=== PATIENT | male | born 1940 | race Caucasian/White ===

== ENCOUNTER 2017-10-03 11:42 | Inpatient (IN) | payer OTHER ==
[~2017-10-03] VITALS: Ht 182.9 cm; Wt 84.5 kg
[~2017-10-03 11:42] MED LIST: ASPITAB PO; FINA5TAB PO; LAMO100T16 PO; LEVO75TA5 PO; MULT-506 PO; ROSU5TAB PO; TAMS0.4C38 PO
[2017-10-03] MEDS ORDERED: ASPI81TA28 PO (12:13)
[2017-10-03] MEDS ORDERED: LEVO75TA5 PO (12:13)
[2017-10-03] MEDS ORDERED: LEVO50TA6 PO (12:20)
--- NOTE | 2017-10-03 12:20 | EMERGENCY ROOM VISIT NOTE ---
History Report prepared by Jd: Renetta Medina Under the Supervision of: Dr. Edwin Blackwell M.D. First contact with patient: 11:58 Chief Complaint: ABNORMAL LABS Stated Complaint: WBC/RBC OFF, INFECTION, YELLOW JAUNDICE History of Present Illness The patient is a 77 year old male who presents to the Emergency Room with complaints of a persistent illness that began several days ago. He currently rates his discomfort as a 7/10 in severity. Per the patient's , the patient recently started feeling ill. She states that the patient developed a rash over his entire body and was found to be allergic to the soap he used. The patient's states that the patient was started on oral steroids and an anti-itch cream. She states that the rash resolved for the most part and states that the patient finished the steroids. The patient's states that the patient has had blood work done that revealed a high white blood cell count and a low red blood cell count. She additionally notes that the patient has appeared jaundiced. The patient's states that the patient has been short of breath for several days. She states that the patient had a headache a few days ago. The patient's states that the patient has had chills, but denies any recorded temperatures. She denies the patient getting a flu shot. The patient reports a cough. The patient's states that she was sick with a cough two weeks ago. She states that the patient has a history of a cholecystectomy and was found to have a stone in his liver in the past. The patient reports a history of congestive heart failure. He denies any abdominal pain, urinary symptoms, melena, hematochezia, or pain or swelling in his lower extremities. The patient denies any recent fall or trauma. Source of History: patient, spouse/significant other Onset: several days ago Position: other (global) Symptom Intensity: 7/10 Quality: other (illness) Timing: other (persistent) Associated Symptoms: + chills, + headache, + SOB, + rash, No fevers, No abdominal pain, No melena, No hematochezia, No urinary symptoms Review of Systems See HPI for pertinent positives & negatives. A total of 10 systems reviewed and were otherwise negative. Past Medical & Surgical Medical Problems: (1) Congestive heart failure Surgical Problems: (1) Hx of cholecystectomy Old medical records were reviewed. Nurse's notes were reviewed and I agree with. Family History No pertinent family history stated. Social History Smoking Status: Never Smoker Marital Status: Housing Status: lives with family Occupation Status: retired Current/Historical Medications Scheduled Aspirin (Aspirin Ec), 81 MG PO DAILY Finasteride (Proscar), 5 MG PO DAILY Levothyroxine Sodium (Levothyroxine Sodium), 1 TAB PO Q2D Levothyroxine Sodium (Levothyroxine Sodium), 1 TAB PO Q2D Multivitamin (Multivitamin), 1 TAB PO DAILY Rosuvastatin Calcium (Crestor), 5 MG PO HS Tamsulosin Hcl (Flomax), 0.4 MG PO BID Allergies Coded Allergies: No Known Allergies (Unverified , 10/03/17) Physical Exam Vital Signs Date Time Temp Pulse Resp B/P (MAP) Pulse Ox O2 Delivery O2 Flow Rate FiO2 10/03/17 13:44 98 108/84 95 Room Air 10/03/17 11:48 36.5 105 20 115/63 96 Room Air Physical Exam General: Non-ill appearing older male in no acute distress. HEENT: Normal cephalic atraumatic. Pupils are equal round and reactive to light. Extraocular movements are intact. No icterus. Oropharynx is pink with moist mucous membranes. No swelling of the mouth lips or tongue. Neck: Supple with a midline trachea. No meningeal signs or stiffness, no JVD or bruits. No Stridor. Chest: Clear to auscultation bilaterally. No wheezes or rhonchi. No increased work of breathing. Occasional cough. Heart: regular rate and rhythm. Abdomen: Soft nontender, nondistended without rebound guarding or rigidity. Extremities: Chronic vascular changes in the legs, mores o on the right, swelling in the right leg that the patient notes is unchanged. No cyanosis clubbing. No calf tenderness or assymetry Spine/Back. Non tender to palpation. No CVA tenderness Skin: Good turgor without rashes. Neurologic exam: Cranial nerves two through 12 are intact. Motor and sensation are intact and symmetrical throughout. Medical Decision & Procedures ER Provider Diagnostic Interpretation: Radiology results as stated below per my review and radiologist interpretation: CHEST ONE VIEW PORTABLE CLINICAL HISTORY: CHEST PAIN dyspnea COMPARISON STUDY: 10/03/2017 FINDINGS: Moderate stable cardiomegaly. Tortuosity and ectasia thoracic aorta unchanged. Minimal parenchymal infiltrate left base. Chronic prominence pulmonary vasculature. IMPRESSION: Small parenchymal infiltrate left base. Moderate cardiomegaly. Pulmonary vascular congestion The above report was generated using voice recognition software. It may contain grammatical, syntax or spelling errors. Electronically signed by: Satnam De La Rosa M.D. 10/03/2017 12:59 PM Dictated Date/Time: 10/03/2017 12:58 PM ABD/PELVIS NO IV OR ORAL CONT CLINICAL HISTORY: 77 years-old Male presenting with eval for pancreatitis, jaundice, contrast allergy. TECHNIQUE: Multidetector CT of the abdomen and pelvis was performed without the use of intravenous contrast. IV contrast: None. A dose lowering technique was used consistent with the principles of ALARA (as low as reasonably achievable). COMPARISON: None. CT DOSE (mGy.cm): The estimated cumulative dose is 447.44 mGy.cm. FINDINGS: Wet Chemistry Analyst topogram: Cholecystectomy clips and additional scattered surgical clips noted in the right abdomen. Lung bases: Dependent changes, possibly atelectasis or scarring. Multichamber enlargement of the heart. No pericardial or pleural effusion. Liver: Normal morphology. Borderline hepatic steatosis by density. Biliary: No gross biliary ductal dilatation allowing for noncontrast technique. Gallbladder surgically absent. Pancreas: Minimal peripancreatic fascial thickening along the ventral aspect of the pancreatic tail. Trace peripancreatic fat stranding may be present along the dorsum of the tail (series 3 image 107). No acute peripancreatic fluid collection. Evaluation for necrosis is not possible due to the absence of intravenous contrast. Spleen: Normal noncontrast appearance. Adrenal glands: Normal noncontrast appearance. Kidneys and ureters: Nonobstructing 6 mm calculus at the upper pole the right kidney. 9 cm multilobular cyst at the lower pole of the left kidney with a thin mural calcification, incompletely evaluated but likely a minimally complex cyst. Adjacent cysts also noted more superiorly in the left kidney. No hydronephrosis. Ureters normal. Bladder: Distended bladder with a slightly irregular configuration, which could suggest a neurogenic bladder. Pelvic organs: Prostate enlargement likely secondary to benign prostatic hyperplasia. Bowel: Normal. No bowel obstruction. Peritoneal cavity: No free fluid or intraperitoneal gas. Lymph nodes: No gross lymphadenopathy allowing for noncontrast technique. Vasculature: Atherosclerosis of the normal caliber abdominal aorta. Abdominal wall: Normal. Musculoskeletal: Degenerative changes of the spine. Osteopenia. IMPRESSION: 1. Minimal findings of peripancreatic inflammatory change which could suggest interstitial edematous pancreatitis. No acute peripancreatic fluid collection. Evaluation for necrosis limited without intravenous contrast. 2. Nonobstructing right renal calculus. 3. Incompletely evaluated large left renal cystic lesion, likely a minimally complex cyst. 4. Bibasilar dependent atelectasis or scarring. 5. Osteopenia. Electronically signed by: Moshe Garcia M.D. 10/03/2017 2:29 PM Dictated Date/Time: 10/03/2017 2:21 PM Laboratory Results 10/03/17 12:45 Red Blood Count 4.31, Mean Corpuscular Volume 94.0, Mean Corpuscular Hemoglobin 32.0, Mean Corpuscular Hemoglobin Concent 34.1, Mean Platelet Volume 11.2, Neutrophils (%) (Auto) 65.0, Lymphocytes (%) (Auto) 25.5, Monocytes (%) (Auto) 5.8, Eosinophils (%) (Auto) 3.1, Basophils (%) (Auto) 0.2, Neutrophils # (Auto) 10.48, Lymphocytes # (Auto) 4.12, Monocytes # (Auto) 0.94, Eosinophils # (Auto) 0.50, Basophils # (Auto) 0.04 10/03/17 12:45 Test 10/03/17 12:45 10/03/17 12:47 10/03/17 12:51 10/03/17 13:05 White Blood Count 16.15 K/uL (4.8-10.8) Red Blood Count 4.31 M/uL (4.7-6.1) Hemoglobin 13.8 g/dL (14.0-18.0) Hematocrit 40.5 % (42-52) Mean Corpuscular Volume 94.0 fL (80-100) Mean Corpuscular Hemoglobin 32.0 pg (25-34) Mean Corpuscular Hemoglobin Concent 34.1 g/dl (32-36) Platelet Count 255 K/uL (130-400) Mean Platelet Volume 11.2 fL (7.4-10.4) Neutrophils (%) (Auto) 65.0 % Lymphocytes (%) (Auto) 25.5 % Monocytes (%) (Auto) 5.8 % Eosinophils (%) (Auto) 3.1 % Basophils (%) (Auto) 0.2 % Neutrophils # (Auto) 10.48 K/uL (1.4-6.5) Lymphocytes # (Auto) 4.12 K/uL (1.2-3.4) Monocytes # (Auto) 0.94 K/uL (0.11-0.59) Eosinophils # (Auto) 0.50 K/uL (0-0.5) Basophils # (Auto) 0.04 K/uL (0-0.2) RDW Standard Deviation 47.2 fL (36.4-46.3) RDW Coefficient of Variation 13.7 % (11.5-14.5) Immature Granulocyte % (Auto) 0.4 % Immature Granulocyte # (Auto) 0.07 K/uL (0.00-0.02) Anion Gap 8.0 mmol/L (3-11) Est Creatinine Clear Calc Drug Dose 50.8 ml/min Estimated GFR () 57.6 Estimated GFR (Non- 49.7 BUN/Creatinine Ratio 14.9 (10-20) Calcium Level 8.8 mg/dl (8.5-10.1) Total Bilirubin 1.6 mg/dl (0.2-1) Direct Bilirubin 0.8 mg/dl (0-0.2) Aspartate Amino Transf (AST/SGOT) 47 U/L (15-37) Alanine Aminotransferase (ALT/SGPT) 91 U/L (12-78) Alkaline Phosphatase 308 U/L (45-117) Pro-B-Type Natriuretic Peptide 81235 pg/ml (0-900) Total Protein 7.3 gm/dl (6.4-8.2) Albumin 3.0 gm/dl (3.4-5.0) Lipase 4059 U/L (73-393) Thyroid Stimulating Hormone (TSH) 3.340 uIu/ml (0.300-4.500) Bedside Lactic Acid Venous 1.39 mmol/L (0.90-1.70) Bedside Troponin I 0.030 ng/ml (0-0.045) Urine Color DK YELLOW Urine Appearance CLEAR (CLEAR) Urine pH 5.0 (4.5-7.5) Urine Specific [place] 1.018 (1.000-1.030) Urine Protein TRACE (NEG) Urine Glucose (UA) NEG (NEG) Urine Ketones NEG (NEG) Urine Occult Blood NEG (NEG) Urine Nitrite NEG (NEG) Urine Bilirubin NEG (NEG) Urine Urobilinogen NEG (NEG) Urine Leukocyte Esterase SMALL (NEG) Urine WBC (Auto) 1-5 /hpf (0-5) Urine RBC (Auto) 0-4 /hpf (0-4) Urine Hyaline Casts (Auto) 1-5 /lpf (0-5) Urine Epithelial Cells (Auto) 0-5 /lpf (0-5) Urine Bacteria (Auto) NEG (NEG) Test 10/03/17 13:20 Influenza Type A Antigen Neg for Influ A (NEG) Influenza Type B Antigen Neg for Influ B (NEG) Laboratory studies as stated above per my review. Medications Administered Medications (Trade) Dose Ordered Sig/Marley Route Start Time Stop Time Status Last Admin Dose Admin Piperacillin Sod/ Tazobactam Sod (Zosyn Iv) 4.5 gm NOW STAT IV 10/03/17 14:10 10/03/17 14:11 DC 10/03/17 14:10 4.5 GM ECG Indication: SOB/dyspnea Rate (beats per minute): 96 Rhythm: atrial fibrillation Findings: left axis deviation, other (poor baseline, no acute ST segment elevation) Comparison ECG Date: no prior available ED Course 1202: Past medical records reviewed. The patient was evaluated in room C9, and a complete history and physical examination were performed. 1405: I reevaluated the patient and he is resting. I discussed the exam findings with him and I discussed the treatment plan. He verbalized complete understanding and agreement. He will be evaluated for further treatment. 1410: Ordered Zosyn IV 4.5 gm IV. 1428: I discussed the patient's case with Shante Winter. He is going to evaluate the patient for further treatment. Medical Decision Differentials include, but are not limited to; Infection, anemia, sepsis, liver disease, electrolyte or metabolic abnormality, CHF, influenza This patient comes in as described above. He was placed in room C9. He was sent in by his doctor. He has had some cough as well as other complaints. He has no abdominal pain. His primary doctor sent him here for treatment and evaluation. He does have elevated white count although apparently just finished prednisone for rash which has improved. Chest x-ray shows infiltrate in left base. His hemoglobin normal. He has no significant electrolyte or metabolic abnormalities. His bilirubin is mildly elevated here his gallbladder from previously removed. She apparently has had residual gallstones which have been removed from the duct in the past. His lipase is elevated and I'm concerned he could've pancreatitis also has atrial fibrillation on unsure the chronicity. He has had no chest pain. I do think the patient needs to be admitted for further treatment and evaluation he appears of pneumonia and pancreatitis and rate controlled A. fib. He was given Zosyn 4.5 g IV and also did a CAT scan of his abdomen. The Shante Red has been out consulted. Medication Reconcilliation Current Medication List: was personally reviewed by me Blood Pressure Screening Patient's blood pressure: Normal blood pressure Blood pressure disposition: Did not require urgent referral Consults Time Called: 1410 Consulting Physician: Shante Winter Returned Call: [phone] I discussed the patient's case with Shante Winter. He is going to evaluate the patient for further treatment. Impression Primary Impression: Pancreatitis Additional Impressions: Pneumonia CHF (congestive heart failure) Scribe Attestation The scribe's documentation has been prepared under my direction and personally reviewed by me in its entirety. I confirm that the note above accurately reflects all work, treatment, procedures, and medical decision making performed by me. Departure Information Dispostion Being Evaluated By Hospitalist Referrals Yamil Ng D.O. (PCP) Problem Qualifiers
--- NOTE | 2017-10-03 13:00 | DIAGNOSTIC IMAGING REPORT ---
CHEST ONE VIEW PORTABLE CLINICAL HISTORY: CHEST PAIN dyspnea COMPARISON STUDY: 10/03/2017 FINDINGS: Moderate stable cardiomegaly. Tortuosity and ectasia thoracic aorta unchanged. Minimal parenchymal infiltrate left base. Chronic prominence pulmonary vasculature. IMPRESSION: Small parenchymal infiltrate left base. Moderate cardiomegaly. Pulmonary vascular congestion The above report was generated using voice recognition software. It may contain grammatical, syntax or spelling errors. Electronically signed by: Satnam De La Rosa M.D. 10/03/2017 12:59 PM Dictated Date/Time: 10/03/2017 12:58 PM
[2017-10-03 13:07] LABS: BASO % 0.2 %; BASO ABS # 0.04 K/uL (0-0.2); COMPLETE YES; EOS % 3.1 %; HEMATOCRIT 40.5 % (42-52); IG% 0.4 %; LYMPH % 25.5 %; LYMPH ABS # 4.12 K/uL (1.2-3.4); MEAN CORPUSCULAR HGB CONC 34.1 g/dl (32-36); MEAN PLATELET VOLUME 11.2 fL (7.4-10.4); MONO % 5.8 %; PLATELET COUNT 255 K/uL (130-400); RED BLOOD COUNT 4.31 M/uL (4.7-6.1); WHITE BLOOD COUNT 16.15 K/uL (4.8-10.8)
[2017-10-03 13:34] LABS: URINE APPEARANCE CLEAR (CLEAR); URINE COLOR DK YELLOW; URINE EPITHELIAL CELL AUTO 0-5 /lpf (0-5); URINE NITRITE NEG (NEG); URINE SPECIFIC GRAVITY 1.018 (1.000-1.030); UROBILINOGEN NEG (NEG)
[2017-10-03 13:35] LABS: BUN/CREATININE RATIO 14.9 (10-20); CALCIUM 8.8 mg/dl (8.5-10.1); CREATININE 1.38 mg/dl (0.60-1.40); POTASSIUM 3.7 mmol/L (3.5-5.1)
[2017-10-03 13:46] LABS: MANUAL MICROSCOPIC REQUIRED? NO; REVIEW REQ? NO; URINE BILIRUBIN NEG (NEG)
[2017-10-03] MEDS ORDERED: PIPERACILLIN/TAZOBACTAM 4.5 GM/100ML D5W IV STA (14:10)
[2017-10-03] MEDS ORDERED: OPTIRAY 320 IV PRN (14:15)
--- NOTE | 2017-10-03 14:30 | DIAGNOSTIC IMAGING REPORT ---
ABD/PELVIS NO IV OR ORAL CONT CLINICAL HISTORY: 77 years-old Male presenting with eval for pancreatitis, jaundice, contrast allergy. TECHNIQUE: Multidetector CT of the abdomen and pelvis was performed without the use of intravenous contrast. IV contrast: None. A dose lowering technique was used consistent with the principles of ALARA (as low as reasonably achievable). COMPARISON: None. CT DOSE (mGy.cm): The estimated cumulative dose is 447.44 mGy.cm. FINDINGS: Administrative Assistant Office Manager topogram: Cholecystectomy clips and additional scattered surgical clips noted in the right abdomen. Lung bases: Dependent changes, possibly atelectasis or scarring. Multichamber enlargement of the heart. No pericardial or pleural effusion. Liver: Normal morphology. Borderline hepatic steatosis by density. Biliary: No gross biliary ductal dilatation allowing for noncontrast technique. Gallbladder surgically absent. Pancreas: Minimal peripancreatic fascial thickening along the ventral aspect of the pancreatic tail. Trace peripancreatic fat stranding may be present along the dorsum of the tail (series 3 image 107). No acute peripancreatic fluid collection. Evaluation for necrosis is not possible due to the absence of intravenous contrast. Spleen: Normal noncontrast appearance. Adrenal glands: Normal noncontrast appearance. Kidneys and ureters: Nonobstructing 6 mm calculus at the upper pole the right kidney. 9 cm multilobular cyst at the lower pole of the left kidney with a thin mural calcification, incompletely evaluated but likely a minimally complex cyst. Adjacent cysts also noted more superiorly in the left kidney. No hydronephrosis. Ureters normal. Bladder: Distended bladder with a slightly irregular configuration, which could suggest a neurogenic bladder. Pelvic organs: Prostate enlargement likely secondary to benign prostatic hyperplasia. Bowel: Normal. No bowel obstruction. Peritoneal cavity: No free fluid or intraperitoneal gas. Lymph nodes: No gross lymphadenopathy allowing for noncontrast technique. Vasculature: Atherosclerosis of the normal caliber abdominal aorta. Abdominal wall: Normal. Musculoskeletal: Degenerative changes of the spine. Osteopenia. IMPRESSION: 1. Minimal findings of peripancreatic inflammatory change which could suggest interstitial edematous pancreatitis. No acute peripancreatic fluid collection. Evaluation for necrosis limited without intravenous contrast. 2. Nonobstructing right renal calculus. 3. Incompletely evaluated large left renal cystic lesion, likely a minimally complex cyst. 4. Bibasilar dependent atelectasis or scarring. 5. Osteopenia. Electronically signed by: Moshe Garcia M.D. 10/03/2017 2:29 PM Dictated Date/Time: 10/03/2017 2:21 PM
[2017-10-03] MEDS ORDERED: SODIUM CHLORIDE 0.9% 1000ML 1,000 ML IV SCH (15:16)
[2017-10-03] MEDS ORDERED: ACETAMINOPHEN 325 MG TAB PO PRN (15:30)
[2017-10-03] MEDS ORDERED: ONDANSETRON INJ 2 MG/ML 2 ML VIAL IV PRN (15:30)
[2017-10-03] MEDS ORDERED: MAGNESIUM HYDROXIDE SUSP 30 ML UDC PO PRN (15:30)
[2017-10-03] MEDS ORDERED: ALUMINUM/MAGNESIUM/SIMETH (MAALOX MAX) 30 ML UDC PO PRN (15:30)
[2017-10-03 15:42] LABS: INR 1.1 (0.9-1.1); PARTIAL THROMBOPLASTIN RATIO 1.1; PROTHROMBIN TIME (PATIENT) 11.5 SECONDS (9.0-12.0)
[2017-10-03 17:13] VITALS: BP 154/76; PULSE 97; TEMP 36.8; O2SAT 96
[2017-10-03] MEDS ORDERED: SODIUM CHLORIDE 0.9% 1000ML 1,000 ML IV ONE (17:15)
--- NOTE | 2017-10-03 17:21 | Gastrointestinal Consultation ---
Gastrointestinal Consultation Date of Consultation: Oct 03, 2017 Attending Physician: Stephani Nicole Consulting Physician: Timothy Valdez Reason for Consultation: Acute pancreatitis History of Present Illness Patient is a 77 year old male who presented to ED w c/o 2 days worth of generalized malaise, chills, cough, n/v, mid abd pain. He reports having hard stools, last BM this AM. had similar symptoms for 2 weeks now. He had an allergic reaction to a laundry detergent and had rashes all over body a week ago , had been placed on steroids. noticed he's appeared to be a somewhat jaundiced. Today took him to [facility] [place] [facility] urgent care and had bloodwork done which showed elevated WBC, and low RBC, then referred to [facility] ED for further workup. Upon eval, VS stable, labs showed WBC 16, H/H 13/40, no coagulopathy, CMP showed unremarkable kidney function, electrolytes. LFTs mildly elevated: Tbili 1.6, AST 47, ALT 91, AP 308. Pro BNP 11K. Lipase 4000s. CXR showed small L base infiltrate, pulmonary vascular congestion, moderate cardiomegaly. Flu negative. CT abd/pelvis w/o contrast: 1. Minimal findings of peripancreatic inflammatory change which could suggest interstitial edematous pancreatitis. No acute peripancreatic fluid collection. Evaluation for necrosis limited without intravenous contrast. 2. Nonobstructing right renal calculus. 3. Incompletely evaluated large left renal cystic lesion, likely a minimally complex cyst. 4. Bibasilar dependent atelectasis or scarring. 5. Osteopenia. Past Medical/Surgical History Medical Problems: (1) CHF (congestive heart failure) Status: Acute (2) Pancreatitis Status: Acute (3) Pneumonia Status: Acute Past Medical History: CHF, hx of post traumatic seizure, hypothyroidism, Past Surgical History: Lap cholecystectomy Social History Smoking Status: Never Smoker Alcohol Use: none Drug Use: none Marital Status: Housing Status: lives with family Occupation Status: retired Allergies Coded Allergies: No Known Allergies (Unverified , 10/03/17) Current Medications Home Meds and Scripts Medications Dose Route/Sig Max Daily Dose Days Date Category Proscar (Finasteride) 5 Mg Tab 5 Mg PO DAILY 10/03/17 Reported Flomax (Tamsulosin Hcl) 0.4 Mg Cap 0.4 Mg PO BID 10/03/17 Reported Levothyroxine Sodium 50 Mcg Tab 1 Tab PO Q2D 10/03/17 Reported Levothyroxine Sodium 75 Mcg Tab 1 Tab PO Q2D 10/03/17 Reported Aspirin Ec (Aspirin) 81 Mg Tab 81 Mg PO DAILY 10/03/17 Reported Multivitamin (Multivitamins) Tab 1 Tab PO DAILY 04/09/14 Reported Crestor (Rosuvastatin Calcium) 5 Mg Tab 5 Mg PO HS 04/09/14 Reported Review of Systems Constitutional: + chills, + fatigue, No fever Respiratory: + cough, No shortness of breath Cardiac: No chest pain Abdomen: + pain, + nausea, + vomiting, + constipation Skin: + see HPI, + rash Physical Exam Date Time Temp Pulse Resp B/P (MAP) Pulse Ox O2 Delivery O2 Flow Rate FiO2 10/03/17 15:52 95 121/81 97 10/03/17 15:42 95 121/81 97 Room Air 10/03/17 13:44 98 108/84 95 Room Air 10/03/17 11:48 36.5 105 20 115/63 96 Room Air General Appearance: WD/WN, no apparent distress Eyes: normal inspection, PERRL, EOMI Neck: supple, no JVD, trachea midline Respiratory/Chest: normal breath sounds, no respiratory distress, no accessory muscle use Cardiovascular: regular rate, rhythm, no gallop, no murmur Abdomen: normal bowel sounds, non tender, soft Extremities: normal inspection, no pedal edema, no calf tenderness Neurologic/Psych: alert, normal mood/affect, oriented x 3 Skin: normal color, no jaundice, no rash Laboratory Results Last 24 Hours Test 10/03/17 12:45 10/03/17 12:47 10/03/17 12:51 10/03/17 13:05 White Blood Count 16.15 K/uL Red Blood Count 4.31 M/uL Hemoglobin 13.8 g/dL Hematocrit 40.5 % Mean Corpuscular Volume 94.0 fL Mean Corpuscular Hemoglobin 32.0 pg Mean Corpuscular Hemoglobin Concent 34.1 g/dl Platelet Count 255 K/uL Mean Platelet Volume 11.2 fL Neutrophils (%) (Auto) 65.0 % Lymphocytes (%) (Auto) 25.5 % Monocytes (%) (Auto) 5.8 % Eosinophils (%) (Auto) 3.1 % Basophils (%) (Auto) 0.2 % Neutrophils # (Auto) 10.48 K/uL Lymphocytes # (Auto) 4.12 K/uL Monocytes # (Auto) 0.94 K/uL Eosinophils # (Auto) 0.50 K/uL Basophils # (Auto) 0.04 K/uL RDW Standard Deviation 47.2 fL RDW Coefficient of Variation 13.7 % Immature Granulocyte % (Auto) 0.4 % Immature Granulocyte # (Auto) 0.07 K/uL Prothrombin Time 11.5 SECONDS Prothromb Time International Ratio 1.1 Activated Partial Thromboplast Time 28.9 SECONDS Partial Thromboplastin Ratio 1.1 Sodium Level 142 mmol/L Potassium Level 3.7 mmol/L Chloride Level 111 mmol/L Carbon Dioxide Level 23 mmol/L Anion Gap 8.0 mmol/L Blood Urea Nitrogen 21 mg/dl Creatinine 1.38 mg/dl Est Creatinine Clear Calc Drug Dose 50.8 ml/min Estimated GFR () 57.6 Estimated GFR (Non- 49.7 BUN/Creatinine Ratio 14.9 Random Glucose 140 mg/dl Calcium Level 8.8 mg/dl Total Bilirubin 1.6 mg/dl Direct Bilirubin 0.8 mg/dl Aspartate Amino Transf (AST/SGOT) 47 U/L Alanine Aminotransferase (ALT/SGPT) 91 U/L Alkaline Phosphatase 308 U/L Pro-B-Type Natriuretic Peptide 93050 pg/ml Total Protein 7.3 gm/dl Albumin 3.0 gm/dl Lipase 4059 U/L Thyroid Stimulating Hormone (TSH) 3.340 uIu/ml Bedside Lactic Acid Venous 1.39 mmol/L Bedside Troponin I 0.030 ng/ml Urine Color DK YELLOW Urine Appearance CLEAR Urine pH 5.0 Urine Specific [place] 1.018 Urine Protein TRACE Urine Glucose (UA) NEG Urine Ketones NEG Urine Occult Blood NEG Urine Nitrite NEG Urine Bilirubin NEG Urine Urobilinogen NEG Urine Leukocyte Esterase SMALL Urine WBC (Auto) 1-5 /hpf Urine RBC (Auto) 0-4 /hpf Urine Hyaline Casts (Auto) 1-5 /lpf Urine Epithelial Cells (Auto) 0-5 /lpf Urine Bacteria (Auto) NEG Test 10/03/17 13:20 Influenza Type A Antigen Neg for Influ A Influenza Type B Antigen Neg for Influ B Impression Patient is a 77 year old male w s/s of chills, malaise, cough, n/v, abd pain - workup showed possible pneumonia, CHF, elevated LFTs, Lipase w CT consistent for pancreatitis. Though his abd exam revealed soft abd, and non tender, BS present. He is s/p cholecystectomy. Denies risk factors of tobacco/ETOH/illicit drugs, recent new meds. Plan - Bolus 1L NS over 2hrs ; then maintain LR at 150ml/hr (slower rate given CHF). - CT was non contrasted, and unable to obtain MRCP to r/o choledocholithiasis given metal plate on skull. Will obtain RUQ u/s. - Sip of CL and ice chips ok - Symptomatic management otherwise. - Will continue to follow. I have seen, examined and agree with the plan as outlined by ELOISA Shah as above. -exam reveals soft abd -Continue conservative care -MRCP could likely be done givent his metal -Otherwise, would obtain contrasted CT Timothy Valdez M.D.
[2017-10-03] MEDS: ENOXAPARIN 40 MG/0.4 ML SYR SC SCH (18:47)
[2017-10-03] MEDS: LACTATED RINGER'S 1000ML 1,000 ML IV SCH (19:16)
[2017-10-03 19:48] VITALS: BP 154/76; PULSE 97; TEMP 36.8; O2SAT 96; Ht 182.9 cm; Wt 84.5 kg
[2017-10-03] MEDS: TAMSULOSIN HCL 0.4 MG CAP PO SCH (20:22)
--- NOTE | 2017-10-03 20:22 | History and Physical ---
History & Physical Date & Time of Service: Oct 03, 2017 at 17:42 Chief Complaint: Pancreatitis, Pneumonia Primary Care Physician: Yamil Ng D.O. History of Present Illness Source: patient, family, clinic records This is a 77 year old male with a PMH of hypothyroidism, depression, CHF, hx. of A. Fib, hx. of RLE DVT, hx. of post-traumatic seizure disorder - presents with a week history of cough, productive at times, shortness of breath, feeling nauseous, vomiting with muscle aches. As per family, he has been having "flu like symptoms" for the past few days and so they brought him in for evaluation. Upon presentation an X-ray was done showing L basilar infiltrate. Also noted to have lipase elevation and BNP elevation as well as LFT elevation. Abdominal CT was performed showing a pancreatitis, which seems acute. As per family, patient has had a cholecystectomy as well as gall stone pancreatitis in the past. Currently, productive cough is his main concern. Denies fevers/chills +weakness present and has been having ambulatory issues since being ill. Past Medical/Surgical History Medical Problems: (1) Congestive heart failure Status: Chronic Surgical Problems: (1) Hx of cholecystectomy Status: Resolved Social History Smoking Status: Never Smoker Drug Use: none Marital Status: Occupational Status: retired Allergies Coded Allergies: No Known Allergies (Unverified , 10/03/17) Home Medications Scheduled Aspirin (Aspirin Ec), 81 MG PO DAILY Finasteride (Proscar), 5 MG PO DAILY Levothyroxine Sodium (Levothyroxine Sodium), 1 TAB PO Q2D Levothyroxine Sodium (Levothyroxine Sodium), 1 TAB PO Q2D Multivitamin (Multivitamin), 1 TAB PO DAILY Rosuvastatin Calcium (Crestor), 5 MG PO HS Tamsulosin Hcl (Flomax), 0.4 MG PO BID Review of Systems Constitutional: + fever, + chills, + weakness, No sweats, No weight loss, No fatigue Eyes: No worsening of vision ENT: No hearing loss, No unusual epistaxis Respiratory: + cough, + sputum, + shortness of breath, No dyspnea on exertion, No dyspnea at rest, No hemoptysis Cardiovascular: No chest pain, No edema, No palpitations Abdomen: + nausea, + vomiting, No pain, No diarrhea, No constipation, No GI bleeding Musculoskeletal: + muscle pain Genitourinary - Male: No hematuria, No dysuria, No urinary frequency, No urinary urgency Neurologic: + weakness, No memory loss, No paralysis, No numbness/tingling, No vertigo Hematologic / Lymphatic: No abnormal bleeding/bruising Integumentary: No rash Allergic / Immunologic: No environmental allergies, No seasonal allergies Physical Exam Vital Signs Date Time Temp Pulse Resp B/P (MAP) Pulse Ox O2 Delivery O2 Flow Rate FiO2 10/03/17 17:13 36.8 97 17 154/76 (102) 96 10/03/17 15:52 95 121/81 97 10/03/17 15:42 95 121/81 97 Room Air 10/03/17 13:44 98 108/84 95 Room Air 10/03/17 11:48 36.5 105 20 115/63 96 Room Air General Appearance: + pertinent finding (ill-appearing) Head: normocephalic, atraumatic Eyes: normal inspection ENT: hearing grossly normal Respiratory/Chest: no respiratory distress, no accessory muscle use, + pertinent finding (sonorous rhonchi, diffusely) Cardiovascular: no edema, no gallop, no JVD, no murmur, + irregularly irregular Abdomen/GI: normal bowel sounds, non tender, soft Back: no muscle spasm Extremities/Musculoskelatal: no calf tenderness, normal capillary refill, no pedal edema Neurologic/Psych: provider service representative II-XII nml as tested, no motor/sensory deficits, alert, normal mood/affect, oriented x 3 Skin: normal color Lymphatic: no adenopathy Diagnostics Laboratory Results Results Past 24 Hours Test 10/03/17 12:45 10/03/17 12:47 10/03/17 12:51 10/03/17 13:05 Range/Units White Blood Count 16.15 4.8-10.8 K/uL Red Blood Count 4.31 4.7-6.1 M/uL Hemoglobin 13.8 14.0-18.0 g/dL Hematocrit 40.5 42-52 % Mean Corpuscular Volume 94.0 80-100 fL Mean Corpuscular Hemoglobin 32.0 25-34 pg Mean Corpuscular Hemoglobin Concent 34.1 32-36 g/dl Platelet Count 255 130-400 K/uL Mean Platelet Volume 11.2 7.4-10.4 fL Neutrophils (%) (Auto) 65.0 % Lymphocytes (%) (Auto) 25.5 % Monocytes (%) (Auto) 5.8 % Eosinophils (%) (Auto) 3.1 % Basophils (%) (Auto) 0.2 % Neutrophils # (Auto) 10.48 1.4-6.5 K/uL Lymphocytes # (Auto) 4.12 1.2-3.4 K/uL Monocytes # (Auto) 0.94 0.11-0.59 K/uL Eosinophils # (Auto) 0.50 0-0.5 K/uL Basophils # (Auto) 0.04 0-0.2 K/uL RDW Standard Deviation 47.2 36.4-46.3 fL RDW Coefficient of Variation 13.7 11.5-14.5 % Immature Granulocyte % (Auto) 0.4 % Immature Granulocyte # (Auto) 0.07 0.00-0.02 K/uL Prothrombin Time 11.5 9.0-12.0 SECONDS Prothromb Time International Ratio 1.1 0.9-1.1 Activated Partial Thromboplast Time 28.9 21.0-31.0 SECONDS Partial Thromboplastin Ratio 1.1 Sodium Level 142 136-145 mmol/L Potassium Level 3.7 3.5-5.1 mmol/L Chloride Level 111 98-107 mmol/L Carbon Dioxide Level 23 21-32 mmol/L Anion Gap 8.0 3-11 mmol/L Blood Urea Nitrogen 21 7-18 mg/dl Creatinine 1.38 0.60-1.40 mg/dl Est Creatinine Clear Calc Drug Dose 50.8 ml/min Estimated GFR () 57.6 Estimated GFR (Non- 49.7 BUN/Creatinine Ratio 14.9 10-20 Random Glucose 140 70-99 mg/dl Calcium Level 8.8 8.5-10.1 mg/dl Total Bilirubin 1.6 0.2-1 mg/dl Direct Bilirubin 0.8 0-0.2 mg/dl Aspartate Amino Transf (AST/SGOT) 47 15-37 U/L Alanine Aminotransferase (ALT/SGPT) 91 12-78 U/L Alkaline Phosphatase 308 45-117 U/L Pro-B-Type Natriuretic Peptide 37067 0-900 pg/ml Total Protein 7.3 6.4-8.2 gm/dl Albumin 3.0 3.4-5.0 gm/dl Lipase 4059 73-393 U/L Thyroid Stimulating Hormone (TSH) 3.340 0.300-4.500 uIu/ml Bedside Lactic Acid Venous 1.39 0.90-1.70 mmol/L Bedside Troponin I 0.030 0-0.045 ng/ml Urine Color DK YELLOW Urine Appearance CLEAR CLEAR Urine pH 5.0 4.5-7.5 Urine Specific [place] 1.018 1.000-1.030 Urine Protein TRACE NEG Urine Glucose (UA) NEG NEG Urine Ketones NEG NEG Urine Occult Blood NEG NEG Urine Nitrite NEG NEG Urine Bilirubin NEG NEG Urine Urobilinogen NEG NEG Urine Leukocyte Esterase SMALL NEG Urine WBC (Auto) 1-5 0-5 /hpf Urine RBC (Auto) 0-4 0-4 /hpf Urine Hyaline Casts (Auto) 1-5 0-5 /lpf Urine Epithelial Cells (Auto) 0-5 0-5 /lpf Urine Bacteria (Auto) NEG NEG Test 10/03/17 13:20 Range/Units Influenza Type A Antigen Neg for Influ A NEG Influenza Type B Antigen Neg for Influ B NEG Microbiology Results 10/03/17 Blood Culture, Received Pending 10/03/17 Blood Culture, Received Pending 10/03/17 Urine Culture, Received Pending Diagnostic Radiology ABD/PELVIS NO IV OR ORAL CONT CLINICAL HISTORY: 77 years-old Male presenting with eval for pancreatitis, jaundice, contrast allergy. TECHNIQUE: Multidetector CT of the abdomen and pelvis was performed without the use of intravenous contrast. IV contrast: None. A dose lowering technique was used consistent with the principles of ALARA (as low as reasonably achievable). COMPARISON: None. CT DOSE (mGy.cm): The estimated cumulative dose is 447.44 mGy.cm. FINDINGS: Major Gifts Manager topogram: Cholecystectomy clips and additional scattered surgical clips noted in the right abdomen. Lung bases: Dependent changes, possibly atelectasis or scarring. Multichamber enlargement of the heart. No pericardial or pleural effusion. Liver: Normal morphology. Borderline hepatic steatosis by density. Biliary: No gross biliary ductal dilatation allowing for noncontrast technique. Gallbladder surgically absent. Pancreas: Minimal peripancreatic fascial thickening along the ventral aspect of the pancreatic tail. Trace peripancreatic fat stranding may be present along the dorsum of the tail (series 3 image 107). No acute peripancreatic fluid collection. Evaluation for necrosis is not possible due to the absence of intravenous contrast. Spleen: Normal noncontrast appearance. Adrenal glands: Normal noncontrast appearance. Kidneys and ureters: Nonobstructing 6 mm calculus at the upper pole the right kidney. 9 cm multilobular cyst at the lower pole of the left kidney with a thin mural calcification, incompletely evaluated but likely a minimally complex cyst. Adjacent cysts also noted more superiorly in the left kidney. No hydronephrosis. Ureters normal. Bladder: Distended bladder with a slightly irregular configuration, which could suggest a neurogenic bladder. Pelvic organs: Prostate enlargement likely secondary to benign prostatic hyperplasia. Bowel: Normal. No bowel obstruction. Peritoneal cavity: No free fluid or intraperitoneal gas. Lymph nodes: No gross lymphadenopathy allowing for noncontrast technique. Vasculature: Atherosclerosis of the normal caliber abdominal aorta. Abdominal wall: Normal. Musculoskeletal: Degenerative changes of the spine. Osteopenia. IMPRESSION: 1. Minimal findings of peripancreatic inflammatory change which could suggest interstitial edematous pancreatitis. No acute peripancreatic fluid collection. Evaluation for necrosis limited without intravenous contrast. 2. Nonobstructing right renal calculus. 3. Incompletely evaluated large left renal cystic lesion, likely a minimally complex cyst. 4. Bibasilar dependent atelectasis or scarring. 5. Osteopenia. CHEST ONE VIEW PORTABLE CLINICAL HISTORY: CHEST PAIN dyspnea COMPARISON STUDY: 10/03/2017 FINDINGS: Moderate stable cardiomegaly. Tortuosity and ectasia thoracic aorta unchanged. Minimal parenchymal infiltrate left base. Chronic prominence pulmonary vasculature. IMPRESSION: Small parenchymal infiltrate left base. Moderate cardiomegaly. Pulmonary vascular congestion EKG Atrial fibrillation Left axis deviation Possible Inferior infarct , age undetermined Impression Assessment and Plan This is a 77 year old male with a PMH of hypothyroidism, depression, CHF, hx. of A. Fib, hx. of RLE DVT, hx. of post-traumatic seizure disorder presents with pneumonia and acute pancreatitis Community Acquired Pneumonia CXR suggests L basilar infiltrate WBC elevated on admission mildly hypoxic on admission, improved with oxygen via nasal cannula started on Cefepime can likely transition to orals in 1-2 days Acute Pancreatitis elevation in LFTs and lipase level Abdominal CT suggests pancreatitis will start clears for now IVFs - appreciate GI input, started on LR @ 150mL/hr monitor for overload CHF unknown if systolic or diastolic, though patient states he's had overload issues in the past monitor for overload, check an echo Paroxysmal A. Fib currently in A. Fib - rate controlled no longer on anticoagulation - stopped by PCP because he was not taking Coumadin correctly Hx. of DVT was once on Lovenox, this was stopped after 3 months as per patient] Hx. of Post-traumatic Seizure stopped all seizure medications per neurology according to patient's DVT ppx Lovenox FULL CODE VTE Prophylaxis VTE Risk Assessment Done? Y/N: Yes Risk Level: High
--- NOTE | 2017-10-03 20:55 | DIAGNOSTIC IMAGING REPORT ---
ULTRASOUND RIGHT UPPER QUADRANT ABDOMEN CLINICAL HISTORY: Pancreatitis. COMPARISON STUDY: Abdominal CT dated 10/03/2017. TECHNIQUE: Real-time, grayscale, and color flow sonography of the right upper quadrant of the abdomen was performed. Images are reviewed in the transverse and longitudinal planes. FINDINGS: Liver: The liver is normal in size and echotexture. There is no intrahepatic biliary ductal dilatation. The main portal vein is patent. Gallbladder: The gallbladder is surgically absent. The common bile duct measures up to 0.5 cm in diameter. Pancreas: Visualized portions of the pancreatic head and body are normal in appearance. The splenic vein is patent. Right kidney: Survey images of the right kidney demonstrate normal size and echotexture. There is no hydronephrosis. Ascites: None. IMPRESSION: 1. No acute sonographic abnormality is identified in the right upper quadrant noting status post cholecystectomy. 2. There is no intra or extrahepatic biliary ductal dilatation. Electronically signed by: Sean Roy M.D. 10/03/2017 8:53 PM Dictated Date/Time: 10/03/2017 8:52 PM
[2017-10-03] MEDS ORDERED: INFLUENZA VACCINE HIGH DOSE 65+ 0.5 ML SYR IM. ONE (21:00)
[2017-10-03] MEDS ORDERED: INFLUENZA ADMINISTRATION CHARGE ONE (21:00)
[2017-10-03 21:16] VITALS: BP 137/73; PULSE 89; TEMP 36.8; O2SAT 97
[2017-10-03] MEDS: CEFEPIME IV 2,000 MG in SYRINGE 7.5 ML IV SCH (21:32)
[2017-10-03] MEDS ORDERED: CEFEPIME IV 2,000 MG in DEXTROSE 5% 100ML 100 ML IV SCH (22:00)
[2017-10-03 23:50] VITALS: BP 130/76; PULSE 88; TEMP 37.5; O2SAT 93
[2017-10-04] VITALS (11 sets, daily range): BP systolic 124–160; BP diastolic 67–83; PULSE 79–103; TEMP 36.7–37.5; O2SAT 92–96
[2017-10-04] MEDS: LACTATED RINGER'S 1000ML 1,000 ML IV SCH ×4 (02:41→16:50)
[2017-10-04] MEDS ORDERED: NURSING DECISION MEDICATION ORDER SCH (02:45)
[2017-10-04] MEDS ORDERED: COUGH DROP (SUGAR FREE) LOZ 24 LOZ/1 BOX PO PRN (03:00)
[2017-10-04] MEDS: CEFEPIME IV 2,000 MG in SYRINGE 7.5 ML IV SCH ×3 (05:54→22:40)
[2017-10-04] MEDS: LEVOTHYROXINE 75 MCG TAB PO SCH (05:54)
[2017-10-04 07:28] LABS: HEMATOCRIT 34.9 % (42-52); MEAN CELL VOLUME 94.3 fL (80-100); MEAN CORPUSCULAR HEMOGLOBIN 31.6 pg (25-34); MEAN CORPUSCULAR HGB CONC 33.5 g/dl (32-36); MEAN PLATELET VOLUME 10.9 fL (7.4-10.4); PLATELET COUNT 248 K/uL (130-400); WHITE BLOOD COUNT 12.63 K/uL (4.8-10.8)
[2017-10-04 08:07] LABS: BUN/CREATININE RATIO 16.9 (10-20); CALCIUM 8.5 mg/dl (8.5-10.1); CREATININE 1.05 mg/dl (0.60-1.40); MAGNESIUM 2.2 mg/dl (1.8-2.4); POTASSIUM 3.6 mmol/L (3.5-5.1)
[2017-10-04] MEDS: PANTOprazole SOD 40 MG TAB PO SCH (08:17)
[2017-10-04] MEDS: TAMSULOSIN HCL 0.4 MG CAP PO SCH ×2 (08:17→22:41)
[2017-10-04] MEDS: MULTIVITAMIN TAB PO SCH (08:17)
[2017-10-04] MEDS: ASPIRIN 81 MG ECTAB PO SCH (08:17)
[2017-10-04] MEDS: FINASTERIDE 5 MG TAB PO SCH (08:17)
--- NOTE | 2017-10-04 10:15 | ECHOCARDIOGRAM REPORT ---
*NOTICE TO RECEIVING LIBERTARIAN AGENCY This information is strictly Confidential and protected under [place] law. [place] law prohibits you from making any further disclosure of this information unless further disclosure is expressly permitted by the written consent of the person to whom it pertains or is authorized by law. A general authorization for the release of medical or other information is not sufficient for this purpose. Hospital accepts no responsibility if the information is made available to any other person, INCLUDING THE PATIENT. Interpretation Summary * Name: DONYA AWAD Study Date: 10/04/2017 08:12 AM BP: 135/79 mmHg * Patient Location: [facility]\S\N282\S\2 HR: 103 * : 1940 (M/d/yyyy) Gender: Male Height: 72 in * Age: 77 yrs Ethnicity: CA Weight: 183 lb * Ordering Physician: Stephani Nicole * Referring Physician: Self, Referred * Performed By: Renetta Luis RDCS * * Reason For Study: CHF * BSA: 2.1 m2 * -- Conclusions -- * Normal LV chamber size with mild concentric LVH, sigmoid appearing septum. * Normal LV systolic function, EF 55-60%. * No segmental left ventricular wall motion abnormalities are noted. * Presence of left atrial enlargement suggests diastolic dysfunction. * The aortic valve is not well visualized. * Mild to moderate aortic regurgitation. * There is an eccentric jet of aortic insufficiency directed against the anterior mitral leaflet. * No hemodynamically significant valvular aortic stenosis. * Moderate left atrial enlargement. Procedure Details * A contrast injection of Definity was performed to improve assessment of LV function. * Contrast was injected into an intravenous site in the left arm. * One vial of Definity ultrasound contrast was diluted in normal saline to a total volume of 10 ml. A total of '2' ml of solution was administered during imaging. * Lot # [id number] of Definity utilized for procedure. * Expiration date NOV 12. * The attending nurse who injected the contrast agent was MADELINE SAN. Left Ventricle * The left ventricle is normal in size. * There is mild concentric left ventricular hypertrophy. * The basal septum is thickened and angulated consistent with sigmoid septum. * Ejection Fraction = 55-60%. * Left ventricular systolic function is normal. * No segmental left ventricular wall motion abnormalities are noted. * The left ventricular wall motion is normal. Right Ventricle * The right ventricular cavity size is normal (basal dimension <4.2 cm in right ventricular apical 4-chamber view). * The right ventricular systolic function is normal as assessed by tricuspid annular plane systolic excursion (TAPSE) (normal >1.5 cm). Atria * The left atrium is moderately dilated. * Right atrial size is normal. * No ASD detected; PFO is not assessed. Mitral Valve * The mitral valve is normal in structure and function. Tricuspid Valve * The tricuspid valve is normal in structure and function. Aortic Valve * The aortic valve is not well visualized. * No hemodynamically significant valvular aortic stenosis. * Mild to moderate aortic regurgitation. * There is an eccentric jet of aortic insufficiency directed against the anterior mitral leaflet. Pulmonic Valve * The pulmonary valve is not well seen, but the Doppler examination is normal without significant regurgitation or stenosis. Great Vessels * The aortic root is normal size. Pericardium/Pleural * There is no pericardial effusion. Left Ventricular Diastolic Function * Presence of left atrial enlargement suggests diastolic dysfunction. MMode 2D Measurements and Calculations IVSd 1.4 cm IVSs 2.1 cm LVIDd 4.9 cm LVIDs 3.3 cm LVPWd 1.3 cm LVPWs 1.9 cm IVS/LVPW 1.1 FS 31.4 % EDV(Teich) 110.5 ml ESV(Teich) 45.1 ml EF(Teich) 59.2 % EDV(cubed) 114.5 ml ESV(cubed) 36.9 ml EF(cubed) 67.7 % % IVS thick 51.4 % % LVPW thick 46.0 % LV mass(C)d 268.2 grams LV mass(C)dI 130.7 grams/m\S\2 LV mass(C)s 305.5 grams LV mass(C)sI 148.9 grams/m\S\2 SV(Teich) 65.4 ml SI(Teich) 31.9 ml/m\S\2 SV(cubed) 77.6 ml SI(cubed) 37.8 ml/m\S\2 LVAd ap4 41.1 cm\S\2 LVLd ap4 9.5 cm EDV(MOD-sp4) 142.1 ml EDV(sp4-el) 151.8 ml LVAs ap4 27.0 cm\S\2 LVLs ap4 9.4 cm ESV(MOD-sp4) 68.5 ml ESV(sp4-el) 65.8 ml EF(MOD-sp4) 51.8 % EF(sp4-el) 56.6 % LVAd ap2 38.5 cm\S\2 LVLd ap2 9.8 cm EDV(MOD-sp2) 125.2 ml EDV(sp2-el) 128.8 ml LVAs ap2 22.6 cm\S\2 LVLs ap2 8.4 cm ESV(MOD-sp2) 54.0 ml ESV(sp2-el) 51.5 ml EF(MOD-sp2) 56.9 % EF(sp2-el) 60.0 % LVLd %diff 3.4 % EDV(MOD-bp) 133.8 ml LVLs %diff -11.71 % ESV(MOD-bp) 64.5 ml EF(MOD-bp) 51.8 % SV(MOD-sp4) 73.6 ml SI(MOD-sp4) 35.9 ml/m\S\2 SV(MOD-sp2) 71.2 ml SI(MOD-sp2) 34.7 ml/m\S\2 SV(MOD-bp) 69.3 ml SI(MOD-bp) 33.8 ml/m\S\2 SV(sp4-el) 86.0 ml SI(sp4-el) 41.9 ml/m\S\2 SV(sp2-el) 77.3 ml SI(sp2-el) 37.7 ml/m\S\2 Doppler Measurements and Calculations Ao V2 max 125.1 cm/sec Ao max PG 6.3 mmHg Ao max PG (full) 1.4 mmHg AI max freddie 366.9 cm/sec AI max PG 53.8 mmHg AI dec slope 148.8 cm/sec\S\2 AI P1/2t 722.2 msec LV V1 max PG 4.8 mmHg LV V1 max 110.1 cm/sec TR max freddie 265.7 cm/sec
--- NOTE | 2017-10-04 10:29 | Gastroenterology Progress Note ---
Progress Note Date of Service: Oct 04, 2017 Subjective Pt evaluation today including: conversation w/ patient, physical exam, chart review, lab review, review of inpatient medication list Pt tolerating CL diet, denies any N/V, abd pain. Moved bowels this AM, denies any diarrhea. Breathing a bit better. Review of Systems Constitutional: No fever, No chills Respiratory: + shortness of breath (improved), No cough Cardiac: No chest pain Abdomen: No pain, No nausea, No vomiting, No diarrhea Medications Current Inpatient Medications Medications (Trade) Dose Ordered Sig/Marley Route Start Time Stop Time Status Last Admin Dose Admin Enoxaparin Sodium (Lovenox Inj) 40 mg Q24H SC 10/03/17 18:00 11/02/17 17:59 10/03/17 18:47 40 MG Acetaminophen (Tylenol Tab) 650 mg Q4H PRN PO 10/03/17 15:30 11/02/17 15:29 Al Hydrox/Mg Hydrox/Simethicone (Maalox Max Susp) 15 ml Q4H PRN PO 10/03/17 15:30 11/02/17 15:29 Magnesium Hydroxide (Milk Of Magnesia Susp) 30 ml Q12H PRN PO 10/03/17 15:30 11/02/17 15:29 Ondansetron HCl (Zofran Inj) 4 mg Q6H PRN IV 10/03/17 15:30 11/02/17 15:29 Aspirin (Ecotrin Tab) 81 mg DAILY PO 10/04/17 09:00 11/03/17 08:59 10/04/17 08:17 81 MG Finasteride (Proscar Tab) 5 mg DAILY PO 10/04/17 09:00 11/03/17 08:59 10/04/17 08:17 5 MG Levothyroxine Sodium (Synthroid Tab) 50 mcg Q48H PO 10/05/17 06:30 11/04/17 06:29 Levothyroxine Sodium (Synthroid Tab) 75 mcg Q48H PO 10/04/17 06:30 11/03/17 06:29 10/04/17 05:54 75 MCG Multivitamins (Multivitamin Tab) 1 tab DAILY PO 10/04/17 09:00 11/03/17 08:59 10/04/17 08:17 1 TAB Tamsulosin HCl (Flomax Cap) 0.4 mg BID PO 10/03/17 21:00 11/02/17 20:59 10/04/17 08:17 0.4 MG Pantoprazole Sodium (Protonix Tab) 40 mg QAM PO 10/04/17 09:00 11/03/17 08:59 10/04/17 08:17 40 MG Lactated Ringer's 1,000 ml @ 150 mls/hr Q6H40M IV 10/03/17 16:45 11/02/17 16:44 Future hold 10/04/17 10:16 150 MLS/HR Cefepime HCl 2000 mg/Syringe 20 ml @ 5 mls/min Q8H IV 10/03/17 22:00 10/10/17 21:59 10/04/17 05:54 5 MLS/MIN Menthol (Nice Kristian) 1 kristian PRN PRN PO 10/04/17 03:00 11/03/17 02:59 Objective Vital Signs Date Time Temp Pulse Resp B/P (MAP) Pulse Ox O2 Delivery O2 Flow Rate FiO2 10/04/17 08:00 92 Room Air 10/04/17 07:51 36.8 103 18 135/79 (97) 95 Room Air 10/04/17 04:30 37.5 89 16 133/81 (98) 92 Room Air 10/04/17 04:00 Room Air 10/04/17 00:00 Room Air 10/03/17 23:50 37.5 88 16 130/76 (94) 93 Room Air 10/03/17 21:16 36.8 89 18 137/73 (94) 97 Room Air 10/03/17 19:48 36.8 97 16 154/76 96 Room Air 10/03/17 17:13 36.8 97 17 154/76 (102) 96 10/03/17 15:52 95 121/81 97 10/03/17 15:42 95 121/81 97 Room Air 10/03/17 13:44 98 108/84 95 Room Air 10/03/17 11:48 36.5 105 20 115/63 96 Room Air Physical Exam General Appearance: WD/WN, no apparent distress Eyes: normal inspection, PERRL, EOMI Neck: supple, no JVD, trachea midline Respiratory/Chest: no respiratory distress, no accessory muscle use, + crackles (on bases R > L ) Cardiovascular: regular rate, rhythm, no gallop, no murmur Abdomen: non tender, soft, + abnormal bowel sounds (hypoactive) Extremities: normal inspection, no pedal edema, no calf tenderness Neurologic/Psych: alert, normal mood/affect, oriented x 3 Skin: normal color, no jaundice, no rash Laboratory Results Last 24 Hours Test 10/03/17 12:45 10/03/17 12:47 10/03/17 12:51 10/03/17 13:05 White Blood Count 16.15 K/uL Red Blood Count 4.31 M/uL Hemoglobin 13.8 g/dL Hematocrit 40.5 % Mean Corpuscular Volume 94.0 fL Mean Corpuscular Hemoglobin 32.0 pg Mean Corpuscular Hemoglobin Concent 34.1 g/dl Platelet Count 255 K/uL Mean Platelet Volume 11.2 fL Neutrophils (%) (Auto) 65.0 % Lymphocytes (%) (Auto) 25.5 % Monocytes (%) (Auto) 5.8 % Eosinophils (%) (Auto) 3.1 % Basophils (%) (Auto) 0.2 % Neutrophils # (Auto) 10.48 K/uL Lymphocytes # (Auto) 4.12 K/uL Monocytes # (Auto) 0.94 K/uL Eosinophils # (Auto) 0.50 K/uL Basophils # (Auto) 0.04 K/uL RDW Standard Deviation 47.2 fL RDW Coefficient of Variation 13.7 % Immature Granulocyte % (Auto) 0.4 % Immature Granulocyte # (Auto) 0.07 K/uL Prothrombin Time 11.5 SECONDS Prothromb Time International Ratio 1.1 Activated Partial Thromboplast Time 28.9 SECONDS Partial Thromboplastin Ratio 1.1 Sodium Level 142 mmol/L Potassium Level 3.7 mmol/L Chloride Level 111 mmol/L Carbon Dioxide Level 23 mmol/L Anion Gap 8.0 mmol/L Blood Urea Nitrogen 21 mg/dl Creatinine 1.38 mg/dl Est Creatinine Clear Calc Drug Dose 50.8 ml/min Estimated GFR () 57.6 Estimated GFR (Non- 49.7 BUN/Creatinine Ratio 14.9 Random Glucose 140 mg/dl Calcium Level 8.8 mg/dl Total Bilirubin 1.6 mg/dl Direct Bilirubin 0.8 mg/dl Aspartate Amino Transf (AST/SGOT) 47 U/L Alanine Aminotransferase (ALT/SGPT) 91 U/L Alkaline Phosphatase 308 U/L Pro-B-Type Natriuretic Peptide 04410 pg/ml Total Protein 7.3 gm/dl Albumin 3.0 gm/dl Lipase 4059 U/L Thyroid Stimulating Hormone (TSH) 3.340 uIu/ml Bedside Lactic Acid Venous 1.39 mmol/L Bedside Troponin I 0.030 ng/ml Urine Color DK YELLOW Urine Appearance CLEAR Urine pH 5.0 Urine Specific [place] 1.018 Urine Protein TRACE Urine Glucose (UA) NEG Urine Ketones NEG Urine Occult Blood NEG Urine Nitrite NEG Urine Bilirubin NEG Urine Urobilinogen NEG Urine Leukocyte Esterase SMALL Urine WBC (Auto) 1-5 /hpf Urine RBC (Auto) 0-4 /hpf Urine Hyaline Casts (Auto) 1-5 /lpf Urine Epithelial Cells (Auto) 0-5 /lpf Urine Bacteria (Auto) NEG Test 10/03/17 13:20 10/04/17 07:02 10/04/17 08:51 Influenza Type A Antigen Neg for Influ A Influenza Type B Antigen Neg for Influ B White Blood Count 12.63 K/uL Red Blood Count 3.70 M/uL Hemoglobin 11.7 g/dL Hematocrit 34.9 % Mean Corpuscular Volume 94.3 fL Mean Corpuscular Hemoglobin 31.6 pg Mean Corpuscular Hemoglobin Concent 33.5 g/dl RDW Standard Deviation 47.6 fL RDW Coefficient of Variation 13.7 % Platelet Count 248 K/uL Mean Platelet Volume 10.9 fL Sodium Level 145 mmol/L Potassium Level 3.6 mmol/L Chloride Level 114 mmol/L Carbon Dioxide Level 23 mmol/L Anion Gap 8.0 mmol/L Blood Urea Nitrogen 18 mg/dl Creatinine 1.05 mg/dl Est Creatinine Clear Calc Drug Dose 66.7 ml/min Estimated GFR () 80.1 Estimated GFR (Non- 69.1 BUN/Creatinine Ratio 16.9 Random Glucose 104 mg/dl Calcium Level 8.5 mg/dl Magnesium Level 2.2 mg/dl Lipase 2508 U/L Total Bilirubin 1.1 mg/dl Direct Bilirubin 0.6 mg/dl Aspartate Amino Transf (AST/SGOT) 35 U/L Alanine Aminotransferase (ALT/SGPT) 65 U/L Alkaline Phosphatase 250 U/L Total Protein 5.9 gm/dl Albumin 2.4 gm/dl Assessment and Plan Patient is a 77 year old male w s/s of chills, malaise, cough, n/v, abd pain - workup showed possible pneumonia, CHF, elevated LFTs, Lipase w CT consistent for pancreatitis. Though his abd exam revealed soft abd, and non tender, BS present. He is s/p cholecystectomy. Denies risk factors of tobacco/ETOH/illicit drugs, recent new meds. LFTs and Lipase are improving. RUQ u/s yesterday showed no signs of biliary ductal dilation. He is s/p cholecystectomy. He is not having any issues w abd pain, n/v. Plan - LR at 150ml/hr (slower rate given CHF). - CT was non contrasted, and unable to obtain MRCP to r/o choledocholithiasis given metal plate on skull. Will obtain RUQ u/s. -> no biliary ductal dilation. - CL diet; advance slowly as tolerated. - Symptomatic management otherwise. I have seen, examined and agree with the plan as outlined by ELOISA Shah as above. -exam reveals soft abd
--- NOTE | 2017-10-04 16:22 | Progress Note ---
Medicine Progress Note Date & Time of Visit: Oct 04, 2017 at 16:22 . Subjective No fever. Occasional nonproductive cough. No SOB. No chest pain. Less abdominal pain. No nausea or vomiting. No diarrhea. No urinary symptoms. . Objective Last 8 Hrs Date Time Temp Pulse Resp B/P (MAP) Pulse Ox O2 Delivery O2 Flow Rate FiO2 10/04/17 15:11 36.8 88 18 133/83 (100) 96 10/04/17 13:49 79 95 10/04/17 12:00 92 Room Air 10/04/17 11:23 36.7 92 18 124/76 (92) 95 Room Air Physical Exam: General- lying in bed, no distress Eyes- anicteric Neck- no JVD Lungs- few basilar rales Heart- RRR Abdomen- quiet bowel sounds, slightly distended, mild epigastric tenderness without rebound or guarding Extremities- trace edema; venous stasis dermatitis lower legs / ankles; shallow ulcer right medial ankle without erythema or drainage Neuro- alert . Laboratory Results: Last 24 Hours Test 10/04/17 07:02 10/04/17 08:51 White Blood Count 12.63 K/uL Red Blood Count 3.70 M/uL Hemoglobin 11.7 g/dL Hematocrit 34.9 % Mean Corpuscular Volume 94.3 fL Mean Corpuscular Hemoglobin 31.6 pg Mean Corpuscular Hemoglobin Concent 33.5 g/dl RDW Standard Deviation 47.6 fL RDW Coefficient of Variation 13.7 % Platelet Count 248 K/uL Mean Platelet Volume 10.9 fL Sodium Level 145 mmol/L Potassium Level 3.6 mmol/L Chloride Level 114 mmol/L Carbon Dioxide Level 23 mmol/L Anion Gap 8.0 mmol/L Blood Urea Nitrogen 18 mg/dl Creatinine 1.05 mg/dl Est Creatinine Clear Calc Drug Dose 66.7 ml/min Estimated GFR () 80.1 Estimated GFR (Non- 69.1 BUN/Creatinine Ratio 16.9 Random Glucose 104 mg/dl Calcium Level 8.5 mg/dl Magnesium Level 2.2 mg/dl Lipase 2508 U/L Total Bilirubin 1.1 mg/dl Direct Bilirubin 0.6 mg/dl Aspartate Amino Transf (AST/SGOT) 35 U/L Alanine Aminotransferase (ALT/SGPT) 65 U/L Alkaline Phosphatase 250 U/L Total Protein 5.9 gm/dl Albumin 2.4 gm/dl Assessment & Plan PNEUMONIA / POSSIBLE SEPSIS Presented with cough, dyspnea, malaise. Afebrile, tachycardic. Blood pressures stable. WBC 16,000. Met criteria for sepsis per 2001 definition and current CMS criteria ( leukocytosis, tachycardia). Lactate 1.39. Chest x-ray showed LLL infiltrate. Influenza A/B Ag negative. Blood cultures obtained. Received broad spectrum antibiotic coverage with piperacillin / tazobactam. Blood cultures negative so far. No sputum obtained for gram statin / C&S. Currently receiving cefepime. PANCREATITIS LFT's slightly elevated in ED. Serum lipase was 4059. S/P cholecystectomy. CT abdomen demonstrated pancreatitis. US demonstrated absence of gallbladder, no dilation of CBD, no apparent choledocholithiasis. Initially managed with bowel rest, IV fluids. GI consulted. Repeat lipase today = 2508. HISTORY OF CHF Details of history not available. Echo shows mild LVH, normal LVEF. Apparently history of CHF due to diastolic dysfunction. Tolerating IV fluids. Follow. CHRONIC ATRIAL FIBRILLATION Rate controlled. Continue Need to clarify why not anticoagulated. HYPOTHYROIDISM Continue levothyroxine. BPH Continue finasteride and tamsulosin. HISTORY POST-TRAUMATIC SEIZURES No recent seizures. VTE PROPHYLAXIS SQ enoxaparin. Ambulate. DISPOSITION Expected discharge to home. Medical follow-up with Dr. Ng. . Current Inpatient Medications: Current Inpatient Medications Medications (Trade) Dose Ordered Sig/[facility] Route Start Time Stop Time Status Last Admin Dose Admin Enoxaparin Sodium (Lovenox Inj) 40 mg Q24H SC 10/03/17 18:00 11/02/17 17:59 10/03/17 18:47 40 MG Acetaminophen (Tylenol Tab) 650 mg Q4H PRN PO 10/03/17 15:30 11/02/17 15:29 Al Hydrox/Mg Hydrox/Simethicone (Maalox Max Susp) 15 ml Q4H PRN PO 10/03/17 15:30 11/02/17 15:29 Magnesium Hydroxide (Milk Of Magnesia Susp) 30 ml Q12H PRN PO 10/03/17 15:30 11/02/17 15:29 Ondansetron HCl (Zofran Inj) 4 mg Q6H PRN IV 10/03/17 15:30 11/02/17 15:29 Aspirin (Ecotrin Tab) 81 mg DAILY PO 10/04/17 09:00 11/03/17 08:59 10/04/17 08:17 81 MG Finasteride (Proscar Tab) 5 mg DAILY PO 10/04/17 09:00 11/03/17 08:59 10/04/17 08:17 5 MG Levothyroxine Sodium (Synthroid Tab) 50 mcg Q48H PO 10/05/17 06:30 11/04/17 06:29 Levothyroxine Sodium (Synthroid Tab) 75 mcg Q48H PO 10/04/17 06:30 11/03/17 06:29 10/04/17 05:54 75 MCG Multivitamins (Multivitamin Tab) 1 tab DAILY PO 10/04/17 09:00 11/03/17 08:59 10/04/17 08:17 1 TAB Tamsulosin HCl (Flomax Cap) 0.4 mg BID PO 10/03/17 21:00 11/02/17 20:59 10/04/17 08:17 0.4 MG Pantoprazole Sodium (Protonix Tab) 40 mg QAM PO 10/04/17 09:00 11/03/17 08:59 10/04/17 08:17 40 MG Lactated Ringer's 1,000 ml @ 150 mls/hr Q6H40M IV 10/03/17 16:45 11/02/17 16:44 Future hold 10/04/17 10:16 150 MLS/HR Cefepime HCl 2000 mg/Syringe 20 ml @ 5 mls/min Q8H IV 10/03/17 22:00 10/10/17 21:59 10/04/17 14:03 5 MLS/MIN Menthol (Nice Kristian) 1 kristian PRN PRN PO 10/04/17 03:00 11/03/17 02:59 Bacitracin/ Polymyxin B Sulfate (Polysporin Oint) 1 appln BID EXT 10/04/17 21:00 11/03/17 20:59 UNV
[2017-10-04] MEDS: ENOXAPARIN 40 MG/0.4 ML SYR SC SCH (18:21)
[2017-10-04] MEDS: BACITRACIN/POLYMYXIN B OINT 15 GM TUBE EXT SCH (22:40)
--- NOTE | 2017-10-04 22:45 | DIAGNOSTIC IMAGING REPORT ---
ABDOMEN COMBO CLINICAL HISTORY: 77 years-old Male presenting with abdominal pain, nausea and vomiting, history of cholecystectomy, pancreatitis, pneumonia. TECHNIQUE: Multisequence, multiplanar MR imaging of the abdomen was performed before and after the administration of intravenous contrast. IV contrast: 8 mL of Gadavist. COMPARISON: CT performed the previous day. FINDINGS: Image quality is markedly degraded by motion artifact. Localizer images: Unremarkable. Lung bases: Lung bases clear. Normal heart size. Trace bilateral pleural effusions. Liver: Normal morphology. Hepatic fat fraction measures 5.8% indicative of mild steatosis. No liver lesion. Patent hepatic vasculature. Replaced right hepatic artery arising from the superior mesenteric artery. Biliary: No intrahepatic or extrahepatic biliary ductal dilatation. Normal gallbladder. Pancreas: Trace fluid noted along the ventral aspect of the pancreatic tail as seen on CT. No other significant evidence of peripancreatic inflammatory change. No peripancreatic fluid collection. The pancreas maintains normal parenchymal T1 hyperintensity. Normal enhancement of the pancreatic parenchyma. Spleen: Normal. Adrenal glands: Normal. Kidneys: Prominent bilobed cystic lesion at the lower pole left kidney. This may represent 2 adjacent simple cysts. The larger measures 9.3 cm and the more superior and smaller measures 4.6 cm. No soft tissue nodularity or additional complexity to suggest a suspicious lesion. The presence of thin mural calcification better appreciated on prior CT (Bosniak 2). No hydronephrosis. Bladder: Partially visualized bladder demonstrates irregularity of the wall as seen on CT and possibly presence of diverticula. Bowel: Normal. No bowel obstruction. Peritoneal cavity: No free fluid or intraperitoneal gas. Lymph nodes: No enlarged lymph nodes in the abdomen. Vasculature: Aorta and IVC patent and normal in caliber. Abdominal wall: Normal. Musculoskeletal: Normal. IMPRESSION: 1. Only minimal peripancreatic fat infiltration is suggested on the current exam allowing for highly degraded image quality secondary to motion artifact. Correlate with lipase as the current findings could represent mild interstitial edematous pancreatitis. If pancreatitis is present, no pancreatic necrosis or acute. Pancreatic fluid collection is evident. 2. Mild hepatic steatosis. 3. Minimally complex left renal cyst, which does not require follow-up. Electronically signed by: Moshe aGrcia M.D. 10/04/2017 10:44 PM Dictated Date/Time: 10/04/2017 10:31 PM
[2017-10-05] MEDS: LACTATED RINGER'S 1000ML 1,000 ML IV SCH ×3 (01:21→20:10)
[2017-10-05 04:05] VITALS: BP 148/76; PULSE 88; TEMP 36.9; O2SAT 96
[2017-10-05] MEDS: CEFEPIME IV 2,000 MG in SYRINGE 7.5 ML IV SCH ×3 (05:47→21:47)
[2017-10-05] MEDS: LEVOTHYROXINE 50 MCG TAB PO SCH (05:48)
[2017-10-05 06:10] LABS: HEMATOCRIT 32.4 % (42-52); MEAN CELL VOLUME 94.2 fL (80-100); MEAN PLATELET VOLUME 10.4 fL (7.4-10.4); PLATELET COUNT 222 K/uL (130-400); RED BLOOD COUNT 3.44 M/uL (4.7-6.1); WHITE BLOOD COUNT 10.77 K/uL (4.8-10.8)
[2017-10-05 06:48] LABS: CALCIUM 8.4 mg/dl (8.5-10.1); CREATININE 0.91 mg/dl (0.60-1.40); POTASSIUM 3.4 mmol/L (3.5-5.1)
[2017-10-05 06:51] LABS: ALB/GLOB RATIO 0.7 (0.9-2)
[2017-10-05 07:53] VITALS: BP 154/77; PULSE 70; TEMP 37; O2SAT 94
[2017-10-05] MEDS: PANTOprazole SOD 40 MG TAB PO SCH (08:37)
[2017-10-05] MEDS: TAMSULOSIN HCL 0.4 MG CAP PO SCH ×2 (08:37→20:10)
[2017-10-05] MEDS: FINASTERIDE 5 MG TAB PO SCH (08:37)
[2017-10-05] MEDS: MULTIVITAMIN TAB PO SCH (08:37)
[2017-10-05] MEDS: ASPIRIN 81 MG ECTAB PO SCH (08:37)
[2017-10-05] MEDS: BACITRACIN/POLYMYXIN B OINT 15 GM TUBE EXT SCH ×2 (08:38→20:10)
--- NOTE | 2017-10-05 11:53 | Gastroenterology Progress Note ---
Progress Note Date of Service: Oct 05, 2017 Subjective Pt evaluation today including: conversation w/ patient, physical exam, chart review, lab review, review of inpatient medication list Pt is still having trouble w coughing, but better. Denies any issues w abd pain , n/v. Tolerating liquid diet. Review of Systems Constitutional: No fever, No chills Respiratory: + cough, No shortness of breath Cardiac: No chest pain Abdomen: No pain, No nausea, No vomiting Medications Current Inpatient Medications Medications (Trade) Dose Ordered Sig/Marley Route Start Time Stop Time Status Last Admin Dose Admin Enoxaparin Sodium (Lovenox Inj) 40 mg Q24H SC 10/03/17 18:00 11/02/17 17:59 10/04/17 18:21 40 MG Acetaminophen (Tylenol Tab) 650 mg Q4H PRN PO 10/03/17 15:30 11/02/17 15:29 Al Hydrox/Mg Hydrox/Simethicone (Maalox Max Susp) 15 ml Q4H PRN PO 10/03/17 15:30 11/02/17 15:29 Magnesium Hydroxide (Milk Of Magnesia Susp) 30 ml Q12H PRN PO 10/03/17 15:30 11/02/17 15:29 Ondansetron HCl (Zofran Inj) 4 mg Q6H PRN IV 10/03/17 15:30 11/02/17 15:29 Aspirin (Ecotrin Tab) 81 mg DAILY PO 10/04/17 09:00 11/03/17 08:59 10/05/17 08:37 81 MG Finasteride (Proscar Tab) 5 mg DAILY PO 10/04/17 09:00 11/03/17 08:59 10/05/17 08:37 5 MG Levothyroxine Sodium (Synthroid Tab) 50 mcg Q48H PO 10/05/17 06:30 11/04/17 06:29 10/05/17 05:48 50 MCG Levothyroxine Sodium (Synthroid Tab) 75 mcg Q48H PO 10/04/17 06:30 11/03/17 06:29 10/04/17 05:54 75 MCG Multivitamins (Multivitamin Tab) 1 tab DAILY PO 10/04/17 09:00 11/03/17 08:59 10/05/17 08:37 1 TAB Tamsulosin HCl (Flomax Cap) 0.4 mg BID PO 10/03/17 21:00 11/02/17 20:59 10/05/17 08:37 0.4 MG Pantoprazole Sodium (Protonix Tab) 40 mg QAM PO 10/04/17 09:00 11/03/17 08:59 10/05/17 08:37 40 MG Lactated Ringer's 1,000 ml @ 75 mls/hr [id number] IV 10/03/17 16:45 11/02/17 16:44 Future hold 10/05/17 08:37 150 MLS/HR Cefepime HCl 2000 mg/Syringe 20 ml @ 5 mls/min Q8H IV 10/03/17 22:00 10/10/17 21:59 10/05/17 05:47 5 MLS/MIN Menthol (Nice Kristian) 1 kristian PRN PRN PO 10/04/17 03:00 11/03/17 02:59 Bacitracin/ Polymyxin B Sulfate (Polysporin Oint) 1 appln BID EXT 10/04/17 21:00 11/03/17 20:59 10/05/17 08:38 1 APPLN Objective Vital Signs Date Time Temp Pulse Resp B/P (MAP) Pulse Ox O2 Delivery O2 Flow Rate FiO2 10/05/17 07:53 37.0 70 20 154/77 (102) 94 Room Air 10/05/17 04:05 36.9 88 18 148/76 (100) 96 Room Air 10/05/17 04:00 Room Air 10/05/17 00:00 Room Air 10/04/17 23:50 37.2 94 20 160/72 (101) 96 Room Air 10/04/17 20:00 96 Room Air 10/04/17 19:32 37.2 87 20 132/67 (88) 96 Room Air 10/04/17 16:00 96 Room Air 10/04/17 15:11 36.8 88 18 133/83 (100) 96 10/04/17 13:49 79 95 10/04/17 12:00 92 Room Air Physical Exam General Appearance: WD/WN, no apparent distress Eyes: normal inspection, PERRL, EOMI Neck: supple, no JVD, trachea midline Respiratory/Chest: no respiratory distress, no accessory muscle use, + pertinent finding (Diminished on L lungs, fine crackles on RLL, clear on RUL) Cardiovascular: regular rate, rhythm, no gallop, no murmur Abdomen: normal bowel sounds, non tender, soft Extremities: normal inspection, no pedal edema, no calf tenderness Neurologic/Psych: alert, normal mood/affect, oriented x 3 Skin: normal color, no jaundice, no rash Laboratory Results Last 24 Hours Test 10/05/17 05:46 White Blood Count 10.77 K/uL Red Blood Count 3.44 M/uL Hemoglobin 11.0 g/dL Hematocrit 32.4 % Mean Corpuscular Volume 94.2 fL Mean Corpuscular Hemoglobin 32.0 pg Mean Corpuscular Hemoglobin Concent 34.0 g/dl RDW Standard Deviation 47.5 fL RDW Coefficient of Variation 13.8 % Platelet Count 222 K/uL Mean Platelet Volume 10.4 fL Sodium Level 145 mmol/L Potassium Level 3.4 mmol/L Chloride Level 113 mmol/L Carbon Dioxide Level 26 mmol/L Anion Gap 6.0 mmol/L Blood Urea Nitrogen 13 mg/dl Creatinine 0.91 mg/dl Est Creatinine Clear Calc Drug Dose 77.0 ml/min Estimated GFR () 95.2 Estimated GFR (Non- 82.2 BUN/Creatinine Ratio 14.0 Random Glucose 98 mg/dl Calcium Level 8.4 mg/dl Total Bilirubin 0.8 mg/dl Aspartate Amino Transf (AST/SGOT) 53 U/L Alanine Aminotransferase (ALT/SGPT) 76 U/L Alkaline Phosphatase 241 U/L Total Protein 5.4 gm/dl Albumin 2.2 gm/dl Globulin 3.2 gm/dl Albumin/Globulin Ratio 0.7 Lipase 739 U/L Assessment and Plan Patient is a 77 year old male w s/s of chills, malaise, cough, n/v, abd pain - workup showed possible pneumonia, CHF, elevated LFTs, Lipase w CT consistent for pancreatitis. Though his abd exam revealed soft abd, and non tender, BS present. He is s/p cholecystectomy. Denies risk factors of tobacco/ETOH/illicit drugs, recent new meds. LFTs and Lipase are improving. RUQ u/s yesterday showed no signs of biliary ductal dilation. He is s/p cholecystectomy. He is not having any issues w abd pain, n/v. MRI abd combo showed mild pancreatitis, edema and fat infiltration. His Lipase is improved, LFTs mildly up. Plans - LR at 75ml/hr - [place] diet, advance as tolerated. - Symptomatic management otherwise. I have seen, examined and agree with the plan as outlined by ELOISA Lane as above. -Exam reveals soft abd -Improved -Advance diet -Will need non-fasting triglycerides prior to D/C -MRI without mass lesion Timothy Valdez M.D.
[2017-10-05 12:35] VITALS: BP 151/71; PULSE 71; TEMP 36.7; O2SAT 94
[2017-10-05 15:33] VITALS: BP 144/68; PULSE 71; TEMP 36.7; O2SAT 94
[2017-10-05] MEDS: ENOXAPARIN 40 MG/0.4 ML SYR SC SCH (18:38)
[2017-10-05 19:53] VITALS: BP 159/80; PULSE 80; TEMP 36.6; O2SAT 95
--- NOTE | 2017-10-05 20:33 | Progress Note ---
Medicine Progress Note Date & Time of Visit: Oct 05, 2017 at ~ 19:00 . Subjective Feeling better. Cough improved. No SOB. No chest pain. No abdominal pain, nausea, vomiting. No diarrhea. Voiding without difficulty. . Objective Last 8 Hrs Date Time Temp Pulse Resp B/P (MAP) Pulse Ox O2 Delivery O2 Flow Rate FiO2 10/05/17 19:59 Room Air 10/05/17 19:53 36.6 80 18 159/80 (106) 95 Room Air 10/05/17 16:00 Room Air 10/05/17 15:33 36.7 71 18 144/68 (93) 94 Room Air 10/05/17 12:35 36.7 71 20 151/71 (97) 94 Physical Exam: General- lying in bed, no distress Eyes- anicteric Neck- no JVD Lungs- essentially clear Heart- RRR Abdomen- + BS bowel sounds, nondistended, nontender Extremities- trace edema Neuro- alert . Laboratory Results: Last 24 Hours Test 10/05/17 05:46 White Blood Count 10.77 K/uL Red Blood Count 3.44 M/uL Hemoglobin 11.0 g/dL Hematocrit 32.4 % Mean Corpuscular Volume 94.2 fL Mean Corpuscular Hemoglobin 32.0 pg Mean Corpuscular Hemoglobin Concent 34.0 g/dl RDW Standard Deviation 47.5 fL RDW Coefficient of Variation 13.8 % Platelet Count 222 K/uL Mean Platelet Volume 10.4 fL Sodium Level 145 mmol/L Potassium Level 3.4 mmol/L Chloride Level 113 mmol/L Carbon Dioxide Level 26 mmol/L Anion Gap 6.0 mmol/L Blood Urea Nitrogen 13 mg/dl Creatinine 0.91 mg/dl Est Creatinine Clear Calc Drug Dose 77.0 ml/min Estimated GFR () 95.2 Estimated GFR (Non- 82.2 BUN/Creatinine Ratio 14.0 Random Glucose 98 mg/dl Calcium Level 8.4 mg/dl Total Bilirubin 0.8 mg/dl Aspartate Amino Transf (AST/SGOT) 53 U/L Alanine Aminotransferase (ALT/SGPT) 76 U/L Alkaline Phosphatase 241 U/L Total Protein 5.4 gm/dl Albumin 2.2 gm/dl Globulin 3.2 gm/dl Albumin/Globulin Ratio 0.7 Lipase 739 U/L Assessment & Plan PNEUMONIA / POSSIBLE SEPSIS Presented with cough, dyspnea, malaise. Afebrile, tachycardic. Blood pressures stable. WBC 16,000. Met criteria for sepsis per 2001 definition and current CMS criteria ( leukocytosis, tachycardia). Lactate 1.39. Chest x-ray showed LLL infiltrate. Influenza A/B Ag negative. Blood cultures obtained. Received broad spectrum antibiotic coverage with piperacillin / tazobactam. Blood cultures negative so far. No sputum obtained for gram statin / C&S. Currently receiving cefepime. Transition to oral therapy with levofloxacin. PANCREATITIS LFT's slightly elevated in ED. Serum lipase was 4059. S/P cholecystectomy. CT abdomen demonstrated pancreatitis. US demonstrated absence of gallbladder, no dilation of CBD, no apparent choledocholithiasis. Initially managed with bowel rest, IV fluids. GI consulted. Repeat lipase today = 739. Advance diet as tolerated. HISTORY OF CHF Details of history not available. Echo shows mild LVH, normal LVEF. Apparently history of CHF due to diastolic dysfunction. Tolerating IV fluids. Follow. CHRONIC ATRIAL FIBRILLATION Rate controlled. Continue Need to clarify why not anticoagulated. HYPOTHYROIDISM Continue levothyroxine. BPH Continue finasteride and tamsulosin. HISTORY POST-TRAUMATIC SEIZURES No recent seizures. VTE PROPHYLAXIS SQ enoxaparin. Ambulate. DISPOSITION Expected discharge to home. Medical follow-up with Dr. Ng. . Current Inpatient Medications: Current Inpatient Medications Medications (Trade) Dose Ordered Sig/Marley Route Start Time Stop Time Status Last Admin Dose Admin Enoxaparin Sodium (Lovenox Inj) 40 mg Q24H SC 10/03/17 18:00 11/02/17 17:59 10/05/17 18:38 40 MG Acetaminophen (Tylenol Tab) 650 mg Q4H PRN PO 10/03/17 15:30 11/02/17 15:29 Al Hydrox/Mg Hydrox/Simethicone (Maalox Max Susp) 15 ml Q4H PRN PO 10/03/17 15:30 11/02/17 15:29 Magnesium Hydroxide (Milk Of Magnesia Susp) 30 ml Q12H PRN PO 10/03/17 15:30 11/02/17 15:29 Ondansetron HCl (Zofran Inj) 4 mg Q6H PRN IV 10/03/17 15:30 11/02/17 15:29 Aspirin (Ecotrin Tab) 81 mg DAILY PO 10/04/17 09:00 11/03/17 08:59 10/05/17 08:37 81 MG Finasteride (Proscar Tab) 5 mg DAILY PO 10/04/17 09:00 11/03/17 08:59 10/05/17 08:37 5 MG Levothyroxine Sodium (Synthroid Tab) 50 mcg Q48H PO 10/05/17 06:30 11/04/17 06:29 10/05/17 05:48 50 MCG Levothyroxine Sodium (Synthroid Tab) 75 mcg Q48H PO 10/04/17 06:30 11/03/17 06:29 10/04/17 05:54 75 MCG Multivitamins (Multivitamin Tab) 1 tab DAILY PO 10/04/17 09:00 11/03/17 08:59 10/05/17 08:37 1 TAB Tamsulosin HCl (Flomax Cap) 0.4 mg BID PO 10/03/17 21:00 11/02/17 20:59 10/05/17 20:10 0.4 MG Pantoprazole Sodium (Protonix Tab) 40 mg QAM PO 10/04/17 09:00 11/03/17 08:59 10/05/17 08:37 40 MG Lactated Ringer's 1,000 ml @ 75 mls/hr [id number] IV 10/03/17 16:45 11/02/17 16:44 Future hold 10/05/17 20:10 75 MLS/HR Cefepime HCl 2000 mg/Syringe 20 ml @ 5 mls/min Q8H IV 10/03/17 22:00 10/10/17 21:59 10/05/17 15:12 5 MLS/MIN Menthol (Nice Kristian) 1 kristian PRN PRN PO 10/04/17 03:00 11/03/17 02:59 Bacitracin/ Polymyxin B Sulfate (Polysporin Oint) 1 appln BID EXT 10/04/17 21:00 11/03/17 20:59 10/05/17 20:10 1 APPLN
[2017-10-05 23:05] VITALS: BP 135/64; PULSE 64; TEMP 36.9; O2SAT 94
[2017-10-06 03:58] VITALS: BP 159/61; PULSE 66; TEMP 36.8; O2SAT 94
[2017-10-06] MEDS: LEVOTHYROXINE 75 MCG TAB PO SCH (05:57)
[2017-10-06 07:30] VITALS: BP 165/83; PULSE 61; TEMP 36.7; O2SAT 95
[2017-10-06 07:50] LABS: BUN/CREATININE RATIO 11.7 (10-20); CALCIUM 8.2 mg/dl (8.5-10.1); CREATININE 0.94 mg/dl (0.60-1.40); POTASSIUM 3.6 mmol/L (3.5-5.1)
[2017-10-06 07:53] LABS: ALB/GLOB RATIO 0.7 (0.9-2)
[2017-10-06] MEDS: ASPIRIN 81 MG ECTAB PO SCH (08:12)
[2017-10-06] MEDS: PANTOprazole SOD 40 MG TAB PO SCH (08:12)
[2017-10-06] MEDS: TAMSULOSIN HCL 0.4 MG CAP PO SCH ×2 (08:12→20:38)
[2017-10-06] MEDS: MULTIVITAMIN TAB PO SCH (08:12)
[2017-10-06] MEDS: BACITRACIN/POLYMYXIN B OINT 15 GM TUBE EXT SCH ×2 (08:13→20:38)
[2017-10-06] MEDS: FINASTERIDE 5 MG TAB PO SCH (08:13)
[2017-10-06 11:40] VITALS: BP 154/73; PULSE 53; TEMP 36.4; O2SAT 96
[2017-10-06] MEDS: LEVOFLOXACIN 750 MG TAB PO SCH (14:25)
[2017-10-06 15:00] VITALS: BP 150/95; PULSE 87; TEMP 36.9; O2SAT 94
[2017-10-06] MEDS: ENOXAPARIN 40 MG/0.4 ML SYR SC SCH (18:44)
--- NOTE | 2017-10-06 19:37 | Progress Note ---
Medicine Progress Note Date & Time of Visit: Oct 06, 2017 at 15:15 . Subjective No fever. Cough improved. No dyspnea. No chest pain. No nausea or vomiting. No abdominal pain. Patient reports one loose stool this morning. Ambulate with assistance. . Objective Last 8 Hrs Date Time Temp Pulse Resp B/P (MAP) Pulse Ox O2 Delivery O2 Flow Rate FiO2 10/06/17 16:00 Room Air 10/06/17 15:00 36.9 87 18 150/95 (113) 94 Room Air 10/06/17 12:00 Room Air 10/06/17 11:40 36.4 53 18 154/73 (100) 96 Room Air Physical Exam: General- sitting in chair at bedside, no distress Eyes- anicteric Neck- no JVD Lungs- few rales left base Heart- RRR Abdomen- + BS bowel sounds, nondistended, soft, nontender Extremities- trace pretibial edema Neuro- alert . Laboratory Results: Last 24 Hours Test 10/06/17 07:09 Sodium Level 145 mmol/L Potassium Level 3.6 mmol/L Chloride Level 114 mmol/L Carbon Dioxide Level 27 mmol/L Anion Gap 4.0 mmol/L Blood Urea Nitrogen 11 mg/dl Creatinine 0.94 mg/dl Est Creatinine Clear Calc Drug Dose 74.5 ml/min Estimated GFR () 91.6 Estimated GFR (Non- 79.0 BUN/Creatinine Ratio 11.7 Random Glucose 107 mg/dl Calcium Level 8.2 mg/dl Total Bilirubin 0.7 mg/dl Aspartate Amino Transf (AST/SGOT) 63 U/L Alanine Aminotransferase (ALT/SGPT) 96 U/L Alkaline Phosphatase 260 U/L Total Protein 5.9 gm/dl Albumin 2.5 gm/dl Globulin 3.4 gm/dl Albumin/Globulin Ratio 0.7 Triglycerides Level 119 mg/dl Cholesterol Level 100 mg/dl HDL Cholesterol 25 mg/dl LDL Cholesterol, Calculated 51 mg/dl VLDL Cholesterol, Calculated 24 mg/dl Cholesterol/HDL Ratio 4.0 Lipase 635 U/L Assessment & Plan PNEUMONIA / POSSIBLE SEPSIS Presented with cough, dyspnea, malaise. Afebrile, tachycardic. Blood pressures stable. WBC 16,000. Met criteria for sepsis per 2001 definition and current CMS criteria ( leukocytosis, tachycardia). Lactate 1.39. Chest x-ray showed LLL infiltrate. Influenza A/B Ag negative. Blood cultures obtained. Received broad spectrum antibiotic coverage with piperacillin / tazobactam followed by cefepime. Blood cultures negative so far. No sputum obtained for gram statin / C&S. Transitioned to oral therapy with levofloxacin. PANCREATITIS LFT's slightly elevated in ED. Serum lipase was 4059. S/P cholecystectomy. CT abdomen demonstrated pancreatitis. US demonstrated absence of gallbladder, no dilation of CBD, no apparent choledocholithiasis. Initially managed with bowel rest, IV fluids. GI consulted. MRCP did not show any significant pathology. Diet advanced. Repeat lipase today = 635. HISTORY OF CHF Details of history not available. Echo shows mild LVH, normal LVEF. Apparently history of CHF due to diastolic dysfunction. Tolerated IV fluids. Follow. CHRONIC ATRIAL FIBRILLATION Rate controlled. Need to clarify why not anticoagulated. HYPOTHYROIDISM Continue levothyroxine. BPH Continue finasteride and tamsulosin. HISTORY POST-TRAUMATIC SEIZURES No recent seizures. VTE PROPHYLAXIS SQ enoxaparin. Ambulate. DISPOSITION Expected discharge to home. Medical follow-up with Dr. Ng. . Current Inpatient Medications: Current Inpatient Medications Medications (Trade) Dose Ordered Sig/Marley Route Start Time Stop Time Status Last Admin Dose Admin Enoxaparin Sodium (Lovenox Inj) 40 mg Q24H SC 10/03/17 18:00 11/02/17 17:59 10/06/17 18:44 40 MG Acetaminophen (Tylenol Tab) 650 mg Q4H PRN PO 10/03/17 15:30 11/02/17 15:29 10/06/17 08:19 650 MG Al Hydrox/Mg Hydrox/Simethicone (Maalox Max Susp) 15 ml Q4H PRN PO 10/03/17 15:30 11/02/17 15:29 Magnesium Hydroxide (Milk Of Magnesia Susp) 30 ml Q12H PRN PO 10/03/17 15:30 11/02/17 15:29 Ondansetron HCl (Zofran Inj) 4 mg Q6H PRN IV 10/03/17 15:30 11/02/17 15:29 Aspirin (Ecotrin Tab) 81 mg DAILY PO 10/04/17 09:00 11/03/17 08:59 10/06/17 08:12 81 MG Finasteride (Proscar Tab) 5 mg DAILY PO 10/04/17 09:00 11/03/17 08:59 10/06/17 08:13 5 MG Levothyroxine Sodium (Synthroid Tab) 50 mcg Q48H PO 10/05/17 06:30 11/04/17 06:29 10/05/17 05:48 50 MCG Levothyroxine Sodium (Synthroid Tab) 75 mcg Q48H PO 10/04/17 06:30 11/03/17 06:29 10/06/17 05:57 75 MCG Multivitamins (Multivitamin Tab) 1 tab DAILY PO 10/04/17 09:00 11/03/17 08:59 10/06/17 08:12 1 TAB Tamsulosin HCl (Flomax Cap) 0.4 mg BID PO 10/03/17 21:00 11/02/17 20:59 10/06/17 08:12 0.4 MG Pantoprazole Sodium (Protonix Tab) 40 mg QAM PO 10/04/17 09:00 11/03/17 08:59 10/06/17 08:12 40 MG Menthol (Nice Kristian) 1 kristian PRN PRN PO 10/04/17 03:00 11/03/17 02:59 Bacitracin/ Polymyxin B Sulfate (Polysporin Oint) 1 appln BID EXT 10/04/17 21:00 11/03/17 20:59 10/06/17 08:13 1 APPLN Levofloxacin (Levaquin Tab) 750 mg DAILY@11 PO 10/06/17 11:00 10/13/17 10:59 10/06/17 14:25 750 MG
[2017-10-06 19:58] VITALS: BP 178/82; PULSE 63; TEMP 36.5; O2SAT 96
[2017-10-07] VITALS: BP 152/83; PULSE 51; TEMP 36.7; O2SAT 95
[2017-10-07 05:51] LABS: HEMATOCRIT 34.4 % (42-52); MEAN CELL VOLUME 94.8 fL (80-100); MEAN CORPUSCULAR HEMOGLOBIN 31.7 pg (25-34); MEAN CORPUSCULAR HGB CONC 33.4 g/dl (32-36); MEAN PLATELET VOLUME 10.3 fL (7.4-10.4); PLATELET COUNT 248 K/uL (130-400); RED BLOOD COUNT 3.63 M/uL (4.7-6.1); WHITE BLOOD COUNT 10.72 K/uL (4.8-10.8)
[2017-10-07] MEDS: LEVOTHYROXINE 50 MCG TAB PO SCH (06:07)
[2017-10-07 06:25] LABS: BUN/CREATININE RATIO 18.3 (10-20); CALCIUM 8.5 mg/dl (8.5-10.1); CREATININE 0.99 mg/dl (0.60-1.40); POTASSIUM 3.6 mmol/L (3.5-5.1)
[2017-10-07 06:29] LABS: ALB/GLOB RATIO 0.7 (0.9-2)
[2017-10-07] MEDS: MULTIVITAMIN TAB PO SCH (08:04)
[2017-10-07] MEDS: ASPIRIN 81 MG ECTAB PO SCH (08:04)
[2017-10-07] MEDS: TAMSULOSIN HCL 0.4 MG CAP PO SCH ×2 (08:04→20:51)
[2017-10-07] MEDS: PANTOprazole SOD 40 MG TAB PO SCH (08:04)
[2017-10-07] MEDS: FINASTERIDE 5 MG TAB PO SCH (08:05)
[2017-10-07 08:21] VITALS: BP 166/77; PULSE 64; TEMP 36.3; O2SAT 94
[2017-10-07] MEDS: BACITRACIN/POLYMYXIN B OINT 15 GM TUBE EXT SCH ×2 (09:50→20:51)
[2017-10-07] MEDS: LEVOFLOXACIN 750 MG TAB PO SCH (12:00)
[2017-10-07 14:39] VITALS: BP 151/77; PULSE 72; TEMP 36.6; O2SAT 94
[2017-10-07 15:08] VITALS: BP 128/59; PULSE 72; TEMP 36.5; O2SAT 96
--- NOTE | 2017-10-07 17:48 | Progress Note ---
Medicine Progress Note Date & Time of Visit: Oct 07, 2017 at 14:00 . Subjective No fever or chills. Cough is essentially resolved. No shortness of breath. No chest pain. Diet advanced. No abdominal pain, nausea, vomiting. Loose stool yesterday, none today. Voiding without difficulty. Ambulating in room. . Objective Last 8 Hrs Date Time Temp Pulse Resp B/P (MAP) Pulse Ox O2 Delivery O2 Flow Rate FiO2 10/07/17 16:00 Room Air 10/07/17 15:08 36.5 72 20 128/59 (82) 96 Room Air 10/07/17 14:39 36.6 72 22 151/77 (101) 94 Room Air Physical Exam: General- no distress Eyes- anicteric Neck- no JVD Lungs- few rales left base Heart- RRR Abdomen- + BS bowel sounds, nondistended, soft, nontender Extremities- trace pretibial edema Neuro- alert . Laboratory Results: Last 24 Hours Test 10/07/17 05:34 White Blood Count 10.72 K/uL Red Blood Count 3.63 M/uL Hemoglobin 11.5 g/dL Hematocrit 34.4 % Mean Corpuscular Volume 94.8 fL Mean Corpuscular Hemoglobin 31.7 pg Mean Corpuscular Hemoglobin Concent 33.4 g/dl RDW Standard Deviation 47.8 fL RDW Coefficient of Variation 13.8 % Platelet Count 248 K/uL Mean Platelet Volume 10.3 fL Sodium Level 145 mmol/L Potassium Level 3.6 mmol/L Chloride Level 112 mmol/L Carbon Dioxide Level 26 mmol/L Anion Gap 7.0 mmol/L Blood Urea Nitrogen 18 mg/dl Creatinine 0.99 mg/dl Est Creatinine Clear Calc Drug Dose 70.8 ml/min Estimated GFR () 86.0 Estimated GFR (Non- 74.2 BUN/Creatinine Ratio 18.3 Random Glucose 108 mg/dl Calcium Level 8.5 mg/dl Total Bilirubin 0.5 mg/dl Aspartate Amino Transf (AST/SGOT) 48 U/L Alanine Aminotransferase (ALT/SGPT) 87 U/L Alkaline Phosphatase 262 U/L Total Protein 6.0 gm/dl Albumin 2.4 gm/dl Globulin 3.6 gm/dl Albumin/Globulin Ratio 0.7 Lipase 572 U/L Assessment & Plan PNEUMONIA / POSSIBLE SEPSIS Presented with cough, dyspnea, malaise. Afebrile, tachycardic. Blood pressures stable. WBC 16,000. Met criteria for sepsis per 2001 definition and current CMS criteria ( leukocytosis, tachycardia). Lactate 1.39. Chest x-ray showed LLL infiltrate. Influenza A/B Ag negative. Blood cultures obtained. Received broad spectrum antibiotic coverage with piperacillin / tazobactam followed by cefepime. Blood cultures negative so far. No sputum obtained for gram statin / C&S. Transitioned to oral therapy with levofloxacin. PANCREATITIS LFT's slightly elevated in ED. Serum lipase was 4059. S/P cholecystectomy. CT abdomen demonstrated pancreatitis. US demonstrated absence of gallbladder, no dilation of CBD, no apparent choledocholithiasis. Initially managed with bowel rest, IV fluids. GI consulted. MRCP did not show any significant pathology. Diet advanced. Repeat lipase today = 572. HISTORY OF CHF Details of history not available. Echo shows mild LVH, normal LVEF. Apparently history of CHF due to diastolic dysfunction. Tolerated IV fluids. Follow. CHRONIC ATRIAL FIBRILLATION Rate controlled. Patient asked about anticoagulation, but was unable to provide history. His indicates that he was taking warfarin and another anticoagulant in the past, but they were discontinued because he did not take medications as instructed and there were concerns about unacceptable risk of bleeding. Continue aspirin. HYPOTHYROIDISM Continue levothyroxine. BPH Continue finasteride and tamsulosin. HISTORY POST-TRAUMATIC SEIZURES No recent seizures. VTE PROPHYLAXIS SQ enoxaparin. Ambulate. DISPOSITION Expected discharge to home. indicates that the patient plans to establish with primary care and Cardiology at the [facility] in [place]. given update today by phone. . Current Inpatient Medications: Current Inpatient Medications Medications (Trade) Dose Ordered Sig/Marley Route Start Time Stop Time Status Last Admin Dose Admin Enoxaparin Sodium (Lovenox Inj) 40 mg Q24H SC 10/03/17 18:00 11/02/17 17:59 10/06/17 18:44 40 MG Acetaminophen (Tylenol Tab) 650 mg Q4H PRN PO 10/03/17 15:30 11/02/17 15:29 10/06/17 08:19 650 MG Al Hydrox/Mg Hydrox/Simethicone (Maalox Max Susp) 15 ml Q4H PRN PO 10/03/17 15:30 11/02/17 15:29 Magnesium Hydroxide (Milk Of Magnesia Susp) 30 ml Q12H PRN PO 10/03/17 15:30 11/02/17 15:29 Ondansetron HCl (Zofran Inj) 4 mg Q6H PRN IV 10/03/17 15:30 11/02/17 15:29 Aspirin (Ecotrin Tab) 81 mg DAILY PO 10/04/17 09:00 11/03/17 08:59 10/07/17 08:04 81 MG Finasteride (Proscar Tab) 5 mg DAILY PO 10/04/17 09:00 11/03/17 08:59 10/07/17 08:05 5 MG Levothyroxine Sodium (Synthroid Tab) 50 mcg Q48H PO 10/05/17 06:30 11/04/17 06:29 10/07/17 06:07 50 MCG Levothyroxine Sodium (Synthroid Tab) 75 mcg Q48H PO 10/04/17 06:30 11/03/17 06:29 10/06/17 05:57 75 MCG Multivitamins (Multivitamin Tab) 1 tab DAILY PO 10/04/17 09:00 11/03/17 08:59 10/07/17 08:04 1 TAB Tamsulosin HCl (Flomax Cap) 0.4 mg BID PO 10/03/17 21:00 11/02/17 20:59 10/07/17 08:04 0.4 MG Pantoprazole Sodium (Protonix Tab) 40 mg QAM PO 10/04/17 09:00 11/03/17 08:59 10/07/17 08:04 40 MG Menthol (Nice Kristian) 1 kristian PRN PRN PO 10/04/17 03:00 11/03/17 02:59 Bacitracin/ Polymyxin B Sulfate (Polysporin Oint) 1 appln BID EXT 10/04/17 21:00 11/03/17 20:59 10/07/17 09:50 1 APPLN Levofloxacin (Levaquin Tab) 750 mg DAILY@11 PO 10/06/17 11:00 10/13/17 10:59 10/07/17 12:00 750 MG
[2017-10-07] MEDS: ENOXAPARIN 40 MG/0.4 ML SYR SC SCH (17:57)
[2017-10-08 00:07] VITALS: BP 177/79; PULSE 54; TEMP 36.7; O2SAT 95
[2017-10-08 02:00] VITALS: BP 153/69
[2017-10-08] MEDS: LEVOTHYROXINE 75 MCG TAB PO SCH (05:33)
[2017-10-08 07:37] VITALS: BP 160/76; PULSE 77; TEMP 36.9; O2SAT 92
[2017-10-08] MEDS: FINASTERIDE 5 MG TAB PO SCH (09:44)
[2017-10-08] MEDS: ASPIRIN 81 MG ECTAB PO SCH (09:45)
[2017-10-08] MEDS: TAMSULOSIN HCL 0.4 MG CAP PO SCH (09:45)
[2017-10-08] MEDS: MULTIVITAMIN TAB PO SCH (09:45)
[2017-10-08] MEDS: PANTOprazole SOD 40 MG TAB PO SCH (09:45)
[2017-10-08] MEDS: BACITRACIN/POLYMYXIN B OINT 15 GM TUBE EXT SCH (09:46)
[2017-10-08 11:08] VITALS: BP 160/76; PULSE 77; TEMP 36.9; O2SAT 92
--- NOTE | 2017-10-08 13:36 | Progress Note ---
Medicine Progress Note Date & Time of Visit: Oct 08, 2017 at 13:35 . Subjective Doing well. Anxious to go home. No fever. Cough much better. No SOB. No chest pain. No nausea, vomiting, diarrhea. . Objective Last 8 Hrs Date Time Temp Pulse Resp B/P (MAP) Pulse Ox O2 Delivery O2 Flow Rate FiO2 10/08/17 11:08 36.9 77 17 92 Room Air 10/08/17 10:27 Room Air 10/08/17 07:37 36.9 77 17 160/76 (104) 92 Physical Exam: General- no distress Eyes- anicteric Neck- no JVD Lungs- few rales left base Heart- RRR Abdomen- + BS bowel sounds, nondistended, soft, nontender Extremities- trace pretibial edema Neuro- alert . Assessment & Plan PNEUMONIA / POSSIBLE SEPSIS Presented with cough, dyspnea, malaise. Afebrile, tachycardic. Blood pressures stable. WBC 16,000. Met criteria for sepsis per 2001 definition and current CMS criteria ( leukocytosis, tachycardia). Lactate 1.39. Chest x-ray showed LLL infiltrate. Influenza A/B Ag negative. Blood cultures obtained. Received broad spectrum antibiotic coverage with piperacillin / tazobactam followed by cefepime. Blood cultures negative so far. No sputum obtained for gram statin / C&S. Transitioned to oral therapy with levofloxacin. Discharge on levofloxacin to complete 7 day course of therapy. Should have f/u chest x-ray in 4-6 weeks to assure resolution of infiltrates. PANCREATITIS LFT's slightly elevated in ED. Serum lipase was 4059. S/P cholecystectomy. CT abdomen demonstrated pancreatitis. US demonstrated absence of gallbladder, no dilation of CBD, no apparent choledocholithiasis. Initially managed with bowel rest, IV fluids. GI consulted. MRCP did not show any significant pathology. Diet advanced without difficulty. HISTORY OF CHF Details of history not available. Echo shows mild LVH, normal LVEF. Apparently history of CHF due to diastolic dysfunction. Tolerated IV fluids. Follow. CHRONIC ATRIAL FIBRILLATION Rate controlled. Patient asked about anticoagulation, but was unable to provide history. His indicates that he was taking warfarin and another anticoagulant in the past, but they were discontinued because he did not take medications as instructed and there were concerns about unacceptable risk of bleeding. Continue aspirin. HYPOTHYROIDISM Continue levothyroxine. LEFT RENAL CYST Noted on CT and MRI. Described as "minimally complex" - no need for further evaluation per MRI criteria. RENAL CALCULUS Nonobstructing renal calculus noted on CT. Asymptomatic. BPH Continue finasteride and tamsulosin. HISTORY POST-TRAUMATIC SEIZURES No recent seizures. VTE PROPHYLAXIS SQ enoxaparin. Ambulate. DISPOSITION Discharge to home. Primary Care follow-up with Dr. Ng. . Current Inpatient Medications: Current Inpatient Medications Medications (Trade) Dose Ordered Sig/Marley Route Start Time Stop Time Status Last Admin Dose Admin Enoxaparin Sodium (Lovenox Inj) 40 mg Q24H SC 10/03/17 18:00 11/02/17 17:59 10/07/17 17:57 40 MG Acetaminophen (Tylenol Tab) 650 mg Q4H PRN PO 10/03/17 15:30 11/02/17 15:29 10/06/17 08:19 650 MG Al Hydrox/Mg Hydrox/Simethicone (Maalox Max Susp) 15 ml Q4H PRN PO 10/03/17 15:30 11/02/17 15:29 Magnesium Hydroxide (Milk Of Magnesia Susp) 30 ml Q12H PRN PO 10/03/17 15:30 11/02/17 15:29 Ondansetron HCl (Zofran Inj) 4 mg Q6H PRN IV 10/03/17 15:30 11/02/17 15:29 Aspirin (Ecotrin Tab) 81 mg DAILY PO 10/04/17 09:00 11/03/17 08:59 10/08/17 09:45 81 MG Finasteride (Proscar Tab) 5 mg DAILY PO 10/04/17 09:00 11/03/17 08:59 10/08/17 09:44 5 MG Levothyroxine Sodium (Synthroid Tab) 50 mcg Q48H PO 10/05/17 06:30 11/04/17 06:29 10/07/17 06:07 50 MCG Levothyroxine Sodium (Synthroid Tab) 75 mcg Q48H PO 10/04/17 06:30 11/03/17 06:29 10/08/17 05:33 75 MCG Multivitamins (Multivitamin Tab) 1 tab DAILY PO 10/04/17 09:00 11/03/17 08:59 10/08/17 09:45 1 TAB Tamsulosin HCl (Flomax Cap) 0.4 mg BID PO 10/03/17 21:00 11/02/17 20:59 10/08/17 09:45 0.4 MG Pantoprazole Sodium (Protonix Tab) 40 mg QAM PO 10/04/17 09:00 11/03/17 08:59 10/08/17 09:45 40 MG Menthol (Nice Kristian) 1 kristian PRN PRN PO 10/04/17 03:00 11/03/17 02:59 Bacitracin/ Polymyxin B Sulfate (Polysporin Oint) 1 appln BID EXT 10/04/17 21:00 11/03/17 20:59 10/08/17 09:46 1 APPLN Levofloxacin (Levaquin Tab) 750 mg DAILY@11 PO 10/06/17 11:00 10/13/17 10:59 10/07/17 12:00 750 MG
[2017-10-08] MEDS ORDERED: LVQ750 PO (13:38)
--- NOTE | 2017-10-08 13:46 | Discharge Instructions ---
Discharge Instructions Date of Service Oct 08, 2017. Admission Reason for Admission: pneumonia, pancreatitis (inflammation of pancreas) . Discharge Discharge Diagnosis / Problem: pneumonia, pancreatitis (inflammation of pancreas) Discharge Goals Goal(s): Improve disease control Activity Recommendations Activity Limitations: resume your previous activity . Instructions / Follow-Up Instructions / Follow-Up APPOINTMENTS: PRIMARY CARE Dr. Ng Please call his office for appointment. OTHER INSTRUCTIONS: You had pneumonia. It is getting better on antibiotics. Take levofloxacin (Levaquin) 1 pill daily for 4 more [address] Please ask Dr. Ng to check a repeat chest x-ray in 4-6 weeks to make certain that everything clears up. Please ask Dr. Ng to make sure that you are up to date on your pneumonia and flu shots. Seek medical attention if you have: * temperature above 101 * chest pain or trouble breathing * abdominal pain, nausea, vomiting * diarrhea, dark stools or bloody stools * any unanswered questions or concerns Call 911 if symptoms are severe. Call if you have any questions or problems. My cell # is [phone]. You can also reach a [facility] hospitalist on duty at [facility] 24 hours a day by calling [phone]. Please take good care of yourself. Jerson Lima . Current Hospital Diet Patient's current hospital diet: Regular Diet Discharge Diet Recommended Diet: AHA Diet (Heart Healthy) Procedures Procedures Performed: CT scan of abdomen showed inflammation of pancreas, kidney stone in right kidney, cyst in left kidney. Ultrasound abdomen- no sign of blockage in bile system or pancreas. MRI of pancreas did not show any blockage or spots. Ultrasound of heart (echocardiogram) showed that your heart is strong. You do have a heart murmur. Pending Studies Studies pending at discharge: no Laboratory Results Lipid Panel Test 10/06/17 07:09 Range/Units Triglycerides Level 119 0-150 mg/dl Cholesterol Level 100 0-200 mg/dl HDL Cholesterol 25 mg/dl Cholesterol/HDL Ratio 4.0 LDL Cholesterol, Calculated 51 mg/dl Medical Emergencies . Who to Call and When: Medical Emergencies: If at any time you feel your situation is an emergency, please call 911 immediately. . Non-Emergent Contact Non-Emergency issues call your: Primary Care Provider, Hospital Doctor . . "Provider Documentation" section prepared by Jerson Lima. . VTE Core Measure Inpt VTE Proph given/why not?: Enoxaparin (Lovenox)SQ
[2017-10-08] MEDS: LEVOFLOXACIN 750 MG TAB PO SCH (13:48)
--- NOTE | 2017-10-08 21:22 | Discharge Summary ---
Discharge Summary Date of Service Oct 08, 2017. Discharge Summary Admission Date: Oct 03, 2017 at 15:20 Discharge Date: Oct 08, 2017 Discharge Disposition: Home Principal Diagnosis: pneumonia LLL possible sepsis acute pancreatitis . Secondary Diagnoses/Problems: Chronic and Resolved Medical Problems: (1) Aortic insufficiency Status: Chronic (2) BPH (benign prostatic hypertrophy) Status: Chronic (3) Chronic atrial fibrillation Status: Chronic (4) Congestive heart failure Permanent Comment: diastolic Status: Chronic (5) History of DVT of lower extremity Status: Chronic (6) History of seizure Permanent Comment: post-traumatic Status: Chronic (7) Hypothyroidism Status: Chronic (8) Renal calculus Status: Chronic (9) Renal cyst, acquired, left Permanent Comment: mildly complex per CT 10/03/17 and MRI 10/04/17 Status: Chronic Surgical Problems: (1) Status post cholecystectomy Status: Chronic . Procedures: IV meds CT abdomen + pelvis US abdomen MRCP echo . Consultations: GI . Pending Studies/Follow-Up: Please schedule f/u chest x-ray in 4-6 weeks re: LLL pneumonia. . Medication Reconciliation New Medications: Levofloxacin (Levofloxacin) 750 Mg Tab 750 MG PO DAILY@11, #4 TAB Continued Medications: Aspirin (Aspirin Ec) 81 Mg Tab 81 MG PO DAILY Finasteride (Proscar) 5 Mg Tab 5 MG PO DAILY, TAB Levothyroxine Sodium (Levothyroxine Sodium) 75 Mcg Tab 1 TAB PO Q2D, TAB Levothyroxine Sodium (Levothyroxine Sodium) 50 Mcg Tab 1 TAB PO Q2D, TAB Multivitamin (Multivitamin) Tab 1 TAB PO DAILY, TAB Rosuvastatin Calcium (Crestor) 5 Mg Tab 5 MG PO HS, TAB Tamsulosin Hcl (Flomax) 0.4 Mg Cap 0.4 MG PO BID, CAP Admission Information HPI (per Admitting provider): This is a 77 year old male with a PMH of hypothyroidism, depression, CHF, hx. of A. Fib, hx. of RLE DVT, hx. of post-traumatic seizure disorder - presents with a week history of cough, productive at times, shortness of breath, feeling nauseous, vomiting with muscle aches. As per family, he has been having "flu like symptoms" for the past few days and so they brought him in for evaluation. Upon presentation an X-ray was done showing L basilar infiltrate. Also noted to have lipase elevation and BNP elevation as well as LFT elevation. Abdominal CT was performed showing a pancreatitis, which seems acute. As per family, patient has had a cholecystectomy as well as gall stone pancreatitis in the past. Currently, productive cough is his main concern. Denies fevers/chills +weakness present and has been having ambulatory issues since being ill. . 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 Afebrile, tachycardic. Blood pressures stable. WBC 16,000. Met criteria for sepsis per 2001 definition and current CMS criteria ( leukocytosis, tachycardia). Lactate 1.39. Chest x-ray showed LLL infiltrate. Influenza A/B Ag negative. Blood cultures obtained. Received broad spectrum antibiotic coverage with piperacillin / tazobactam followed by cefepime. Blood cultures negative so far. No sputum obtained for gram statin / C&S. Transitioned to oral therapy with levofloxacin. Discharge on levofloxacin to complete 7 day course of therapy. Should have f/u chest x-ray in 4-6 weeks to assure resolution of infiltrates. PANCREATITIS LFT's slightly elevated in ED. Serum lipase was 4059. S/P cholecystectomy. CT abdomen demonstrated pancreatitis. US demonstrated absence of gallbladder, no dilation of CBD, no apparent choledocholithiasis. Initially managed with bowel rest, IV fluids. GI consulted. MRCP did not show any significant pathology. Diet advanced without difficulty. HISTORY OF CHF Details of history not available. Echo shows mild LVH, normal LVEF. Apparently history of CHF due to diastolic dysfunction. Tolerated IV fluids. Follow. CHRONIC ATRIAL FIBRILLATION Rate controlled. Patient asked about anticoagulation, but was unable to provide history. His indicates that he was taking warfarin and another anticoagulant in the past, but they were discontinued because he did not take medications as instructed and there were concerns about unacceptable risk of bleeding. Continue aspirin. HYPOTHYROIDISM Continue levothyroxine. LEFT RENAL CYST Noted on CT and MRI. Described as "minimally complex" - no need for further evaluation per MRI criteria. RENAL CALCULUS Nonobstructing renal calculus noted on CT. Asymptomatic. BPH Continue finasteride and tamsulosin. HISTORY POST-TRAUMATIC SEIZURES No recent seizures. VTE PROPHYLAXIS SQ enoxaparin. Ambulate. DISPOSITION Discharge to home. Primary Care follow-up with Dr. Ng. . Total time spent on discharge = 40 min. This includes examination of the patient, discharge planning, medication reconciliation, and communication with other providers. . Discharge Instructions Date of Service Oct 08, 2017. Admission Reason for Admission: pneumonia, pancreatitis (inflammation of pancreas) . Discharge Discharge Diagnosis / Problem: pneumonia, pancreatitis (inflammation of pancreas) Discharge Goals Goal(s): Improve disease control Activity Recommendations Activity Limitations: resume your previous activity . Instructions / Follow-Up Instructions / Follow-Up APPOINTMENTS: PRIMARY CARE Dr. Ng Please call his office for appointment. OTHER INSTRUCTIONS: You had pneumonia. It is getting better on antibiotics. Take levofloxacin (Levaquin) 1 pill daily for 4 more [address] Please ask Dr. Ng to check a repeat chest x-ray in 4-6 weeks to make certain that everything clears up. Please ask Dr. Ng to make sure that you are up to date on your pneumonia and flu shots. Seek medical attention if you have: * temperature above 101 * chest pain or trouble breathing * abdominal pain, nausea, vomiting * diarrhea, dark stools or bloody stools * any unanswered questions or concerns Call 911 if symptoms are severe. Call if you have any questions or problems. My cell # is [phone]. You can also reach a [facility] hospitalist on duty at [facility] 24 hours a day by calling [phone]. Please take good care of yourself. Jerson Lima . Current Hospital Diet Patient's current hospital diet: Regular Diet Discharge Diet Recommended Diet: AHA Diet (Heart Healthy) Procedures Procedures Performed: CT scan of abdomen showed inflammation of pancreas, kidney stone in right kidney, cyst in left kidney. Ultrasound abdomen- no sign of blockage in bile system or pancreas. MRI of pancreas did not show any blockage or spots. Ultrasound of heart (echocardiogram) showed that your heart is strong. You do have a heart murmur. Pending Studies Studies pending at discharge: no Laboratory Results Lipid Panel Test 10/06/17 07:09 Range/Units Triglycerides Level 119 0-150 mg/dl Cholesterol Level 100 0-200 mg/dl HDL Cholesterol 25 mg/dl Cholesterol/HDL Ratio 4.0 LDL Cholesterol, Calculated 51 mg/dl Medical Emergencies . Who to Call and When: Medical Emergencies: If at any time you feel your situation is an emergency, please call 911 immediately. . Non-Emergent Contact Non-Emergency issues call your: Primary Care Provider, Hospital Doctor . . "Provider Documentation" section prepared by Jerson Lima. . VTE Core Measure Inpt VTE Proph given/why not?: Enoxaparin (Lovenox)SQ . Additional Copies To Yamil Ng, DO
== END 2017-10-08 14:16 | disposition home or self-care (01) | DRG 871 ==
LOC: C.EDB 11:44 → C.MED 15:20 → ENRESERV 15:40
PROVIDERS: ADMIT Family Medicine; ATTEND Hospitalist
DX: A41.9 Sepsis, unspecified organism (principal); J18.9 Pneumonia, unspecified organism; K85.90 Acute pancreatitis without necrosis or infection, unspecified; I50.30 Unspecified diastolic (congestive) heart failure; E03.9 Hypothyroidism, unspecified; F32.9 Major depressive disorder, single episode, unspecified; I48.0 Paroxysmal atrial fibrillation; I87.2 Venous insufficiency (chronic) (peripheral); N40.0 Benign prostatic hyperplasia without lower urinary tract symptoms; Z79.82 Long term (current) use of aspirin; Z79.899 Other long term (current) drug therapy; Z86.718 Personal history of other venous thrombosis and embolism

== ENCOUNTER 2017-10-13 05:38 | Inpatient (IN) | payer OTHER ==
[~2017-10-13] VITALS: Ht 182.9 cm; Wt 78.7 kg
[~2017-10-13 05:38] MED LIST changes: +ASPI81TA28 PO; -ASPITAB PO; -LAMO100T16 PO; +LEVO50TA6 PO; +LVQ750 PO
--- NOTE | 2017-10-13 06:04 | EMERGENCY ROOM VISIT NOTE ---
History Report prepared by Keshaibbreanne: Suma Causey Under the Supervision of: Dr. Jaimie Ahn D.O. First contact with patient: 05:49 Chief Complaint: WEAKNESS Stated Complaint: WEAKNESS/CHEST PAIN/SHORT OF BREATH History of Present Illness The patient is a 77 year old male who presents to the Emergency Room with complaints of persistent weakness for the past few days. He was brought to the ED via EMS. His reports he has had a cold for the past few days and has been increasingly short of breath and weak. The patient also complains of left sided chest pain and pain in his bilateral knees. He states when he takes a deep breath, his chest pain worsens. He has not been keeping up on his fluids as well as he should but has been eating. He reports he did not sleep much last night. The patient was recently sent home after a hospital stay here for a left sided pneumonia and sepsis. He admits to a productive cough with cordon colored sputum but states he finished his course of antibiotics yesterday. Source of History: patient, spouse/significant other () Onset: past few days Position: other (global) Timing: other (persistent) Associated Symptoms: + cough, + chest pain, + SOB, + fatigue Review of Systems See HPI for pertinent positives & negatives. A total of 10 systems reviewed and were otherwise negative. Past Medical & Surgical Medical Problems: (1) Aortic insufficiency (2) BPH (benign prostatic hypertrophy) (3) Chronic atrial fibrillation (4) Congestive heart failure (5) History of DVT of lower extremity (6) History of seizure (7) Hypothyroidism (8) Renal calculus (9) Renal cyst, acquired, left Surgical Problems: (1) Hx of cholecystectomy (2) Status post cholecystectomy Social History Smoking Status: Never Smoker Alcohol Use: none Drug Use: none Marital Status: Housing Status: lives with family Occupation Status: retired Current/Historical Medications Scheduled Aspirin (Aspirin Ec), 81 MG PO DAILY Finasteride (Proscar), 5 MG PO DAILY Levothyroxine Sodium (Levothyroxine Sodium), 1 TAB PO Q2D Levothyroxine Sodium (Levothyroxine Sodium), 1 TAB PO Q2D Multivitamin (Multivitamin), 1 TAB PO DAILY Rosuvastatin Calcium (Crestor), 5 MG PO HS Tamsulosin Hcl (Flomax), 0.4 MG PO BID Allergies Uncoded Allergies: Contrast dye (Adverse Reaction, Intermediate, HIVES, 10/13/17) Physical Exam Vital Signs Date Time Temp Pulse Resp B/P (MAP) Pulse Ox O2 Delivery O2 Flow Rate FiO2 10/13/17 07:43 84 23 94 10/13/17 07:42 132/77 10/13/17 07:37 97 Room Air 10/13/17 07:24 37.2 10/13/17 07:00 137/70 10/13/17 06:43 81 26 95 10/13/17 06:38 83 23 94 10/13/17 06:30 141/70 10/13/17 06:08 84 24 95 10/13/17 06:01 135/81 10/13/17 06:00 84 10/13/17 05:54 86 18 129/71 96 Room Air 10/13/17 05:49 129/71 Physical Exam HEENT: Head - normocephalic and atraumatic Pupils are equal, round, and reactive to light. Extraocular eye muscles are intact, and sclera are anicteric. Nose - moist nasal mucosa without discharge. Mouth - dry buccal mucosa. Poor dentition. Oropharynx is nonerythematous and there is no tonsillar exudate or edema noted. Neck: Supple; no JVD, nuchal rigidity, cervical lymphadenopathy, or auscultated bruits. Heart: Regular rate and rhythm. There is a normal S1 and S2 with no murmurs, clicks, or gallops appreciated. Lungs: Clear to auscultation bilaterally with no wheezes, rales, or rhonchi. Abdomen: Soft, completely nontender, nondistended, with good bowel sounds. There are no palpable pulsatile masses or hepatosplenomegaly. There is no guarding, rigidity, or rebound noted. Extremities: Trace edema in bilateral legs. No evidence of cyanosis or clubbing. There are easily palpable peripheral pulses. Skin: warm and dry with good turgor and no rashes. Medical Decision & Procedures ER Provider Diagnostic Interpretation: Radiology results as stated below per my review and interpretation: CHEST X-RAY New left sided pulmonary infiltrate, consistent with pneumonia. Laboratory Results Test 10/13/17 05:20 Est Creatinine Clear Calc Drug Dose 68.7 ml/min Laboratory results per my review. Medications Administered Medications (Trade) Dose Ordered Sig/Marley Route Start Time Stop Time Status Last Admin Dose Admin Cefepime HCl 2000 mg/Dextrose 112.5 ml @ 200 mls/hr NOW STAT IV 10/13/17 07:32 10/13/17 08:05 DC 10/13/17 07:51 200 MLS/HR Procedure IV cefepime ECG Indication: weakness Rate (beats per minute): 86 Rhythm: normal sinus Findings: no acute ischemic change, no ectopy ED Course 0551: Past medical records reviewed. The patient was evaluated in room A10. A complete history and physical exam was performed. A twelve-lead EKG was obtained as described above. The patient had chest x-ray which showed a left- sided pneumonia. A septic protocol was performed. 0558: Nursing informed me the patients Son found out this morning that the patient has been taking a medication he was supposed to stop when he got out of the hospital, but he didn't. He was told if he didn't stop taking it, it could "deplete his sodium and cause swelling in the brain". I kept the patient's and son abreast of the situation. Chest x-ray was concerning for recurrent pneumonia. The patient was given IV cefepime. 0715: [facility] The patient will be further evaluated. Medical Decision The patient is a 77 year old male who presents to the ED with weakness. Differential diagnosis includes recurrent pneumonia, recurrent sepsis, hyponatremia, UTI, dehydration, renal failure and acute coronary syndrome. Lab results show WBC is 21.2. Stable H&H. Normal renal function. Glucose is 122. Normal troponin. Normal calcium. Normal magnesium. Normal LFT's. Lipase- [id number] The patient was recently discharged from the hospital after an episode of pneumonia and pancreatitis. He presents today with left-sided chest pain and weakness. X-rays concerning for a new left-sided pneumonia. The patient was started on IV antibiotics. He will be ruled out for cardiac disease because of the chest discomfort. In the patient's lipase was greater than 5000. I discussed the case with the [facility] and they will evaluate for further management. Medication Reconcilliation Current Medication List: was personally reviewed by me Blood Pressure Screening Patient's blood pressure: Elevated blood pressure Blood pressure disposition: Elevated BP felt to be situational Consults Time Called: 711 Consulting Physician: Dr. Lamoure, [facility] Hospitalist Returned Call: 0715 I discussed the patients case with Sh[facility] Hospitalist. The patient will be further evaluated. Impression Primary Impression: Left sided chest pain Additional Impressions: Pancreatitis Left lower lobe pneumonia Scribe Attestation The scribe's documentation has been prepared under my direction and personally reviewed by me in its entirety. I confirm that the note above accurately reflects all work, treatment, procedures, and medical decision making performed by me. Departure Information Dispostion Being Evaluated By Hospitalist Referrals Yamil Ng D.O. (PCP) Patient Instructions My [facility] Problem Qualifiers Additional Impressions: Pancreatitis Chronicity: acute Pancreatitis type: unspecified pancreatitis type Acute pancreatitis complication: unspecified Qualified Codes: K85.90 - Acute pancreatitis without necrosis or infection, unspecified Left lower lobe pneumonia Pneumonia type: due to unspecified organism Qualified Codes: J18.1 - Lobar pneumonia, unspecified organism
[2017-10-13 06:16] LABS: BASO % 0.2 %; BASO ABS # 0.04 K/uL (0-0.2); COMPLETE YES; EOS % 2.5 %; HEMATOCRIT 40.5 % (42-52); IG% 0.4 %; LYMPH % 22.8 %; LYMPH ABS # 4.86 K/uL (1.2-3.4); MEAN CELL VOLUME 94.4 fL (80-100); MEAN CORPUSCULAR HEMOGLOBIN 32.2 pg (25-34); MEAN CORPUSCULAR HGB CONC 34.1 g/dl (32-36); MEAN PLATELET VOLUME 11.6 fL (7.4-10.4); MONO % 6.6 %; NEUT % 67.5 %; PLATELET COUNT 310 K/uL (130-400); RED BLOOD COUNT 4.29 M/uL (4.7-6.1); WHITE BLOOD COUNT 21.27 K/uL (4.8-10.8)
[2017-10-13 06:37] LABS: ALT/SGPT 41 U/L (12-78); AST/SGOT 15 U/L (15-37); BLOOD UREA NITROGEN 18 mg/dl (7-18); BUN/CREATININE RATIO 17.2 (10-20); CALCIUM 8.6 mg/dl (8.5-10.1); CARBON DIOXIDE 22 mmol/L (21-32); CHLORIDE 111 mmol/L (98-107); CREATININE 1.02 mg/dl (0.60-1.40); GLUCOSE 122 mg/dl (70-99); MAGNESIUM 2.2 mg/dl (1.8-2.4); POTASSIUM 3.6 mmol/L (3.5-5.1); SODIUM 141 mmol/L (136-145)
[2017-10-13 06:43] LABS: ALKALINE PHOSPHATASE 232 U/L (45-117)
[2017-10-13] MEDS ORDERED: CEFEPIME IV 2,000 MG in DEXTROSE 5% 100ML 100 ML IV STA (07:32)
--- NOTE | 2017-10-13 07:33 | DIAGNOSTIC IMAGING REPORT ---
CHEST 2 VIEWS ROUTINE HISTORY: Left-sided chest pain. Cough. COMPARISON: Chest 10/03/2017. FINDINGS: Focal airspace opacity within the base of the left lower lobe. The heart is mildly enlarged. No pneumothorax. No pleural effusions. Questionable density within the periphery the right midlung zone is likely due to the overlapping ribs. IMPRESSION: Focal airspace opacity within the left lower lobe. This is consistent with a pneumonia. Recommend one to 2 month chest x-ray follow-up to ensure resolution. Electronically signed by: Micah Alejo M.D. 10/13/2017 7:31 AM Dictated Date/Time: 10/13/2017 7:29 AM
[2017-10-13] MEDS ORDERED: MoRPHine SULFATE 2 MG/ML CARP IV PRN (08:00)
[2017-10-13] MEDS ORDERED: NITROGLYCERIN 0.4 MG SL PER TAB CHARGE SL PRN (08:00)
[2017-10-13] MEDS ORDERED: ONDANSETRON INJ 2 MG/ML 2 ML VIAL IV PRN (08:00)
[2017-10-13 08:16] LABS: INR 1.1 (0.9-1.1); PROTHROMBIN TIME (PATIENT) 11.7 SECONDS (9.0-12.0)
--- NOTE | 2017-10-13 08:45 | DIAGNOSTIC IMAGING REPORT ---
ABDOMINAL ULTRASOUND, RIGHT UPPER QUADRANT HISTORY: Epigastric pain. pancreatitis . COMPARISON: Abdominal ultrasound 10/04/2017. FINDINGS: Pancreas: Slightly heterogeneous echotexture. No peripancreatic fluid collections. This remains unchanged. Liver: Unremarkable. Gallbladder: The gallbladder is surgically absent. CBD: 5 mm. Right kidney: No hydronephrosis. IMPRESSION: 1. Slightly heterogeneous pancreas which remains unchanged. No peripancreatic fluid collections. This favors mild pancreatitis as seen on the prior studies. 2. Cholecystectomy. Electronically signed by: Micah Alejo M.D. 10/13/2017 8:43 AM Dictated Date/Time: 10/13/2017 8:38 AM
[2017-10-13] MEDS ORDERED: HEPARIN SOD 5000 UNIT/0.5 ML CARP SQ SCH (09:00)
--- NOTE | 2017-10-13 09:31 | History and Physical ---
History & Physical Date & Time of Service: Oct 13, 2017 at 09:31 Chief Complaint: Weakness/Chest Pain/Short Of Breath Primary Care Physician: Yamil Ng D.O. 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 was admitted to [facility] form Oct 03 to Oct 08 2017 for left lower lobe pneumonia , acute pancreatitis pt was evaluated by GI -extensive GI imaging -pancreatic USG /CT abdomen - pelvis /MRCP did not show any pathology pt's lipase level improved with conservative management with IVF and bowel rest pt was discharged home on 10/08/17 with PO Levaquin 750 mg daily for 4 more days pt presents to ER today -with complain of weak, tired , chest pain while taking deep breath , ongoing cough and sputum production pt is a poor historian mentions he never felt better since discharge , had ongoing fatigue and tiredness completed Antibiotic for pneumonia yesterday his cough never improved yesterday it got worse and experience sharp chest pain with coughing in ER pt found to have marked Leukocytosis WBC 21 K Lipase elevated ~5000 CXray shows persisted Lt lower lobe infiltrate Past Medical/Surgical History Medical Problems: (1) Aortic insufficiency Status: Chronic (2) BPH (benign prostatic hypertrophy) Status: Chronic (3) Chronic atrial fibrillation Status: Chronic (4) Congestive heart failure Permanent Comment: diastolic Status: Chronic (5) History of DVT of lower extremity Status: Chronic (6) History of seizure Permanent Comment: post-traumatic Status: Chronic (7) Hypothyroidism Status: Chronic (8) Renal calculus Status: Chronic (9) Renal cyst, acquired, left Permanent Comment: mildly complex per CT 10/03/17 and MRI 10/04/17 Status: Chronic Surgical Problems: (1) Hx of cholecystectomy Status: Resolved (2) Status post cholecystectomy Status: Chronic Social History Smoking Status: Never Smoker Drug Use: none Marital Status: Occupational Status: retired Allergies Coded Allergies: No Known Allergies (Unverified , 10/03/17) Home Medications Scheduled Aspirin (Aspirin Ec), 81 MG PO DAILY Finasteride (Proscar), 5 MG PO DAILY Levothyroxine Sodium (Levothyroxine Sodium), 1 TAB PO Q2D Levothyroxine Sodium (Levothyroxine Sodium), 1 TAB PO Q2D Multivitamin (Multivitamin), 1 TAB PO DAILY Rosuvastatin Calcium (Crestor), 5 MG PO HS Tamsulosin Hcl (Flomax), 0.4 MG PO BID Review of Systems Constitutional: + fever, + chills, + sweats, + weight loss, + weakness, + fatigue Respiratory: + cough, + sputum, + wheezing, + shortness of breath, + dyspnea on exertion, + dyspnea at rest Cardiovascular: + chest pain (with deep breath ), + edema, + problem reported ( dizzy spell , lighthededness ) Abdomen: + pain (in mid abdomen and epigastrium ), + nausea, + diarrhea, + problem reported (poor appetite ) Neurologic: + weakness, + vertigo Psychiatric: + depression symptoms Endocrine: + fatigue Physical Exam Vital Signs Date Time Temp Pulse Resp B/P (MAP) Pulse Ox O2 Delivery O2 Flow Rate FiO2 10/13/17 09:00 116/60 10/13/17 08:43 76 21 95 10/13/17 08:30 135/70 10/13/17 08:02 88 10/13/17 08:00 123/67 10/13/17 07:43 84 23 94 10/13/17 07:42 132/77 10/13/17 07:37 97 Room Air 10/13/17 07:24 37.2 10/13/17 07:00 137/70 10/13/17 06:43 81 26 95 10/13/17 06:38 83 23 94 10/13/17 06:30 141/70 10/13/17 06:08 84 24 95 10/13/17 06:01 135/81 10/13/17 06:00 84 10/13/17 05:54 86 18 129/71 96 Room Air 10/13/17 05:49 129/71 General Appearance: + mild distress, + thin, + pertinent finding (chronically ill appearing ) Head: normocephalic, atraumatic Eyes: normal inspection, PERRL, EOMI, sclerae normal ENT: normal ENT inspection, pharynx normal, + pertinent finding (dry oral mucosa ) Neck: thyroid normal, trachea midline Respiratory/Chest: + decreased breath sounds, + crackles, + rales, + rhonchi, + wheezing, + pertinent finding (pluritic chest pain with deep breath ) Cardiovascular: regular rate, rhythm Abdomen/GI: + tenderness (in mid abdomen and epigastric region ) Extremities/Musculoskelatal: + pedal edema (trace pedal edema ) Neurologic/Psych: no motor/sensory deficits, alert, oriented x 3, + depressed affect Skin: normal color, warm/dry, no rash Diagnostics Laboratory Results Results Past 24 Hours Test 10/13/17 05:20 Range/Units White Blood Count 21.27 4.8-10.8 K/uL Red Blood Count 4.29 4.7-6.1 M/uL Hemoglobin 13.8 14.0-18.0 g/dL Hematocrit 40.5 42-52 % Mean Corpuscular Volume 94.4 80-100 fL Mean Corpuscular Hemoglobin 32.2 25-34 pg Mean Corpuscular Hemoglobin Concent 34.1 32-36 g/dl Platelet Count 310 130-400 K/uL Mean Platelet Volume 11.6 7.4-10.4 fL Neutrophils (%) (Auto) 67.5 % Lymphocytes (%) (Auto) 22.8 % Monocytes (%) (Auto) 6.6 % Eosinophils (%) (Auto) 2.5 % Basophils (%) (Auto) 0.2 % Neutrophils # (Auto) 14.36 1.4-6.5 K/uL Lymphocytes # (Auto) 4.86 1.2-3.4 K/uL Monocytes # (Auto) 1.40 0.11-0.59 K/uL Eosinophils # (Auto) 0.53 0-0.5 K/uL Basophils # (Auto) 0.04 0-0.2 K/uL RDW Standard Deviation 49.4 36.4-46.3 fL RDW Coefficient of Variation 14.6 11.5-14.5 % Immature Granulocyte % (Auto) 0.4 % Immature Granulocyte # (Auto) 0.08 0.00-0.02 K/uL Prothrombin Time 11.7 9.0-12.0 SECONDS Prothromb Time International Ratio 1.1 0.9-1.1 Activated Partial Thromboplast Time 27.0 21.0-31.0 SECONDS Partial Thromboplastin Ratio 1.0 Sodium Level 141 136-145 mmol/L Potassium Level 3.6 3.5-5.1 mmol/L Chloride Level 111 98-107 mmol/L Carbon Dioxide Level 22 21-32 mmol/L Anion Gap 8.0 3-11 mmol/L Blood Urea Nitrogen 18 7-18 mg/dl Creatinine 1.02 0.60-1.40 mg/dl Est Creatinine Clear Calc Drug Dose 68.7 ml/min Estimated GFR () 82.9 Estimated GFR (Non- 71.6 BUN/Creatinine Ratio 17.2 10-20 Random Glucose 122 70-99 mg/dl Calcium Level 8.6 8.5-10.1 mg/dl Magnesium Level 2.2 1.8-2.4 mg/dl Total Bilirubin 0.8 0.2-1 mg/dl Direct Bilirubin 0.3 0-0.2 mg/dl Aspartate Amino Transf (AST/SGOT) 15 15-37 U/L Alanine Aminotransferase (ALT/SGPT) 41 12-78 U/L Alkaline Phosphatase 232 45-117 U/L Total Creatine Kinase 37 39-308 U/L Creatine Kinase MB < 0.5 0.5-3.6 ng/ml Creatine Kinase MB Ratio 0-3.0 Troponin I < 0.015 0-0.045 ng/ml Total Protein 6.7 6.4-8.2 gm/dl Albumin 3.0 3.4-5.0 gm/dl Lipase 5618 73-393 U/L Microbiology Results 10/13/17 Blood Culture, Ordered Pending 10/13/17 Blood Culture, Ordered Pending 10/13/17 Blood Culture, Received Pending 10/13/17 Blood Culture, Received Pending Diagnostic Radiology ULTRASOUND PANCREAS : IMPRESSION: 1. Slightly heterogeneous pancreas which remains unchanged. No peripancreatic fluid collections. This favors mild pancreatitis as seen on the prior studies. 2. Cholecystectomy. PORTABLE CXRAY : IMPRESSION: Focal airspace opacity within the left lower lobe. This is consistent with a pneumonia. Recommend one to 2 month chest x-ray follow-up to ensure resolution. EKG Normal sinus rhythm Left axis deviation Possible Inferior infarct , age undetermined Abnormal ECG When compared with ECG of 05-OCT-2017 06:50, Inferior infarct is now Present Impression Assessment and Plan CHEST PAIN ; presents with pleuritic chest pain dizzy spell and lightheadedness symptom atypical for angina Cardiac markers negative concern for PE -given pt was admitted recently , has not been feeling well , activity was minimum at home ordered for D Dimer CT chest to R/O PE mentions of increased lower ext edema and pain in calf region Doppler USG ordered for lower ext PNEUMONIA recent admission with left sided pneumonia was discharged on 10/08/17 with PO Levaquin-per pt completed course yesterday 10/11/17 Cxray shows persistent left sided infiltrate blood culture sent pt has ongoing cough , rales at base ordered for Rocephin /Zithromax sputum culture repeat Xray in next 2 days to assess for resolution /improvement of infiltrate CTA of chest ordered LEUKOCYTOSIS marked WBC 21 K ( WBC was normal 10 on 10/07/17 ) recently treated with broad spectrum ABx ordered for C diff follow blood cultures PANCREATITIS ; recent admission last week with pancreatitis had CT abdomen /pelvis : showed minimal peripancreatic infiltration s/p cholecystectomy USG of abdomen shows absence of gall bladder MRCP done last week -no pathology , no evidence of choledocholithiasis TG LEVEL on was 119 appreciate input form GI cont conservative approach with NPO , IVF repeat lipase level in AM will need out pt EUS by GI BPH Cont out pt med Flomax HX OF CHRONIC AFIB rate controlled not on anticoagulation due to hx of non compliance HX OF DVT OF LOWER EXT : not on anticoagulation due to hx of non compliance ordered for USG of lower ext CTA of chest for PE HX OF CHRONIC DIASTOLIC CHF compensated no evidence of vol overload recent ECHO 10/04/17 : normal LV chamber size with mild concentric LVH , sigmoid appearing septum . Normal LV systolic function , EF 55-60% no segmental wall motion abnormality noted presence of left atrial enlargement suggests diastolic dysfunction HX OF SEIZURE POST TRAUMATIC no recent Sz not on any antiseizure meds HYPOTHYROIDISM : cont Levothyroxine FULL CODE DVT PROPHYLAXIS sub q heparin DISPOSITION ; pt mention of worsening of weakness and poor functional status PT/OT eval prior to discharged home when medically stable Medicine follow up with Dr Yamil Ng will need out pt GI follow up for EUS Level of Care Telemetry Resuscitation Status FULL RESUSCITATION VTE Prophylaxis VTE Risk Assessment Done? Y/N: Yes Risk Level: Moderate Given or contraindicated: Unfractionated heparin SQ Additional Copies To Yamil Ng D.O.
[2017-10-13 09:41] VITALS: BP 132/72; PULSE 85; TEMP 36.7; O2SAT 95
[2017-10-13] MEDS ORDERED: SODIUM CHLORIDE 0.9% 1000ML 1,000 ML IV SCH (09:45)
[2017-10-13 10:03] VITALS: BP 132/72; PULSE 85; TEMP 36.7; Ht 182.9 cm; Wt 78.7 kg
[2017-10-13] MEDS ORDERED: NURSING VERBAL MED ORDER ONE (11:00)
[2017-10-13] MEDS ORDERED: COUGH DROP (SUGAR FREE) LOZ 24 LOZ/1 BOX ONE (11:06)
--- NOTE | 2017-10-13 11:07 | Gastrointestinal Consultation ---
Gastrointestinal Consultation Date of Consultation: Oct 13, 2017 Attending Physician: Dr. Albrecht Consulting Physician: Reason for Consultation: elevated lipase History of Present Illness Patient is a 77 year old male with multiple comorbidities who was recently hospitalized with spesis, pneumonia and ?mild pancreatitis ([id number]). He presented to the ER last evening with weakness, cough, SOB and left sided chest pain. Work up on arrival showed negative cardiac enzymes but a lipase of 5600 with normal LFTs. He tells me that he ate pizza from [employer] yesterday evening without any associated nausea, vomiting or abdominal pain. He is sitting up and comfortable this AM. Denies any pain. asking me if he can eat. Work up of the pancreatitis during his admission just a week and a half ago showed changes of mild pancreatitis and a normal caliber CBD of 5mm. An MRI of the abdomen did not show any evidence of a pancreatic mass. Lipase on discharge on 10/07 was 570. His only complaint this AM is cough and hunger. Past Medical/Surgical History Medical Problems: (1) CHF (congestive heart failure) Status: Acute (2) Left sided chest pain Status: Acute (3) Pancreatitis Status: Acute (4) Pneumonia Status: Acute (5) Weakness Status: Acute Past Medical History: as noted in HPI Past Surgical History: reviewed and noted Family History non-contributory Social History Smoking Status: Never Smoker Alcohol Use: none Drug Use: none Marital Status: Housing Status: lives with family Occupation Status: retired Allergies Coded Allergies: No Known Allergies (Unverified , 10/03/17) Current Medications Home Meds and Scripts Medications Dose Route/Sig Max Daily Dose Days Date Category Proscar (Finasteride) 5 Mg Tab 5 Mg PO DAILY 10/03/17 Reported Flomax (Tamsulosin Hcl) 0.4 Mg Cap 0.4 Mg PO BID 10/03/17 Reported Levothyroxine Sodium 50 Mcg Tab 1 Tab PO Q2D 10/03/17 Reported Levothyroxine Sodium 75 Mcg Tab 1 Tab PO Q2D 10/03/17 Reported Aspirin Ec (Aspirin) 81 Mg Tab 81 Mg PO DAILY 10/03/17 Reported Multivitamin (Multivitamins) Tab 1 Tab PO DAILY 04/09/14 Reported Crestor (Rosuvastatin Calcium) 5 Mg Tab 5 Mg PO HS 04/09/14 Reported Review of Systems 12 systems reviewed and negative except as noted Physical Exam Date Time Temp Pulse Resp B/P (MAP) Pulse Ox O2 Delivery O2 Flow Rate FiO2 10/13/17 10:03 36.7 85 18 132/72 Room Air 10/13/17 09:41 36.7 85 18 132/72 (92) 95 Room Air 10/13/17 09:00 116/60 10/13/17 08:43 76 21 95 10/13/17 08:30 135/70 10/13/17 08:02 88 10/13/17 08:00 123/67 10/13/17 07:43 84 23 94 10/13/17 07:42 132/77 10/13/17 07:37 97 Room Air 10/13/17 07:24 37.2 10/13/17 07:00 137/70 10/13/17 06:43 81 26 95 10/13/17 06:38 83 23 94 10/13/17 06:30 141/70 10/13/17 06:08 84 24 95 10/13/17 06:01 135/81 10/13/17 06:00 84 10/13/17 05:54 86 18 129/71 96 Room Air 10/13/17 05:49 129/71 General Appearance: WD/WN, no apparent distress Eyes: normal inspection, PERRL ENT: normal ENT inspection, hearing grossly normal, pharynx normal Neck: supple, no adenopathy, no JVD Respiratory/Chest: chest non-tender, no respiratory distress, + decreased breath sounds, + crackles Cardiovascular: regular rate, rhythm Abdomen: normal bowel sounds, non tender, soft Extremities: normal range of motion, non-tender, no pedal edema 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/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, no motor/sensory deficits, alert, normal mood/affect, oriented x 3 Skin: normal color, no jaundice, warm/dry, no rash Laboratory Results Last 24 Hours Test 10/13/17 05:20 White Blood Count 21.27 K/uL Red Blood Count 4.29 M/uL Hemoglobin 13.8 g/dL Hematocrit 40.5 % Mean Corpuscular Volume 94.4 fL Mean Corpuscular Hemoglobin 32.2 pg Mean Corpuscular Hemoglobin Concent 34.1 g/dl Platelet Count 310 K/uL Mean Platelet Volume 11.6 fL Neutrophils (%) (Auto) 67.5 % Lymphocytes (%) (Auto) 22.8 % Monocytes (%) (Auto) 6.6 % Eosinophils (%) (Auto) 2.5 % Basophils (%) (Auto) 0.2 % Neutrophils # (Auto) 14.36 K/uL Lymphocytes # (Auto) 4.86 K/uL Monocytes # (Auto) 1.40 K/uL Eosinophils # (Auto) 0.53 K/uL Basophils # (Auto) 0.04 K/uL RDW Standard Deviation 49.4 fL RDW Coefficient of Variation 14.6 % Immature Granulocyte % (Auto) 0.4 % Immature Granulocyte # (Auto) 0.08 K/uL Prothrombin Time 11.7 SECONDS Prothromb Time International Ratio 1.1 Activated Partial Thromboplast Time 27.0 SECONDS Partial Thromboplastin Ratio 1.0 Sodium Level 141 mmol/L Potassium Level 3.6 mmol/L Chloride Level 111 mmol/L Carbon Dioxide Level 22 mmol/L Anion Gap 8.0 mmol/L Blood Urea Nitrogen 18 mg/dl Creatinine 1.02 mg/dl Est Creatinine Clear Calc Drug Dose 68.7 ml/min Estimated GFR () 82.9 Estimated GFR (Non- 71.6 BUN/Creatinine Ratio 17.2 Random Glucose 122 mg/dl Calcium Level 8.6 mg/dl Magnesium Level 2.2 mg/dl Total Bilirubin 0.8 mg/dl Direct Bilirubin 0.3 mg/dl Aspartate Amino Transf (AST/SGOT) 15 U/L Alanine Aminotransferase (ALT/SGPT) 41 U/L Alkaline Phosphatase 232 U/L Total Creatine Kinase 37 U/L Creatine Kinase MB < 0.5 ng/ml Creatine Kinase MB Ratio Troponin I < 0.015 ng/ml Total Protein 6.7 gm/dl Albumin 3.0 gm/dl Lipase 5618 U/L Impression Patient is a 77 year old male with multiple comorbidities and recent admission with sepsis, pneumonia and mild pancreatitis re-admitted last evening with left sided chest pain, SOB, and weakness. Lipase noted to now by 5600 with normal LFTs and currently no abdominal symptoms. Plan - IVF hydration. - Continue NPO today. - PRN analgesia and anti-emetics. - Check trigylcerides as etiology of the pancreatitis is unclear. - Supportive measures. Mgt of respiratory problems per primary service. - May need an outpatient EUS once the pancreatitis has completely resolved.
[2017-10-13] MEDS ORDERED: COUGH DROP (SUGAR FREE) LOZ 24 LOZ/1 BOX PO PRN (11:30)
[2017-10-13] MEDS ORDERED: FINASTERIDE 5 MG TAB PO ONE (12:15)
[2017-10-13] MEDS ORDERED: ASPIRIN 81 MG ECTAB PO ONE (12:15)
[2017-10-13] MEDS: TAMSULOSIN HCL 0.4 MG CAP PO SCH ×2 (12:28→21:27)
[2017-10-13] MEDS: LEVOTHYROXINE 50 MCG TAB PO SCH (12:28)
[2017-10-13 13:07] LABS: URINE APPEARANCE CLEAR (CLEAR); URINE BILIRUBIN NEG (NEG); URINE COLOR YELLOW; URINE NITRITE NEG (NEG); URINE SPECIFIC GRAVITY 1.017 (1.000-1.030); UROBILINOGEN NEG (NEG); ZZUR CULT IF INDIC CLEAN CATCH NO
[2017-10-13 13:08] LABS: MANUAL MICROSCOPIC REQUIRED? NO; REVIEW REQ? NO
[2017-10-13 14:56] LABS: CKMB/CK RATIO 2.3 (0-3.0)
[2017-10-13 15:03] VITALS: BP 136/70; PULSE 79; TEMP 37.2; O2SAT 95
[2017-10-13] MEDS ORDERED: OPTIRAY 320 IV PRN (16:15)
--- NOTE | 2017-10-13 17:08 | Progress Note ---
Progress Note Date of Service Oct 13, 2017. Progress Note ATTENDING NOTE : ordered for CT chest with contrast to rule out PE pt mentions of having hives with contrast study long back ordered IV Solu Medrol prep for contrast allergy CT chest with contrast scheduled for tomorrow am after steroid contrast prep is done
[2017-10-13] MEDS ORDERED: FAMOTIDINE IV INJ 20 MG in DEXTROSE 5% 100ML 100 ML IV ONE (17:15)
[2017-10-13] MEDS ORDERED: FAMOTIDINE IV INJ 20 MG in SYRINGE 3 ML IV SCH (17:15)
[2017-10-13] MEDS ORDERED: DiphenhydrAMINE HCL 50 MG/ML VIAL IV SCH (17:15)
--- NOTE | 2017-10-13 17:30 | DIAGNOSTIC IMAGING REPORT ---
ULTRASOUND VENOUS DOPPLER LWR EXT BILA CLINICAL HISTORY: Leg pain and swelling COMPARISON STUDY: No previous studies for comparison. FINDINGS: On the left, no intraluminal thrombus was visualized. The veins are fully compressible from the groin to the popliteal vein. There is normal augmentation. There was normal color-flow within the proximal trifurcation veins of the left calf. On the right, nonocclusive thrombus was visualized within the common femoral vein, one of 2 paired superficial femoral veins, as well as within the popliteal vein. IMPRESSION: Nonocclusive right lower extremity DVT. Electronically signed by: Stephen Matt M.D. 10/13/2017 5:29 PM Dictated Date/Time: 10/13/2017 5:25 PM
--- NOTE | 2017-10-13 17:37 | Progress Note ---
Progress Note Date of Service Oct 13, 2017. Progress Note LOWER EXT USG : IMPRESSION: Nonocclusive right lower extremity DVT. started on IV heparin wt based protocol getting steroid contrast for IV dye allergy ( hives ) CT chest with contrast in AM to asses for PE
[2017-10-13] MEDS ORDERED: METHYLPREDNISOLONE IV 40 MG in SYRINGE 0 ML IV SCH (18:00)
[2017-10-13] MEDS: HEPARIN 25,000 UNIT/500ML D5W 500 ML IV PRN (18:33)
[2017-10-13 18:54] VITALS: BP 162/73; PULSE 70; TEMP 36.9; O2SAT 95
[2017-10-13] MEDS: AZITHROMYCIN IV 500 MG in DEXTROSE 5% 250ML 250 ML IV SCH (18:57)
[2017-10-13 19:03] LABS: HEMATOCRIT 35.4 % (42-52); MEAN CELL VOLUME 94.7 fL (80-100); MEAN CORPUSCULAR HEMOGLOBIN 32.6 pg (25-34); MEAN PLATELET VOLUME 10.7 fL (7.4-10.4); PLATELET COUNT 256 K/uL (130-400); RED BLOOD COUNT 3.74 M/uL (4.7-6.1); WHITE BLOOD COUNT 15.38 K/uL (4.8-10.8)
[2017-10-13 19:13] VITALS: PULSE 80; O2SAT 94
[2017-10-13] MEDS: ALBUT/IPRATROP 3MG/0.5MG NEB 3 ML VIAL INH SCH (19:13)
[2017-10-13 19:16] LABS: INR 1.1 (0.9-1.1); PARTIAL THROMBOPLASTIN RATIO 1.3; PROTHROMBIN TIME (PATIENT) 12.2 SECONDS (9.0-12.0)
[2017-10-13 19:59] LABS: BASO % 0.2 %; BASO ABS # 0.03 K/uL (0-0.2); COMPLETE YES; ECHINOCYTES 1+; EOS % 4.5 %; IG% 0.3 %; LYMPH % 32.8 %; LYMPH ABS # 5.05 K/uL (1.2-3.4); MEAN CORPUSCULAR HGB CONC 34.5 g/dl (32-36); MONO % 6.4 %; NEUT % 55.8 %
[2017-10-13] MEDS: CEFTRIAXONE SOD INJ 1 GM in DEXTROSE 5% ADD-VANTAGE 50ML 50 ML IV SCH (21:26)
[2017-10-13 22:43] VITALS: BP 141/63; PULSE 97; TEMP 37; O2SAT 91
[2017-10-14] VITALS (10 sets, daily range): BP systolic 128–149; BP diastolic 61–78; PULSE 67–88; TEMP 36.3–37; O2SAT 93–96
[2017-10-14 01:04] LABS: PARTIAL THROMBOPLASTIN RATIO 1.8
[2017-10-14] MEDS ORDERED: HEPARIN IV BOLUS 3,000 UNIT in SYRINGE 0 ML IV ONE (01:30)
[2017-10-14] MEDS: HEPARIN 25,000 UNIT/500ML D5W 500 ML IV PRN ×2 (01:41→10:26)
[2017-10-14] MEDS: METHYLPREDNISOLONE IV 40 MG in SYRINGE 0 ML IV SCH ×2 (01:41→09:42)
[2017-10-14] MEDS: LEVOTHYROXINE 75 MCG TAB PO SCH (05:31)
[2017-10-14] MEDS: ALBUT/IPRATROP 3MG/0.5MG NEB 3 ML VIAL INH SCH ×4 (07:11→19:37)
[2017-10-14 08:12] LABS: MEAN CELL VOLUME 93.8 fL (80-100); MEAN CORPUSCULAR HEMOGLOBIN 31.8 pg (25-34); MEAN CORPUSCULAR HGB CONC 33.9 g/dl (32-36); MEAN PLATELET VOLUME 11.3 fL (7.4-10.4); PLATELET COUNT 289 K/uL (130-400); RED BLOOD COUNT 4.37 M/uL (4.7-6.1); WHITE BLOOD COUNT 10.06 K/uL (4.8-10.8)
[2017-10-14 08:32] LABS: PARTIAL THROMBOPLASTIN RATIO 2.6
[2017-10-14 08:44] LABS: BUN/CREATININE RATIO 17.6 (10-20); CALCIUM 9.1 mg/dl (8.5-10.1); CHOLESTEROL/HDL RATIO 2.5; CREATININE 0.9 mg/dl (0.60-1.40); MAGNESIUM 2.3 mg/dl (1.8-2.4); POTASSIUM 3.3 mmol/L (3.5-5.1)
[2017-10-14] MEDS ORDERED: ASPIRIN 81 MG ECTAB PO SCH (09:00)
[2017-10-14] MEDS: ASPIRIN 81 MG ECTAB PO SCH (09:43)
[2017-10-14] MEDS: FINASTERIDE 5 MG TAB PO SCH (09:43)
[2017-10-14] MEDS: TAMSULOSIN HCL 0.4 MG CAP PO SCH ×2 (09:43→20:43)
[2017-10-14] MEDS: MULTIVITAMIN TAB PO SCH (09:44)
[2017-10-14] MEDS ORDERED: DiphenhydrAMINE HCL 50 MG/ML VIAL IV SCH (10:00)
[2017-10-14] MEDS ORDERED: FAMOTIDINE IV INJ 20 MG in SYRINGE 3 ML IV SCH (10:00)
--- NOTE | 2017-10-14 11:20 | DIAGNOSTIC IMAGING REPORT ---
CT ANGIOGRAM OF THE CHEST CLINICAL HISTORY: Left-sided pleuritic chest pain. DVT. COMPARISON STUDY: Chest x-ray dated 10/13/2017 TECHNIQUE: Following the IV administration of 95 mL of [id number]-[id number], CT angiogram of the thorax was performed from the thoracic inlet to the lung bases utilizing the pulmonary embolus protocol. Images are reviewed in the axial, sagittal, and coronal planes. IV contrast was administered without complication. MIP imaging was performed. A dose lowering technique was utilized adhering to the principles of ALARA. CT DOSE: 393.14 mGy.cm FINDINGS: Visualized portions of the upper abdomen reveal right-sided nephrolithiasis. As a 5.2 cm exophytic left renal cyst. Mediastinal lymph nodes are the upper limits of normal in size. There is no pathologic axillary or hilar lymphadenopathy. There is mild dilatation of the ascending thoracic aorta which measures 42 mm. No intimal flap is visualized. There are no pulmonary artery filling defects to indicate acute pulmonary embolism. Is trace bilateral pleural fluid There are bibasal or dependent atelectatic changes. There is a solid 3 mm right middle lobe pulmonary nodule, and solid 4 mm right upper lobe pulmonary nodule. IMPRESSION: 1. No evidence of acute pulmonary embolism 2. Right-sided nephrolithiasis 3. Mild dilatation of the ascending thoracic aorta 4. Dependent lower lobe atelectasis 5. Solid 3 mm right middle lobe pulmonary nodule. Solid 4 mm right upper lobe pulmonary nodule. In a low risk patient, no further follow-up is necessary. Electronically signed by: Stephen Matt M.D. 10/14/2017 11:19 AM Dictated Date/Time: 10/14/2017 11:12 AM
[2017-10-14] MEDS ORDERED: POTASSIUM CHLORIDE 10 MEQ TABCR PO STA (12:30)
[2017-10-14] MEDS: SODIUM CHLORIDE 0.9% 1000ML 1,000 ML IV SCH ×2 (12:54→20:42)
[2017-10-14] MEDS: AZITHROMYCIN IV 500 MG in DEXTROSE 5% 250ML 250 ML IV SCH (17:31)
--- NOTE | 2017-10-14 18:39 | Progress Note ---
Internal Med Progress Note Date of Service: Oct 14, 2017. Provider Documentation: SUBJECTIVE: no complain of abdominal pain lipase level improved started on clears , tolerating well OBJECTIVE: Vital Signs-as noted below Exam: General-chronically ill appearing , no apparent sign of distress Eyes-sclera non icteric, PERRLA/EOMI ENT-moist oral mucosa ,normal oropharynx, hearing grossly normal Neck-no thyromegaly , trachea midline Lungs-CTA, no wheeze or rales Heart-regular S1/S2 Abdomen-soft, Extremities-no rash or deformity , trace lower ext edema Neuro-AAO x3, no focal neurological deficit Lab data as noted below. ASSESSMENT & PLAN: LOWER EXT DVT : presents with pleuritic chest pain dizzy spell and lightheadedness symptom atypical for angina Cardiac markers negative concern for PE -given pt was admitted recently , has not been feeling well , activity was minimum at home D Dimer -elevated CT chest with contrast -no evidence of PE Doppler USG lower ext : On the right, nonocclusive thrombus was visualized within the common femoral vein, one of 2 paired superficial femoral veins, as well as within the popliteal vein. pt started on IV heparin PNEUMONIA recent admission with left sided pneumonia was discharged on 10/08/17 with PO Levaquin-per pt completed course yesterday 10/11/17 Cxray shows persistent left sided infiltrate blood culture sent pt has ongoing cough , rales at base ordered for Rocephin /Zithromax sputum culture repeat Xray in next 2 days to assess for resolution /improvement of infiltrate d LEUKOCYTOSIS resolved normal white count today presented with marked WBC 21 K ( WBC was normal 10 on 10/07/17 ) follow blood culture report PANCREATITIS ; recent admission last week with pancreatitis had CT abdomen /pelvis : showed minimal peripancreatic infiltration s/p cholecystectomy USG of abdomen shows absence of gall bladder MRCP done last week -no pathology , no evidence of choledocholithiasis TG LEVEL on was 119 pancreatic USG : 1. Slightly heterogeneous pancreas which remains unchanged. No peripancreatic fluid collections. This favors mild pancreatitis as seen on the prior studies. 2. Cholecystectomy. appreciate input form GI will need out pt EUS by GI repeat lipase level in AM shows improvement 5617-> 867 started on Clear diet BPH Cont out pt med Flomax HX OF CHRONIC AFIB rate controlled started on IV heparin for lower ext DVT HX OF CHRONIC DIASTOLIC CHF compensated no evidence of vol overload recent ECHO 10/04/17 : normal LV chamber size with mild concentric LVH , sigmoid appearing septum . Normal LV systolic function , EF 55-60% no segmental wall motion abnormality noted presence of left atrial enlargement suggests diastolic dysfunction HX OF SEIZURE POST TRAUMATIC no recent Sz not on any antiseizure meds HYPOTHYROIDISM : cont Levothyroxine FULL CODE DVT PROPHYLAXIS IV heparin DISPOSITION ; pt mention of worsening of weakness and poor functional status PT/OT eval prior to discharged home when medically stable Medicine follow up with Dr Yamil Ng will need follow up with anticoagulation clinic for monitor of PT/INR and Coumadin dose will need out pt GI follow up for EUS Vital Signs: Date Time Temp Pulse Resp B/P (MAP) Pulse Ox O2 Delivery O2 Flow Rate FiO2 10/14/17 19:12 36.4 84 20 149/78 (101) 94 Room Air 10/14/17 16:00 Room Air 10/14/17 15:23 82 18 94 Room Air 10/14/17 15:23 36.5 88 18 130/71 (90) 95 10/14/17 12:00 Room Air 10/14/17 11:23 80 18 94 Room Air 10/14/17 11:10 36.3 77 18 145/70 (95) 93 Room Air 10/14/17 08:00 Room Air 10/14/17 07:47 36.7 75 18 147/67 (93) 94 10/14/17 07:14 68 18 96 Room Air 10/14/17 04:12 37.0 67 18 136/72 (93) 96 Room Air 10/14/17 04:00 Room Air 10/14/17 00:00 Room Air 10/13/17 22:43 37.0 97 18 141/63 (89) 91 Room Air 10/13/17 20:00 Room Air Lab Results: Results Past 24 Hours Test 10/14/17 00:25 10/14/17 07:49 Range/Units Activated Partial Thromboplast Time 45.7 67.6 21.0-31.0 SECONDS Partial Thromboplastin Ratio 1.8 2.6 White Blood Count 10.06 4.8-10.8 K/uL Red Blood Count 4.37 4.7-6.1 M/uL Hemoglobin 13.9 14.0-18.0 g/dL Hematocrit 41.0 42-52 % Mean Corpuscular Volume 93.8 80-100 fL Mean Corpuscular Hemoglobin 31.8 25-34 pg Mean Corpuscular Hemoglobin Concent 33.9 32-36 g/dl RDW Standard Deviation 49.1 36.4-46.3 fL RDW Coefficient of Variation 14.4 11.5-14.5 % Platelet Count 289 130-400 K/uL Mean Platelet Volume 11.3 7.4-10.4 fL Sodium Level 140 136-145 mmol/L Potassium Level 3.3 3.5-5.1 mmol/L Chloride Level 111 98-107 mmol/L Carbon Dioxide Level 19 21-32 mmol/L Anion Gap 11.0 3-11 mmol/L Blood Urea Nitrogen 16 7-18 mg/dl Creatinine 0.90 0.60-1.40 mg/dl Est Creatinine Clear Calc Drug Dose 77.9 ml/min Estimated GFR () 96.5 Estimated GFR (Non- 83.3 BUN/Creatinine Ratio 17.6 10-20 Random Glucose 166 70-99 mg/dl Calcium Level 9.1 8.5-10.1 mg/dl Magnesium Level 2.3 1.8-2.4 mg/dl Total Bilirubin 0.6 0.2-1 mg/dl Direct Bilirubin 0.2 0-0.2 mg/dl Aspartate Amino Transf (AST/SGOT) 12 15-37 U/L Alanine Aminotransferase (ALT/SGPT) 33 12-78 U/L Alkaline Phosphatase 211 45-117 U/L Total Protein 6.9 6.4-8.2 gm/dl Albumin 2.9 3.4-5.0 gm/dl Triglycerides Level 87 0-150 mg/dl Cholesterol Level 129 0-200 mg/dl HDL Cholesterol 52 mg/dl LDL Cholesterol, Calculated 60 mg/dl VLDL Cholesterol, Calculated 17 mg/dl Cholesterol/HDL Ratio 2.5 Lipase 867 73-393 U/L
[2017-10-14] MEDS ORDERED: WARFARIN SOD 5 MG TAB PO ONE (20:00)
[2017-10-14] MEDS: CEFTRIAXONE SOD INJ 1 GM in DEXTROSE 5% ADD-VANTAGE 50ML 50 ML IV SCH (20:08)
[2017-10-15] VITALS (12 sets, daily range): BP systolic 148–159; BP diastolic 44–77; PULSE 51–79; TEMP 36.3–36.4; O2SAT 92–99
[2017-10-15] MEDS: SODIUM CHLORIDE 0.9% 1000ML 1,000 ML IV SCH ×3 (04:56→20:10)
[2017-10-15] MEDS: LEVOTHYROXINE 50 MCG TAB PO SCH (05:50)
[2017-10-15 06:05] LABS: INR 1.2 (0.9-1.1); PARTIAL THROMBOPLASTIN RATIO 3.3; PROTHROMBIN TIME (PATIENT) 12.5 SECONDS (9.0-12.0)
[2017-10-15 06:17] LABS: CALCIUM 8.1 mg/dl (8.5-10.1); CREATININE 0.82 mg/dl (0.60-1.40); MAGNESIUM 2.2 mg/dl (1.8-2.4); POTASSIUM 3.8 mmol/L (3.5-5.1)
[2017-10-15 06:18] LABS: HEMATOCRIT 31.8 % (42-52); MEAN CELL VOLUME 93.5 fL (80-100); MEAN CORPUSCULAR HEMOGLOBIN 32.1 pg (25-34); MEAN CORPUSCULAR HGB CONC 34.3 g/dl (32-36); MEAN PLATELET VOLUME 10.8 fL (7.4-10.4); PLATELET COUNT 264 K/uL (130-400); WHITE BLOOD COUNT 15.53 K/uL (4.8-10.8)
[2017-10-15] MEDS: ALBUT/IPRATROP 3MG/0.5MG NEB 3 ML VIAL INH SCH ×4 (07:11→19:29)
[2017-10-15] MEDS: FINASTERIDE 5 MG TAB PO SCH (08:09)
[2017-10-15] MEDS: ASPIRIN 81 MG ECTAB PO SCH (08:09)
[2017-10-15] MEDS: MULTIVITAMIN TAB PO SCH (08:09)
[2017-10-15] MEDS: TAMSULOSIN HCL 0.4 MG CAP PO SCH ×2 (08:09→20:08)
--- NOTE | 2017-10-15 10:21 | Gastroenterology Progress Note ---
Progress Note Date of Service: Oct 15, 2017 Subjective Pt evaluation today including: conversation w/ patient, physical exam, chart review, lab review, review of studies, review of inpatient medication list Mr. Anderson is a 77 yr old male patient with hypothyroidism , depression , CHF, Hx of Afib , Hx of RLE DVT off anticoagulation hx of post traumatic SZ dsiroder. He was most recently admitted on 10/13 for pancreatitis. Also prior recent hospitalization for sepsis, pneumonia being AR'ed on 10/07, returning on 10/13 after eating pizza. Lipase on arrival on 10/13 >5000, today 286. Cr 1.8, WBC 15. CT on 10/03/17 (during prior admission with acute pancreatitis, no cysts or masses). MRI on 10/04 w/o pancreas abnormalities. Today on clear liquids po, w/o any post drinking nausea or pain. Denies abdominal pain. Passed a formed BM yesterday. "Hungry." Review of Systems Constitutional: No fever Eyes: No see HPI, No worsening of vision, No eye pain, No redness, No discharge , No diplopia, No problem reported ENT: + hearing loss (mild, chronic) Respiratory: No see HPI, No cough, No sputum, No wheezing, No shortness of breath, No dyspnea on exertion, No dyspnea at rest, No hemoptysis, No problem reported Cardiac: No see HPI, No chest pain, No orthopnea, No PND, No edema, No claudication, No palpitations, No problem reported Abdomen: No pain, No nausea, No vomiting, No diarrhea, No constipation, No GI bleeding Musculoskeletal: No joint pain Male : No dysuria Neuro: + memory loss (pt tells me mild, chronic, improving) Psych: No depression symptoms Heme: No abnormal bleeding/bruising Endo: No fatigue Skin: No rash, No jaundice Medications Current Inpatient Medications Medications (Trade) Dose Ordered Sig/Marley Route Start Time Stop Time Status Last Admin Dose Admin Ondansetron HCl (Zofran Inj) 4 mg Q6H PRN IV 10/13/17 08:00 11/12/17 07:59 Nitroglycerin (Nitrostat Tab) 0.4 mg UD PRN SL 10/13/17 08:00 11/12/17 07:59 Morphine Sulfate (MoRPHine SULFATE INJ) 2 mg Q30M PRN IV 10/13/17 08:00 10/27/17 07:59 Menthol (Nice Kristian) 1 kristian PRN PRN PO 10/13/17 11:30 11/12/17 11:29 Finasteride (Proscar Tab) 5 mg DAILY PO 10/14/17 09:00 11/13/17 08:59 10/15/17 08:09 5 MG Levothyroxine Sodium (Synthroid Tab) 50 mcg Q2D@0630 PO 10/13/17 12:30 11/12/17 12:29 10/15/17 05:50 50 MCG Levothyroxine Sodium (Synthroid Tab) 75 mcg Q2D@0630 PO 10/14/17 06:30 11/13/17 06:29 Multivitamins (Multivitamin Tab) 1 tab DAILY PO 10/14/17 09:00 11/13/17 08:59 10/15/17 08:09 1 TAB Tamsulosin HCl (Flomax Cap) 0.4 mg BID PO 10/13/17 12:30 11/12/17 12:29 10/15/17 08:09 0.4 MG Aspirin (Ecotrin Tab) 81 mg DAILY PO 10/14/17 09:00 11/13/17 08:59 10/15/17 08:09 81 MG Albuterol/ Ipratropium (Duoneb) 3 ml QIDR INH 10/13/17 20:00 11/12/17 19:59 10/15/17 07:11 3 ML Ioversol (Optiray 320) 100 ml UD PRN IV 10/13/17 16:15 10/17/17 16:14 Ceftriaxone Sodium 1 gm/ Dextrose 50 ml @ 100 mls/hr Q24H IV 10/13/17 20:00 10/20/17 19:59 10/14/17 20:08 100 MLS/HR Azithromycin 500 mg/Dextrose 255 ml @ 125 mls/hr Q24H IV 10/13/17 18:00 10/20/17 17:59 10/14/17 17:31 125 MLS/HR Heparin Sodium/ Dextrose 500 ml @ 29 mls/hr [id number] PRN IV 10/13/17 18:30 11/12/17 18:29 10/14/17 10:26 32 MLS/HR Sodium Chloride 1,000 ml @ 125 mls/hr Q8H IV 10/14/17 12:30 11/13/17 12:29 10/15/17 04:56 125 MLS/HR Warfarin Sodium (Coumadin Tab) 5 mg DAILY@16 PO 10/15/17 16:00 11/14/17 15:59 Objective Vital Signs Date Time Temp Pulse Resp B/P (MAP) Pulse Ox O2 Delivery O2 Flow Rate FiO2 10/15/17 08:20 Room Air 10/15/17 07:38 36.3 51 18 154/75 (101) 96 Room Air 10/15/17 07:11 53 16 97 Room Air 10/15/17 04:57 36.4 60 18 148/70 (96) 92 Room Air 10/15/17 04:00 96 Room Air 10/15/17 00:00 96 Room Air 10/14/17 23:49 36.5 71 18 128/61 (83) 94 Room Air 10/14/17 20:00 96 Room Air 10/14/17 19:37 85 18 96 Room Air 10/14/17 19:12 36.4 84 20 149/78 (101) 94 Room Air 10/14/17 16:00 Room Air 10/14/17 15:23 82 18 94 Room Air 10/14/17 15:23 36.5 88 18 130/71 (90) 95 10/14/17 12:00 Room Air 10/14/17 11:23 80 18 94 Room Air 10/14/17 11:10 36.3 77 18 145/70 (95) 93 Room Air Physical Exam General Appearance: no apparent distress Neck: no JVD Respiratory/Chest: lungs clear Cardiovascular: regular rate, rhythm, no JVD, no murmur Abdomen: normal bowel sounds, non tender, soft Neurologic/Psych: alert, normal mood/affect, oriented x 3 Skin: normal color, no jaundice Laboratory Results Last 24 Hours Test 10/15/17 05:21 White Blood Count 15.53 K/uL Red Blood Count 3.40 M/uL Hemoglobin 10.9 g/dL Hematocrit 31.8 % Mean Corpuscular Volume 93.5 fL Mean Corpuscular Hemoglobin 32.1 pg Mean Corpuscular Hemoglobin Concent 34.3 g/dl RDW Standard Deviation 49.1 fL RDW Coefficient of Variation 14.4 % Platelet Count 264 K/uL Mean Platelet Volume 10.8 fL Prothrombin Time 12.5 SECONDS Prothromb Time International Ratio 1.2 Activated Partial Thromboplast Time 86.5 SECONDS Partial Thromboplastin Ratio 3.3 Sodium Level 142 mmol/L Potassium Level 3.8 mmol/L Chloride Level 111 mmol/L Carbon Dioxide Level 24 mmol/L Anion Gap 7.0 mmol/L Blood Urea Nitrogen 16 mg/dl Creatinine 0.82 mg/dl Est Creatinine Clear Calc Drug Dose 85.4 ml/min Estimated GFR () 100.3 Estimated GFR (Non- 86.5 BUN/Creatinine Ratio 19.0 Random Glucose 125 mg/dl Calcium Level 8.1 mg/dl Magnesium Level 2.2 mg/dl Total Bilirubin 0.4 mg/dl Direct Bilirubin 0.2 mg/dl Aspartate Amino Transf (AST/SGOT) 15 U/L Alanine Aminotransferase (ALT/SGPT) 31 U/L Alkaline Phosphatase 154 U/L Total Protein 5.5 gm/dl Albumin 2.3 gm/dl Lipase 286 U/L Assessment and Plan Mr. Anderson is a 77 yr old male who experienced mild acute pancreatitis early this month, who had recurrence of symptoms on 10/13 after eating pizza. Now normal lipase, hungry, no abdominal pain and able to ambulate so seems much improved. Plan: 1. Advance diet to low fat, regular consistency. 2. Because no pancreas lesions on imaging a few weeks ago, this is his initial episode of pancreatitis, no evidence of bile duct abnormalities and LFTs have been normal, no specific w/o suggested. 3. Tells me he occasionally drinks a little. Instructed to stop all alcohol, at least for a few months. I performed a history and physical examination of the patient. I have discussed the patient's case, impression and plan with ELOISA Bernal on 10/15/2017. Her note reflects my findings and plan. Pancreatitis possibly related to medication. Slowly advance diet as tolerates. Yamil Hassan MD
[2017-10-15 14:01] LABS: PARTIAL THROMBOPLASTIN RATIO 2.3
[2017-10-15] MEDS ORDERED: WARFARIN SOD 5 MG TAB PO SCH (16:00)
[2017-10-15] MEDS: AZITHROMYCIN IV 500 MG in DEXTROSE 5% 250ML 250 ML IV SCH (18:17)
[2017-10-15] MEDS: HEPARIN 25,000 UNIT/500ML D5W 500 ML IV PRN (19:38)
[2017-10-15] MEDS: CEFTRIAXONE SOD INJ 1 GM in DEXTROSE 5% ADD-VANTAGE 50ML 50 ML IV SCH (20:08)
--- NOTE | 2017-10-15 22:21 | Progress Note ---
Internal Med Progress Note Date of Service: Oct 15, 2017. Provider Documentation: SUBJECTIVE: no complain of abdominal pain or nausea diet advanced tolerating well OBJECTIVE: Vital Signs-as noted below Exam: General-chronically ill appearing , no apparent sign of distress Eyes-sclera non icteric, PERRLA/EOMI ENT-moist oral mucosa ,normal oropharynx, hearing grossly normal Neck-no thyromegaly , trachea midline Lungs-CTA, no wheeze or rales Heart-regular S1/S2 Abdomen-soft, non tender , active bowel sound Extremities-no rash or deformity , trace lower ext edema Neuro-AAO x3, no focal neurological deficit Lab data as noted below. ASSESSMENT & PLAN: RIGHT LOWER EXT DVT : presents with pleuritic chest pain dizzy spell and lightheadedness symptom atypical for angina Cardiac markers negative concern for PE -given pt was admitted recently , has not been feeling well , activity was minimum at home D Dimer -elevated CT chest with contrast -no evidence of PE Doppler USG lower ext : On the right, nonocclusive thrombus was visualized within the common femoral vein, one of 2 paired superficial femoral veins, as well as within the popliteal vein. pt started on IV heparin /Coumadin goal INR 2-3 PNEUMONIA recent admission with left sided pneumonia was discharged on 10/08/17 with PO Levaquin-per pt completed course yesterday 10/11/17 Cxray shows persistent left sided infiltrate blood culture no growth Abx changed to PO Zithromax -complete total 5 days course repeat Xray tomorrow to assess for resolution /improvement of infiltrate LEUKOCYTOSIS improved cont tx for Pneumonia presented with marked WBC 21 K ( WBC was normal 10 on 10/07/17 ) blood culture -no growth RECURRENT PANCREATITIS ; recent admission last week with pancreatitis had CT abdomen /pelvis : showed minimal peripancreatic infiltration s/p cholecystectomy USG of abdomen shows absence of gall bladder MRCP done last week -no pathology , no evidence of choledocholithiasis TG LEVEL on was 119 pancreatic USG : 1. Slightly heterogeneous pancreas which remains unchanged. No peripancreatic fluid collections. This favors mild pancreatitis as seen on the prior studies. 2. Cholecystectomy. appreciate input form GI will need out pt EUS by GI repeat lipase level in AM shows improvement 5617-> 867 diet advanced to low fat BPH Cont out pt med Flomax HX OF CHRONIC AFIB rate controlled started on IV heparin for lower ext DVT HX OF CHRONIC DIASTOLIC CHF compensated no evidence of vol overload recent ECHO 10/04/17 : normal LV chamber size with mild concentric LVH , sigmoid appearing septum . Normal LV systolic function , EF 55-60% no segmental wall motion abnormality noted presence of left atrial enlargement suggests diastolic dysfunction HX OF SEIZURE POST TRAUMATIC no recent Sz not on any antiseizure meds HYPOTHYROIDISM : cont Levothyroxine FULL CODE DVT PROPHYLAXIS IV heparin /Coumadin DISPOSITION ; PT/OT eval appreciated -stable to return home with home health /Home PT Medicine follow up with Dr Yamil Ng will need follow up with anticoagulation clinic for monitor of PT/INR and Coumadin dose will need out pt GI follow up for EUS Vital Signs: Date Time Temp Pulse Resp B/P (MAP) Pulse Ox O2 Delivery O2 Flow Rate FiO2 10/15/17 20:30 36.4 74 20 151/70 (97) 95 Room Air 10/15/17 20:00 Room Air 10/15/17 19:29 67 16 97 Room Air 10/15/17 16:00 Room Air 10/15/17 15:01 36.3 79 20 154/77 (102) 96 10/15/17 14:19 74 16 97 Room Air 10/15/17 12:15 Room Air 10/15/17 11:50 36.3 59 18 148/44 (78) 99 Room Air 10/15/17 11:15 59 16 97 Room Air 10/15/17 10:15 69 96 10/15/17 08:20 Room Air 10/15/17 07:38 36.3 51 18 154/75 (101) 96 Room Air 10/15/17 07:11 53 16 97 Room Air 10/15/17 04:57 36.4 60 18 148/70 (96) 92 Room Air 10/15/17 04:00 96 Room Air 10/15/17 00:00 96 Room Air 10/14/17 23:49 36.5 71 18 128/61 (83) 94 Room Air Lab Results: Results Past 24 Hours Test 10/15/17 05:21 10/15/17 13:24 Range/Units White Blood Count 15.53 4.8-10.8 K/uL Red Blood Count 3.40 4.7-6.1 M/uL Hemoglobin 10.9 14.0-18.0 g/dL Hematocrit 31.8 42-52 % Mean Corpuscular Volume 93.5 80-100 fL Mean Corpuscular Hemoglobin 32.1 25-34 pg Mean Corpuscular Hemoglobin Concent 34.3 32-36 g/dl RDW Standard Deviation 49.1 36.4-46.3 fL RDW Coefficient of Variation 14.4 11.5-14.5 % Platelet Count 264 130-400 K/uL Mean Platelet Volume 10.8 7.4-10.4 fL Prothrombin Time 12.5 9.0-12.0 SECONDS Prothromb Time International Ratio 1.2 0.9-1.1 Activated Partial Thromboplast Time 86.5 59.2 21.0-31.0 SECONDS Partial Thromboplastin Ratio 3.3 2.3 Sodium Level 142 136-145 mmol/L Potassium Level 3.8 3.5-5.1 mmol/L Chloride Level 111 98-107 mmol/L Carbon Dioxide Level 24 21-32 mmol/L Anion Gap 7.0 3-11 mmol/L Blood Urea Nitrogen 16 7-18 mg/dl Creatinine 0.82 0.60-1.40 mg/dl Est Creatinine Clear Calc Drug Dose 85.4 ml/min Estimated GFR () 100.3 Estimated GFR (Non- 86.5 BUN/Creatinine Ratio 19.0 10-20 Random Glucose 125 70-99 mg/dl Calcium Level 8.1 8.5-10.1 mg/dl Magnesium Level 2.2 1.8-2.4 mg/dl Total Bilirubin 0.4 0.2-1 mg/dl Direct Bilirubin 0.2 0-0.2 mg/dl Aspartate Amino Transf (AST/SGOT) 15 15-37 U/L Alanine Aminotransferase (ALT/SGPT) 31 12-78 U/L Alkaline Phosphatase 154 45-117 U/L Total Protein 5.5 6.4-8.2 gm/dl Albumin 2.3 3.4-5.0 gm/dl Lipase 286 73-393 U/L Microbiology Results 10/15/17 Gram Stain, Received Pending 10/15/17 Sputum Culture, Received Pending
[2017-10-15] MEDS: AZITHROMYCIN 250 MG TAB PO SCH (23:41)
[2017-10-16] VITALS (12 sets, daily range): BP systolic 140–169; BP diastolic 66–82; PULSE 55–80; TEMP 36.6–36.9; O2SAT 93–97
[2017-10-16] MEDS: LEVOTHYROXINE 75 MCG TAB PO SCH (05:27)
[2017-10-16 06:27] LABS: HEMATOCRIT 34.4 % (42-52); MEAN CELL VOLUME 94.5 fL (80-100); MEAN CORPUSCULAR HEMOGLOBIN 31.3 pg (25-34); MEAN CORPUSCULAR HGB CONC 33.1 g/dl (32-36); MEAN PLATELET VOLUME 10.5 fL (7.4-10.4); PLATELET COUNT 301 K/uL (130-400); RED BLOOD COUNT 3.64 M/uL (4.7-6.1); WHITE BLOOD COUNT 11.73 K/uL (4.8-10.8)
[2017-10-16 06:51] LABS: CALCIUM 8.1 mg/dl (8.5-10.1); CREATININE 0.9 mg/dl (0.60-1.40); MAGNESIUM 2.1 mg/dl (1.8-2.4); POTASSIUM 3.7 mmol/L (3.5-5.1)
[2017-10-16] MEDS: ALBUT/IPRATROP 3MG/0.5MG NEB 3 ML VIAL INH SCH ×3 (07:12→19:17)
[2017-10-16 07:19] LABS: INR 1.4 (0.9-1.1); PROTHROMBIN TIME (PATIENT) 15.5 SECONDS (9.0-12.0)
[2017-10-16] MEDS: HEPARIN 25,000 UNIT/500ML D5W 500 ML IV PRN ×2 (07:30→13:59)
--- NOTE | 2017-10-16 07:30 | DIAGNOSTIC IMAGING REPORT ---
SINGLE VIEW CHEST CLINICAL HISTORY: Pneumonia. FINDINGS: An AP, portable, upright chest radiograph is compared to study dated 10/13/2017 and correlated with chest CT dated 10/14/2017. The examination is degraded by portable technique and patient rotation. The heart is enlarged and there is atherosclerotic calcification of the thoracic aorta. The pulmonary vasculature is noncongested. Chronic interstitial thickening is unchanged. Bibasilar atelectasis is identified. No airspace consolidation is seen typical for pneumonia and there is no large pleural effusion. No pneumothorax is seen. The skeletal structures are osteopenic. The bony thorax is grossly intact. IMPRESSION: Cardiomegaly and bibasilar atelectasis with no acute cardiopulmonary abnormality. Electronically signed by: Sean Roy M.D. 10/16/2017 7:29 AM Dictated Date/Time: 10/16/2017 7:27 AM
[2017-10-16] MEDS: MULTIVITAMIN TAB PO SCH (07:46)
[2017-10-16] MEDS: TAMSULOSIN HCL 0.4 MG CAP PO SCH ×2 (07:46→20:20)
[2017-10-16] MEDS: ASPIRIN 81 MG ECTAB PO SCH (07:46)
[2017-10-16] MEDS: FINASTERIDE 5 MG TAB PO SCH (07:46)
[2017-10-16 14:28] LABS: PARTIAL THROMBOPLASTIN RATIO 2.3
--- NOTE | 2017-10-16 15:20 | Progress Note ---
Internal Med Progress Note Date of Service: Oct 16, 2017. Provider Documentation: SUBJECTIVE: Seen and examined at bedside States having mild soreness of right ankle Less cough Tolerating diet Denies chest pain, SOB, dizziness on Heparin ggt No bleeding issues OBJECTIVE: Vital Signs-as noted below Physical Exam: General Appearance:Moderately built and nourished, no apparent distress Head: normocephalic, Atraumatic Eyes: normal inspection, EOMI, PERRL Neck: supple, Trachea midline Respiratory/Chest: Normal breath sounds, CTA Cardiovascular: S1, S2, No murmur Abdomen/GI:Soft, Non tender, Bowel sounds present Extremities/Musculoskelatal:normal inspection, Trace edema 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 ASSESSMENT & PLAN: Right LE DVT: Patient presented with pleuritic chest pain, dizzy spell and lightheadedness Cardiac markers: negative D Dimer:elevated secondary to DVT CT chest:no evidence of PE Doppler USG lower ext : nonocclusive acute DVT Continue IV heparin /Coumadin goal INR 2-3 INR:1.4 today Will give 7.5mg Coumadin today Pneumonia: recent admission with left sided pneumonia was discharged on 10/08/17 with PO Levaquin-per pt completed course on 10/11/17 Repeat CXR: no acute cardiopulmonary abnormality. blood culture:no growth Continue PO Azithromycin day # 4 Leukocytosis trending down Recurrent Pancreatitis: recent admission: last week with pancreatitis had CT abdomen /pelvis : showed minimal peripancreatic infiltration s/p cholecystectomy USG of abdomen shows absence of gall bladder MRCP done last week -no pathology , no evidence of choledocholithiasis TG Level: on was 119 pancreatic USG : as below Appreciate GI input Counselled to be abstinent from alcohol use Needs out pt EUS by GI lipase level trended down Tolerating diet BPH Continue Flomax H/O chronic Afib: rate controlled Not on BB at home H/O chronic diastolic CHF: No signs of decompensation recent ECHO 10/04/17 : normal LV chamber size with mild concentric LVH , sigmoid appearing septum . 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 not on any antiseizure meds Hypothyroidism: continue Levothyroxine Code Status: Full Code DVT Px: on IV heparin /Coumadin DISPOSITION ; PT/OT eval appreciated -stable to return home with home health /Home PT Medicine follow up with Dr Yamil Ng will need follow up with anticoagulation clinic for monitor of PT/INR and Coumadin dose will need out pt GI follow up for EUS Vital Signs: Date Time Temp Pulse Resp B/P (MAP) Pulse Ox O2 Delivery O2 Flow Rate FiO2 10/16/17 12:03 36.7 69 20 163/79 (107) 95 Room Air 10/16/17 12:00 Room Air 10/16/17 08:00 Room Air 10/16/17 07:48 36.7 61 20 162/73 (102) 97 Room Air 169/73 (105) 10/16/17 07:12 55 18 97 Room Air 10/16/17 05:04 36.6 60 17 158/77 (104) 95 Room Air 10/16/17 04:00 97 Room Air 10/16/17 00:37 36.9 65 18 165/79 (107) 93 Room Air 10/16/17 00:00 97 Room Air 10/15/17 20:30 36.4 74 20 151/70 (97) 95 Room Air 10/15/17 20:00 Room Air 10/15/17 19:29 67 16 97 Room Air 10/15/17 16:00 Room Air Lab Results: Results Past 24 Hours Test 10/16/17 05:48 10/16/17 13:40 Range/Units White Blood Count 11.73 4.8-10.8 K/uL Red Blood Count 3.64 4.7-6.1 M/uL Hemoglobin 11.4 14.0-18.0 g/dL Hematocrit 34.4 42-52 % Mean Corpuscular Volume 94.5 80-100 fL Mean Corpuscular Hemoglobin 31.3 25-34 pg Mean Corpuscular Hemoglobin Concent 33.1 32-36 g/dl RDW Standard Deviation 51.0 36.4-46.3 fL RDW Coefficient of Variation 14.8 11.5-14.5 % Platelet Count 301 130-400 K/uL Mean Platelet Volume 10.5 7.4-10.4 fL Prothrombin Time 15.5 9.0-12.0 SECONDS Prothromb Time International Ratio 1.4 0.9-1.1 Activated Partial Thromboplast Time 76.7 60.2 21.0-31.0 SECONDS Partial Thromboplastin Ratio 3.0 2.3 Sodium Level 146 136-145 mmol/L Potassium Level 3.7 3.5-5.1 mmol/L Chloride Level 115 98-107 mmol/L Carbon Dioxide Level 24 21-32 mmol/L Anion Gap 7.0 3-11 mmol/L Blood Urea Nitrogen 13 7-18 mg/dl Creatinine 0.90 0.60-1.40 mg/dl Est Creatinine Clear Calc Drug Dose 77.8 ml/min Estimated GFR () 96.5 Estimated GFR (Non- 83.3 BUN/Creatinine Ratio 15.0 10-20 Random Glucose 86 70-99 mg/dl Calcium Level 8.1 8.5-10.1 mg/dl Magnesium Level 2.1 1.8-2.4 mg/dl Total Bilirubin 0.4 0.2-1 mg/dl Direct Bilirubin 0.1 0-0.2 mg/dl Aspartate Amino Transf (AST/SGOT) 26 15-37 U/L Alanine Aminotransferase (ALT/SGPT) 45 12-78 U/L Alkaline Phosphatase 168 45-117 U/L Total Protein 5.9 6.4-8.2 gm/dl Albumin 2.6 3.4-5.0 gm/dl Lipase 425 73-393 U/L Microbiology Results 10/15/17 Gram Stain - Final, Resulted 10/15/17 Sputum Culture - Preliminary, Resulted LIGHT NORMAL ALBERTO Present, Final Rep...
[2017-10-16] MEDS: WARFARIN SOD 7.5 MG TAB PO SCH (16:16)
[2017-10-16] MEDS: AZITHROMYCIN 250 MG TAB PO SCH (20:20)
[2017-10-17] VITALS (11 sets, daily range): BP systolic 128–159; BP diastolic 66–82; PULSE 63–87; TEMP 36.3–36.9; O2SAT 94–98
[2017-10-17 06:12] LABS: HEMATOCRIT 37.5 % (42-52); MEAN CELL VOLUME 93.8 fL (80-100); MEAN CORPUSCULAR HGB CONC 33.1 g/dl (32-36); MEAN PLATELET VOLUME 10.7 fL (7.4-10.4); PLATELET COUNT 301 K/uL (130-400); WHITE BLOOD COUNT 12.01 K/uL (4.8-10.8)
[2017-10-17] MEDS: LEVOTHYROXINE 50 MCG TAB PO SCH (06:18)
[2017-10-17 06:52] LABS: BUN/CREATININE RATIO 16.2 (10-20); CALCIUM 8.6 mg/dl (8.5-10.1); CREATININE 0.86 mg/dl (0.60-1.40); MAGNESIUM 2.1 mg/dl (1.8-2.4); POTASSIUM 3.8 mmol/L (3.5-5.1)
[2017-10-17 07:00] LABS: INR 1.7 (0.9-1.1); PARTIAL THROMBOPLASTIN RATIO 3.1; PROTHROMBIN TIME (PATIENT) 19.1 SECONDS (9.0-12.0)
[2017-10-17] MEDS: HEPARIN 25,000 UNIT/500ML D5W 500 ML IV PRN (07:21)
[2017-10-17] MEDS: ALBUT/IPRATROP 3MG/0.5MG NEB 3 ML VIAL INH SCH ×5 (07:31→19:17)
[2017-10-17] MEDS: MULTIVITAMIN TAB PO SCH (07:46)
[2017-10-17] MEDS: TAMSULOSIN HCL 0.4 MG CAP PO SCH ×2 (07:46→20:45)
[2017-10-17] MEDS: FINASTERIDE 5 MG TAB PO SCH (07:46)
[2017-10-17] MEDS: ASPIRIN 81 MG ECTAB PO SCH (07:46)
--- NOTE | 2017-10-17 12:21 | Progress Note ---
Internal Med Progress Note Date of Service: Oct 17, 2017. Provider Documentation: SUBJECTIVE: Seen and examined at bedside Feels well Less cough Tolerating diet Denies chest pain, SOB, dizziness on Heparin ggt No bleeding issues No new complaints OBJECTIVE: Vital Signs-as noted below Physical Exam: General Appearance:Moderately built and nourished, no apparent distress Head: normocephalic, Atraumatic Eyes: normal inspection, EOMI, PERRL Neck: supple, Trachea midline Respiratory/Chest: Normal breath sounds, CTA Cardiovascular: S1, S2, No murmur Abdomen/GI:Soft, Non tender, Bowel sounds present Extremities/Musculoskelatal:normal inspection, Trace edema 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 ASSESSMENT & PLAN: Right LE DVT: Patient presented with pleuritic chest pain, dizzy spell and lightheadedness Cardiac markers: negative D Dimer:elevated secondary to DVT CT chest:no evidence of PE Doppler USG lower ext : nonocclusive acute DVT Continue IV heparin /Coumadin goal INR 2-3 INR:1.7 today Will give 7.5mg Coumadin today as well Pneumonia: recent admission with left sided pneumonia was discharged on 10/08/17 with PO Levaquin-per pt completed course on 10/11/17 Repeat CXR: no acute cardiopulmonary abnormality. blood culture:no growth Continue PO Azithromycin day # 5/7 Mild Leukocytosis, afebrile Recurrent Pancreatitis: recent admission: last week with pancreatitis had CT abdomen /pelvis : showed minimal peripancreatic infiltration s/p cholecystectomy USG of abdomen shows absence of gall bladder MRCP done last week -no pathology , no evidence of choledocholithiasis TG Level: on was 119 pancreatic USG : as below Appreciate GI input Counselled to be abstinent from alcohol use Needs out pt EUS by GI lipase level trended down Tolerating diet BPH Continue Flomax H/O chronic Afib: rate controlled Not on BB at home H/O chronic diastolic CHF: No signs of decompensation recent ECHO 10/04/17 : normal LV chamber size with mild concentric LVH , sigmoid appearing septum . 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 not on any antiseizure meds Hypothyroidism: continue Levothyroxine Code Status: Full Code DVT Px: on IV heparin /Coumadin DISPOSITION ; PT/OT eval appreciated -stable to return home with home health /Home PT Medicine follow up with Dr Yamil Ng will need follow up with anticoagulation clinic for monitor of PT/INR and Coumadin dose will need out pt GI follow up for EUS Vital Signs: Date Time Temp Pulse Resp B/P (MAP) Pulse Ox O2 Delivery O2 Flow Rate FiO2 10/17/17 12:00 Room Air 10/17/17 11:34 36.3 80 20 128/66 (86) 95 Room Air 10/17/17 11:17 81 18 96 Room Air 10/17/17 08:00 Room Air 10/17/17 07:45 36.4 65 20 135/71 (92) 94 Room Air 10/17/17 07:33 63 16 97 Room Air 10/17/17 04:18 36.7 78 16 155/81 (105) 94 Room Air 10/17/17 04:00 Room Air 10/17/17 00:00 Room Air 10/16/17 23:25 36.8 55 16 140/66 (90) 96 Room Air 10/16/17 20:00 Room Air 10/16/17 19:59 36.7 80 18 159/80 (106) 94 Nasal Cannula 2.0 10/16/17 19:17 67 16 96 Room Air 10/16/17 16:00 Room Air 10/16/17 15:41 36.8 77 20 166/82 (110) 93 Room Air 10/16/17 15:35 77 18 96 Room Air Lab Results: Results Past 24 Hours Test 10/16/17 13:40 10/17/17 05:57 Range/Units Activated Partial Thromboplast Time 60.2 80.1 21.0-31.0 SECONDS Partial Thromboplastin Ratio 2.3 3.1 White Blood Count 12.01 4.8-10.8 K/uL Red Blood Count 4.00 4.7-6.1 M/uL Hemoglobin 12.4 14.0-18.0 g/dL Hematocrit 37.5 42-52 % Mean Corpuscular Volume 93.8 80-100 fL Mean Corpuscular Hemoglobin 31.0 25-34 pg Mean Corpuscular Hemoglobin Concent 33.1 32-36 g/dl RDW Standard Deviation 49.5 36.4-46.3 fL RDW Coefficient of Variation 14.6 11.5-14.5 % Platelet Count 301 130-400 K/uL Mean Platelet Volume 10.7 7.4-10.4 fL Prothrombin Time 19.1 9.0-12.0 SECONDS Prothromb Time International Ratio 1.7 0.9-1.1 Sodium Level 143 136-145 mmol/L Potassium Level 3.8 3.5-5.1 mmol/L Chloride Level 109 98-107 mmol/L Carbon Dioxide Level 25 21-32 mmol/L Anion Gap 9.0 3-11 mmol/L Blood Urea Nitrogen 14 7-18 mg/dl Creatinine 0.86 0.60-1.40 mg/dl Est Creatinine Clear Calc Drug Dose 81.5 ml/min Estimated GFR () 98.3 Estimated GFR (Non- 84.8 BUN/Creatinine Ratio 16.2 10-20 Random Glucose 92 70-99 mg/dl Calcium Level 8.6 8.5-10.1 mg/dl Magnesium Level 2.1 1.8-2.4 mg/dl Total Bilirubin 0.3 0.2-1 mg/dl Direct Bilirubin 0.2 0-0.2 mg/dl Aspartate Amino Transf (AST/SGOT) 14 15-37 U/L Alanine Aminotransferase (ALT/SGPT) 38 12-78 U/L Alkaline Phosphatase 161 45-117 U/L Total Protein 6.0 6.4-8.2 gm/dl Albumin 2.8 3.4-5.0 gm/dl
[2017-10-17 13:51] LABS: PARTIAL THROMBOPLASTIN RATIO 2.3
[2017-10-17] MEDS: WARFARIN SOD 7.5 MG TAB PO SCH (16:05)
[2017-10-17] MEDS ORDERED: NAPROXEN 250 MG TAB PO PRN (16:30)
[2017-10-17] MEDS: AZITHROMYCIN 250 MG TAB PO SCH (20:45)
[2017-10-18] VITALS (8 sets, daily range): BP systolic 131–161; BP diastolic 74–82; PULSE 56–87; TEMP 36.6–36.9; O2SAT 94–98
[2017-10-18] MEDS: LEVOTHYROXINE 75 MCG TAB PO SCH (05:27)
[2017-10-18] MEDS: HEPARIN 25,000 UNIT/500ML D5W 500 ML IV PRN (05:31)
[2017-10-18 05:41] LABS: HEMATOCRIT 37.4 % (42-52); MEAN CELL VOLUME 95.2 fL (80-100); MEAN CORPUSCULAR HEMOGLOBIN 31.8 pg (25-34); MEAN CORPUSCULAR HGB CONC 33.4 g/dl (32-36); MEAN PLATELET VOLUME 10.8 fL (7.4-10.4); PLATELET COUNT 285 K/uL (130-400); RED BLOOD COUNT 3.93 M/uL (4.7-6.1)
[2017-10-18 05:56] LABS: INR 2.5 (0.9-1.1); PARTIAL THROMBOPLASTIN RATIO 2.6; PROTHROMBIN TIME (PATIENT) 27.7 SECONDS (9.0-12.0)
[2017-10-18 06:05] LABS: BUN/CREATININE RATIO 17.4 (10-20); CALCIUM 8.5 mg/dl (8.5-10.1); CREATININE 0.95 mg/dl (0.60-1.40); POTASSIUM 3.8 mmol/L (3.5-5.1)
[2017-10-18] MEDS: ALBUT/IPRATROP 3MG/0.5MG NEB 3 ML VIAL INH SCH ×4 (07:35→19:02)
[2017-10-18] MEDS: MULTIVITAMIN TAB PO SCH (08:38)
[2017-10-18] MEDS: TAMSULOSIN HCL 0.4 MG CAP PO SCH (08:38)
[2017-10-18] MEDS: ASPIRIN 81 MG ECTAB PO SCH (08:38)
[2017-10-18] MEDS: FINASTERIDE 5 MG TAB PO SCH (08:39)
--- NOTE | 2017-10-18 12:59 | Progress Note ---
Internal Med Progress Note Date of Service: Oct 18, 2017. 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 ASSESSMENT & PLAN: Right LE DVT: Patient presented with pleuritic chest pain, dizzy spell and lightheadedness Cardiac markers: negative D Dimer:elevated secondary to DVT CT chest:no evidence of PE Doppler USG lower ext : nonocclusive acute DVT IV heparin /Coumadin goal INR 2-3 INR:2.5 today DC IV Heparin Continue Coumadin: 5 mg today No bleeding issues Pneumonia: recent admission with left sided pneumonia was discharged on 10/08/17 with PO Levaquin-per pt completed course on 10/11/17 Repeat CXR: no acute cardiopulmonary abnormality. blood culture:no growth Continue PO Azithromycin day # 6/7 Mild Leukocytosis, afebrile Recurrent Pancreatitis: recent admission: last week with pancreatitis had CT abdomen /pelvis : showed minimal peripancreatic infiltration s/p cholecystectomy USG of abdomen shows absence of gall bladder MRCP done last week -no pathology , no evidence of choledocholithiasis TG Level: on was 119 pancreatic USG : as below Appreciate GI input Counselled to be abstinent from alcohol use Needs out pt EUS by GI lipase level trended down Tolerating diet BPH Continue Flomax H/O chronic Afib: rate controlled Not on BB at home H/O chronic diastolic CHF: No signs of decompensation recent ECHO 10/04/17 : normal LV chamber size with mild concentric LVH , sigmoid appearing septum . 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 not on any antiseizure meds Hypothyroidism: continue Levothyroxine Code Status: Full Code DVT Px: on IV heparin /Coumadin DISPOSITION ; PT/OT eval appreciated -stable to return home with home health /Home PT Plan to discharge home today Follow up with your Physician Dr.Donald Frederick Ng in 1 week as advised Follow up with your anti air warfare operations officer and get Endoscopic Ultrasound as outpatient Follow up with anticoagulation (Coumadin) clinic for monitoring of PT/INR and Coumadin dose Complete the antibiotic course as prescribed Get PT/INR checked on 10/19/17 (Tomorrow) and follow up with your doctor for further Coumadin dosage Seek immediate medical attention if your symptoms reoccur or worsen or If you have any bleeding issues Vital Signs: Date Time Temp Pulse Resp B/P (MAP) Pulse Ox O2 Delivery O2 Flow Rate FiO2 10/18/17 11:40 36.7 67 16 131/80 (97) 95 10/18/17 11:19 60 18 97 Room Air 10/18/17 08:00 Room Air 10/18/17 07:35 58 18 98 Room Air 10/18/17 07:31 36.8 56 22 161/74 (103) 96 Room Air 10/18/17 04:16 36.7 68 16 143/77 (99) 94 Room Air 10/18/17 04:00 Room Air 10/18/17 00:03 36.9 87 16 147/82 (103) 97 Room Air 10/18/17 00:00 Room Air 10/17/17 20:00 98 Room Air 10/17/17 19:22 36.9 69 18 159/77 (104) 98 Room Air 10/17/17 19:17 76 18 95 Room Air 10/17/17 16:06 36.4 87 18 147/82 (103) 97 Room Air 10/17/17 16:00 97 Room Air 10/17/17 15:04 87 18 97 Room Air Lab Results: Results Past 24 Hours Test 10/17/17 13:20 10/18/17 05:20 Range/Units Activated Partial Thromboplast Time 59.9 67.5 21.0-31.0 SECONDS Partial Thromboplastin Ratio 2.3 2.6 White Blood Count 13.50 4.8-10.8 K/uL Red Blood Count 3.93 4.7-6.1 M/uL Hemoglobin 12.5 14.0-18.0 g/dL Hematocrit 37.4 42-52 % Mean Corpuscular Volume 95.2 80-100 fL Mean Corpuscular Hemoglobin 31.8 25-34 pg Mean Corpuscular Hemoglobin Concent 33.4 32-36 g/dl RDW Standard Deviation 49.9 36.4-46.3 fL RDW Coefficient of Variation 14.5 11.5-14.5 % Platelet Count 285 130-400 K/uL Mean Platelet Volume 10.8 7.4-10.4 fL Prothrombin Time 27.7 9.0-12.0 SECONDS Prothromb Time International Ratio 2.5 0.9-1.1 Sodium Level 139 136-145 mmol/L Potassium Level 3.8 3.5-5.1 mmol/L Chloride Level 107 98-107 mmol/L Carbon Dioxide Level 24 21-32 mmol/L Anion Gap 8.0 3-11 mmol/L Blood Urea Nitrogen 17 7-18 mg/dl Creatinine 0.95 0.60-1.40 mg/dl Est Creatinine Clear Calc Drug Dose 73.7 ml/min Estimated GFR () 90.4 Estimated GFR (Non- 78.0 BUN/Creatinine Ratio 17.4 10-20 Random Glucose 95 70-99 mg/dl Calcium Level 8.5 8.5-10.1 mg/dl
[2017-10-18] MEDS ORDERED: AZIT-57 PO (13:06)
[2017-10-18] MEDS ORDERED: CMD25 PO (13:06)
[2017-10-18] MEDS ORDERED: CEFU1TAB35 PO (13:06)
--- NOTE | 2017-10-18 13:10 | Discharge Summary ---
Discharge Summary Date of Service Oct 18, 2017. Discharge Summary Admission Date: Oct 13, 2017 at 07:52 Discharge Date: Oct 18, 2017 Discharge Disposition: Home with services Principal Diagnosis: Acute DVT, Pneumonia, Recurrent pancreatitis Procedures: Pancreas USD: 1. Slightly heterogeneous pancreas which remains unchanged. No peripancreatic fluid collections. This favors mild pancreatitis as seen on the prior studies. 2. Cholecystectomy. Venous Doppler: Nonocclusive right lower extremity DVT CTA: 1. No evidence of acute pulmonary embolism 2. Right-sided nephrolithiasis 3. Mild dilatation of the ascending thoracic aorta 4. Dependent lower lobe atelectasis 5. Solid 3 mm right middle lobe pulmonary nodule. Solid 4 mm right upper lobe pulmonary nodule. In a low risk patient, no further follow-up is necessary. CXR: Focal airspace opacity within the left lower lobe. This is consistent with a pneumonia. Recommend one to 2 month chest x-ray follow-up to ensure resolution. Pending Studies/Follow-Up: Follow up with your Physician Dr.Donald Frederick Ng in 1 week as advised Follow up with your store standards associate and get Endoscopic Ultrasound as outpatient Follow up with wound clinic in 1 week as advised Follow up with anticoagulation (Coumadin) clinic for monitoring of PT/INR and Coumadin dose Complete the antibiotic course as prescribed Get PT/INR checked on 10/19/17 (Tomorrow) and follow up with your doctor for further Coumadin dosage Seek immediate medical attention if your symptoms reoccur or worsen or If you have any bleeding issues Medication Reconciliation New Medications: Cefuroxime Axetil (Cefuroxime Axetil) 500 Mg Tab 500 MG PO BID for 3 Days, #6 TABS Warfarin Sod (Coumadin) 2.5 Mg Tab 5 MG PO UD for 30 Days, #100 EA 1 Refill Check PT/INR on 10/19/17 and follow up with your physican for coumadin dosage Azithromycin (Azithromycin) 250 Mg Tab 500 MG PO HS for 3 Days, #6 TAB Continued Medications: Aspirin (Aspirin Ec) 81 Mg Tab 81 MG PO DAILY Finasteride (Proscar) 5 Mg Tab 5 MG PO DAILY, TAB Levothyroxine Sodium (Levothyroxine Sodium) 75 Mcg Tab 1 TAB PO Q2D, TAB Levothyroxine Sodium (Levothyroxine Sodium) 50 Mcg Tab 1 TAB PO Q2D, TAB Multivitamin (Multivitamin) Tab 1 TAB PO DAILY, TAB Rosuvastatin Calcium (Crestor) 5 Mg Tab 5 MG PO HS, TAB Tamsulosin Hcl (Flomax) 0.4 Mg Cap 0.4 MG PO BID, CAP Admission Information HPI (per Admitting provider): This is a 77 yo M with past medical hx of hypothyroidism , depression , CHF , Hx of Afib , Hx of RLE DVT off anticoagulation , 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 was admitted to [facility] form Oct 03 to Oct 08 2017 for left lower lobe pneumonia , acute pancreatitis pt was evaluated by GI -extensive GI imaging -pancreatic USG /CT abdomen - pelvis /MRCP did not show any pathology pt's lipase level improved with conservative management with IVF and bowel rest pt was discharged home on 10/08/17 with PO Levaquin 750 mg daily for 4 more days pt presents to ER today -with complain of weak, tired , chest pain while taking deep breath , ongoing cough and sputum production pt is a poor historian mentions he never felt better since discharge , had ongoing fatigue and tiredness completed Antibiotic for pneumonia yesterday his cough never improved yesterday it got worse and experience sharp chest pain with coughing in ER pt found to have marked Leukocytosis WBC 21 K Lipase elevated ~5000 CXray shows persisted Lt lower lobe infiltrate Physical Exam (per Admitting): General Appearance: + mild distress, + thin, + pertinent finding ( chronically ill appearing ) Head: normocephalic, atraumatic Eyes: normal inspection, PERRL, EOMI, sclerae normal ENT: normal ENT inspection, pharynx normal, + pertinent finding (dry oral mucosa ) Neck: thyroid normal, trachea midline Respiratory/Chest: + decreased breath sounds, + crackles, + rales, + rhonchi , + wheezing, + pertinent finding (pluritic chest pain with deep breath ) Cardiovascular: regular rate, rhythm Abdomen/GI: + tenderness (in mid abdomen and epigastric region ) Extremities/Musculoskelatal: + pedal edema (trace pedal edema ) Neurologic/Psych: no motor/sensory deficits, alert, oriented x 3, + depressed affect Skin: normal color, warm/dry, no rash Hospital Course Right LE DVT: Patient presented with pleuritic chest pain, dizzy spell and lightheadedness Cardiac markers: negative D Dimer:elevated secondary to DVT CT chest:no evidence of PE Doppler USG lower ext : nonocclusive acute DVT IV heparin /Coumadin goal INR 2-3 INR:2.5 today DC IV Heparin Continue Coumadin: 5 mg today No bleeding issues Pneumonia: recent admission with left sided pneumonia was discharged on 10/08/17 with PO Levaquin-per pt completed course on 10/11/17 Repeat CXR: no acute cardiopulmonary abnormality. blood culture:no growth Continue PO Azithromycin Mild Leukocytosis, afebrile Recurrent Pancreatitis: recent admission: last week with pancreatitis had CT abdomen /pelvis : showed minimal peripancreatic infiltration s/p cholecystectomy USG of abdomen shows absence of gall bladder MRCP done last week -no pathology , no evidence of choledocholithiasis TG Level: on was 119 pancreatic USG : as below Appreciate GI input Counselled to be abstinent from alcohol use Needs out pt EUS by GI lipase level trended down Tolerating diet BPH Continue Flomax H/O chronic Afib: rate controlled Not on BB at home H/O chronic diastolic CHF: No signs of decompensation recent ECHO 10/04/17 : normal LV chamber size with mild concentric LVH , sigmoid appearing septum . 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 not on any antiseizure meds Hypothyroidism: continue Levothyroxine Code Status: Full Code DVT Px: on IV heparin /Coumadin DISPOSITION ; PT/OT eval appreciated -stable to return home with home health /Home PT Plan to discharge home today Follow up with your Physician Dr.Donald Frederick Ng in 1 week as advised Follow up with your store standards associate and get Endoscopic Ultrasound as outpatient Follow up with anticoagulation (Coumadin) clinic for monitoring of PT/INR and Coumadin dose Complete the antibiotic course as prescribed Get PT/INR checked on 10/19/17 (Tomorrow) and follow up with your doctor for further Coumadin dosage Seek immediate medical attention if your symptoms reoccur or worsen or If you have any bleeding issues Total time spent on discharge = 35 minutes This includes examination of the patient, discharge planning, medication reconciliation, and communication with other providers. Discharge Instructions Discharge Instructions Date of Service Oct 18, 2017. Admission Reason for Admission: Lt Sided Chest Pain Discharge Discharge Diagnosis / Problem: Acute DVT, Pneumonia, Recurrent pancreatitis Discharge Goals Goal(s): Decrease discomfort, Improve function Activity Recommendations Activity Limitations: resume your previous activity Exercise/Sports Limitations: as tolerated . Instructions / Follow-Up Instructions / Follow-Up Follow up with your Physician Dr.Donald Frederick Ng in 1 week as advised Follow up with your store standards associate and get Endoscopic Ultrasound as outpatient Follow up with wound clinic in 1 week as advised Follow up with anticoagulation (Coumadin) clinic for monitoring of PT/INR and Coumadin dose Complete the antibiotic course as prescribed Get PT/INR checked on 10/19/17 (Tomorrow) and follow up with your doctor for further Coumadin dosage Seek immediate medical attention if your symptoms reoccur or worsen or If you have any bleeding issues Current Hospital Diet Patient's current hospital diet: Low Fat Diet Discharge Diet Recommended Diet: Low Fat Diet Pending Studies Studies pending at discharge: no Laboratory Results Lipid Panel Test 10/14/17 07:49 Range/Units Triglycerides Level 87 0-150 mg/dl Cholesterol Level 129 0-200 mg/dl HDL Cholesterol 52 mg/dl Cholesterol/HDL Ratio 2.5 LDL Cholesterol, Calculated 60 mg/dl Medical Emergencies . Who to Call and When: Medical Emergencies: If at any time you feel your situation is an emergency, please call 911 immediately. . Non-Emergent Contact Non-Emergency issues call your: Primary Care Provider, Registered Respiratory Technician Call Non-Emergent contact if: you have a fever, your pain is not controlled, your pain is worsening, your pain is unusual for you, your pain is concerning you, you have any medication questions Seek immediate medical attention if your symptoms reoccur or worsen . . "Provider Documentation" section prepared by Gilmer Mishra. . VTE Core Measure Inpt VTE Proph given/why not?: Unfractionated heparin SQ, Warfarin (Coumadin)
[2017-10-18] MEDS ORDERED: WARFARIN SOD 5 MG TAB PO SCH (16:00)
== END 2017-10-18 19:10 | disposition home or self-care (01) | DRG 193 ==
LOC: EDBD 05:38 → C.EDA 05:39 → C.MED 07:52 → ENRESERV 09:05
PROVIDERS: ADMIT Hospitalist; ATTEND Internal Medicine
DX: J18.9 Pneumonia, unspecified organism (principal); K85.90 Acute pancreatitis without necrosis or infection, unspecified; I50.32 Chronic diastolic (congestive) heart failure; I82.411 Acute embolism and thrombosis of right femoral vein; N40.0 Benign prostatic hyperplasia without lower urinary tract symptoms; D72.829 Elevated white blood cell count, unspecified; E03.9 Hypothyroidism, unspecified; Z90.49 Acquired absence of other specified parts of digestive tract; Z79.82 Long term (current) use of aspirin

== ENCOUNTER 2019-05-12 14:15 | Inpatient (IN) ==
[2019-05-12 15:34] LABS: Albumin Level 3.7 gm/dl (3.4-5.0); Blood Urea Nitrogen 21 mg/dl (7-18); Calcium 8.2 mg/dl (8.5-10.1); Carbon Dioxide 25 mmol/L (21-32); Chloride 113 mmol/L (98-107); Glucose 82 mg/dl (70-99); Sodium 143 mmol/L (136-145)
[2019-05-12 15:37] LABS: Alanine Aminotransferase 18 U/L (12-78); Aspartate Aminotransferase 14 U/L (15-37); BUN Creatinine Ratio 19.3 (10-20); Creatinine Clr Calc Pharmacy 60.4 ml/min; Est GFR (African American) 75.5; Est GFR (Non-African American) 65.1
--- NOTE | 2019-05-12 15:42 | XRay Report ---
XR chest 1V portable HISTORY: 79 years-old Male Chest pain acute atypical chest pain COMPARISON: Chest radiograph 08/08/2018 TECHNIQUE: Portable AP view of the chest FINDINGS: Cardiac silhouette is mildly enlarged, unchanged. Calcification and prominence of the thoracic aortic arch. No pneumothorax, pleural effusion, focal airspace consolidation or overt pulmonary edema. Dege nerative changes of the shoulders and spine. IMPRESSION: No acute process. The above report was generated using voice recognition software. It may contain grammatical, syntax o r spelling errors. Electronically signed by: Jamison Velasquez M.D. 05/12/2019 3:40 PM
[2019-05-12 15:45] LABS: Albumin Globulin Ratio 1.5 (0.9-2); Alkaline Phosphatase 74 U/L (45-117); Bilirubin,Total 0.7 mg/dl (0.2-1); Globulin 2.4 gm/dl (2.5-4.0); Magnesium 2.1 mg/dl (1.8-2.4); NT Pro B Type Natriuretic Pept 94 pg/ml (0-1800); Phosphorus 2.9 mg/dl (2.5-4.9); Total Protein 6.1 gm/dl (6.4-8.2); Troponin I < 0.015 ng/ml (0-0.045)
[2019-05-12 15:54] LABS: Hematocrit (blood only) 39.7 % (42-52); Hemoglobin 13.5 g/dL (14.0-18.0); INR 1.2 (0.9-1.1); Mean Corpuscular Volume 94.3 fL (80-100); Mean Platelet Volume 11.6 fL (7.4-10.4); Platelet Count 131 K/uL (130-400); Prothrombin Time 11.8 Seconds (9.0-12.0); RDW Coefficient of Variation 15.3 % (11.5-14.5); RDW Standard Deviation 52.1 fL (36.4-46.3); Red Blood Count 4.21 M/uL (4.7-6.1); White Blood Count 31.14 K/uL (4.8-10.8)
[2019-05-12] MEDS ORDERED: FAMOTIDINE 20 MG TAB PO ONE (16:10)
[2019-05-12] MEDS ORDERED: GI COCKTAIL ED USE PO ONE (16:10)
[2019-05-12 16:31] LABS: ALC (manual) 24.82 K/uL (1.2-3.4); Basophils # (manual) 0.28 K/uL (0-0.2); Basophils % (manual) 0.9 %; Eosinophils # (manual) 0.28 K/uL (0-0.5); Eosinophils % (manual) 0.9 %; Lymphocytes # (manual) 24.82 K/uL (1.2-3.4); Lymphocytes % (manual) 79.7 %; Monocytes # (manual) 1.09 K/uL (0.11-0.59); Monocytes % (manual) 3.5 %; Smudge Cells Present
[2019-05-12] MEDS ORDERED: DiphenhydrAMINE HCL 50 MG/ML VIAL IV STA (17:15)
[2019-05-12] MEDS ORDERED: methylPREDNISolone 125 MG/2 ML VIAL IV STA (17:15)
[2019-05-12] MEDS ORDERED: OPTIRAY 320 125ml IV PRN (18:37)
--- NOTE | 2019-05-12 18:51 | CT Scan Report ---
CT angio chest PE protocol CT DOSE: HISTORY: Chest pain. Dyspnea. PE TECHNIQUE: Multiaxial CT images of the chest were performed following the intravenous administration of contrast to evaluate the pulmonary arteries. Maximal intensity projection images were also obtaine d. A dose lowering technique was utilized adhering to the principles of ALARA. COMPARISON STUDY: 08/09/2018 FINDINGS: The thoracic aorta shows generalized ectasia and atherosclerotic change. No significant filling defects within the pulmonary arterial vasculature. Small parenchymal infiltrat e left base. Moderate emphysematous change throughout both hemithoraces. Scattered areas of focal ple ural thickening considered chronic. IMPRESSION: 1. No evidence for pulmonary embolus. 2. Generalized atelectatic change thoracic aorta. 3. Small parenchymal infiltrate left base. The above report was generated using voice recognition software. It may contain grammatical, syntax or spelling errors. Electronically signed by: Satnam De La Rosa M.D. 05/12/2019 6:50 PM
--- NOTE | 2019-05-12 18:53 | CT Scan Report ---
CT abd pelvis IV con only CT DOSE: 787.19 mGy.cm HISTORY: Pain. Nausea. upper abdominal pain, leukemia TECHNIQUE: Multiaxial CT images of the abdomen and pelvis were performed following the use of intrave nous contrast. A dose lowering technique was utilized adhering to the principles of ALARA. COMPARISON STUDY: 08/09/2018 FINDINGS: Minimal left basilar parenchymal infiltrate. Liver spleen and pancreas are grossly unremark able. Prior cholecystectomy. Several renal calcifications as well as renal cysts unchanged in the prior study. No evidence for an obstructing urinary tract calculus. Bowel pattern is considered nonobstructive. Moderately distended bladder. No free fluid within the pe lvic cul-de-sac. IMPRESSION: 1. Nonobstructive bowel pattern. 2. Distended bladder. 3. No acute process of the abdomen or pelvis. 4. Minimal atelectatic and/or infiltrative change left lung base. The above report was generated using voice recognition software. It may contain grammatical, syntax or spelling errors. Electronically signed by: Satnam De La Rosa M.D. 05/12/2019 6:52 PM
--- NOTE | 2019-05-12 18:59 | Emergency Department Note ---
Entered by Carolyn High acting as a scribe for Abdifatah James MD History of Present Illness General Chief complaint: Chest Pain Stated complaint: chest pain Time Seen by Provider: 05/12/19 15:25 Source: patient Mode of arrival: EMS Limitations: no limitations History of Present Illness Onset (ago): day(s) (today) Location: chest Radiation: extremity (left arm) Pain Consistency: + constant Maximum Pain Intensity: 4 Current Pain Intensity: 3 Associated symptoms: + chest pain and + weakness; no nausea/vomiting Treatments prior to arrival: aspirin (He notes that he was given 5 baby aspirin by his .) and other ( The patient received 850 of saline as well as 1 SL nitro by EMS prior to arrival) The patient is a 79 year old male with a history of CHF, sepsis, CYRUS, MRSA, leukemia, DVT, hypothyroidism, atrial fibrillation, and cholecystectomy who presents to the ED with complaints of constant chest pain that onset today. He notes that the pain radiates into his left arm. The patient currently rates his pain as a 3/10 in severity. The patient complains of weakness, dizziness, and feeling unsteady on his feet. The patient denies nausea and vomiting. He notes that he was given 5 baby aspirin by his . The patient received 850 of saline as well as 1 SL nitro by EMS prior to arrival. Per EMS, the patients heart rate was in the 40s. The patient states that he has a skin graft on his right leg since 05/07/19. Home Medications Home Medications Medication Instructions Recorded Confirmed Type apixaban 5 mg PO QAM 08/08/18 05/12/19 History ergocalciferol (vitamin D2) 1 cap PO WK 08/08/18 05/12/19 History ferrous sulfate [iron] 325 mg PO QAM 08/08/18 05/12/19 History levothyroxine 50 mcg PO Q OTHER DAY 08/08/18 05/12/19 History levothyroxine 75 mcg PO Q OTHER DAY 08/08/18 05/12/19 History multivitamin [One Daily 1 tab PO QAM 08/08/18 05/12/19 History Multivitamin] mupirocin 1 applic TOPICAL DAILY PRN 08/08/18 05/12/19 History pantoprazole 40 mg PO QAM 08/08/18 05/12/19 History rosuvastatin 5 mg PO HS 08/08/18 05/12/19 History tamsulosin 0.4 mg PO BID 08/08/18 05/12/19 History furosemide [Lasix] 20 mg PO DAILY 05/12/19 05/12/19 History guaifenesin [Mucinex] 0 mg PO Q12H PRN 05/12/19 05/12/19 History Allergies Allergy/AdvReac Type Severity Reaction Status Date / Time ibuprofen Allergy Severe Hives Verified 05/12/19 15:30 Iodinated Contrast- Oral and Allergy Intermediate HIVES Verified 05/12/19 15:30 IV Dye caffeine AdvReac Severe Rash Verified 05/12/19 15:30 Past Med/Surg History Medical History Ankle wound (Acute) Abnormal LFTs (Acute) Traumatic open wound of right lower leg Sepsis (Acute) Acute dehydration (Acute) Generalized weakness (Acute) CYRUS (acute kidney injury) (Acute) MRSA (methicillin resistant Staphylococcus aureus) Leukemia DVT (deep venous thrombosis) Chronic pneumonia Hypothyroidism (Chronic) BPH (benign prostatic hypertrophy) (Chronic) Congestive heart failure (Chronic) "diastolic" Chronic atrial fibrillation (Chronic) 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" Aortic insufficiency (Chronic) Renal calculus (Chronic) Renal cyst, acquired, left (Chronic) "mildly complex per CT 10/03/17 and MRI 10/04/17" Surgical History Status post cholecystectomy (Chronic) Family History Other No pertinent family history Social History Preferred Language: Congolese Communication Ability: Impaired Beliefs That Will Affect Care: Congregation Congregation Beliefs: Confucianism marital status: Current Living Situation: Spouse Feels Safe at Home: Yes Smoking Status: Never smoker Hx Alcohol Use: Yes Alcohol type: beer Hx Substance Use: No Review of Systems See HPI for pertinent positives & negatives. and A total of 10 systems reviewed and were otherwise negative Physical Exam Vital Signs Vital Signs - 24 hr 05/12/19 14:19 05/12/19 15:07 05/12/19 16:11 Temperature 36.6 C Temperature Source Oral Sepsis Recent Fever Within 48 Hours No Sepsis New/Unexplained Change in Mental Status No Sepsis Action Taken by Nursing No Action Required Pulse Rate 41 L Pulse Rate [Left] 46 L 46 L Respiratory Rate 16 18 16 Respiratory Effort / Characteristics Non-Labored Spontaneous Non-Labored Spontaneous Non-Labored Spontaneous Blood Pressure 137/65 Blood Pressure [Right Arm] 136/65 157/68 H Blood Pressure Mean 89 Blood Pressure Mean [Right Arm] 88 97 Blood Pressure Position [Right Arm] Lying Lying Pulse Oximetry 95 95 95 Oxygen Delivery Method Room Air Room Air Room Air 05/12/19 17:39 Temperature Temperature Source Sepsis Recent Fever Within 48 Hours Sepsis New/Unexplained Change in Mental Status Sepsis Action Taken by Nursing Pulse Rate Pulse Rate [Left] 42 L Respiratory Rate 12 Respiratory Effort / Characteristics Non-Labored Spontaneous Blood Pressure Blood Pressure [Right Arm] 157/66 H Blood Pressure Mean Blood Pressure Mean [Right Arm] 96 Blood Pressure Position [Right Arm] Lying Pulse Oximetry 96 Oxygen Delivery Method Room Air GENERAL: Awake, alert, fatigued-appearing, in no distress HENT: Normocephalic, atraumatic. Oropharynx with dry mucous membranes and otherwise unremarkable. EYES: Normal conjunctiva. Sclera non-icteric. NECK: Supple. No nuchal rigidity. FROM. No JVD. RESPIRATORY: Clear to auscultation bilaterally. CARDIAC: Bradycardic rate, normal rhythm. Extremities warm and well perfused. Pulses equal. ABDOMEN: Soft, non-distended. Mild epigastric discomfort without discreet tenderness. No rebound or guarding. No masses. RECTAL: Deferred. MUSCULOSKELETAL: Chest examination reveals no tenderness. The back is symmetrical on inspection without obvious abnormality. There is no CVA tenderness to palpation. No joint edema. LOWER EXTREMITIES: Calves are equal size bilaterally and non-tender. No edema. No discoloration. NEURO: Normal sensorium. No sensory or motor deficits noted. SKIN: No rash or jaundice noted. Course 1534: Past medical records reviewed. The patient was evaluated in room C4. A complete history and physical examination was performed. 19:15: Case discussed with Shante Felipe, who evaluate the patient for admission. Administered Medications Ioversol (Optiray 320 125ml) 116 ml IV ONCE PRN PRN Reason: Interaction Checking Stop: 05/16/19 18:36 Last Admin: 05/12/19 18:37 Dose: 116 ml Documented by: [id number] Discontinued Medications Al Hydrox/Mg Hydrox/Simethicone () 1 dose PO ONE ONE Stop: 05/12/19 16:11 Last Admin: 05/12/19 16:19 Dose: 1 dose Documented by: [id number] Diphenhydramine HCl (Benadryl) 25 mg IV NOW STA Stop: 05/12/19 17:16 Last Admin: 05/12/19 17:39 Dose: 25 mg Documented by: [id number] Famotidine (Pepcid) 20 mg PO NOW ONE Stop: 05/12/19 16:11 Last Admin: 05/12/19 16:19 Dose: 20 mg Documented by: [id number] Methylprednisolone (Solumedrol) 125 mg IV NOW STA Stop: 05/12/19 17:16 Last Admin: 05/12/19 17:39 Dose: 125 mg Documented by: [id number] Medical Decision Making Differential Diagnosis Differential diagnoses: Acute coronary syndrome, myocardial infarction, pericarditis, pulmonary embolus, aortic dissection, pneumonia, pneumothorax, musculoskeletal, shingles, esophageal. Medical Records Attestation: I reviewed the patient's medical records. Home Medications Current Medication List: was personally reviewed by me Laboratory Data Attestation: I reviewed the patient's lab results. Result diagrams: 05/12/19 15:04 05/12/19 15:04 Lab Results 05/12/19 05/12/19 05/12/19 Range/Units 15:04 15:04 15:04 WBC 31.14 H* (4.8-10.8) K/uL RBC 4.21 L (4.7-6.1) M/uL Hgb 13.5 L (14.0-18.0) g/dL Hct 39.7 L (42-52) % MCV 94.3 (80-100) fL MCH 32.1 (25-34) pg MCHC 34.0 (32-36) g/dL RDW Std Deviation 52.1 H (36.4-46.3) fL RDW Coeff of Chay 15.3 H (11.5-14.5) % Plt Count 131 (130-400) K/uL MPV 11.6 H (7.4-10.4) fL Neutrophils % (Manual) 15.0 % Lymphocytes % (Manual) 79.7 % Monocytes % (Manual) 3.5 % Eosinophils % (Manual) 0.9 % Basophils % (Manual) 0.9 % Neutrophils # (Manual) 4.67 (1.4-6.5) K/uL Total Absolute Neuts 4.67 (1.4-6.5) K/uL Lymphocytes # (Manual) 24.82 H (1.2-3.4) K/uL Total Abs Lymphocytes 24.82 H (1.2-3.4) K/uL Monocytes # (Manual) 1.09 H (0.11-0.59) K/uL Eosinophils # (Manual) 0.28 (0-0.5) K/uL Basophils # (Manual) 0.28 H (0-0.2) K/uL Smudge Cells Present PT 11.8 (9.0-12.0) Seconds INR 1.2 H (0.9-1.1) APTT 27.0 (21.0-31.0) Seconds PTT Ratio 1.0 Sodium 143 (136-145) mmol/L Potassium 4.0 (3.5-5.1) mmol/L Chloride 113 H (98-107) mmol/L Carbon Dioxide 25 (21-32) mmol/L Anion Gap 5.0 (3-11) BUN 21 H (7-18) mg/dl Creatinine 1.09 (0.6-1.4) mg/dl Est Cr Clr Drug Dosing 60.4 ml/min Est GFR ( Amer) 75.5 Est GFR (Non-Af Amer) 65.1 BUN/Creatinine Ratio 19.3 (10-20) Glucose 82 (70-99) mg/dl Calcium 8.2 L (8.5-10.1) mg/dl Phosphorus 2.9 (2.5-4.9) mg/dl Magnesium 2.1 (1.8-2.4) mg/dl Total Bilirubin 0.7 (0.2-1) mg/dl AST 14 L (15-37) U/L ALT 18 (12-78) U/L Alkaline Phosphatase 74 (45-117) U/L Troponin I < 0.015 (0-0.045) ng/ml NT-Pro-B Natriuret Pep 94 (0-1800) pg/ml Total Protein 6.1 L (6.4-8.2) gm/dl Albumin 3.7 (3.4-5.0) gm/dl Globulin 2.4 L (2.5-4.0) gm/dl Albumin/Globulin Ratio 1.5 (0.9-2) Lipase 170 (73-393) U/L 05/12/19 05/12/19 05/12/19 Range/Units 15:04 15:04 15:04 WBC (4.8-10.8) K/uL RBC (4.7-6.1) M/uL Hgb (14.0-18.0) g/dL Hct (42-52) % MCV (80-100) fL MCH (25-34) pg MCHC (32-36) g/dL RDW Std Deviation (36.4-46.3) fL RDW Coeff of Chay (11.5-14.5) % Plt Count (130-400) K/uL MPV (7.4-10.4) fL Neutrophils % (Manual) % Lymphocytes % (Manual) % Monocytes % (Manual) % Eosinophils % (Manual) % Basophils % (Manual) % Neutrophils # (Manual) (1.4-6.5) K/uL Total Absolute Neuts (1.4-6.5) K/uL Lymphocytes # (Manual) (1.2-3.4) K/uL Total Abs Lymphocytes (1.2-3.4) K/uL Monocytes # (Manual) (0.11-0.59) K/uL Eosinophils # (Manual) (0-0.5) K/uL Basophils # (Manual) (0-0.2) K/uL Smudge Cells PT (9.0-12.0) Seconds INR (0.9-1.1) APTT (21.0-31.0) Seconds PTT Ratio Sodium (136-145) mmol/L Potassium (3.5-5.1) mmol/L Chloride (98-107) mmol/L Carbon Dioxide (21-32) mmol/L Anion Gap (3-11) BUN (7-18) mg/dl Creatinine (0.6-1.4) mg/dl Est Cr Clr Drug Dosing ml/min Est GFR ( Amer) Est GFR (Non-Af Amer) BUN/Creatinine Ratio (10-20) Glucose (70-99) mg/dl Calcium (8.5-10.1) mg/dl Phosphorus Cancelled (2.5-4.9) mg/dl Magnesium Cancelled (1.8-2.4) mg/dl Total Bilirubin (0.2-1) mg/dl AST (15-37) U/L ALT (12-78) U/L Alkaline Phosphatase (45-117) U/L Troponin I (0-0.045) ng/ml NT-Pro-B Natriuret Pep Cancelled (0-1800) pg/ml Total Protein (6.4-8.2) gm/dl Albumin (3.4-5.0) gm/dl Globulin (2.5-4.0) gm/dl Albumin/Globulin Ratio (0.9-2) Lipase Cancelled (73-393) U/L Imaging Data Radiologist's Impression: Radiology results as stated below per my review and the radiologist's interpretation: XR chest 1V portable HISTORY: 79 years-old Male Chest pain acute atypical chest pain COMPARISON: Chest radiograph 08/08/2018 TECHNIQUE: Portable AP view of the chest FINDINGS: Cardiac silhouette is mildly enlarged, unchanged. Calcification and prominence of the thoracic aortic arch. No pneumothorax, pleural effusion, focal airspace consolidation or overt pulmonary edema. Degenerative changes of the shoulders and spine. IMPRESSION: No acute process. The above report was generated using voice recognition software. It may contain grammatical, syntax or spelling errors. Electronically signed by: Jamison Velasquez M.D. 05/12/2019 3:40 PM Dictated: 05/12/19 1539 Transcribed: 05/12/19 1539 ----- CT angio chest PE protocol CT DOSE: HISTORY: Chest pain. Dyspnea. PE TECHNIQUE: Multiaxial CT images of the chest were performed following the intravenous administration of contrast to evaluate the pulmonary arteries. Maximal intensity projection images were also obtained. A dose lowering technique was utilized adhering to the principles of ALARA. COMPARISON STUDY: 08/09/2018 FINDINGS: The thoracic aorta shows generalized ectasia and atherosclerotic change. No significant filling defects within the pulmonary arterial vasculature. Small parenchymal infiltrate left base. Moderate emphysematous change throughout both hemithoraces. Scattered areas of focal pleural thickening considered chronic. IMPRESSION: 1. No evidence for pulmonary embolus. 2. Generalized atelectatic change thoracic aorta. 3. Small parenchymal infiltrate left base. The above report was generated using voice recognition software. It may contain grammatical, syntax or spelling errors. Electronically signed by: Satnam De La Rosa M.D. 05/12/2019 6:50 PM ---- CT abd pelvis IV con only CT DOSE: 787.19 mGy.cm HISTORY: Pain. Nausea. upper abdominal pain, leukemia TECHNIQUE: Multiaxial CT images of the abdomen and pelvis were performed following the use of intravenous contrast. A dose lowering technique was utilized adhering to the principles of ALARA. COMPARISON STUDY: 08/09/2018 FINDINGS: Minimal left basilar parenchymal infiltrate. Liver spleen and pancreas are grossly unremarkable. Prior cholecystectomy. Several renal calcifications as well as renal cysts unchanged in the prior study. No evidence for an obstructing urinary tract calculus. Bowel pattern is considered nonobstructive. Moderately distended bladder. No free fluid within the pelvic cul-de-sac. IMPRESSION: 1. Nonobstructive bowel pattern. 2. Distended bladder. 3. No acute process of the abdomen or pelvis. 4. Minimal atelectatic and/or infiltrative change left lung base. The above report was generated using voice recognition software. It may contain grammatical, syntax or spelling errors. Electronically signed by: Satnam De La Rosa M.D. 05/12/2019 6:52 PM ECG Data Attestation: I personally reviewed and interpreted this ECG as follows: Indication: chest pain Rate (beats per minute): 44 Rhythm: sinus bradycardia Findings: + other (Left axis deviation); no acute ischemic change and no ectopy Blood Pressure Blood Pressure Findings: Elevated blood pressure Blood Pressure Disposition: Referred to patients primary care provider MDM Narrative The patient is a pleasant 79-year-old gentleman with a past medical history of leukemia currently not undergoing treatment, CHF, DVT, A. [facility] per hpi. On arrival patient is fatigued appearing but no acute distress, afebrile stable vital signs. On exam patient has mild epigastric discomfort without discrete tenderness. EKG demonstrates a sinus bradycardia without overt acute ischemia. WBC 31K slightly increased from patient's chronic elevations. H/H 13.5/39.7 similar to prior range of values. Platelets within normal limits. Chemistry without acidosis. Creatinine was normal limits but with increased BUN at 21. LFTs unremarkable. Lipase wnl. Troponin negative in the setting of > 6 hours of constant symptoms. Patient feeling improved after Pepcid and GI cocktail suggesting likely co mponent of gastritis/reflux. Given question of prior contrast allergy and so patient was pretreated with Solu-Medrol and Benadryl for CT scans. CT of the chest negative for PE however with small left basilar infiltrate. CT of the abdomen pelvis unremarkable for acute process. Given the patient's age and elevated BUN in the setting of pneumonia reasonable to admit the patient for further management. Will treat with ceftriaxone and doxycycline for CAP at this time. Patient agreeable with admission. Case was discussed with Shante Felipe who will evaluate the patient for admission. Impression & Plan Pneumonia, Leukocytosis Discharge Plan Visit Data Chief Complaint: Chest Pain Stated Complaint: chest pain ED Provider: Abdifatah James Discharge Problem: Pneumonia, Leukocytosis Forms Stand Alone Forms: Call Back Authorization, [facility] Prescriptions Prescriptions: No Action furosemide [Lasix] 20 mg tablet 20 mg PO DAILY RF: 0 guaifenesin [Mucinex] 600 mg Tablet Extended Release 12hr PO Q12H PRN (Reason: Congestion) RF: 0 tamsulosin 0.4 mg capsule 0.4 mg PO BID RF: 0 pantoprazole 40 mg tablet,delayed release (DR/EC) 40 mg PO QAM RF: 0 apixaban 5 mg tablet 5 mg PO QAM RF: 0 multivitamin [One Daily Multivitamin] Tablet 1 tab PO QAM RF: 0 ferrous sulfate [iron] 325 mg (65 mg iron) Tablet 325 mg PO QAM RF: 0 ergocalciferol (vitamin D2) 50,000 unit capsule 1 cap PO WK RF: 0 rosuvastatin 5 mg tablet 5 mg PO HS RF: 0 levothyroxine 75 mcg tablet 75 mcg PO Q OTHER DAY RF: 0 levothyroxine 50 mcg tablet 50 mcg PO Q OTHER DAY RF: 0 mupirocin 2 % Ointment 1 applic TOPICAL DAILY PRN (Reason: foot) RF: 0 Referrals Referrals: Yamil Ng [Primary Care Provider] - The scribe's documentation has been prepared under my direction and personally reviewed by me in its entirety. I confirm that the note above accurately reflects all work, treatment, procedures, and medical decision making performed by me.
[2019-05-12] MEDS ORDERED: cefTRIAXone SODIUM 2,000 MG in DEXTROSE 5% 50 ML IV STA (19:12)
[2019-05-12] MEDS ORDERED: DOXYCYCLINE HYCLATE 100 MG in DEXTROSE 5% 100 ML IV STA (19:12)
[2019-05-12] MEDS ORDERED: SODIUM CHLORIDE 0.9% 500 ML IV STA (19:38)
--- NOTE | 2019-05-12 20:41 | History & Physical Report ---
Date of Service May 12, 2019 Assessment & Plan (1) Pneumonia: -Admit to telemetry -Patient presenting from home with reports of chest pain and lightheadedness -In the ED, CT chest showing a small left base infiltrate -Patient recently treated for pneumonia as an outpatient however antibiotic is unknown -Currently saturating on room air, WBC 31K (however has underlying leukemia, most recent WBC ~ 25K), afebrile, BP stable; do not suspect sepsis -Received IV ceftriaxone and doxycycline in the ED, will continue with -Sputum culture -Speech evaluation (patient reports some coughing with food) -Pulmonary toilet with nebs, incentive spirometer (2) Symptomatic bradycardia: -Before coming to the ED, patient had lightheadedness, generalized weakness, disorientation -In the ED, EKG demonstrates sinus bradycardia with heart rate in the 40s -BP stable, patient asymptomatic while in bed -Currently not on any rate controlling medications -Cardiology consult -Follows with Dr. Kaur in [place] for history of atrial fibrillation and diastolic CHF, records request made (3) Chest pain: -Atypical, resolved after GI cocktail and Pepcid given in ED -Initial troponin negative, EKG without acute ST changes -Continue to cycle cardiac enzymes, check resting echo (4) Leukemia: -Details unknown -Follows at [facility] in [place] -Records request made (5) Chronic atrial fibrillation: -Currently sinus bradycardia -Not on any rate controlling meds -Anticoagulated on Eliquis, will continue (6) Chronic diastolic CHF (congestive heart failure): -Appears euvolemic on exam -Continue home dose of furosemide (7) Traumatic open wound of right lower leg: -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 Patient is a poor historian. Some history was obtained from patient's over the phone. Per the , patient was recently treated as an outpatient for pneumonia. Reports he finished his antibiotic 4 days ago. Patient and are unsure of the name of the antibiotic. Home health nursing came to evaluate the patient today for his chronic right ankle wound which he follows at [facility] for. Noted to have recent skin grafting. While the nurse with the house, patient was noted to be lightheaded and weak with standing and had some disorientation. Vital signs were obtained that showed a low heart rate. Patient was reporting chest pain and shortness of breath as well. Patient has difficulty describing his chest pain, just reports that " it was paining in my heart." EMS was called and patient was brought to the ED for further evaluation. Patient reports he has had a cough productive for cordon sputum. He reports he has felt chilled however did not take his temperature. No abdominal pain, nausea, vomiting, diarrhea. He denies any urinary symptoms. In the ED, WBC 31K (has underlying leukemia), other labs unremarkable. CTA chest negative for PE however shows a small infiltrate in the left base. EKG demonstrates sinus bradycardia with heart rate in the 40s. BP is stable. Patient was given GI cocktail and Pepcid with resolution of chest pain. He was also given IV ceftriaxone, IV Benadryl, IV doxycycline, IV Solu-Medrol, IVF. Allergies Allergy/AdvReac Type Severity Reaction Status Date / Time ibuprofen Allergy Severe Hives Verified 05/12/19 15:30 Iodinated Contrast- Oral and Allergy Intermediate HIVES Verified 05/12/19 15:30 IV Dye caffeine AdvReac Severe Rash Verified 05/12/19 15:30 Home Medications Home Medications Medication Instructions Recorded Confirmed Type apixaban 5 mg PO BID 08/08/18 05/12/19 History ergocalciferol (vitamin D2) 1 cap PO WK 08/08/18 05/12/19 History ferrous sulfate [iron] 325 mg PO QAM 08/08/18 05/12/19 History levothyroxine 50 mcg PO Q OTHER DAY 08/08/18 05/12/19 History levothyroxine 75 mcg PO Q OTHER DAY 08/08/18 05/12/19 History multivitamin [One Daily 1 tab PO QAM 08/08/18 05/12/19 History Multivitamin] pantoprazole 40 mg PO QAM 08/08/18 05/12/19 History rosuvastatin 5 mg PO HS 08/08/18 05/12/19 History tamsulosin 0.4 mg PO BID 08/08/18 05/12/19 History furosemide [Lasix] 20 mg PO Q2D 05/12/19 05/12/19 History guaifenesin [Mucinex] 600 mg PO Q12H PRN 05/12/19 05/12/19 History Past Med/Surg History Medical History Chronic diastolic CHF (congestive heart failure) (Chronic) Traumatic brain injury (Chronic) Traumatic open wound of right lower leg (Chronic) MRSA (methicillin resistant Staphylococcus aureus) (Chronic) Leukemia (Chronic) Hypothyroidism (Chronic) BPH (benign prostatic hypertrophy) (Chronic) Chronic atrial fibrillation (Chronic) 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" Aortic insufficiency (Chronic) Renal calculus (Chronic) Renal cyst, acquired, left (Chronic) "mildly complex per CT 10/03/17 and MRI 10/04/17" Surgical History Status post cholecystectomy (Chronic) Family History Mother Cancer Social History Preferred Language: Citizen Of [place] Communication Ability: Effective Historic Site Administrator Required: No Beliefs That Will Affect Care: None marital status: Current Living Situation: Spouse Other Information That Helps Us Care for You: No Feels Safe at Home: Yes Safety Concerns: Feels Safe At This Time Smoking Status: Never smoker Hx Alcohol Use: No Hx Substance Use: No Review of Systems Review of Systems: Reviewed with patient however felt to be somewhat unreliable due to underlying mental state. Physical Exam Constitutional: WD/WN, vitals as above Eyes: PERRL, conjunctivae normal, anicteric sclerae ENMT: Ears: no external ear abnormality Nose: no external nose abnormality Mouth: + poor dentition Respiratory: normal respiratory effort; no respiratory distress Auscultation: + crackles (Faint, bibasilar) Cardiovascular: Rate/Rhythm: regular rhythm and + bradycardic Vessels: normal peripheral pulses Gastrointestinal (Abdomen): normal bowel sounds, soft, nontender, no hepatosplenomegaly Musculoskeletal: no cyanosis or clubbing, extremities motor strength 5/5 Skin: no rashes, warm and dry Dressing dry and intact to right lower extremity Neurologic: PERRL, EOMI, accommodation nl, no face palsy, no dysarthria Psychiatric: A+Ox3, euthymic affect Insight: + limited insight Results & Data Vital Signs (Past 12 Hours) Vital Signs Temp Pulse Pulse Resp BP BP Pulse Ox 05/12/19 20:27 44 L 19 166/65 H 94 05/12/19 19:00 41 L 18 163/66 H 94 05/12/19 17:39 42 L 12 157/66 H 96 05/12/19 16:11 46 L 16 157/68 H 95 05/12/19 15:07 46 L 18 136/65 95 05/12/19 14:19 36.6 C 41 L 16 137/65 95 Laboratory Results Short CBC 05/12/19 Range/Units 15:04 WBC 31.14 H* (4.8-10.8) K/uL Hgb 13.5 L (14.0-18.0) g/dL Hct 39.7 L (42-52) % Plt Count 131 (130-400) K/uL BMP 05/12/19 15:04 Sodium 143 Potassium 4.0 Chloride 113 H Carbon Dioxide 25 BUN 21 H Creatinine 1.09 Glucose 82 Calcium 8.2 L Cardiac Enzymes 05/12/19 Range/Units 15:04 Troponin I < 0.015 (0-0.045) ng/ml Liver Function 05/12/19 Range/Units 15:04 Total Bilirubin 0.7 (0.2-1) mg/dl AST 14 L (15-37) U/L ALT 18 (12-78) U/L Alkaline Phosphatase 74 (45-117) U/L Albumin 3.7 (3.4-5.0) gm/dl Diagnostic Findings CXR IMPRESSION: No acute process. CT ABD/PELVIS IMPRESSION: 1. Nonobstructive bowel pattern. 2. Distended bladder. 3. No acute process of the abdomen or pelvis. 4. Minimal atelectatic and/or infiltrative change left lung base. CTA CHEST IMPRESSION: 1. No evidence for pulmonary embolus. 2. Generalized atelectatic change thoracic aorta. 3. Small parenchymal infiltrate left base. Code Status & VTE Plan Code Status Patient is a full code as per review of prior records. VTE Prophylaxis Plan VTE Prophylaxis will be ordered: Yes Supervising Physician Co-Signing Physician Notes Care coordinated with Sharon Nair CRNP. Agree with above note. Patient seen and examined. Please refer to her notes for full details. Vital signs reviewed. Physical exam: General exam: Alert and awake. Not in acute distress. CVS: S1 and S2 heard, regular rate and rhythm, no murmurs. RS: Clear to auscultation, no wheezing or crackles. ABD: Soft, bowel sounds present, nontender, no distention. WHOLESALE ACCOUNT EXECUTIVE: Nonfocal. EXT: No edema, no erythema. Labs: Reviewed. Assessment and plan: Chest pain intital workup negative for ACS pneumonia on ct scan- recently treated will continue rocephin and doxy for now follow serial ce and echo Sinus bradycardia symptomatic will monitor on tele follow echo cardiology consulted. Other diagnosis and plan of care as per []. Vicente owens MD. (1) Traumatic open wound of right lower leg Encounter type: initial encounter Qualified Code(s): S81.801A - Unspecified open wound, right lower leg, initial encounter
[2019-05-12] MEDS ORDERED: ACETAMINOPHEN 325 MG TAB PO PRN (21:02)
[2019-05-12] MEDS ORDERED: NITROGLYCERIN SL 0.4 MG/TAB TAB SL PRN (21:02)
[2019-05-12] MEDS ORDERED: ALBUT/IPRATROP 3MG/0.5MG NEB 3 ML VIAL NEB PRN (21:02)
[2019-05-12] MEDS ORDERED: guaiFENesin 600 MG TABCR PO PRN (21:02)
[2019-05-12] MEDS: TAMSULOSIN HCL 0.4 MG CAP PO SCH (23:50)
[2019-05-12] MEDS: ROSUVASTATIN CALCIUM 5 MG TAB PO SCH (23:50)
[2019-05-12] MEDS: APIXABAN 5 MG TABLET PO SCH (23:50)
[2019-05-13] MEDS ORDERED: COUGH DROP (SUGAR FREE) LOZ 24 LOZ/1 BOX BUCCAL ONE (02:55)
[2019-05-13] MEDS ORDERED: NURSING DECISION MEDICATION ONE (02:59)
[2019-05-13] MEDS: COUGH DROP (SUGAR FREE) LOZ 24 LOZ/1 BOX BUCCAL PRN ×2 (04:57→20:10)
[2019-05-13] MEDS: LEVOTHYROXINE SODIUM 75 MCG TABLET PO SCH (05:32)
[2019-05-13 06:56] LABS: Hematocrit (blood only) 40.2 % (42-52); Hemoglobin 14.1 g/dL (14.0-18.0); Mean Corpuscular Hgb Conc 35.1 g/dL (32-36); Mean Corpuscular Volume 92.4 fL (80-100); Platelet Count 145 K/uL (130-400); RDW Coefficient of Variation 14.8 % (11.5-14.5); RDW Standard Deviation 50.3 fL (36.4-46.3); Red Blood Count 4.35 M/uL (4.7-6.1); White Blood Count 18.22 K/uL (4.8-10.8)
[2019-05-13 07:10] LABS: BUN Creatinine Ratio 17.9 (10-20); Calcium 8.7 mg/dl (8.5-10.1); Creatinine Clr Calc Pharmacy 57.3 ml/min; Est GFR (African American) 70.7; Potassium 3.9 mmol/L (3.5-5.1)
[2019-05-13] MEDS ORDERED: PNEUMOCOCCAL ADMINISTRATION CHARGE ONE (08:15)
[2019-05-13] MEDS ORDERED: PNEUMOCOCCAL POLYSACCHARIDES 25 MCG/0.5 ML VIAL/SYR IM ONE (08:15)
[2019-05-13] MEDS: TAMSULOSIN HCL 0.4 MG CAP PO SCH ×2 (08:18→20:09)
[2019-05-13] MEDS: PANTOprazole 40 MG TAB PO SCH (08:19)
[2019-05-13] MEDS: MULTIVITAMIN TAB PO SCH (08:19)
[2019-05-13] MEDS: FERROUS SULFATE 325 MG TAB PO SCH (08:19)
[2019-05-13] MEDS: APIXABAN 5 MG TABLET PO SCH ×2 (08:19→20:09)
[2019-05-13] MEDS: DOXYCYCLINE HYCLATE 100 MG in DEXTROSE 5% 100 ML IV SCH ×2 (08:24→21:03)
--- NOTE | 2019-05-13 09:11 | Cardiology Consultation ---
Date of Consultation May 13, 2019 Assessment & Plan (1) Sinus bradycardia: (2) Pneumonia: (3) Paroxysmal atrial fibrillation: (4) Aortic insufficiency: (5) Hypothyroidism: Marked sinus bradycardia noted since admission. Patient somewhat of a poor historian, however, denies syncope or near syncope. Currently treated for community-acquired pneumonia with cultures pending. I suspect underlying sinus node dysfunction given marked sinus bradycardia at rest, however, without overt symptoms, recommend continued observation at this time. Avoid AV lupe blocking agents. I will repeat TSH to exclude significant hypothyroidism. Trend cardiac enzymes x3 sets. Resting 2D transthoracic echocardiogram demonstrates preserved LV systolic function with mild to moderate aortic insufficiency. Continue apixaban due to history of paroxysmal atrial fibrillation. Will continue to follow during hospitalization. History of Present Illness Reason for Consultation: Symptomatic bradycardia Requesting Physician: Dr. Vicente Villalta Attending Physician: Manuel Casper MD History of Present Illness 79-year-old patient presented to the emergency department with chest discomfort. Evidence of pneumonia per CT scan. Elevated white count noted. Patient complains of cough with white sputum production. Initial cardiac enzymes are negative. Marked sinus bradycardia per ECG. Consultation requested due to symptomatic bradycardia. Patient denies syncope or near syncope reports standing up and then having to sit down quickly. He is somewhat of a poor historian. No orthopnea or paroxysmal nocturnal dyspnea. Denies exertional chest pain or heaviness. Denies prior history of coronary disease. Chronically anticoagulated for history of paroxysmal atrial fibrillation. Typically follows with Dr. Jacobsen for cardiology. Currently resting comfortably. Sinus bradycardia at a rate of approximately 41 bpm at rest. Heart rates of 55 to 65 bpm noted on telemetry. Patient does not take AV lupe blocking agents. Allergies Allergy/AdvReac Type Severity Reaction Status Date / Time ibuprofen Allergy Severe Hives Verified 05/12/19 15:30 Iodinated Contrast- Oral and Allergy Intermediate HIVES Verified 05/12/19 15:30 IV Dye caffeine AdvReac Severe Rash Verified 05/12/19 15:30 chocolate flavor AdvReac Verified 05/13/19 10:45 Home Medications Home Medications Medication Instructions Recorded Confirmed Type apixaban 5 mg PO BID 08/08/18 05/12/19 History ergocalciferol (vitamin D2) 1 cap PO WK 08/08/18 05/12/19 History ferrous sulfate [iron] 325 mg PO QAM 08/08/18 05/12/19 History levothyroxine 50 mcg PO Q OTHER DAY 08/08/18 05/12/19 History levothyroxine 75 mcg PO Q OTHER DAY 08/08/18 05/12/19 History multivitamin [One Daily 1 tab PO QAM 08/08/18 05/12/19 History Multivitamin] pantoprazole 40 mg PO QAM 08/08/18 05/12/19 History rosuvastatin 5 mg PO HS 08/08/18 05/12/19 History tamsulosin 0.4 mg PO BID 08/08/18 05/12/19 History furosemide [Lasix] 20 mg PO Q2D 05/12/19 05/12/19 History guaifenesin [Mucinex] 600 mg PO Q12H PRN 05/12/19 05/12/19 History Patient History Medical History Chronic diastolic CHF (congestive heart failure) (Chronic) Traumatic brain injury (Chronic) Traumatic open wound of right lower leg (Chronic) MRSA (methicillin resistant Staphylococcus aureus) (Chronic) Leukemia (Chronic) Hypothyroidism (Chronic) BPH (benign prostatic hypertrophy) (Chronic) Chronic atrial fibrillation (Chronic) 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" Aortic insufficiency (Chronic) Renal calculus (Chronic) Renal cyst, acquired, left (Chronic) "mildly complex per CT 10/03/17 and MRI 10/04/17" Surgical History Status post cholecystectomy (Chronic) Family History Mother Cancer Social History Preferred Language: [place] Communication Ability: Impaired Tableau Analyst Required: No Beliefs That Will Affect Care: None marital status: Current Living Situation: Spouse Other Information That Helps Us Care for You: No Feels Safe at Home: Yes Safety Concerns: Feels Safe At This Time Smoking Status: Never smoker Hx Alcohol Use: No Hx Substance Use: No Review of Systems Review of Systems: All systems reviewed & are unremarkable except as noted in HPI & below Physical Exam Physical Exam: General: NAD, AAO x3, well nourished. HEENT: Poor dentition. Normocephalic. Atraumatic. Conjunctiva pink, no scleral icterus. Neck: No carotid bruits, the carotid upstrokes are brisk. No JVD. No HJR Heart: Regular, bradycardic, normal S-1 and S-2 no S-3 or S-4 gallop. No murmurs or rub appreciated. PMI is not displaced. No RV heave. Lungs: Clear bilateral without rales , rhonchi, or wheeze. Abdomen: Normal bowel sounds. Soft. Nontender. No masses or organomegaly. No abdominal bruits. Extremities: 1+ right sided pedal and ankle edema. Pulses: radial=2/4, Dorsalis pedis =2/4. Neuro: Cranial nerves grossly intact. No focal motor deficit. Results & Data Vital Signs (Past 12 Hours) Vital Signs Temp Pulse Pulse Pulse Resp BP BP 05/13/19 07:00 36.2 C L 58 L 22 124/64 05/13/19 03:27 36.6 C 60 16 109/52 L 05/12/19 23:30 47 L 05/12/19 23:18 36.5 C 54 L 16 133/65 05/12/19 21:26 36.7 C 55 L 59 L 16 178/69 H Pulse Ox 05/13/19 07:00 96 05/13/19 03:27 90 05/12/19 23:30 05/12/19 23:18 95 05/12/19 21:26 98 Laboratory Results Laboratory Results - last 24 hr 05/12/19 05/12/19 05/12/19 15:04 15:04 15:04 WBC 31.14 H* RBC 4.21 L Hgb 13.5 L Hct 39.7 L MCV 94.3 MCH 32.1 MCHC 34.0 RDW Std Deviation 52.1 H RDW Coeff of Chay 15.3 H Plt Count 131 MPV 11.6 H Neutrophils % (Manual) 15.0 Lymphocytes % (Manual) 79.7 Monocytes % (Manual) 3.5 Eosinophils % (Manual) 0.9 Basophils % (Manual) 0.9 Neutrophils # (Manual) 4.67 Total Absolute Neuts 4.67 Lymphocytes # (Manual) 24.82 H Total Abs Lymphocytes 24.82 H Monocytes # (Manual) 1.09 H Eosinophils # (Manual) 0.28 Basophils # (Manual) 0.28 H Smudge Cells Present PT 11.8 INR 1.2 H APTT 27.0 PTT Ratio 1.0 Sodium 143 Potassium 4.0 Chloride 113 H Carbon Dioxide 25 Anion Gap 5.0 BUN 21 H Creatinine 1.09 Est Cr Clr Drug Dosing 60.4 Est GFR ( Amer) 75.5 Est GFR (Non-Af Amer) 65.1 BUN/Creatinine Ratio 19.3 Glucose 82 Calcium 8.2 L Phosphorus 2.9 Magnesium 2.1 Total Bilirubin 0.7 AST 14 L ALT 18 Alkaline Phosphatase 74 Troponin I < 0.015 NT-Pro-B Natriuret Pep 94 Total Protein 6.1 L Albumin 3.7 Globulin 2.4 L Albumin/Globulin Ratio 1.5 Lipase 170 05/12/19 05/12/19 05/12/19 15:04 15:04 15:04 WBC RBC Hgb Hct MCV MCH MCHC RDW Std Deviation RDW Coeff of Chay Plt Count MPV Neutrophils % (Manual) Lymphocytes % (Manual) Monocytes % (Manual) Eosinophils % (Manual) Basophils % (Manual) Neutrophils # (Manual) Total Absolute Neuts Lymphocytes # (Manual) Total Abs Lymphocytes Monocytes # (Manual) Eosinophils # (Manual) Basophils # (Manual) Smudge Cells PT INR APTT PTT Ratio Sodium Potassium Chloride Carbon Dioxide Anion Gap BUN Creatinine Est Cr Clr Drug Dosing Est GFR ( Amer) Est GFR (Non-Af Amer) BUN/Creatinine Ratio Glucose Calcium Phosphorus Cancelled Magnesium Cancelled Total Bilirubin AST ALT Alkaline Phosphatase Troponin I NT-Pro-B Natriuret Pep Cancelled Total Protein Albumin Globulin Albumin/Globulin Ratio Lipase Cancelled 05/12/19 05/13/19 05/13/19 21:36 06:24 06:24 WBC 18.22 H D RBC 4.35 L Hgb 14.1 Hct 40.2 L MCV 92.4 MCH 32.4 MCHC 35.1 RDW Std Deviation 50.3 H RDW Coeff of Chay 14.8 H Plt Count 145 MPV 12.0 H Neutrophils % (Manual) Lymphocytes % (Manual) Monocytes % (Manual) Eosinophils % (Manual) Basophils % (Manual) Neutrophils # (Manual) Total Absolute Neuts Lymphocytes # (Manual) Total Abs Lymphocytes Monocytes # (Manual) Eosinophils # (Manual) Basophils # (Manual) Smudge Cells PT INR APTT PTT Ratio Sodium 143 Potassium 3.9 Chloride 113 H Carbon Dioxide 23 Anion Gap 7.0 BUN 21 H Creatinine 1.15 Est Cr Clr Drug Dosing 57.3 Est GFR ( Amer) 70.7 Est GFR (Non-Af Amer) 61.0 BUN/Creatinine Ratio 17.9 Glucose 145 H Calcium 8.7 Phosphorus Magnesium Total Bilirubin AST ALT Alkaline Phosphatase Troponin I < 0.015 NT-Pro-B Natriuret Pep Total Protein Albumin Globulin Albumin/Globulin Ratio Lipase
--- NOTE | 2019-05-13 12:33 | Hospitalist Progress Note ---
Date of Service May 13, 2019 Assessment & Plan (1) Pneumonia: -Patient presenting from home with reports of chest pain and lightheadedness -In the ED, CT chest showing a small left base infiltrate -Patient recently treated for pneumonia as an outpatient however antibiotic is unknown -Received IV ceftriaxone and doxycycline in the ED, will continue with -Speech evaluation (patient reports some coughing with food) -Pulmonary toilet with nebs, incentive spirometer -Remains stable clinically (2) Symptomatic bradycardia: -Before coming to the ED, patient had lightheadedness, generalized weakness, disorientation -In the ED, EKG demonstrates sinus bradycardia with heart rate in the 40s -Currently not on any rate controlling medications -Cardiology consult-appreciate input and recommendation -Follows with Dr. Kaur in [place] for history of atrial fibrillation and diastolic CHF, records request made -Echo: Rhythm sinus bradycardia with EF of 60 to 65%. Mild to moderate aortic regurgitation. Compared to prior study there is no significant change -Serial troponins- negative (3) Chest pain: -Atypical, resolved after GI cocktail and Pepcid given in ED -Initial troponin negative, EKG without acute ST changes -Continue to cycle cardiac enzymes, check resting echo -As above, no ACS -Awaiting records from other providers (4) Leukemia: -Details unknown -Follows at [facility] in [place] -We will have regular follow-up with his oncologist as an outpatient (5) Chronic atrial fibrillation: -Currently sinus bradycardia -Not on any rate controlling meds -Anticoagulated on Eliquis, will continue (6) Chronic diastolic CHF (congestive heart failure): -Appears euvolemic on exam -Continue home dose of furosemide -No acute CHF and a fluid overload (7) Traumatic open wound of right lower leg: -History of chronic wound to the right ankle, recently undergoing skin grafting -Follows at wound care center and [place] -Has Intellectual deficiency (8) BPH (benign prostatic hypertrophy): -Continue tamsulosin (9) Hypothyroidism: -Continue levothyroxine (10) DVT prophylaxis: -Anticoagulated on Eliquis Subjective 05/13 The patient was seen and examined in telemetry unit Is a 79-year-old male with significant past medical history of diastolic CHF, traumatic brain injury, right lower leg wound, chronic leukemia, history of atrial fibrillation on anticoagulation and seizure disorder was admitted with chest pain and dizziness noted to have significant bradycardia and pneumonia. Denies any symptoms as of this morning Denies any chest pain, palpitation, shortness of breath, any fever and chills Review of Systems Review of Systems: All systems reviewed and are unremarkable except as noted below Constitutional: + chills, + fatigue and + weakness Respiratory: + cough; no dyspnea Cardiovascular: no chest pain and no palpitations Neurologic: + problem reported (May have mild mental retardation secondary to traumatic brain injury) Physical Exam Physical Exam: No apparent distress at rest Constitutional: well developed, well nourished and + ill appearing; no acute distress Eyes: PERRL, conjunctivae normal, anicteric sclerae ENMT: external ear and nose normal, oropharynx normal Neck: trachea midline, no thyromegaly Respiratory: normal respiratory effort; no respiratory distress Auscultation: + diminished lung sounds Cardiovascular: Rate/Rhythm: regular rate and regular rhythm Gastrointestinal (Abdomen): Inspection/Auscultation: abdomen normal to inspection and normal bowel sounds Percussion/Palpation: abdomen soft; abdomen nontender Musculoskeletal: No acute arthritis in any joints Neurologic: moves all extremities Has mild to moderate intellectual deficiency Lymphatic: no cervical or axillary lymphadenopathy Results & Data Vital Signs (Past 12 Hours) Vital Signs Temp Pulse Pulse Resp BP BP Pulse Ox 05/13/19 11:55 37.2 C 64 18 137/58 L 93 05/13/19 07:00 36.2 C L 58 L 22 124/64 96 05/13/19 03:27 36.6 C 60 16 109/52 L 90 Laboratory Results Short CBC 05/12/19 05/13/19 Range/Units 15:04 06:24 WBC 31.14 H* 18.22 H D (4.8-10.8) K/uL Hgb 13.5 L 14.1 (14.0-18.0) g/dL Hct 39.7 L 40.2 L (42-52) % Plt Count 131 145 (130-400) K/uL BMP 05/12/19 05/13/19 15:04 06:24 Sodium 143 143 Potassium 4.0 3.9 Chloride 113 H 113 H Carbon Dioxide 25 23 BUN 21 H 21 H Creatinine 1.09 1.15 Glucose 82 145 H Calcium 8.2 L 8.7 Cardiac Enzymes 05/12/19 05/12/19 Range/Units 15:04 21:36 Troponin I < 0.015 < 0.015 (0-0.045) ng/ml Liver Function 05/12/19 Range/Units 15:04 Total Bilirubin 0.7 (0.2-1) mg/dl AST 14 L (15-37) U/L ALT 18 (12-78) U/L Alkaline Phosphatase 74 (45-117) U/L Albumin 3.7 (3.4-5.0) gm/dl Medications Administered Current Inpatient Medications Acetaminophen (Tylenol) 650 mg PO Q4H PRN PRN Reason: pain/fever Stop: 06/11/19 21:01 Albuterol (Duoneb) 3 ml NEB Q4R PRN PRN Reason: shortness of breath Stop: 06/11/19 21:01 Apixaban (Eliquis) 5 mg PO BID NE Stop: 06/11/19 21:01 Last Admin: 05/13/19 08:19 Dose: 5 mg Documented by: Ferrous Sulfate (Feosol) 325 mg PO QAM NE Stop: 06/12/19 08:59 Last Admin: 05/13/19 08:19 Dose: 325 mg Documented by: Furosemide (Lasix) 20 mg PO Q48H NE Stop: 06/13/19 08:59 Guaifenesin (Mucinex) 600 mg PO Q12H PRN PRN Reason: Congestion Stop: 06/11/19 21:01 Ceftriaxone Sodium 2,000 mg/ (Dextrose) 50 mls @ 100 mls/hr IV Q24H NE; Protocol Stop: 05/20/19 19:59 Doxycycline Hyclate 100 mg/ (Dextrose) 110 mls @ 50 mls/hr IV BID NE; Protocol Stop: 05/20/19 08:59 Last Admin: 05/13/19 08:24 Dose: 50 mls/hr Documented by: Levothyroxine Sodium (Synthroid) 75 mcg PO Q48H NE Stop: 06/12/19 06:29 Last Admin: 05/13/19 05:32 Dose: 75 mcg Documented by: Levothyroxine Sodium (Synthroid) 50 mcg PO Q48H NE Stop: 06/13/19 06:29 Menthol (Nice) 1 thelma BUCCAL PRN PRN PRN Reason: Cough Stop: 06/12/19 04:46 Last Admin: 05/13/19 04:57 Dose: 1 thelma Documented by: Multivitamins (Multivitamin Tab) 1 tab PO QAM [facility] Stop: 06/12/19 08:59 Last Admin: 05/13/19 08:19 Dose: 1 tab Documented by: Nitroglycerin (Nitrostat) 0.4 mg SL UD PRN PRN Reason: Chest Pain Stop: 06/11/19 21:01 Pantoprazole Sodium (Protonix) 40 mg PO QAM [facility] Stop: 06/12/19 08:59 Last Admin: 05/13/19 08:19 Dose: 40 mg Documented by: Rosuvastatin Calcium (Crestor) 5 mg PO HS [facility] Stop: 06/11/19 21:01 Last Admin: 05/12/19 23:50 Dose: 5 mg Documented by: Tamsulosin HCl (Flomax) 0.4 mg PO BID [facility] Stop: 06/11/19 21:01 Last Admin: 05/13/19 08:18 Dose: 0.4 mg Documented by: (1) Traumatic open wound of right lower leg Encounter type: initial encounter Qualified Code(s): S81.801A - Unspecified open wound, right lower leg, initial encounter
[2019-05-13] MEDS: ROSUVASTATIN CALCIUM 5 MG TAB PO SCH (20:10)
[2019-05-13] MEDS: cefTRIAXone SODIUM 2,000 MG in DEXTROSE 5% 50 ML IV SCH (20:24)
[2019-05-14] MEDS: LEVOTHYROXINE SODIUM 50 MCG TABLET PO SCH (05:41)
[2019-05-14 07:00] LABS: Hematocrit (blood only) 38.1 % (42-52); Hemoglobin 13.1 g/dL (14.0-18.0); Mean Corpuscular Hgb Conc 34.4 g/dL (32-36); Mean Platelet Volume 11.9 fL (7.4-10.4); Platelet Count 130 K/uL (130-400); RDW Standard Deviation 51.7 fL (36.4-46.3); Red Blood Count 4.01 M/uL (4.7-6.1)
[2019-05-14 07:16] LABS: BUN Creatinine Ratio 24.5 (10-20); Calcium 8.2 mg/dl (8.5-10.1); Creatinine Clr Calc Pharmacy 61.6 ml/min; Est GFR (African American) 77.2; Est GFR (Non-African American) 66.6; Magnesium 2.1 mg/dl (1.8-2.4); Potassium 3.9 mmol/L (3.5-5.1)
[2019-05-14 07:58] LABS: ALC (manual) 29.19 K/uL (1.2-3.4); Lymphocytes # (manual) 29.19 K/uL (1.2-3.4); Lymphocytes % (manual) 84.4 %; Neutrophils % (manual) 15.7 %
[2019-05-14] MEDS: FUROSEMIDE 20 MG TAB PO SCH (08:41)
[2019-05-14] MEDS: MULTIVITAMIN TAB PO SCH (08:41)
[2019-05-14] MEDS: APIXABAN 5 MG TABLET PO SCH ×2 (08:41→20:55)
[2019-05-14] MEDS: PANTOprazole 40 MG TAB PO SCH (08:41)
[2019-05-14] MEDS: FERROUS SULFATE 325 MG TAB PO SCH (08:41)
[2019-05-14] MEDS: TAMSULOSIN HCL 0.4 MG CAP PO SCH ×2 (08:41→20:55)
[2019-05-14] MEDS: DOXYCYCLINE HYCLATE 100 MG in DEXTROSE 5% 100 ML IV SCH ×2 (09:00→20:54)
--- NOTE | 2019-05-14 12:26 | Cardiology Progress Note ---
Date of Service May 14, 2019 Assessment & Plan (1) Sinus bradycardia: (2) Pneumonia: (3) Paroxysmal atrial fibrillation: (4) Aortic insufficiency: (5) Hypothyroidism: Sinus bradycardia noted since admission without symptoms. Poor historian, however, denies syncope or near syncope. Recommend avoiding AV lupe blocking agents. Echocardiogram demonstrates preserved LV systolic function with mild to moderate aortic insufficiency. Cardiac enzymes undetectable and ECG without ischemic changes. No further inpatient cardiac testing or intervention is indicated at this time. Continue Eliquis due to history of paroxysmal atrial fibrillation. No overt indication for pacemaker. Outpatient 14-day monitor recommended for further evaluation of bradycardia. Patient prefers to follow-up with his it director in [place], Dr. Jacobsen. Cardiology will sign off at this time. Please call with questions. Subjective Patient seen and examined at the bedside. Denies lightheadedness or dizziness. No chest discomfort or heaviness. Notes cough with mild dyspnea. No orthopnea or PND. Chronic right lower extremity edema unchanged. No symptomatic bradycardia or significant pauses on telemetry overnight. Remains in sinus rhythm and sinus bradycardia. Offers no new complaints this time. Review of Systems Review of Systems: All systems reviewed & are unremarkable except as noted in HPI & below Physical Exam Physical Exam: General: NAD, AAO x3, well nourished. HEENT: Poor dentition. Normocephalic. Atraumatic. Conjunctiva pink, no scleral icterus. Neck: No carotid bruits, the carotid upstrokes are brisk. No JVD. No HJR Heart: Regular, bradycardic, normal S-1 and S-2 no S-3 or S-4 gallop. No murmurs or rub appreciated. PMI is not displaced. No RV heave. Lungs: Clear bilateral without rales , rhonchi, or wheeze. Abdomen: Normal bowel sounds. Soft. Nontender. No masses or organomegaly. No abdominal bruits. Extremities: 1+ right sided pedal and ankle edema. Pulses: radial=2/4, Dorsalis pedis =2/4. Neuro: Cranial nerves grossly intact. No focal motor deficit. Results & Data Vital Signs (Past 12 Hours) Vital Signs Temp Pulse Pulse Resp BP BP Pulse Ox 05/14/19 12:12 36.3 C L 53 L 19 152/71 H 95 05/14/19 08:00 52 L 05/14/19 07:34 36.6 C 51 L 19 154/101 H 93 05/14/19 02:48 36.5 C 47 L 18 141/63 H 94
--- NOTE | 2019-05-14 14:09 | Hospitalist Progress Note ---
Date of Service May 14, 2019 Assessment & Plan (1) Pneumonia: CTA: No evidence for pulmonary embolus. Generalized atelectatic change thoracic aorta. Small parenchymal infiltrate left base. Continue IV ceftriaxone and doxycycline Speech evaluation done Persistent Leukocytosis likely due top CLL Blood Cultures:pending Clinically improving (2) Symptomatic bradycardia: On presentation patient had lightheadedness, generalized weakness, disor ientation sinus bradycardia Not on any AV lupe blocking medications Currently asymptomatic Appreciate Cardiology Input Echo: Rhythm sinus bradycardia with EF of 60 to 65%. Mild to moderate aortic regurgitation. Compared to prior study there is no significant change Serial troponin: negative Needs 14 day monitor for Bradycardia Needs follow up Cardiology in [place] upon discharge (3) Chest pain: Atypical, resolved after GI cocktail and Pepcid given in ED Troponin negative, EKG without acute ST changes Continue PPI (4) Leukemia: H/O CLL Follows with at [facility] in [place] Not a candidate for any treatment as per his Oncologist Needs follow up upon discharge (5) Chronic atrial fibrillation: Currently sinus bradycardia Not on any rate controlling meds Continue Eliquis for anticoagulation (6) Chronic diastolic CHF (congestive heart failure): Euvolemic on exam Continue home dose of furosemide Monitor volume status (7) Traumatic open wound of right lower leg: 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 Denies any chest pain, SOB, dizziness, nausea, abd pain Cough with Expectoration is improving Chronic right lower extremity edema unchanged No other complaints Review of Systems Review of Systems: All systems reviewed & are unremarkable except as noted in HPI & below Physical Exam Physical Exam: Physical Exam: Vitals signs as noted above General Appearance:Moderately built and nourished, no apparent distress Head: normocephalic, Atraumatic Eyes: normal inspection, EOMI Neck: supple, Trachea midline Respiratory/Chest: Normal breath sounds, CTA Cardiovascular: S1, S2, No murmur, +Bradycardia Abdomen/GI:Soft, Non tender, Bowel sounds present Extremities/Musculoskelatal:normal inspection, RLE edema-chronic, in dressing Neurologic/Psych:AAOX3, grossly no focal neurological deficits Skin: normal color, warm Results & Data Vital Signs (Past 12 Hours) Vital Signs Temp Pulse Pulse Resp BP BP Pulse Ox 05/14/19 12:12 36.3 C L 53 L 19 152/71 H 95 05/14/19 08:00 52 L 05/14/19 07:34 36.6 C 51 L 19 154/101 H 93 05/14/19 02:48 36.5 C 47 L 18 141/63 H 94 Laboratory Results Short CBC 05/14/19 Range/Units 06:30 WBC 34.60 H* (4.8-10.8) K/uL Hgb 13.1 L (14.0-18.0) g/dL Hct 38.1 L (42-52) % Plt Count 130 (130-400) K/uL BMP 05/14/19 06:30 Sodium 145 Potassium 3.9 Chloride 115 H Carbon Dioxide 25 BUN 26 H Creatinine 1.07 Glucose 92 Calcium 8.2 L (1) Traumatic open wound of right lower leg Encounter type: initial encounter Qualified Code(s): S81.801A - Unspecified open wound, right lower leg, initial encounter
[2019-05-14] MEDS: cefTRIAXone SODIUM 2,000 MG in DEXTROSE 5% 50 ML IV SCH (20:18)
[2019-05-14] MEDS: ROSUVASTATIN CALCIUM 5 MG TAB PO SCH (20:55)
[2019-05-15 05:58] LABS: Hematocrit (blood only) 42.2 % (42-52); Hemoglobin 14.5 g/dL (14.0-18.0); Mean Corpuscular Hgb Conc 34.4 g/dL (32-36); Mean Corpuscular Volume 95.5 fL (80-100); Platelet Count 142 K/uL (130-400); RDW Coefficient of Variation 15.3 % (11.5-14.5); RDW Standard Deviation 53.5 fL (36.4-46.3); Red Blood Count 4.42 M/uL (4.7-6.1); White Blood Count 28.94 K/uL (4.8-10.8)
[2019-05-15] MEDS: LEVOTHYROXINE SODIUM 75 MCG TABLET PO SCH (06:32)
[2019-05-15 06:44] LABS: ALC (manual) 23.38 K/uL (1.2-3.4); Eosinophils # (manual) 0.26 K/uL (0-0.5); Eosinophils % (manual) 0.9 %; Lymphocytes # (manual) 23.38 K/uL (1.2-3.4); Lymphocytes % (manual) 80.8 %; Monocytes # (manual) 0.75 K/uL (0.11-0.59); Monocytes % (manual) 2.6 %; Neutrophils % (manual) 15.7 %; RBC Morphology Unremarkable
[2019-05-15] MEDS: TAMSULOSIN HCL 0.4 MG CAP PO SCH ×2 (08:36→20:10)
[2019-05-15] MEDS: PANTOprazole 40 MG TAB PO SCH (08:36)
[2019-05-15] MEDS: MULTIVITAMIN TAB PO SCH (08:36)
[2019-05-15] MEDS: APIXABAN 5 MG TABLET PO SCH ×2 (08:37→20:10)
[2019-05-15] MEDS: FERROUS SULFATE 325 MG TAB PO SCH (08:37)
[2019-05-15] MEDS: DOXYCYCLINE HYCLATE 100 MG in DEXTROSE 5% 100 ML IV SCH (08:44)
--- NOTE | 2019-05-15 14:47 | Hospitalist Progress Note ---
Date of Service May 15, 2019 Assessment & Plan (1) Pneumonia: CTA: No evidence for pulmonary embolus. Generalized atelectatic change thoracic aorta. Small parenchymal infiltrate left base. Continue IV ceftriaxone and doxycycline to complete 10 day course Speech evaluation done Persistent Leukocytosis likely due top CLL Blood Cultures:Negative to date Cough much improved (2) Symptomatic bradycardia: On presentation patient had lightheadedness, generalized weakness, disorientation sinus bradycardia Not on any AV lupe blocking medications Currently asymptomatic Appreciate Cardiology Input Echo: Rhythm sinus bradycardia with EF of 60 to 65%. Mild to moderate aortic regurgitation. Compared to prior study there is no significant change Serial troponin: negative Needs 14 day monitor for Bradycardia Needs follow up Cardiology in [place] upon discharge (3) Chest pain: Atypical, resolved after GI cocktail and Pepcid given in ED Troponin negative, EKG without acute ST changes Continue PPI (4) Leukemia: H/O CLL Follows with at [facility] in [place] Not a candidate for any treatment as per his Oncologist Needs follow up upon discharge (5) Chronic atrial fibrillation: Currently sinus bradycardia Not on any rate controlling meds Continue Eliquis for anticoagulation (6) Chronic diastolic CHF (congestive heart failure): Euvolemic on exam Continue home dose of furosemide Monitor volume status (7) Traumatic open wound of right lower leg: 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 No new complaints Denies any chest pain, SOB, dizziness, nausea, abd pain Cough with Expectoration much improved Chronic right lower extremity edema unchanged Review of Systems Review of Systems: All systems reviewed & are unremarkable except as noted in HPI & below Physical Exam Physical Exam: Physical Exam: Vitals signs as noted above General Appearance:Moderately built and nourished, no apparent distress Head: normocephalic, Atraumatic Eyes: normal inspection, EOMI Neck: supple, Trachea midline Respiratory/Chest: Normal breath sounds, CTA Cardiovascular: S1, S2, No murmur Abdomen/GI:Soft, Non tender, Bowel sounds present Extremities/Musculoskelatal:normal inspection, RLE edema-chronic, in dressing Neurologic/Psych:AAOX3, grossly no focal neurological deficits Skin: normal color, warm Results & Data Vital Signs (Past 12 Hours) Vital Signs Temp Pulse Pulse Resp BP Pulse Ox 05/15/19 12:00 36.2 C L 61 18 129/77 96 05/15/19 09:54 69 05/15/19 08:00 36.4 C L 69 20 115/53 L 97 05/15/19 03:00 36.6 C 71 19 129/74 95 Laboratory Results Short CBC 05/15/19 Range/Units 05:24 WBC 28.94 H (4.8-10.8) K/uL Hgb 14.5 (14.0-18.0) g/dL Hct 42.2 (42-52) % Plt Count 142 (130-400) K/uL (1) Traumatic open wound of right lower leg Encounter type: initial encounter Qualified Code(s): S81.801A - Unspecified open wound, right lower leg, initial encounter
[2019-05-15] MEDS: COUGH DROP (SUGAR FREE) LOZ 24 LOZ/1 BOX BUCCAL PRN (17:29)
[2019-05-15] MEDS: ROSUVASTATIN CALCIUM 5 MG TAB PO SCH (20:10)
[2019-05-15] MEDS: DOXYCYCLINE HYCLATE 100 MG CAP PO SCH (20:10)
[2019-05-15] MEDS: cefTRIAXone SODIUM 2,000 MG in DEXTROSE 5% 50 ML IV SCH (20:10)
[2019-05-16 06:33] LABS: Hematocrit (blood only) 40.6 % (42-52); Hemoglobin 13.9 g/dL (14.0-18.0); Mean Corpuscular Hgb Conc 34.2 g/dL (32-36); Mean Corpuscular Volume 94.9 fL (80-100); Platelet Count 136 K/uL (130-400); RDW Coefficient of Variation 15.4 % (11.5-14.5); RDW Standard Deviation 53.7 fL (36.4-46.3); Red Blood Count 4.28 M/uL (4.7-6.1); White Blood Count 30.18 K/uL (4.8-10.8)
[2019-05-16] MEDS: DOXYCYCLINE HYCLATE 100 MG CAP PO SCH (06:39)
[2019-05-16] MEDS: LEVOTHYROXINE SODIUM 50 MCG TABLET PO SCH (06:39)
[2019-05-16 06:41] LABS: BUN Creatinine Ratio 21.1 (10-20); Calcium 8.3 mg/dl (8.5-10.1); Creatinine Clr Calc Pharmacy 53.1 ml/min; Est GFR (African American) 64.6; Est GFR (Non-African American) 55.7; Potassium 3.7 mmol/L (3.5-5.1)
[2019-05-16 07:13] LABS: ALC (manual) 25.68 K/uL (1.2-3.4); Eosinophils # (manual) 0.78 K/uL (0-0.5); Eosinophils % (manual) 2.6 %; Lymphocytes # (manual) 25.68 K/uL (1.2-3.4); Lymphocytes % (manual) 85.1 %; Monocytes # (manual) 0.27 K/uL (0.11-0.59); Monocytes % (manual) 0.9 %; Neutrophils % (manual) 11.4 %; Smudge Cells Present
[2019-05-16] MEDS: PANTOprazole 40 MG TAB PO SCH (08:55)
[2019-05-16] MEDS: FUROSEMIDE 20 MG TAB PO SCH (08:55)
[2019-05-16] MEDS: MULTIVITAMIN TAB PO SCH (08:55)
[2019-05-16] MEDS: FERROUS SULFATE 325 MG TAB PO SCH (08:55)
[2019-05-16] MEDS: APIXABAN 5 MG TABLET PO SCH (08:56)
[2019-05-16] MEDS: TAMSULOSIN HCL 0.4 MG CAP PO SCH (08:56)
--- NOTE | 2019-05-16 11:29 | Hospitalist Progress Note ---
Date of Service May 16, 2019 Assessment & Plan (1) Pneumonia: CTA: No evidence for pulmonary embolus. Generalized atelectatic change thoracic aorta. Small parenchymal infiltrate left base. Continue IV ceftriaxone and doxycycline to complete 10 day course Speech evaluation done Persistent Leukocytosis likely due to CLL Blood Cultures:Negative to date Plan to transition to PO antibiotics today (2) Symptomatic bradycardia: On presentation patient had lightheadedness, generalized weakness, disorientation sinus bradycardia Not on any AV lupe blocking medications Currently asymptomatic Appreciate Cardiology Input Echo: Rhythm sinus bradycardia with EF of 60 to 65%. Mild to moderate aortic regurgitation. Compared to prior study there is no significant change Serial troponin: negative Needs 14 day monitor for Bradycardia Needs follow up Cardiology in [place] upon discharge (3) Chest pain: Atypical, resolved after GI cocktail and Pepcid given in ED Troponin negative, EKG without acute ST changes Continue PPI (4) Leukemia: H/O CLL Follows with at [facility] in [place] Not a candidate for any treatment as per his Oncologist Needs follow up upon discharge (5) Chronic atrial fibrillation: Currently sinus bradycardia Not on any rate controlling meds Continue Eliquis for anticoagulation (6) Chronic diastolic CHF (congestive heart failure): Euvolemic on exam Continue home dose of furosemide Monitor volume status (7) Traumatic open wound of right lower leg: 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 Doing well today Cough only minimal No new complaints Leukocytosis likely due to CLL. He has been afebrile Blood cultures: negative to date Denies any chest pain, SOB, dizziness, nausea, abd pain Chronic right lower extremity edema unchanged Review of Systems Review of Systems: All systems reviewed & are unremarkable except as noted in HPI & below Physical Exam Physical Exam: Physical Exam: Vitals signs as noted above General Appearance:Moderately built and nourished, no apparent distress Head: normocephalic, Atraumatic Eyes: normal inspection, EOMI Neck: supple, Trachea midline Respiratory/Chest: Normal breath sounds, CTA Cardiovascular: S1, S2, No murmur Abdomen/GI:Soft, Non tender, Bowel sounds present Extremities/Musculoskelatal:normal inspection, RLE edema-chronic, in dressing Neurologic/Psych:AAOX3, grossly no focal neurological deficits Skin: normal color, warm Results & Data Vital Signs (Past 12 Hours) Vital Signs Temp Pulse Pulse Resp BP Pulse Ox 05/16/19 08:00 42 L 05/16/19 07:02 36.3 C L 55 L 22 146/74 H 94 05/16/19 04:14 36.7 C 56 L 20 153/73 H 93 Laboratory Results Short CBC 05/16/19 Range/Units 05:40 WBC 30.18 H* (4.8-10.8) K/uL Hgb 13.9 L (14.0-18.0) g/dL Hct 40.6 L (42-52) % Plt Count 136 (130-400) K/uL BMP 05/16/19 05:40 Sodium 144 Potassium 3.7 Chloride 114 H Carbon Dioxide 25 BUN 26 H Creatinine 1.24 Glucose 92 Calcium 8.3 L (1) Traumatic open wound of right lower leg Encounter type: initial encounter Qualified Code(s): S81.801A - Unspecified open wound, right lower leg, initial encounter
--- NOTE | 2019-05-16 12:55 | Discharge Summary ---
Date of Service May 16, 2019 Admission HPI Per Admitting Provider 79-year-old male who presents to the ED with chest pain. Patient is a poor historian. Some history was obtained from patient's over the phone. Per the , patient was recently treated as an outpatient for pneumonia. Reports he finished his antibiotic 4 days ago. Patient and are unsure of the name of the antibiotic. Home health nursing came to evaluate the patient today for his chronic right ankle wound which he follows at [facility] for. Noted to have recent skin grafting. While the nurse with the house, patient was noted to be lightheaded and weak with standing and had some disorientation. Vital signs were obtained that showed a low heart rate. Patient was reporting chest pain and shortness of breath as well. Patient has difficulty describing his chest pain, just reports that " it was paining in my heart." EMS was called and patient was brought to the ED for further evaluation. Patient reports he has had a cough productive for cordon sputum. He reports he has felt chilled however did not take his temperature. No abdominal pain, nausea, vomiting, diarrhea. He denies any urinary symptoms. In the ED, WBC 31K (has underlying leukemia), other labs unremarkable. CTA chest negative for PE however shows a small infiltrate in the left base. EKG demonstrates sinus bradycardia with heart rate in the 40s. BP is stable. Patient was given GI cocktail and Pepcid with resolution of chest pain. He was also given IV ceftriaxone, IV Benadryl, IV doxycycline, IV Solu-Medrol, IVF. Admission Exam Per Admitting Provider Constitutional: WD/WN, vitals as above Eyes: PERRL, conjunctivae normal, anicteric sclerae ENMT: Ears: no external ear abnormality Nose: no external nose abnormality Mouth: + poor dentition Respiratory: normal respiratory effort; no respiratory distress Auscultation: + crackles (Faint, bibasilar) Cardiovascular: Rate/Rhythm: regular rhythm and + bradycardic Vessels: normal peripheral pulses Gastrointestinal (Abdomen): normal bowel sounds, soft, nontender, no hepatosplenomegaly Musculoskeletal: no cyanosis or clubbing, extremities motor strength 5/5 Skin: no rashes, warm and dry Dressing dry and intact to right lower extremity Neurologic: PERRL, EOMI, accommodation nl, no face palsy, no dysarthria Psychiatric: A+Ox3, euthymic affect Insight: + limited insight Principal Diagnosis Discharge Information Discharge Diagnosis Pneumonia Sinus Bradycardia Discharge Goals Decrease discomfort,Improve function,Improve disease control Discharge Activity Limitations Resume your previous activity Discharge Data Allergies Allergy/AdvReac Type Severity Reaction Status Date / Time ibuprofen Allergy Severe Hives Verified 05/12/19 15:30 Iodinated Contrast- Oral and Allergy Intermediate HIVES Verified 05/12/19 15:30 IV Dye caffeine AdvReac Severe Rash Verified 05/12/19 15:30 chocolate flavor AdvReac Verified 05/13/19 10:45 Consultations 05/12/19 19:13 ED Decision to Admit Stat 05/12/19 21:02 Consult Cardiology Routine Consult Health Information Management Routine Consult Health Information Management Stat Procedures Performed CT ABD: 1. Nonobstructive bowel pattern. 2. Distended bladder. 3. No acute process of the abdomen or pelvis. 4. Minimal atelectatic and/or infiltrative change left lung base. Chest CTA: 1. No evidence for pulmonary embolus. 2. Generalized atelectatic change thoracic aorta. 3. Small parenchymal infiltrate left base. CXR: No acute process. Ordered Studies 05/12/19 17:01 CT abd pelvis IV con only Stat CT angio chest PE protocol Stat Hospital Course (1) Pneumonia: CTA: No evidence for pulmonary embolus. Generalized atelectatic change thoracic aorta. Small parenchymal infiltrate left base. Continue IV ceftriaxone and doxycycline to complete 10 day course Speech evaluation done Persistent Leukocytosis likely due to CLL Blood Cultures:Negative to date Plan to transition to PO antibiotics today (2) Symptomatic bradycardia: On presentation patient had lightheadedness, generalized weakness, disorientation sinus bradycardia Not on any AV lupe blocking medications Currently asymptomatic Appreciate Cardiology Input Echo: Rhythm sinus bradycardia with EF of 60 to 65%. Mild to moderate aortic regurgitation. Compared to prior study there is no significant change Serial troponin: negative Needs 14 day monitor for Bradycardia Needs follow up Cardiology in [place] upon discharge (3) Chest pain: Atypical, resolved after GI cocktail and Pepcid given in ED Troponin negative, EKG without acute ST changes Continue PPI (4) Leukemia: H/O CLL Follows with at [facility] in [place] Not a candidate for any treatment as per his Oncologist Needs follow up upon discharge (5) Chronic atrial fibrillation: Currently sinus bradycardia Not on any rate controlling meds Continue Eliquis for anticoagulation (6) Chronic diastolic CHF (congestive heart failure): Euvolemic on exam Continue home dose of furosemide Monitor volume status (7) Traumatic open wound of right lower leg: 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, recently undergoing skin grafting Follows at [facility], [place] and [place] H/O TBI Has Intellectual deficiency Stable (8) BPH (benign prostatic hypertrophy): Continue tamsulosin (9) Hypothyroidism: Continue levothyroxine (10) DVT prophylaxis: Eliquis Disposition: Plan to discharge home today Total Time Total Time Spent Total Time Spent (In Minutes): 39 minutes Total Time Includes: Examination of the Patient, Discharge Planning, Medication Reconciliation, Communication With Other Providers and Other Discharge Plan Discharge Items Patient Disposition: Home - Home Health Services Reason For Visit: CHEST PAIN,PNEUMONIA Discharge Diagnosis: Pneumonia Sinus Bradycardia Discharge Goals: Decrease discomfort, Improve disease control and Improve function Activity: Resume your previous activity Exercise/Sports: Gradually increase as tolerated Non-emergency contact: Primary Care Provider, [employer] Processor and Oncologist Call non-emergency contact if: you have any medication questions, your symptoms worsen, your pain is not controlled, your pain is worsening, your pain is unusual for you, your pain is concerning for you and you have a fever Follow-up/Referrals: Yamil Ng [Primary Care Provider] - Diet: Heart Healthy Addtl Provider Instructions: Follow up with your Primary Care Physician /Khloe Farley on 05/23/19 at 9:30AM Follow-up with your ocean forwarder Dr. Jacobsen for management of bradycardia (low heart rate): For outpatient 14-day monitor as recommended by Cardiology Follow-up with your oncologist in 1-2 weeks as advised Follow-up with wound clinic on 05/21/19 as scheduled Complete antibiotic course as prescribed Seek immediate medical attention if your symptoms reoccur or worsen Your blood cultures are currently pending. Follow-up with your physician for final results. Prescriptions: New doxycycline hyclate 100 mg Capsule 100 mg PO BID@0700,1900 7 Days Qty: 14 RF: 0 cefdinir 300 mg capsule 300 mg PO BID 7 Days Qty: 14 RF: 0 Continued furosemide [Lasix] 20 mg tablet 20 mg PO Q2D RF: 0 guaifenesin [Mucinex] 600 mg Tablet Extended Release 12hr 600 mg PO Q12H PRN (Reason: Congestion) RF: 0 tamsulosin 0.4 mg capsule 0.4 mg PO BID RF: 0 pantoprazole 40 mg tablet,delayed release (DR/EC) 40 mg PO QAM RF: 0 apixaban 5 mg tablet 5 mg PO BID RF: 0 multivitamin [One Daily Multivitamin] Tablet 1 tab PO QAM RF: 0 ferrous sulfate [iron] 325 mg (65 mg iron) Tablet 325 mg PO QAM RF: 0 ergocalciferol (vitamin D2) 50,000 unit capsule 1 cap PO WK RF: 0 rosuvastatin 5 mg tablet 5 mg PO HS RF: 0 levothyroxine 75 mcg tablet 75 mcg PO Q OTHER DAY RF: 0 levothyroxine 50 mcg tablet 50 mcg PO Q OTHER DAY RF: 0 Stand-Alone Forms: Call Back Authorization, [facility]/Other Patient Handouts: Cefdinir Oral capsule, Doxycycline Hyclate Oral tablet [Periodontitis] Discharge Orders: Discharge Order (Routine); Ordered 05/16/19 Ordered By: Gilmer Mishra Admission Data Admit Date/Time: 05/12/19 19:38 Attending Provider: Gilmer Mishra Admit Provider: Vicente Villalta Primary Care Provider: Yamil Ng Other Providers: Catrachito Pringle ; Johnathan Moseley ; Manuel Casper ; [facility]: Telemetry Medical Other Interventions: Discharge Summary Assessment (RN) Last Done: 05/16/19 13:30 Pending Studies at Discharge: Yes Studies:: Blood Culture DC Date/Time DO NOT enter until pt leaves facility: 05/16/19 15:57
== END 2019-05-16 15:57 | disposition home health service (06) | DRG 194 ==
LOC: ED 14:15 → 2E 19:38 → SUATTDRO 19:38 → 2E 20:27

== ENCOUNTER 2019-07-19 13:50 | Inpatient (IN) ==
[2019-07-19 15:16] LABS: Hematocrit (blood only) 39.7 % (42-52); Hemoglobin 13.8 g/dL (14.0-18.0); Mean Corpuscular Hgb Conc 34.8 g/dL (32-36); Mean Corpuscular Volume 94.1 fL (80-100); Mean Platelet Volume 11.8 fL (7.4-10.4); Platelet Count 187 K/uL (130-400); RDW Coefficient of Variation 14.3 % (11.5-14.5); RDW Standard Deviation 48.6 fL (36.4-46.3); Red Blood Count 4.22 M/uL (4.7-6.1); White Blood Count 20.31 K/uL (4.8-10.8)
[2019-07-19 15:28] LABS: INR 1.1 (0.9-1.1); Prothrombin Time 11.2 Seconds (9.0-12.0)
[2019-07-19 15:41] LABS: Albumin Level 3.2 gm/dl (3.4-5.0); BUN Creatinine Ratio 13.1 (10-20); Calcium 8.6 mg/dl (8.5-10.1); Est GFR (African American) 42.9; Potassium 3.5 mmol/L (3.5-5.1)
[2019-07-19 15:42] LABS: Basophils # (auto) 0.06 K/uL (0-0.2); Basophils % (auto) 0.3 %; Eosinophils # (auto) 0.66 K/uL (0-0.5); Eosinophils % (auto) 3.2 %; Immature Granulocytes # (auto) 0.06 K/uL (0.00-0.02); Immature Granulocytes % (auto) 0.3 %; Lymphocytes # (auto) 9.83 K/uL (1.2-3.4); Lymphocytes % (auto) 48.4 %; Monocytes # (auto) 1.13 K/uL (0.11-0.59); Monocytes % (auto) 5.6 %; Neutrophils # (auto) 8.57 K/uL (1.4-6.5); Neutrophils % (auto) 42.2 %
[2019-07-19 15:43] LABS: Albumin Globulin Ratio 0.9 (0.9-2); Bilirubin,Total 2.3 mg/dl (0.2-1); Globulin 3.5 gm/dl (2.5-4.0); Total Protein 6.7 gm/dl (6.4-8.2)
[2019-07-19 15:49] LABS: Appearance Urine Cloudy (Clear); Bacteria Urine Automated Negative (Negative); Bilirubin Urine 1+ (Negative); Blood Urine Negative (Negative); Color Urine Dark Yellow; Epithelial Cell Urine Auto 0-5 /lpf (0-5); Glucose Urine UA Negative (Negative); Ketones Urine Negative (Negative); Leukocyte Esterase Urine Trace (Negative); Nitrite Urine Negative (Negative); Protein Urine Negative (Negative); RBC Urine Automated 0-4 /hpf (0-4); Specific Gravity Urine 1.016 (1.000-1.030); Urobilinogen Urine Negative (Negative)
[2019-07-19 15:50] LABS: Ictotest Urine Positive (Negative)
--- NOTE | 2019-07-19 16:01 | CT Scan Report ---
ABDOMEN AND PELVIS CT WITHOUT CONTRAST CT DOSE: 502.93 mGy.cm HISTORY: Acute hematuria with lower abdominal pain hematuria, lower abd pain TECHNIQUE: Multiaxial CT images of the abdomen and pelvis were performed without contrast. A dose lo wering technique was utilized adhering to the principles of ALARA. COMPARISON STUDY: CT abdomen and pelvis 05/12/2019, 08/09/2018. FINDINGS: Respiratory motion limits evaluation of the lung bases. Minimal dependent subsegmental bibasilar atel ectasis. No pneumatosis or pneumoperitoneum. Study is mildly motion degraded. The imaged inferior car diac chambers are moderately enlarged. No pericardial effusion. Limited evaluation of the solid abdom inal organs without the use of IV contrast. Cholecystectomy. Within the limitations of the exam, the liver, spleen, pancreas and adrenal glands appear unremarkable. 7 mm nonobstructing calculus of the s uperior pole right kidney. Renal sinus cysts are noted about the left kidney. There is a large cyst w hich demonstrates mild lobular margins and peripheral calcification measuring up to 9.6 x 8.8 cm with in the inferior pole left kidney. No ureteral calculi or obstructive uropathy identified. Mildly enla rged prostate. Distended urinary bladder with urinary bladder diverticula and mild circumferential wa ll thickening. Calcified abdominal aorta without aneurysm. Mildly enlarged iliac chain lymph nodes are seen measurin g up to 12 mm on the right, which appear unchanged. Nonenlarged right inguinal chain lymph nodes delores ures 13 mm and has slightly decreased in size from comparison. Small hiatal hernia. No bowel obstruct ion or bowel wall thickening identified. Visualized appendix appears unremarkable. No ascites or mese nteric inflammation. Tiny fat filled periumbilical hernia. Gynecomastia. Degenerative changes of the spine, pelvis and hips. No suspicious bone lesions identified. Avascular necrosis of the bilateral fe moral heads without articular collapse. Mild lumbar levoscoliosis. IMPRESSION: 1. Nonobstructing right renal calculus. No ureteral calculi or obstructive uropathy. 2. Mild prostamegaly with findings suggestive of chronic bladder outlet obstruction. 3. Large mildly complex cyst of the inferior pole left kidney appears unchanged. 4. No bowel obstruction or bowel wall thickening. 5. Cholecystectomy. 6. 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 7. Additional findings as above. Electronically signed by: Jamison Velasquez M.D. 07/19/2019 3:59 PM
[2019-07-19] MEDS ORDERED: fentaNYL citrate 100 MCG/2 ML VIAL IV STA (16:19)
--- NOTE | 2019-07-19 18:06 | History & Physical Report ---
Date of Service July 19, 2019 Assessment & Plan (1) Acute urinary retention: (2) Hematuria: This is a 79yo M with a PMH of BPH, h/o CLL, chronic atrial fibrillation on Eliquis, chronic diastolic heart failure, hypothyroidism and chronic RLE wound who presents with hematuria starting this morning and was found to have urinary retention and an acute kidney injury. -Urinary retention in ED, catheter placed with resolution of suprapubic pain and hematuria -Hematuria resolved once catheter placed, UA negative for blood -Hgb stable at 13.8. Holding Eliquis for now -History of BPH on Flomax BID, h/o self-cathing but stopped 2 years ago -Leukocytosis of 20 (baseline in setting of CLL). No evidence of infection on UA, so no need for antibiotics at present time -Routine urology consult (3) CYRUS (acute kidney injury): Cr elevated at 1.74 (baseline ~1.0-1.2) -Bladder outlet obstruction, recent Bactrim use -Gentle IV fluids, catheter care -Repeat BMP in AM (4) Elevated lipase: Lipase 1191 initially, h/o pancreatitis -Has suprapubic pain initially that resolved once catheter was placed. No abdominal pain -CT abd/pelvis wo contrast without any evidence of pancreatitis -Patient with appetite, so ordered diet -Repeat lipase in AM (5) Chronic diastolic CHF (congestive heart failure): Appears euvolemic -Holding oral Lasix dose in setting of CYRUS (6) Traumatic open wound of right lower leg: History of RLE medial malleolus wound, recently took 6/7 day course of Bactrim -Wound does not appear infected on exam -Will not resume final day of Bactrim in setting of CYRUS -Wound care nurse consult (7) Chronic atrial fibrillation: Rate controlled, EKG pending -Holding Eliquis tonight in setting of hematuria (8) CLL (chronic lymphocytic leukemia): Under active surveillance, followed by Dr. Duckworth of [facility] in [place] -Recommended follow up after last discharge but patient has not yet seen provider (9) Hypothyroidism: Continue levothyroxine DVT Ppx: Plan to resume Eliquis Code status: FULL PCP: Dr. Ng/ Khloe Ruiz [facility] Dispo: Admitted to med surg. Plan to return home once medically stable. Patient seen in collaboration with Dr. Valladares. Please see addendum. History of Present Illness Chief Complaint: hematuria Primary Care Provider: Khloe Joseph This is a 79yo M with a PMH of BPH, h/o CLL, chronic atrial fibrillation on Eliquis, chronic diastolic heart failure, hypothyroidism and chronic RLE wound who presents with hematuria starting this morning. States that since this morning, urine has been the color of cranberry juice. Has had associated suprapubic tenderness but denies fever, chills, passing blood clots, abdominal pain or flank pain. Has history of BPH and takes Flomax BID. Has remote history of self catheterization but stopped 2 years ago. Denies any urinary hesitancy or decreased frequency. Has had normal appetite. Did not take morning dose of Eliquis in setting of bleeding. Follows with Dr. Duckworth of [facility] in [place] for CLL and is under active surveillance. Follows with wound care center in [place] for history of RLE wound and has recently undergone skin grafting. Reports being prescribed Bactrim last week for chronic wound and has completed all but last day of treatment with improved appearance of wound. Denies lightheadedness, visual changes, chest pain, palpitations, shortness of breath, wheezing, nausea, vomiting, abdominal pain, diarrhea, constipation, lower extremity edema. Allergies Allergy/AdvReac Type Severity Reaction Status Date / Time ibuprofen Allergy Severe Hives Verified 07/19/19 15:15 Iodinated Contrast- Oral and Allergy Intermediate HIVES Verified 07/19/19 15:15 IV Dye caffeine AdvReac Severe Rash Verified 07/19/19 15:15 chocolate flavor AdvReac Verified 07/19/19 15:15 Home Medications Home Medications Medication Instructions Recorded Confirmed Type apixaban 5 mg PO BID 08/08/18 07/19/19 History ergocalciferol (vitamin D2) 1 cap PO WK 08/08/18 07/19/19 History ferrous sulfate [iron] 325 mg PO QAM 08/08/18 07/19/19 History levothyroxine 50 mcg PO Q OTHER DAY 08/08/18 07/19/19 History levothyroxine 75 mcg PO Q OTHER DAY 08/08/18 07/19/19 History multivitamin [One Daily 1 tab PO QAM 08/08/18 07/19/19 History Multivitamin] pantoprazole 40 mg PO QAM 08/08/18 07/19/19 History rosuvastatin 5 mg PO HS 08/08/18 07/19/19 History tamsulosin 0.4 mg PO BID 08/08/18 07/19/19 History furosemide [Lasix] 20 mg PO Q2D 05/12/19 07/19/19 History acetaminophen [Tylenol Extra 500 mg PO Q6H PRN 07/19/19 07/19/19 History Strength] sulfamethoxazole-trimethoprim 1 tab PO BID 07/19/19 07/19/19 History Past Med/Surg History Medical History CLL (chronic lymphocytic leukemia) (Chronic) Chronic diastolic CHF (congestive heart failure) (Chronic) Traumatic brain injury (Chronic) Traumatic open wound of right lower leg (Chronic) MRSA (methicillin resistant Staphylococcus aureus) (Chronic) Hypothyroidism (Chronic) BPH (benign prostatic hypertrophy) (Chronic) Chronic atrial fibrillation (Chronic) 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" Aortic insufficiency (Chronic) Renal calculus (Chronic) Renal cyst, acquired, left (Chronic) "mildly complex per CT 10/03/17 and MRI 10/04/17" Surgical History Status post cholecystectomy (Chronic) Family History Mother Cancer Social History Preferred Language: Wallisian Communication Ability: Effective Art Coordinator Required: No Beliefs That Will Affect Care: None marital status: Current Living Situation: Spouse Other Information That Helps Us Care for You: No Feels Safe at Home: Yes Safety Concerns: Feels Safe At This Time Smoking Status: Former smoker Tobacco Type: cigarettes ; Do You Dip or Chew Tobacco: No ; Second Hand Exposure: No ; Tobacco Cessation Education Requested by Patient: No Hx Alcohol Use: No Hx Substance Use: No Review of Systems Review of Systems: At least ten systems reviewed and negative except as noted in the HPI. Physical Exam Physical Exam: General Appearance: WD/WN, no apparent distress, resting comfortably Head: normocephalic, atraumatic Eyes: normal inspection, PERRL, EOMI ENT: hearing grossly normal, poor dentition, pharynx normal (moist mucous membranes) Neck: supple, no JVD, no adenopathy Respiratory/Chest: lungs clear to auscultation. No wheezes, rales or rhonchi. No respiratory distress or accessory muscle use Cardiovascular: regular rate, rhythm, no murmur appreciated, normal peripheral pulses, no BLE edema Abdomen/GI: normal bowel sounds, soft, non-tender to palpation : Guillaume catheter in place draining clear urine, collection bag with reddish urine. Mild suprapubic tenderness to palpation Extremities/Musculoskelatal: normal inspection, no calf tenderness, normal capillary refill, no pedal edema Neurologic/Psych: alert, normal mood/affect, oriented x 3 Skin: normal color, warm/dry. R medial malleolus with dime-sized chronic wound. No purulent drainage or surrounding erythema Results & Data Vital Signs (Past 12 Hours) Vital Signs Temp Pulse Resp BP Pulse Ox 07/19/19 16:02 93 07/19/19 16:00 87 25 H 120/77 94 07/19/19 15:50 90 20 95 07/19/19 15:46 89 26 H 117/72 94 07/19/19 13:51 36.5 C 88 20 121/78 98 Laboratory Results Short CBC 07/19/19 Range/Units 15:04 WBC 20.31 H (4.8-10.8) K/uL Hgb 13.8 L (14.0-18.0) g/dL Hct 39.7 L (42-52) % Plt Count 187 (130-400) K/uL BMP 07/19/19 15:04 Sodium 142 Potassium 3.5 Chloride 111 H Carbon Dioxide 22 BUN 23 H Creatinine 1.74 H Glucose 138 H Calcium 8.6 Liver Function 07/19/19 Range/Units 15:04 Total Bilirubin 2.3 H (0.2-1) mg/dl AST 35 (15-37) U/L ALT 97 H (12-78) U/L Alkaline Phosphatase 310 H (45-117) U/L Albumin 3.2 L (3.4-5.0) gm/dl Urine 07/19/19 Range/Units 15:00 Urine Color Dark Yellow Urine Appearance Cloudy A (Clear) Urine pH 5.0 (4.5-7.5) Ur Specific Bryson 1.016 (1.000-1.030) Urine Protein Negative (Negative) Urine Glucose (UA) Negative (Negative) Diagnostic Findings CT abd/pelvis: IMPRESSION: 1. Nonobstructing right renal calculus. No ureteral calculi or obstructive uropathy. 2. Mild prostamegaly with findings suggestive of chronic bladder outlet obstruction. 3. Large mildly complex cyst of the inferior pole left kidney appears unchanged. 4. No bowel obstruction or bowel wall thickening. 5. Cholecystectomy. 6. 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 7. Additional findings as above. Code Status & VTE Plan VTE Prophylaxis Plan VTE Prophylaxis will be ordered: Yes Supervising Physician Co-Signing Physician Notes I have seen and examined the patient and have discussed the case with the provider above. I agree with the assessment and plan as stated with the following exceptions. 79 yo M presents with reports of gross hematuria and lower abdominal pain this morning. He is a poor historian, but states that approximately two years ago he was self-catheterizing his bladder but was able to transition to using pills to control his symptoms instead when he didn't like the process. He reports recent use of Benadryl, but again, this is unclear how much and when he is using. Since Guillaume catheter placement his symptoms have resolved, and he denies any UTI symptoms including no urinary urgency, dysuria, fevers or chills recently. He has a h/o CLL that is under active surveillance and denies recent constitutional B symptoms. He otherwise denies chest pain, shortness of breath or other issue. He has a chronic open wound on his R medial malleolus that is not draining for which he just finished a course of Bactrim. On exam he is in NAD. The wound does not appear infected. He is oriented but tends to go on tangents during the history taking. He has a normal cardiac and lung exam with no peripheral edema. His abdomen was thoroughly examined with no evidence of tenderness specifically in either the epigastric or suprapubic regions. Guillaume catheter is in place. Labwork reveals leukocytosis of 20 which appears to be his baseline, and evidence of CYRUS with UA negative for infection. CT a/p is notable for nephrolithiasis that is not obstructive, and he is on Eliquis Assessment: (1) Acute urinary retention, (2) Gross hematuria, (3) BPH, (4) Acute kidney injury 2/2 bladder outlet obstruction vs recent Bactrim use, (5) atrial fibrillation on Eliquis, (6) chronic ankle wound, (7) h/o MRSA Plan: Maintain Guillaume catheter, continue tamsulosin, consult Urology for further evaluation of gross hematuria and urinary retention. UA is negative for infection so no need for antibiotics at this time. Allow him to eat and drink to thirst, no need for IVF, trend BMP in am-expected improvement off the Bactrim and with Guillaume in place. Wound care daily. DO Blaine (1) Traumatic open wound of right lower leg Encounter type: initial encounter Qualified Code(s): S81.801A - Unspecified open wound, right lower leg, initial encounter
--- NOTE | 2019-07-19 18:42 | Communication Note ---
Date of Service: July 19, 2019 79 yo M presents with reports of gross hematuria and lower abdominal pain this morning. He is a poor historian, but states that approximately two years ago he was self-catheterizing his bladder but was able to transition to using pills to control his symptoms instead when he didn't like the process. He reports recent use of Benadryl, but again, this is unclear how much and when he is using. Since Guillaume catheter placement his symptoms have resolved, and he denies any UTI symptoms including no urinary urgency, dysuria, fevers or chills recently. He has a h/o CLL that is under active surveillance and denies recent constitutional B symptoms. He otherwise denies chest pain, shortness of breath or other issue. He has a chronic open wound on his R medial malleolus that is not draining for which he just finished a course of Bactrim. On exam he is in NAD. The wound does not appear infected. He is oriented but tends to go on tangents during the history taking. He has a normal cardiac and lung exam with no peripheral edema. His abdomen was thoroughly examined with no evidence of tenderness specifically in either the epigastric or suprapubic regions. Guillaume catheter is in place. Labwork reveals leukocytosis of 20 which appears to be his baseline, and evidence of CYRUS with UA pending. CT a/p is notable for nephrolithiasis that is not obstructive, and he is on Eliquis Assessment: (1) Acute urinary retention, (2) Gross hematuria, (3) BPH, (4) Acute kidney injury 2/2 bladder outlet obstruction vs recent Bactrim use, (5) atrial fibrillation on Eliquis, (6) chronic ankle wound, (7) h/o MRSA Plan: Maintain Guillaume catheter, continue tamsulosin, consult Urology for further evaluation of gross hematuria and urinary retention. UA is negative for infection so no need for antibiotics at this time. Allow him to eat and drink to thirst, no need for IVF, trend BMP in am-expected improvement off the Bactrim and with Guillaume in place. Wound care daily. DO Blaine
--- NOTE | 2019-07-19 19:01 | Emergency Department Note ---
Entered by Lu Fine acting as a scribe for Donis Sanon M.D. History of Present Illness General Chief complaint: Urinary Symptoms Stated complaint: PEEING BLOOD Source: patient History of Present Illness Provider complaint: hematuria Onset (ago): hour(s) (this morning) Pain Consistency: + other (episode ) Maximum Pain Intensity: 4 Relieved By: + none Exacerbated By: + none Associated symptoms: + other (+abdominal pain, +pain during urination, -back pain, -genital pain) The patient is a 79 year old male who presents to the Emergency Room with complaints of an episode of blood in his urine this morning. The patient reports that he has no past similar episode. He reports that there were blood clots. The patient states that he has lower abdominal pain and mild pain while urinating. He denies any back pain or genital pain. He notes that he was referred to the ED by Urgent Care. The patient states that he had a recent fall out of his bed several days ago but stopped this with his foot and did not hit his head.. He notes that he has a history of kidney stones and surgery on his bladder. He notes that he takes Eliquis. Home Medications Home Medications Medication Instructions Recorded Confirmed Type apixaban 5 mg PO BID 08/08/18 07/19/19 History ergocalciferol (vitamin D2) 1 cap PO WK 08/08/18 07/19/19 History ferrous sulfate [iron] 325 mg PO QAM 08/08/18 07/19/19 History levothyroxine 50 mcg PO Q OTHER DAY 08/08/18 07/19/19 History levothyroxine 75 mcg PO Q OTHER DAY 08/08/18 07/19/19 History multivitamin [One Daily 1 tab PO QAM 08/08/18 07/19/19 History Multivitamin] pantoprazole 40 mg PO QAM 08/08/18 07/19/19 History rosuvastatin 5 mg PO HS 08/08/18 07/19/19 History tamsulosin 0.4 mg PO BID 08/08/18 07/19/19 History furosemide [Lasix] 20 mg PO Q2D 05/12/19 07/19/19 History acetaminophen [Tylenol Extra 500 mg PO Q6H PRN 07/19/19 07/19/19 History Strength] sulfamethoxazole-trimethoprim 1 tab PO BID 07/19/19 07/19/19 History Allergies Allergy/AdvReac Type Severity Reaction Status Date / Time ibuprofen Allergy Severe Hives Verified 07/19/19 15:15 Iodinated Contrast- Oral and Allergy Intermediate HIVES Verified 07/19/19 15:15 IV Dye caffeine AdvReac Severe Rash Verified 07/19/19 15:15 chocolate flavor AdvReac Verified 07/19/19 15:15 Past Med/Surg History Medical History CLL (chronic lymphocytic leukemia) (Chronic) Chronic diastolic CHF (congestive heart failure) (Chronic) Traumatic brain injury (Chronic) Traumatic open wound of right lower leg (Chronic) MRSA (methicillin resistant Staphylococcus aureus) (Chronic) Hypothyroidism (Chronic) BPH (benign prostatic hypertrophy) (Chronic) Chronic atrial fibrillation (Chronic) 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" Aortic insufficiency (Chronic) Renal calculus (Chronic) Renal cyst, acquired, left (Chronic) "mildly complex per CT 10/03/17 and MRI 10/04/17" Family History Mother Cancer Social History Preferred Language: Hong Konger Communication Ability: Effective 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 and A total of 10 systems reviewed and were otherwise negative Physical Exam Vital Signs Vital Signs - 24 hr 07/19/19 13:51 07/19/19 15:46 07/19/19 15:50 Temperature 36.5 C Temperature Source Oral Sepsis Recent Fever Within 48 Hours No Sepsis New/Unexplained Change in Mental Status No Sepsis Action Taken by Nursing No Action Required Pulse Rate 88 89 90 Pulse Rate [Right Finger] Pulse Rate from SpO2 Sensor 89 90 Pulse Rhythm [Right Finger] Pulse Strength [Right Finger] Respiratory Rate 20 26 H 20 Respiratory Effort / Characteristics Respiratory Depth Normal Respiratory Pattern Blood Pressure 121/78 117/72 Blood Pressure [Left Arm] Blood Pressure Mean 92 87 Blood Pressure Mean [Left Arm] Blood Pressure Position [Left Arm] Pulse Oximetry 98 94 95 Oxygen Delivery Method Room Air 07/19/19 16:00 07/19/19 16:02 07/19/19 16:30 Temperature Temperature Source Sepsis Recent Fever Within 48 Hours Sepsis New/Unexplained Change in Mental Status Sepsis Action Taken by Nursing Pulse Rate 87 83 Pulse Rate [Right Finger] Pulse Rate from SpO2 Sensor 87 83 Pulse Rhythm [Right Finger] Pulse Strength [Right Finger] Respiratory Rate 25 H 23 Respiratory Effort / Characteristics Respiratory Depth Respiratory Pattern Blood Pressure 120/77 130/73 Blood Pressure [Left Arm] Blood Pressure Mean 91 92 Blood Pressure Mean [Left Arm] Blood Pressure Position [Left Arm] Pulse Oximetry 94 93 95 Oxygen Delivery Method Room Air 07/19/19 16:48 07/19/19 17:00 07/19/19 17:30 Temperature Temperature Source Sepsis Recent Fever Within 48 Hours Sepsis New/Unexplained Change in Mental Status Sepsis Action Taken by Nursing Pulse Rate 81 80 82 Pulse Rate [Right Finger] Pulse Rate from SpO2 Sensor 82 81 83 Pulse Rhythm [Right Finger] Pulse Strength [Right Finger] Respiratory Rate 23 24 17 Respiratory Effort / Characteristics Respiratory Depth Respiratory Pattern Blood Pressure 130/73 128/83 123/81 Blood Pressure [Left Arm] Blood Pressure Mean 92 98 95 Blood Pressure Mean [Left Arm] Blood Pressure Position [Left Arm] Pulse Oximetry 94 95 95 Oxygen Delivery Method 07/19/19 18:00 07/19/19 18:30 Temperature 36.8 C Temperature Source Oral Sepsis Recent Fever Within 48 Hours Sepsis New/Unexplained Change in Mental Status Sepsis Action Taken by Nursing Pulse Rate 80 80 Pulse Rate [Right Finger] 80 Pulse Rate from SpO2 Sensor 81 80 Pulse Rhythm [Right Finger] Regular Pulse Strength [Right Finger] Normal Respiratory Rate 19 13 Respiratory Effort / Characteristics Non-Labored Spontaneous Respiratory Depth Normal Respiratory Pattern Regular Blood Pressure 122/68 118/73 Blood Pressure [Left Arm] 118/73 Blood Pressure Mean 86 88 Blood Pressure Mean [Left Arm] 88 Blood Pressure Position [Left Arm] Lying Pulse Oximetry 93 95 Oxygen Delivery Method Room Air GENERAL: Awake, alert, chronically ill appearing, in no distress HENT: Normocephalic, atraumatic. Poor dentition. EYES: Normal conjunctiva. Sclera non-icteric. NECK: Supple. No nuchal rigidity. RESPIRATORY: Clear to auscultation. No wheezes. Normal respiratory effort. CARDIAC: Normal rate. Normal rhythm. Extremities warm and well perfused. GI: Soft, non-distended. Mild suprapubic tenderness to palpation. No rebound or guarding. RECTAL: Deferred. MUSCULOSKELETAL: Atraumatic. Chest examination reveals no tenderness. There is no CVA tenderness to palpation. LOWER EXTREMITIES: Calves are equal size bilaterally and non-tender. Trace edema ; Chronic right lower extremity ulcerations. NEURO: Normal sensorium. No sensory or motor deficits noted. No facial droop. SKIN: Warm and dry. No jaundice noted. Course 1402: The patient was evaluated in room C7, and a complete history and physical examination were performed. 1619: I reevaluated the patient and updated him on his results, I endorsed mild upper abdominal pain and the patient does not feel comfortable being discharged home. 1656: I discussed the patient's case with Racquel Frey PA-C, Dr. Valladares, [facility] will accept the patient for further evaluation. Consultations Consultation #1: Racquel Valladares [facility] Time: 16:56 Administered Medications Discontinued Medications Fentanyl Citrate (Fentanyl Citrate) 25 mcg IV NOW STA Stop: 07/19/19 16:20 Last Admin: 07/19/19 17:22 Dose: 25 mcg Documented by: [id number] Medical Decision Making Differential Diagnosis Differential diagnosis: Etiologies such as appendicitis, diverticulitis, PUD, biliary pathology, UTI, pancreatitis, obstruction, mesenteric ischemia, aortic pathology, infections, inflammatory bowel disease, renal colic, as well as others were entertained. Medical Records Attestation: I reviewed the patient's medical records. Home Medications Current Medication List: was personally reviewed by me Laboratory Data Attestation: I reviewed the patient's lab results. Result diagrams: 07/19/19 15:04 07/19/19 15:04 Lab Results 07/19/19 07/19/19 07/19/19 Range/Units 15:00 15:04 15:04 WBC 20.31 H (4.8-10.8) K/uL RBC 4.22 L (4.7-6.1) M/uL Hgb 13.8 L (14.0-18.0) g/dL Hct 39.7 L (42-52) % MCV 94.1 (80-100) fL MCH 32.7 (25-34) pg MCHC 34.8 (32-36) g/dL RDW Std Deviation 48.6 H (36.4-46.3) fL RDW Coeff of Chay 14.3 (11.5-14.5) % Plt Count 187 (130-400) K/uL MPV 11.8 H (7.4-10.4) fL Immature Gran % (Auto) 0.3 % Neut % (Auto) 42.2 % Lymph % (Auto) 48.4 % Blaine % (Auto) 5.6 % Eos % (Auto) 3.2 % Baso % (Auto) 0.3 % Immature Gran # (Auto) 0.06 H (0.00-0.02) K/uL Neut # (Auto) 8.57 H (1.4-6.5) K/uL Lymph # (Auto) 9.83 H (1.2-3.4) K/uL Blaine # (Auto) 1.13 H (0.11-0.59) K/uL Eos # (Auto) 0.66 H (0-0.5) K/uL Baso # (Auto) 0.06 (0-0.2) K/uL PT 11.2 (9.0-12.0) Seconds INR 1.1 (0.9-1.1) Sodium (136-145) mmol/L Potassium (3.5-5.1) mmol/L Chloride (98-107) mmol/L Carbon Dioxide (21-32) mmol/L Anion Gap (3-11) BUN (7-18) mg/dl Creatinine (0.6-1.4) mg/dl Est Cr Clr Drug Dosing ml/min Est GFR ( Amer) Est GFR (Non-Af Amer) BUN/Creatinine Ratio (10-20) Glucose (70-99) mg/dl Calcium (8.5-10.1) mg/dl Total Bilirubin (0.2-1) mg/dl AST (15-37) U/L ALT (12-78) U/L Alkaline Phosphatase (45-117) U/L Total Protein (6.4-8.2) gm/dl Albumin (3.4-5.0) gm/dl Globulin (2.5-4.0) gm/dl Albumin/Globulin Ratio (0.9-2) Lipase (73-393) U/L Urine Color Dark Yellow Urine Appearance Cloudy A (Clear) Urine pH 5.0 (4.5-7.5) Ur Specific Hosmer 1.016 (1.000-1.030) Urine Protein Negative (Negative) Urine Glucose (UA) Negative (Negative) Urine Ketones Negative (Negative) Urine Blood Negative (Negative) Urine Nitrite Negative (Negative) Urine Bilirubin 1+ H (Negative) Urine Urobilinogen Negative (Negative) Ur Leukocyte Esterase Trace H (Negative) Urine WBC (Auto) 1-5 (0-5) /hpf Urine RBC (Auto) 0-4 (0-4) /hpf U Hyaline Cast (Auto) 1-5 (0-5) /lpf U Epithel Cells (Auto) 0-5 (0-5) /lpf Urine Bacteria (Auto) Negative (Negative) 07/19/19 Range/Units 15:04 WBC (4.8-10.8) K/uL RBC (4.7-6.1) M/uL Hgb (14.0-18.0) g/dL Hct (42-52) % MCV (80-100) fL MCH (25-34) pg MCHC (32-36) g/dL RDW Std Deviation (36.4-46.3) fL RDW Coeff of Chay (11.5-14.5) % Plt Count (130-400) K/uL MPV (7.4-10.4) fL Immature Gran % (Auto) % Neut % (Auto) % Lymph % (Auto) % Blaine % (Auto) % Eos % (Auto) % Baso % (Auto) % Immature Gran # (Auto) (0.00-0.02) K/uL Neut # (Auto) (1.4-6.5) K/uL Lymph # (Auto) (1.2-3.4) K/uL Blaine # (Auto) (0.11-0.59) K/uL Eos # (Auto) (0-0.5) K/uL Baso # (Auto) (0-0.2) K/uL PT (9.0-12.0) Seconds INR (0.9-1.1) Sodium 142 (136-145) mmol/L Potassium 3.5 (3.5-5.1) mmol/L Chloride 111 H (98-107) mmol/L Carbon Dioxide 22 (21-32) mmol/L Anion Gap 9.0 (3-11) BUN 23 H (7-18) mg/dl Creatinine 1.74 H (0.6-1.4) mg/dl Est Cr Clr Drug Dosing 39.0 ml/min Est GFR ( Amer) 42.9 Est GFR (Non-Af Amer) 37.0 BUN/Creatinine Ratio 13.1 (10-20) Glucose 138 H (70-99) mg/dl Calcium 8.6 (8.5-10.1) mg/dl Total Bilirubin 2.3 H (0.2-1) mg/dl AST 35 (15-37) U/L ALT 97 H (12-78) U/L Alkaline Phosphatase 310 H (45-117) U/L Total Protein 6.7 (6.4-8.2) gm/dl Albumin 3.2 L (3.4-5.0) gm/dl Globulin 3.5 (2.5-4.0) gm/dl Albumin/Globulin Ratio 0.9 (0.9-2) Lipase 1191 H (73-393) U/L Urine Color Urine Appearance (Clear) Urine pH (4.5-7.5) Ur Specific Hosmer (1.000-1.030) Urine Protein (Negative) Urine Glucose (UA) (Negative) Urine Ketones (Negative) Urine Blood (Negative) Urine Nitrite (Negative) Urine Bilirubin (Negative) Urine Urobilinogen (Negative) Ur Leukocyte Esterase (Negative) Urine WBC (Auto) (0-5) /hpf Urine RBC (Auto) (0-4) /hpf U Hyaline Cast (Auto) (0-5) /lpf U Epithel Cells (Auto) (0-5) /lpf Urine Bacteria (Auto) (Negative) Imaging Data Radiologist's Impression: Radiology results as stated below per my review and the radiologist's interpretation: ABDOMEN AND PELVIS CT WITHOUT CONTRAST CT DOSE: 502.93 mGy.cm HISTORY: Acute hematuria with lower abdominal pain hematuria, lower abd pain TECHNIQUE: Multiaxial CT images of the abdomen and pelvis were performed without contrast. A dose lowering technique was utilized adhering to the principles of ALARA. COMPARISON STUDY: CT abdomen and pelvis 05/12/2019, 08/09/2018. FINDINGS: Respiratory motion limits evaluation of the lung bases. Minimal dependent subsegmental bibasilar atelectasis. No pneumatosis or pneumoperitoneum. Study is mildly motion degraded. The imaged inferior cardiac chambers are moderately enl arged. No pericardial effusion. Limited evaluation of the solid abdominal organs without the use of IV contrast. Cholecystectomy. Within the limitations of the exam, the liver, spleen, pancreas and adrenal glands appear unremarkable. 7 mm nonobstructing calculus of the superior pole right kidney. Renal sinus cysts are noted about the left kidney. There is a large cyst which demonstrates mild lobul ar margins and peripheral calcification measuring up to 9.6 x 8.8 cm within the inferior pole left kidney. No ureteral calculi or obstructive uropathy identified. Mildly enlarged prostate. Distended urinary bladder with urinary bladder diverticula and mild circumferential wall thickening. Calcified abdominal aorta without aneurysm. Mildly enlarged iliac chain lymph nodes are seen measuring up to 12 mm on the right, which appear unchanged. Nonenlarged right inguinal chain lymph nodes measures 13 mm and has slightly decreased in size from comparison. Small hiatal hernia. No bowel obstruction or bowel wall thickening identified. Visualized appendix appears unremarkable. No ascites or mesenteric inflammation. Tiny fat filled periumbilical hernia. Gynecomastia. Degenerative changes of the spine, pelvis and hips. No suspicious bone lesions identified. 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 Mild lumbar levoscoliosis. IMPRESSION: 1. Nonobstructing right renal calculus. No ureteral calculi or obstructive uropathy. 2. Mild prostamegaly with findings suggestive of chronic bladder outlet obstruction. 3. Large mildly complex cyst of the inferior pole left kidney appears unchanged. 4. No bowel obstruction or bowel wall thickening. 5. Cholecystectomy. 6. 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 7. Additional findings as above. Electronically signed by: Jamison Velasquez M.D. 07/19/2019 3:59 PM Blood Pressure Blood Pressure Findings: Normal blood pressure Blood Pressure Disposition: did not require urgent referral MDM Narrative Patient is a 79-year-old gentleman with a past medical history of CLL, CHF, atrial fibrillation on Eliquis, chronic right lower leg wound, hypothyroidism presenting today complaining of hematuria starting this morning. No trauma reported. A little bit of suprapubic discomfort reported. Denies fever. Patient states he does not believe he had a UTI before to the best of his recollection. No significant flank pain. Patient's CBC shows chronic elevation of white blood cell count actually improved compared to previous and hemoglobin is not significantly depressed based in comparison to history of 13.8. Bladder scan did show a very large bladder and post void residual was greater than 500. Discussion with nursing proceeded with Guillaume catheter placement. Clear urine was obtained. May have a chronic obstructive process here. Guillaume catheter placed. CT scan was complete the abdomen pelvis to look for other possible occult pathology such as kidney stone or mass lesion. Urinalysis obtained. Patient has evidence of an acute kidney injury here as well as an elevated lipase. Slight bili champion elevation, but no dilation noted on CT of biliary du cts/liver. Mild abdominal discomfort but not really not significant for me to believe he is having a full pancreatitis at least at this point. No evidence of this and a CT scan. CT scan shows no obstructive ureteral calculi. Mild prostatomegaly is noted on the CT scan and a large complex cyst of the inferior left kidney appeared unchanged according to radiology report. Avascular necrosis bilateral femoral heads is noted. No bowel obstruction or bowel pathology noted. Discussed findings the patient and his . They have concerns about his ability to go home at this time given his comfort in the Guillaume. Discussed with him options but they wish to proceed with observation. [facility] hospitalist was contacted. They can monitor for improvement his renal function with the Guillaume catheter drainage. Will need to be monitored for any signs of urinary retention. Impression & Plan Acute urinary retention, CYRUS (acute kidney injury), Elevated lipase Discharge Plan Visit Data Chief Complaint: Urinary Symptoms Stated Complaint: PEEING BLOOD ED Provider: Donis Sanon Discharge Problem: Acute urinary retention, CYRUS (acute kidney injury), Elevated lipase Patient Disposition: Being Evaluated by Hospitalist Forms Stand Alone Forms: My [facility] Prescriptions Prescriptions: No Action furosemide [Lasix] 20 mg tablet 20 mg PO Q2D RF: 0 acetaminophen [Tylenol Extra Strength] 500 mg Tablet 500 mg PO Q6H PRN (Reason: Pain) RF: 0 sulfamethoxazole-trimethoprim 800-160 mg tablet 1 tab PO BID RF: 0 tamsulosin 0.4 mg capsule 0.4 mg PO BID RF: 0 pantoprazole 40 mg tablet,delayed release (DR/EC) 40 mg PO QAM RF: 0 apixaban 5 mg tablet 5 mg PO BID RF: 0 multivitamin [One Daily Multivitamin] Tablet 1 tab PO QAM RF: 0 ferrous sulfate [iron] 325 mg (65 mg iron) Tablet 325 mg PO QAM RF: 0 ergocalciferol (vitamin D2) 50,000 unit capsule 1 cap PO WK RF: 0 rosuvastatin 5 mg tablet 5 mg PO HS RF: 0 levothyroxine 75 mcg tablet 75 mcg PO Q OTHER DAY RF: 0 levothyroxine 50 mcg tablet 50 mcg PO Q OTHER DAY RF: 0 Referrals Referrals: Khloe Ruiz PA-C [Primary Care Provider] - The scribe's documentation has been prepared under my direction and personally reviewed by me in its entirety. I confirm that the note above accurately reflects all work, treatment, procedures, and medical decision making performed by me.
[2019-07-19] MEDS ORDERED: POLYETHYLENE (MIRALAX) 17 GM PACK PO PRN (21:48)
[2019-07-19] MEDS ORDERED: SODIUM CHLORIDE 0.9% 500 ML IV SCH (21:48)
[2019-07-19] MEDS ORDERED: ACETAMINOPHEN 325 MG TAB PO PRN (21:48)
[2019-07-19] MEDS: LEVOTHYROXINE SODIUM 75 MCG TABLET PO SCH (22:54)
[2019-07-19] MEDS: ROSUVASTATIN CALCIUM 5 MG TAB PO SCH (22:54)
[2019-07-19] MEDS: TAMSULOSIN HCL 0.4 MG CAP PO SCH (23:08)
[2019-07-20] MEDS: LEVOTHYROXINE SODIUM 50 MCG TABLET PO SCH (05:57)
[2019-07-20] MEDS: MULTIVITAMIN TAB PO SCH (08:16)
[2019-07-20] MEDS: FERROUS SULFATE 325 MG TAB PO SCH (08:16)
[2019-07-20] MEDS: PANTOprazole 40 MG TAB PO SCH (08:16)
[2019-07-20] MEDS: TAMSULOSIN HCL 0.4 MG CAP PO SCH ×2 (08:17→20:47)
[2019-07-20 09:22] LABS: Hematocrit (blood only) 36.9 % (42-52); Hemoglobin 13.3 g/dL (14.0-18.0); Mean Corpuscular Volume 94.1 fL (80-100); Mean Platelet Volume 11.1 fL (7.4-10.4); Platelet Count 195 K/uL (130-400); RDW Coefficient of Variation 14.4 % (11.5-14.5); Red Blood Count 3.92 M/uL (4.7-6.1); White Blood Count 20.75 K/uL (4.8-10.8)
[2019-07-20 09:42] LABS: Albumin Level 2.8 gm/dl (3.4-5.0); BUN Creatinine Ratio 16.8 (10-20); Calcium 8.4 mg/dl (8.5-10.1); Est GFR (Non-African American) 52.6; Potassium 3.4 mmol/L (3.5-5.1)
--- NOTE | 2019-07-20 09:46 | Urology Consultation ---
Date of Consultation July 20, 2019 Assessment & Plan (1) Acute urinary retention: AUR with Hematuria and history of Retention with BPE and FLEMING. Discussed need for catheter for likely 5-7 days to decompress bladder. Recommed flomax but apparently on back order per nursing. Discussed further options. Reviewed CT Scan. Discussed further workup for hematuria. plan as outpatient. Monitor output. Call if any issues. History of Present Illness Attending Physician: Jerson Lima MD History of Present Illness Patient with few days of worsening suprapubic pain. seen in ER. Elevated lipase. Had CT found to have large volume retention and likely chronic BPE with FLEMING. Catheter placed and distended bladder drained. Had blood after catheter. admitted for medical issues. tolerating catheter. Previously had retention a few years ago with difficult levine. Had traumatically removed catheter at that time. no other urology history. Unsure if ever seen by urologist. Discomfort greaatly better. Had been SP area in waves to groin with ache and pressure and poor stream with LUTS. Allergies Allergy/AdvReac Type Severity Reaction Status Date / Time ibuprofen Allergy Severe Hives Verified 07/19/19 15:15 Iodinated Contrast- Oral and Allergy Intermediate HIVES Verified 07/19/19 15:15 IV Dye caffeine AdvReac Severe Rash Verified 07/19/19 15:15 chocolate flavor AdvReac Verified 07/19/19 15:15 Home Medications Home Medications Medication Instructions Recorded Confirmed Type apixaban 5 mg PO BID 08/08/18 07/19/19 History ergocalciferol (vitamin D2) 1 cap PO WK 08/08/18 07/19/19 History ferrous sulfate [iron] 325 mg PO QAM 08/08/18 07/19/19 History levothyroxine 50 mcg PO Q OTHER DAY 08/08/18 07/19/19 History levothyroxine 75 mcg PO Q OTHER DAY 08/08/18 07/19/19 History multivitamin [One Daily 1 tab PO QAM 08/08/18 07/19/19 History Multivitamin] pantoprazole 40 mg PO QAM 08/08/18 07/19/19 History rosuvastatin 5 mg PO HS 08/08/18 07/19/19 History tamsulosin 0.4 mg PO BID 08/08/18 07/19/19 History furosemide [Lasix] 20 mg PO Q2D 05/12/19 07/19/19 History acetaminophen [Tylenol Extra 500 mg PO Q6H PRN 07/19/19 07/19/19 History Strength] sulfamethoxazole-trimethoprim 1 tab PO BID 07/19/19 07/19/19 History Patient History Medical History CLL (chronic lymphocytic leukemia) (Chronic) Chronic diastolic CHF (congestive heart failure) (Chronic) Traumatic brain injury (Chronic) Traumatic open wound of right lower leg (Chronic) MRSA (methicillin resistant Staphylococcus aureus) (Chronic) Hypothyroidism (Chronic) BPH (benign prostatic hypertrophy) (Chronic) Chronic atrial fibrillation (Chronic) 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" Aortic insufficiency (Chronic) Renal calculus (Chronic) Renal cyst, acquired, left (Chronic) "mildly complex per CT 10/03/17 and MRI 10/04/17" Surgical History Status post cholecystectomy (Chronic) Family History Mother Cancer Social History Preferred Language: Tuvaluan Communication Ability: Effective 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 Physical Exam Physical Exam: General: Alert in no acute distress. Poor dentation. Advanced age. HEENT: Normocephalic Atraumatic. Inspection normal. Cranial Nerves 2-12 Grossly intact. Normal inspection of face. Normal inspection of neck. Poor dentition Psychologic: Normal affect. Anxious Respiratory: Nonlabored. No use of accessory muscles. No tachypnea or dyspnea. Cardiovascular: No tachycardia Skin: Lynden and Dry. No rashes or visible lesions. Chronic LE issues. NO major change. Extremities/Lymphatics: Chronic right LE issues. Abdomen: Soft Non-distended. No rebound or guarding. : levine in place draining clear yellow urine. NO clots. Results & Data Vital Signs (Past 12 Hours) Vital Signs Temp Pulse Resp BP BP Pulse Ox 07/20/19 09:15 36.7 C 77 20 106/64 94 07/20/19 07:10 37.0 C 76 18 123/66 92 07/19/19 23:00 37.0 C 83 19 143/80 H 96 PG Care Time/CCT Total # of Minutes Spent Total Time Spent with Patient: Total time spent is greater than 50% in coordination of care (as documented) at patient's floor/unit and/or counseling patient:
[2019-07-20 09:49] LABS: Albumin Globulin Ratio 0.8 (0.9-2); Bilirubin,Total 1.7 mg/dl (0.2-1); Globulin 3.4 gm/dl (2.5-4.0); Total Protein 6.2 gm/dl (6.4-8.2)
--- NOTE | 2019-07-20 17:10 | Hospitalist Progress Note ---
Date of Service July 20, 2019 Assessment & Plan (1) Acute urinary retention: Acute urinary retention (Acute) Presented to ED with urinary retention. History of BPH. Guillaume catheter placed. Seen by Urology. Continuation of Guillaume cath for at least 5-7 days recommended. Tamsulosin not available- resume when possible. BPH (benign prostatic hypertrophy) (Chronic) As discussed above. Hematuria (Acute) Reported gross hematuria, but UA in ED negative. History of nephrolithiasis, but no ureteral calculi seen on CT. Apixaban held. Renal cyst, acquired, left (Chronic) 9.6 x 8.8 cm cyst noted in left kidney. Compared to 05/12/19 and 08/09/18, unchanged. CYRUS (acute kidney injury) (Acute) Serum creatinine 1.74 compared to baseline around 1.2-1.3. Acute kidney injury could be secondary to obstructive uropathy and/or recent therapy with trimethoprim/sulfamethoxazole. Creatinine today = 1.3. Follow. Elevated lipase (Acute) Serum lipase 1191 at time of admission. Status post cholecystectomy. No apparent acute findings of biliary tract or pancreas on CT imaging without contrast. Patient denies abdominal pain, nausea, vomiting. Elevated lipase could be nonspecific, but LFTs are elevated with total bilirubin of 2.3, AST 35, ALT 97, alkaline phosphatase 310. Serum lipase today even higher at 2450. Patient may have choledocholithiasis with a passed stone. Clarify alcohol consumption. Follow LFTs and lipase. Chronic diastolic CHF (congestive heart failure) (Chronic) History of chronic left ventricular diastolic heart failure. Compensated. Continue furosemide. Paroxysmal atrial fibrillation Now in NSR. Was anticoagulated with apixaban, now on hold because reported hematuria. Hypothyroidism (Chronic) Continue levothyroxine. CLL (chronic lymphocytic leukemia) (Chronic) WBC 20,000. Management per Hematology. Traumatic open wound of right lower leg (Chronic) Management per Wound Care. MRSA (methicillin resistant Staphylococcus aureus) (Chronic) Contact isolation. VTE prophylaxis No anticoagulants because of reported hematuria. SCDs. Ambulate. Disposition Anticipate discharge to home. Primary care follow-up with Dr. Ng. Urology follow-up with [facility]. Subjective Recheck for multiple problems. Patient seen in their room around 1440. Patient admitted yesterday with hematuria, urinary retention, and other problems. Guillaume catheter in place. Seen earlier today by Urology. It was recommended that the catheter stay in place for 5 to 7 days. Tamsulosin ordered, but apparently not available for a couple days because of supply shortage. Elevated lipase as discussed below, but patient denies any abdominal pain, nausea, vomiting. Review of Systems: Constitutional- no fever. Cardiac- no chest pain. Pulmonary- no cough or SOB. GI- no nausea, vomiting, diarrhea, melena, hematochezia. - as noted above. Otherwise, as noted above. Physical Exam Physical Exam: Constitutional- adult male afebrile no acute distress Eyes- sclerae anicteric ENT- Respiratory- clear to auscultation no respiratory distress Cardiovascular- no JVD cardiac rhythm regular no murmurs or gallops appreciated no pretibial edema or calf tenderness Gastrointestinal- normal bowel sounds soft, nondistended, nontender - Guillaume cath draining dark urine, but not grossly bloody Skin- warm and dry no rash Neuro- Psychiatric- alert and oriented somewhat confused Results & Data Vital Signs (Past 12 Hours) Vital Signs Temp Pulse Resp BP BP Pulse Ox 07/20/19 15:40 36.6 C 78 18 115/71 97 07/20/19 09:15 36.7 C 77 20 106/64 94 07/20/19 07:10 37.0 C 76 18 123/66 92 Laboratory Results Laboratory Results - last 24 hr 07/20/19 07/20/19 08:59 08:59 WBC 20.75 H RBC 3.92 L Hgb 13.3 L Hct 36.9 L MCV 94.1 MCH 33.9 MCHC 36.0 RDW Std Deviation 49.0 H RDW Coeff of Chay 14.4 Plt Count 195 MPV 11.1 H Sodium 143 Potassium 3.4 L Chloride 113 H Carbon Dioxide 22 Anion Gap 8.0 BUN 22 H Creatinine 1.30 D Est Cr Clr Drug Dosing 49.0 Est GFR ( Amer) 61.0 Est GFR (Non-Af Amer) 52.6 BUN/Creatinine Ratio 16.8 Glucose 143 H Calcium 8.4 L Total Bilirubin 1.7 H AST 30 ALT 79 H Alkaline Phosphatase 271 H Total Protein 6.2 L Albumin 2.8 L Globulin 3.4 Albumin/Globulin Ratio 0.8 L Lipase 2450 H
[2019-07-20] MEDS: ROSUVASTATIN CALCIUM 5 MG TAB PO SCH (20:43)
--- NOTE | 2019-07-20 22:18 | Ultrasound Report ---
ABDOMINAL ULTRASOUND, RIGHT UPPER QUADRANT HISTORY: elevated LFT's and lipase. COMPARISON: Abdominal ultrasound October 13, 2017. CT of the abdomen and pelvis July 19, 2019. FINDINGS: There is no biliary ductal dilatation status post cholecystectomy. The common bile duct bridger sures 6 mm in caliber. Liver morphology is normal. No hepatic lesions are identified. The pancreas is obscured by bowel gas. There is no right hydronephrosis. There is a 6 mm calculus within the upper p ole of the right kidney. IMPRESSION: 1. No biliary ductal dilatation status post cholecystectomy. 2. Obscured pancreas due to overlying bowel gas. 3. 6 mm right renal calculus. Electronically signed by: Rashid Pak M.D. 07/20/2019 10:17 PM
[2019-07-21 06:17] LABS: Hematocrit (blood only) 36.7 % (42-52); Hemoglobin 12.8 g/dL (14.0-18.0); Mean Corpuscular Hgb Conc 34.9 g/dL (32-36); Mean Corpuscular Volume 95.3 fL (80-100); Mean Platelet Volume 11.3 fL (7.4-10.4); Platelet Count 211 K/uL (130-400); RDW Coefficient of Variation 14.4 % (11.5-14.5); RDW Standard Deviation 49.8 fL (36.4-46.3); Red Blood Count 3.85 M/uL (4.7-6.1)
[2019-07-21] MEDS: LEVOTHYROXINE SODIUM 75 MCG TABLET PO SCH (06:37)
[2019-07-21 06:46] LABS: Albumin Level 2.5 gm/dl (3.4-5.0); BUN Creatinine Ratio 17.2 (10-20); Calcium 8.2 mg/dl (8.5-10.1); Creatinine Clr Calc Pharmacy 48.6 ml/min; Est GFR (African American) 60.4; Est GFR (Non-African American) 52.1; Potassium 3.8 mmol/L (3.5-5.1)
[2019-07-21 06:51] LABS: Albumin Globulin Ratio 0.8 (0.9-2); Globulin 3.3 gm/dl (2.5-4.0); Total Protein 5.8 gm/dl (6.4-8.2)
[2019-07-21] MEDS: FERROUS SULFATE 325 MG TAB PO SCH (09:23)
[2019-07-21] MEDS: MULTIVITAMIN TAB PO SCH (09:23)
[2019-07-21] MEDS: PANTOprazole 40 MG TAB PO SCH (09:23)
--- NOTE | 2019-07-21 09:41 | Urology Progress Note ---
Date of Service July 21, 2019 Assessment & Plan (1) Acute urinary retention: 79yo M with multiple comorbidities, admitted with elevated lipase, leukocytosis, AUR with levine placed, hematuria resolved. Pt tolerating catheter well. Will send UC&S and urine cytology today. Brown, "stuck on" appearing lesion to posterior glans penis, to be evaluated by Dr. Rosales later today. Plan to continue levine for 5-7d to allow maximal drainage. Resume tamsulosin when available and add finasteride to regimen as well to maximize medical therapy. Supervising Physician Co-Signing Physician Notes Looked at the small lesion near the ventral aspect of the meatus - appears to be more inflammatory than anything - obs for now - if no resolution over the next several weeks, we can consider excision/biopsy - grossly does not appear consistent with a tumor Subjective 79yo M with multiple comorbidities including CLL, chronic would to right ankle, TBI, Diastolic HF, Afib on Xarelto was admitted through [facility] ED for c/o suprapubic pain and elevated lipase. CT reveals large volume urinary retention and FLEMING. Pt is a poor historian, but does report noting "cranberry colored urine" x1 day prior to evaluation. Unable to determine if ever evaluated by Urologist in the past. CT imaging reviewed - stable right renal stone. FLEMING. UA with trace leuks, UC&S not done. Labs reviewed- Cr stabilizing with max drainage. WBC and lipase continue to climb Review of Systems Review of Systems: Unobtainable due to cognitive status Poor historian Physical Exam Constitutional: no acute distress and not ill appearing Eyes: no nystagmus ENMT: Ears: no hearing impairment Neck: trachea midline Respiratory: no respiratory distress and no cough Cardiovascular: Vessels: no JVD Chest (Breasts): Chest: normal inspection of chest Gastrointestinal (Abdomen): Inspection/Auscultation: abdomen not distended and no abdominal edema Percussion/Palpation: abdomen soft; abdomen nontender Musculoskeletal: Head/Neck/Chest: normocephalic and head atraumatic Skin: no rashes, warm and dry Neurologic: awake; not confused and not obtunded Psychiatric: Orientation: alert and oriented x 3 Eye Contact: good eye con tact Affect: no depressed affect Genitourinary: + penis abnormality (posterior glans with brown, "stuck on" appearing lesion) and bladder normal to inspection; no CVA tenderness Lymphatic: no lymphadenopathy and no lymphedema Results & Data Vital Signs (Past 12 Hours) Vital Signs Temp Pulse Resp BP Pulse Ox Pulse Ox 07/21/19 07:00 36.7 C 68 18 115/63 96 07/20/19 23:45 96 07/20/19 23:35 37.2 C 76 18 107/53 L 96
[2019-07-21] MEDS: TAMSULOSIN HCL 0.4 MG CAP PO SCH ×2 (10:38→20:10)
--- NOTE | 2019-07-21 12:00 | Gastrointestinal Consultation ---
Date of Consultation July 21, 2019 Assessment & Plan (1) LFT elevation: (2) Elevated lipase: Pt is a 79 y/o male currently admitted for CYRUS, urinary retention and hematuria; seen for elevated LFTs and lipase. LFTs improving. Hx of pancreatitis noted on chart but pt cannot remember this. He is s/p cholecystectomy and had "a stone in liver after gallbladder removed" ? choledocholithiasis. On exam he's not jaundice and non tender on abd, no n/v. CT w/o contrast and u/s w/o signs of pancreatic abnormalities or biliary dilation/obstruction. - Recommend MRCP exam but pt refused at this time. May offer again to be done in outpt setting if LFTs start to rise again. - No indication to trend daily LFTs - No further GI plans at this time; pls recall as needed. Supervising Physician Co-Signing Physician Notes I have personally seen and examined the patient with ELOISA Lujan. Her note reflects my exam and findings. I agree with her impression and plan. Most c/w metabolic causes from renal failure. He has no abdominal pain and his pancreatic enzymes and liver enzymes should cont to improve with time. CT w/o signs of pancreatitis. Yamil Hassan M.D. History of Present Illness Reason for Consultation: Elevated lipase Requesting Physician: Dr. Jerson Lima Attending Physician: Dr. Yamil Hassan History of Present Illness Pt is a 79 y/o male, w PMHx of CLL, Afib, CHF, MRSA infection, hypothyroidism, LE DVT, seizure disorder, renal cyst and calculus currently admitted for CYRUS, urinary retention and hematuria. Urology following. GI was asked to evaluate pt as he's noted to have elevation of his lipase. Noted lipase caryn from 1000s-2689 in last 3 days. LFTs are up as well but improving: Tbili 2.3->1.0; AST 30-> 42; ALT 97->81; AP 310 ->273. In his history it was noted he has hx of pancreatitis. He is s/p cholecystectomy. Said at one point after gallbladder was removed "had a stone in liver that has to be removed". He had u/s and Ct abd/pelvis w/o contrast w/o signs of biliary dilation or obstruction; no pancreas abnormalities seen. On exam he is w/o abd pain/cramping, n/v. He denies ETOH, tobacco uses. Allergies Allergy/AdvReac Type Severity Reaction Status Date / Time ibuprofen Allergy Severe Hives Verified 07/19/19 15:15 Iodinated Contrast- Oral and Allergy Intermediate HIVES Verified 07/19/19 15:15 IV Dye caffeine AdvReac Severe Rash Verified 07/19/19 15:15 chocolate flavor AdvReac Verified 07/19/19 15:15 Home Medications Home Medications Medication Instructions Recorded Confirmed Type apixaban 5 mg PO BID 08/08/18 07/19/19 History ergocalciferol (vitamin D2) 1 cap PO WK 08/08/18 07/19/19 History ferrous sulfate [iron] 325 mg PO QAM 08/08/18 07/19/19 History levothyroxine 50 mcg PO Q OTHER DAY 08/08/18 07/19/19 History levothyroxine 75 mcg PO Q OTHER DAY 08/08/18 07/19/19 History multivitamin [One Daily 1 tab PO QAM 08/08/18 07/19/19 History Multivitamin] pantoprazole 40 mg PO QAM 08/08/18 07/19/19 History rosuvastatin 5 mg PO HS 08/08/18 07/19/19 History tamsulosin 0.4 mg PO BID 08/08/18 07/19/19 History furosemide [Lasix] 20 mg PO Q2D 05/12/19 07/19/19 History acetaminophen [Tylenol Extra 500 mg PO Q6H PRN 07/19/19 07/19/19 History Strength] sulfamethoxazole-trimethoprim 1 tab PO BID 07/19/19 07/19/19 History Patient History Medical History CLL (chronic lymphocytic leukemia) (Chronic) Chronic diastolic CHF (congestive heart failure) (Chronic) Traumatic brain injury (Chronic) Traumatic open wound of right lower leg (Chronic) MRSA (methicillin resistant Staphylococcus aureus) (Chronic) Hypothyroidism (Chronic) BPH (benign prostatic hypertrophy) (Chronic) Chronic atrial fibrillation (Chronic) 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" Aortic insufficiency (Chronic) Renal calculus (Chronic) Renal cyst, acquired, left (Chronic) "mildly complex per CT 10/03/17 and MRI 10/04/17" Surgical History Status post cholecystectomy (Chronic) Family History Mother Cancer Social History Preferred Language: Swiss Communication Ability: Effective Shiftman Required: No Beliefs That Will Affect Care: None marital status: Current Living Situation: Spouse Other Information That Helps Us Care for You: No Feels Safe at Home: Yes Safety Concerns: Feels Safe At This Time Smoking Status: Former smoker Tobacco Type: cigarettes ; Do You Dip or Chew Tobacco: No ; Second Hand Exposure: No ; Tobacco Cessation Education Requested by Patient: No Hx Alcohol Use: No Hx Substance Use: No Review of Systems Review of Systems: All systems reviewed & are unremarkable except as noted in HPI & below Physical Exam Constitutional: WD/WN, vitals as above well groomed, cooperative and comfortable Eyes: PERRL, conjunctivae normal, anicteric sclerae ENMT: external ear and nose normal, oropharynx normal Respiratory: normal respiratory effort, lungs clear to auscultation Cardiovascular: RRR, no murmur, no edema Gastrointestinal (Abdomen): normal bowel sounds, soft, nontender, no hepatosplenomegaly Skin: no rashes, warm and dry no jaundice Psychiatric: A+Ox3, euthymic affect Lymphatic: no lymphedema Results & Data Vital Signs (Past 12 Hours) Vital Signs Temp Pulse Resp BP Pulse Ox 07/21/19 07:00 36.7 C 68 18 115/63 96 Laboratory Results Laboratory Results - last 72 hr 07/19/19 07/19/19 07/19/19 15:00 15:04 15:04 WBC 20.31 H RBC 4.22 L Hgb 13.8 L Hct 39.7 L MCV 94.1 MCH 32.7 MCHC 34.8 RDW Std Deviation 48.6 H RDW Coeff of Chay 14.3 Plt Count 187 MPV 11.8 H Immature Gran % (Auto) 0.3 Neut % (Auto) 42.2 Lymph % (Auto) 48.4 [place] % (Auto) 5.6 Eos % (Auto) 3.2 Baso % (Auto) 0.3 Immature Gran # (Auto) 0.06 H Neut # (Auto) 8.57 H Lymph # (Auto) 9.83 H Surry # (Auto) 1.13 H Eos # (Auto) 0.66 H Baso # (Auto) 0.06 PT 11.2 INR 1.1 Sodium Potassium Chloride Carbon Dioxide Anion Gap BUN Creatinine Est Cr Clr Drug Dosing Est GFR ( Amer) Est GFR (Non-Af Amer) BUN/Creatinine Ratio Glucose Calcium Total Bilirubin AST ALT Alkaline Phosphatase Total Protein Albumin Globulin Albumin/Globulin Ratio Lipase Urine Color Dark Yellow Urine Appearance Cloudy A Urine pH 5.0 Ur Specific [place] 1.016 Urine Protein Negative Urine Glucose (UA) Negative Urine Ketones Negative Urine Blood Negative Urine Nitrite Negative Urine Bilirubin 1+ H Urine Urobilinogen Negative Ur Leukocyte Esterase Trace H Urine WBC (Auto) 1-5 Urine RBC (Auto) 0-4 U Hyaline Cast (Auto) 1-5 U Epithel Cells (Auto) 0-5 Urine Bacteria (Auto) Negative 07/19/19 07/20/19 07/20/19 15:04 08:59 08:59 WBC 20.75 H RBC 3.92 L Hgb 13.3 L Hct 36.9 L MCV 94.1 MCH 33.9 MCHC 36.0 RDW Std Deviation 49.0 H RDW Coeff of Chay 14.4 Plt Count 195 MPV 11.1 H Immature Gran % (Auto) Neut % (Auto) Lymph % (Auto) [place] % (Auto) Eos % (Auto) Baso % (Auto) Immature Gran # (Auto) Neut # (Auto) Lymph # (Auto) [place] # (Auto) Eos # (Auto) Baso # (Auto) PT INR Sodium 142 143 Potassium 3.5 3.4 L Chloride 111 H 113 H Carbon Dioxide 22 22 Anion Gap 9.0 8.0 BUN 23 H 22 H Creatinine 1.74 H 1.30 D Est Cr Clr Drug Dosing 39.0 49.0 Est GFR ( Amer) 42.9 61.0 Est GFR (Non-Af Amer) 37.0 52.6 BUN/Creatinine Ratio 13.1 16.8 Glucose 138 H 143 H Calcium 8.6 8.4 L Total Bilirubin 2.3 H 1.7 H AST 35 30 ALT 97 H 79 H Alkaline Phosphatase 310 H 271 H Total Protein 6.7 6.2 L Albumin 3.2 L 2.8 L Globulin 3.5 3.4 Albumin/Globulin Ratio 0.9 0.8 L Lipase 1191 H 2450 H Urine Color Urine Appearance Urine pH Ur Specific [place] Urine Protein Urine Glucose (UA) Urine Ketones Urine Blood Urine Nitrite Urine Bilirubin Urine Urobilinogen Ur Leukocyte Esterase Urine WBC (Auto) Urine RBC (Auto) U Hyaline Cast (Auto) U Epithel Cells (Auto) Urine Bacteria (Auto) 07/21/19 07/21/19 05:40 05:40 WBC 24.90 H RBC 3.85 L Hgb 12.8 L Hct 36.7 L MCV 95.3 MCH 33.2 MCHC 34.9 RDW Std Deviation 49.8 H RDW Coeff of Chay 14.4 Plt Count 211 MPV 11.3 H Immature Gran % (Auto) Neut % (Auto) Lymph % (Auto) [place] % (Auto) Eos % (Auto) Baso % (Auto) Immature Gran # (Auto) Neut # (Auto) Lymph # (Auto) [place] # (Auto) Eos # (Auto) Baso # (Auto) PT INR Sodium 144 Potassium 3.8 Chloride 113 H Carbon Dioxide 23 Anion Gap 8.0 BUN 23 H Creatinine 1.31 Est Cr Clr Drug Dosing 48.6 Est GFR ( Amer) 60.4 Est GFR (Non-Af Amer) 52.1 BUN/Creatinine Ratio 17.2 Glucose 105 H Calcium 8.2 L Total Bilirubin 1.0 D AST 42 H ALT 81 H Alkaline Phosphatase 273 H Total Protein 5.8 L Albumin 2.5 L Globulin 3.3 Albumin/Globulin Ratio 0.8 L Lipase 2689 H Urine Color Urine Appearance Urine pH Ur Specific [place] Urine Protein Urine Glucose (UA) Urine Ketones Urine Blood Urine Nitrite Urine Bilirubin Urine Urobilinogen Ur Leukocyte Esterase Urine WBC (Auto) Urine RBC (Auto) U Hyaline Cast (Auto) U Epithel Cells (Auto) Urine Bacteria (Auto)
[2019-07-21] MEDS: ROSUVASTATIN CALCIUM 5 MG TAB PO SCH (20:10)
--- NOTE | 2019-07-21 23:11 | Hospitalist Progress Note ---
Date of Service July 21, 2019 Assessment & Plan (1) Acute urinary retention: Acute urinary retention (Acute) Presented to ED with urinary retention. History of BPH. Guillaume catheter placed. Seen by Urology. Continuation of Guillaume cath for at least 5-7 days recommended. Tamsulosin not available- resume when possible. BPH (benign prostatic hypertrophy) (Chronic) As discussed above. Hematuria (Acute) Reported gross hematuria, but UA in ED negative. History of nephrolithiasis, but no ureteral calculi seen on CT. Apixaban held. Renal cyst, acquired, left (Chronic) 9.6 x 8.8 cm cyst noted in left kidney. Compared to 05/12/19 and 08/09/18, unchanged. CYRUS (acute kidney injury) (Acute) Serum creatinine 1.74 compared to baseline around 1.2-1.3. Acute kidney injury could be secondary to obstructive uropathy and/or recent therapy with trimethoprim/sulfamethoxazole. Creatinine today = 1.31. Follow. Elevated lipase (Acute) Serum lipase 1191 at time of admission. Status post cholecystectomy. No apparent acute findings of biliary tract or pancreas on CT imaging without contrast. Patient denies abdominal pain, nausea, vomiting. Elevated lipase could be nonspecific, but LFTs are elevated with total bilirubin of 2.3, AST 35, ALT 97, alkaline phosphatase 310. Serum lipase today 2689. Patient may have choledocholithiasis with a passed stone. No alcohol abuse. GI consulted. MRCP recommended, but pt declined. In light of absence of symptoms and no worrisome findings on CT or US, GI feels that lab abnormalities probably do not represent significant biliary tract or pancreatic disease. Chronic diastolic CHF (congestive heart failure) (Chronic) History of chronic left ventricular diastolic heart failure. Compensated. Continue furosemide. Paroxysmal atrial fibrillation Now in NSR. Was anticoagulated with apixaban, now on hold because reported hematuria. Hypothyroidism (Chronic) Continue levothyroxine. CLL (chronic lymphocytic leukemia) (Chronic) WBC 24,900. Management per Hematology. Traumatic open wound of right lower leg (Chronic) Management per Wound Care. MRSA (methicillin resistant Staphylococcus aureus) (Chronic) Contact isolation. VTE prophylaxis No anticoagulants because of reported hematuria. SCDs. Ambulate. Disposition Anticipate discharge to home with home health nursing. Primary care follow-up with Dr. Ng. Urology follow-up with [facility]. Subjective Recheck for multiple problems. Patient seen in their room around 1700. No new concerns. Still has Guillaume cath. Denies any abdominal pain, nausea, vomiting. Review of Systems: Constitutional- no fever. Cardiac- no chest pain. Pulmonary- no cough or SOB. GI- no nausea, vomiting, diarrhea, melena, hematochezia. - as noted above. Otherwise, as noted above. Physical Exam Constitutional: no acute distress Respiratory: no respiratory distress Auscultation: lungs clear to auscultation bilaterally Cardiovascular: Rate/Rhythm: regular rate and regular rhythm Heart Sounds: no gallop Vessels: no JVD Extremities: no calf tenderness and no edema Gastrointestinal (Abdomen): normal bowel sounds, soft, nontender, no hepatosplenomegaly Skin: no rashes, warm and dry Psychiatric: Orientation: alert and oriented x 3 Genitourinary: + bladder abnormality (Guillaume cath) Results & Data Vital Signs (Past 12 Hours) Vital Signs Temp Pulse Resp BP Pulse Ox 07/21/19 14:54 36.6 C 66 18 124/71 97 Laboratory Results 07/21/19 05:40 07/21/19 05:40
[2019-07-22] MEDS: LEVOTHYROXINE SODIUM 50 MCG TABLET PO SCH (06:14)
[2019-07-22] MEDS: MULTIVITAMIN TAB PO SCH (08:13)
[2019-07-22] MEDS: PANTOprazole 40 MG TAB PO SCH (08:13)
[2019-07-22] MEDS: TAMSULOSIN HCL 0.4 MG CAP PO SCH (08:14)
[2019-07-22] MEDS: FERROUS SULFATE 325 MG TAB PO SCH (08:14)
[2019-07-22] MEDS ORDERED: FINASTERIDE 5 MG TAB PO SCH (09:00)
--- NOTE | 2019-07-22 17:14 | Hospitalist Progress Note ---
Date of Service July 22, 2019 Assessment & Plan (1) Acute urinary retention: Acute urinary retention (Acute) Presented to ED with urinary retention. History of BPH. Guillaume catheter placed. Seen by Urology. Continuation of Guillaume cath for at least 5-7 days recommended. Tamsulosin not available- resume when possible. BPH (benign prostatic hypertrophy) (Chronic) As discussed above. Hematuria (Acute) Reported gross hematuria, but UA in ED negative. History of nephrolithiasis, but no ureteral calculi seen on CT. Apixaban held. Urine now clear; resume apixaban. Renal cyst, acquired, left (Chronic) 9.6 x 8.8 cm cyst noted in left kidney. Compared to 05/12/19 and 08/09/18, unchanged. CYRUS (acute kidney injury) (Acute) Serum creatinine 1.74 compared to baseline around 1.2-1.3. Acute kidney injury could be secondary to obstructive uropathy and/or recent therapy with trimethoprim/sulfamethoxazole. Creatinine 07/21 was 1.31. Follow. Elevated lipase + LFT's (Acute) Serum lipase 1191 at time of admission. Status post cholecystectomy. No apparent acute findings of biliary tract or pancreas on CT imaging without contrast. Patient denies abdominal pain, nausea, vomiting. Elevated lipase could be nonspecific, but LFTs are elevated with total bilirubin of 2.3, AST 35, ALT 97, alkaline phosphatase 310. Serum lipase 07/21 was 2689. No alcohol abuse. GI consulted. MRCP recommended, but pt declined. In light of absence of symptoms and no worrisome findings on CT or US, GI feels that lab abnormalities probably do not represent significant biliary tract or pancreatic disease. Re-evaluate as necessary if symptoms develop. Chronic diastolic CHF (congestive heart failure) (Chronic) History of chronic left ventricular diastolic heart failure. Compensated. Continue furosemide. Paroxysmal atrial fibrillation Now in NSR. Apixaban was held because of reported hematuria; resume Rx. Hypothyroidism (Chronic) Continue levothyroxine. CLL (chronic lymphocytic leukemia) (Chronic) WBC 24,900. Management per Hematology. Traumatic open wound of right lower leg (Chronic) Management per Wound Care. MRSA (methicillin resistant Staphylococcus aureus) (Chronic) Contact isolation. VTE prophylaxis No anticoagulants because of reported hematuria. SCDs. Ambulate. Disposition Discharge to home with home health nursing. Primary care follow-up with Dr. Ng. Urology follow-up with [facility]. Subjective Recheck for multiple problems. Patient seen in their room around 1550. No new concerns. No problems with Guillaume cath. Denies any abdominal pain, nausea, vomiting. Would like to go home. Review of Systems: Constitutional- no fever. Cardiac- no chest pain. Pulmonary- no cough or SOB. GI- no nausea, vomiting, diarrhea, melena, hematochezia. - as noted above. Otherwise, as noted above. Physical Exam Constitutional: no acute distress Respiratory: no respiratory distress Auscultation: lungs clear to auscultation bilaterally Cardiovascular: Rate/Rhythm: regular rate and regular rhythm Heart Sounds: no gallop Vessels: no JVD Extremities: no calf tenderness and no edema Gastrointestinal (Abdomen): normal bowel sounds, soft, nontender, no hepatosplenomegaly Skin: no rashes, warm and dry Psychiatric: Orientation: alert and oriented x 3 Genitourinary: + bladder abnormality (Guillaume cath draining clear urine) Results & Data Vital Signs (Past 12 Hours) Vital Signs Temp Pulse Resp BP BP Pulse Ox 07/22/19 14:52 36.4 C L 61 18 135/65 97 07/22/19 07:03 36.9 C 69 17 118/69 95
--- NOTE | 2019-07-23 05:45 | Discharge Summary ---
Date of Service Date of Admission: 07/19/19 Date of Discharge: 07/22/19 Admission HPI Per Admitting Provider This is a 79yo M with a PMH of BPH, h/o CLL, chronic atrial fibrillation on Eliquis, chronic diastolic heart failure, hypothyroidism and chronic RLE wound who presents with hematuria starting this morning. States that since this morning, urine has been the color of cranberry juice. Has had associated suprapubic tenderness but denies fever, chills, passing blood clots, abdominal pain or flank pain. Has history of BPH and takes Flomax BID. Has remote history of self catheterization but stopped 2 years ago. Denies any urinary hesitancy or decreased frequency. Has had normal appetite. Did not take morning dose of Eliquis in setting of bleeding. Follows with Dr. Duckworth of [facility] in [place] for CLL and is under active surveillance. Follows with wound care center in [place] for history of RLE wound and has recently undergone skin grafting. Reports being prescribed Bactrim last week for chronic wound and has completed all but last day of treatment with improved appearance of wound. Denies lightheadedness, visual changes, chest pain, palpitations, shortness of breath, wheezing, nausea, vomiting, abdominal pain, diarrhea, constipation, lower extremity edema. Admission Exam Per Admitting Provider This is a 79yo M with a PMH of BPH, h/o CLL, chronic atrial fibrillation on Eliquis, chronic diastolic heart failure, hypothyroidism and chronic RLE wound who presents with hematuria starting this morning. States that since this morning, urine has been the color of cranberry juice. Has had associated suprapubic tenderness but denies fever, chills, passing blood clots, abdominal pain or flank pain. Has history of BPH and takes Flomax BID. Has remote history of self catheterization but stopped 2 years ago. Denies any urinary hesitancy or decreased frequency. Has had normal appetite. Did not take morning dose of Eliquis in setting of bleeding. Follows with Dr. Duckworth of [facility] in [place] for CLL and is under active surveillance. Follows with wound care center in [place] for history of RLE wound and has recently undergone skin grafting. Reports being prescribed Bactrim last week for chronic wound and has completed all but last day of treatment with improved appearance of wound. Denies lightheadedness, visual changes, chest pain, palpitations, shortness of breath, wheezing, nausea, vomiting, abdominal pain, diarrhea, constipation, lower extremity edema. Principal Diagnosis urinary retention hematuria acute kidney injury Discharge Data Allergies Allergy/AdvReac Type Severity Reaction Status Date / Time ibuprofen Allergy Severe Hives Verified 07/19/19 15:15 Iodinated Contrast- Oral and Allergy Intermediate HIVES Verified 07/19/19 15:15 IV Dye caffeine AdvReac Severe Rash Verified 07/19/19 15:15 chocolate flavor AdvReac Verified 07/19/19 15:15 Consultations 07/19/19 17:01 ED Decision to Admit Stat 07/20/19 08:00 Consult Urology Routine 07/21/19 10:16 Consult Gastroenterology Routine Ordered Studies 07/19/19 14:08 CT abd pelvis wo con Stat 07/20/19 17:42 US abdomen limited Routine Hospital Course (1) Acute urinary retention: Acute urinary retention (Acute) Presented to ED with urinary retention. History of BPH. Guillaume catheter placed. Seen by Urology. Continuation of Guillaume cath for at least 5-7 days recommended. Discharge on tamsulosin + finasteride. BPH (benign prostatic hypertrophy) (Chronic) As discussed above. Hematuria (Acute) Reported gross hematuria, but UA in ED negative. History of nephrolithiasis, but no ureteral calculi seen on CT. Apixaban held. Urine now clear; resumed apixaban. Further evaluation / management per Urology. Renal cyst, acquired, left (Chronic) 9.6 x 8.8 cm cyst noted in left kidney. Compared to 05/12/19 and 08/09/18, unchanged. Further evaluation / management per Urology. CYRUS (acute kidney injury) (Acute) Serum creatinine 1.74 compared to baseline around 1.2-1.3. Acute kidney injury could be secondary to obstructive uropathy and/or recent therapy with trimethoprim/sulfamethoxazole. Creatinine 07/21 was 1.31. Follow. Elevated lipase + LFT's (Acute) Serum lipase 1191 at time of admission. Status post cholecystectomy. No apparent acute findings of biliary tract or pancreas on CT imaging without contrast. Patient denies abdominal pain, nausea, vomiting. Elevated lipase could be nonspecific, but LFTs are elevated with total bilirubin of 2.3, AST 35, ALT 97, alkaline phosphatase 310. Serum lipase 07/21 was 2689. No alcohol abuse. GI consulted. MRCP recommended, but pt declined. In light of absence of symptoms and no worrisome findings on CT or US, GI feels that lab abnormalities probably do not represent significant biliary tract or pancreatic disease. Re-evaluate as necessary if symptoms develop. Chronic diastolic CHF (congestive heart failure) (Chronic) History of chronic left ventricular diastolic heart failure. Compensated. Continue furosemide. Paroxysmal atrial fibrillation Now in NSR. Apixaban was held because of reported hematuria; resume Rx with caution. Hypothyroidism (Chronic) Continue levothyroxine. CLL (chronic lymphocytic leukemia) (Chronic) WBC 24,900. Management per Hematology. Traumatic open wound of right lower leg (Chronic) Management per Wound Care. MRSA (methicillin resistant Staphylococcus aureus) (Chronic) Contact isolation. VTE prophylaxis No anticoagulants because of reported hematuria. SCDs. Ambulate. Disposition Discharged to home with home health nursing. Primary care follow-up with Dr. Ng. Urology follow-up with [facility]. Total Time Total Time Spent Total Time Spent (In Minutes): 40 Discharge Plan Discharge Items Patient Disposition: Home - Home Health Services Reason For Visit: trouble emptying bladder Discharge Diagnosis: trouble emptying bladder Condition: Good Discharge Goals: Decrease discomfort and Improve function Activity: Resume your previous activity Non-emergency contact: Primary Care Provider, Hospitalist and Urologist Call non-emergency contact if: you have any medication questions, your symptoms worsen and your temperature is above 101 Follow-up/Referrals: Daniel Villafana II, DO [Physician] - (Please call office for follow-up appointment next week.) Khloe Ruiz PA-C [Primary Care Provider] - Diet: Heart Healthy Add Provider Instructions: SUMMARY OF TEST RESULTS: Urine culture did not show any infection. CT scan showed some kidney stones, but they did not appear to be causing any blockage. CT scan also showed a cyst on the left kidney that was there before. Ultrasound of pancreas did not show any problems. PENDING TEST RESULTS: none RECOMMENDATIONS FOR FOLLOW-UP: Urology follow-up with Dr. Villafana or one of his colleagues next week. OTHER INSTRUCTIONS: Wound care as before. Care of bladder catheter as instructed. Continue taking tamsulosin (Flomax) twice a day for enlarged prostate. Start finasteride (Proscar) 5 mg daily which is another medicine for enlarged prostate. Seek medical attention if you have: * temperature above 101 * chest pain or trouble breathing * abdominal pain, nausea, vomiting * diarrhea, dark stools or bloody stools * blood in urine * any unanswered questions or concerns Call 911 if symptoms are severe. Please take good care of yourself. Call if you have any questions or problems. You can reach a [facility] hospitalist on duty at [facility] 24 hours a day by calling [phone]. My cell # is [phone]. Prescriptions: New finasteride 5 mg tablet 5 mg PO DAILY Qty: 30 RF: 5 Continued furosemide [Lasix] 20 mg tablet 20 mg PO Q2D RF: 0 acetaminophen [Tylenol Extra Strength] 500 mg Tablet 500 mg PO Q6H PRN (Reason: Pain) RF: 0 tamsulosin 0.4 mg capsule 0.4 mg PO BID RF: 0 pantoprazole 40 mg tablet,delayed release (DR/EC) 40 mg PO QAM RF: 0 apixaban 5 mg tablet 5 mg PO BID RF: 0 multivitamin [One Daily Multivitamin] Tablet 1 tab PO QAM RF: 0 ferrous sulfate [iron] 325 mg (65 mg iron) Tablet 325 mg PO QAM RF: 0 ergocalciferol (vitamin D2) 50,000 unit capsule 1 cap PO WK RF: 0 rosuvastatin 5 mg tablet 5 mg PO HS RF: 0 levothyroxine 75 mcg tablet 75 mcg PO Q OTHER DAY RF: 0 levothyroxine 50 mcg tablet 50 mcg PO Q OTHER DAY RF: 0 Discontinued sulfamethoxazole-trimethoprim 800-160 mg tablet 1 tab PO BID RF: 0 Stand-Alone Forms: My [facility] Discharge Orders: Discharge Order (Routine); Ordered 07/22/19 Ordered By: Jerson Lima Admission Data Admit Date/Time: 07/21/19 06:57 Attending Provider: Jerson Lima Admit Provider: Damaris Valladares Primary Care Provider: Khloe Ruiz Other Providers: Daniel Villafana II ; Damaris Valladares ; Yamil Hassan Service: Surgical Services Other Interventions: Discharge Summary Assessment (RN) Last Done: 07/22/19 17:30 Pending Studies at Discharge: No DC Date/Time DO NOT enter until pt leaves facility: 07/22/19 19:00
[2019-07-24] MEDS ORDERED: ERGOCALCIFEROL 50,000 UNITS CAP PO SCH (09:00)
== END 2019-07-22 19:00 | disposition home health service (06) | DRG 683 ==
LOC: ED 13:50 → 2W 13:50 → 3W 07-20 08:42
DX: X58.XXXD Exposure to other specified factors, subsequent encounter; Z79.01 Long term (current) use of anticoagulants; I50.32 Chronic diastolic (congestive) heart failure; S81.801D Unspecified open wound, right lower leg, subsequent encounter; R74.8 Abnormal levels of other serum enzymes; Z90.49 Acquired absence of other specified parts of digestive tract; R79.89 Other specified abnormal findings of blood chemistry; R31.0 Gross hematuria; N40.1 Benign prostatic hyperplasia with lower urinary tract symptoms; C91.10 Chronic lymphocytic leukemia of B-cell type not having achieved remission; Z86.718 Personal history of other venous thrombosis and embolism; I48.0 Paroxysmal atrial fibrillation; Z86.14 Personal history of Methicillin resistant Staphylococcus aureus infection; Z88.6 Allergy status to analgesic agent; N28.1 Cyst of kidney, acquired; Z87.891 Personal history of nicotine dependence; N17.9 Acute kidney failure, unspecified; Z91.041 Radiographic dye allergy status; E03.9 Hypothyroidism, unspecified; Z79.899 Other long term (current) drug therapy; R33.8 Other retention of urine; T37.0X5A Adverse effect of sulfonamides, initial encounter; Z91.02 Food additives allergy status; N32.0 Bladder-neck obstruction

== ENCOUNTER 2021-09-09 17:30 | Inpatient (IN) ==
[2021-09-09] MEDS ORDERED: ACETAMINOPHEN 500 MG TAB PO STA (18:09)
--- NOTE | 2021-09-09 18:15 | Emergency Department Note ---
History of Present Illness General Chief complaint: Illness Stated complaint: SOB, Fever, diarrhea Time Seen by Provider: 09/09/21 18:03 Source: patient History of Present Illness Provider complaint: Shortness of breath Onset (ago): day(s) Location: chest Severity: moderate Pain Consistency: + constant Quality: + other (Short of breath) Relieved By: + none Associated symptoms: + cough, + fever/chills, + malaise and + shortness of breath; no chest pain or no nausea/vomiting This is a 81-year-old male with a history of COPD presenting with shortness of breath. He has had Covid-like symptoms for the past week including a cough, fevers, malaise and diarrhea. He states that his has COVID-19. He is not sure if he is vaccinated. He does use oxygen at home 2 L as needed. His home O2 saturation was 88% on room air. He denies having any chest pain. He does complain of loss of taste and smell. He denies any abdominal pain, vomiting or urinary symptoms. Home Medications Medication Instructions Recorded Confirmed Type apixaban 5 mg tablet 5 mg PO BID 08/08/18 09/09/21 History ergocalciferol (vitamin D2) 1,250 1 cap PO WK 08/08/18 09/09/21 History mcg (50,000 unit) capsule levothyroxine 50 mcg tablet 50 mcg PO Q OTHER DAY 08/08/18 09/09/21 History levothyroxine 75 mcg tablet 75 mcg PO Q OTHER DAY 08/08/18 09/09/21 History pantoprazole 40 mg tablet,delayed 40 mg PO QAM 08/08/18 09/09/21 History release furosemide 20 mg tablet (Lasix) 20 mg PO DAILY 05/12/19 09/09/21 History ferrous sulfate 325 mg (65 mg 325 mg PO DAILY 08/11/19 09/09/21 History iron) tablet potassium chloride 8 mEq 8 meq PO DAILY 08/11/19 09/09/21 History tablet,extended release (Klor-Con) rosuvastatin 10 mg tablet 10 mg PO HS 03/14/20 09/09/21 History trazodone 100 mg tablet 100 mg PO HS 03/14/20 09/09/21 History finasteride 5 mg tablet 5 mg PO DAILY #90 tab 08/10/20 09/09/21 Rx tamsulosin 0.4 mg capsule 0.4 mg PO BID #60 cap 08/10/20 09/09/21 Rx lorazepam 0.5 mg tablet 0.5 mg PO UD PRN 09/09/21 09/09/21 History morphine 15 mg tablet,extended 15 mg PO Q8 PRN 09/09/21 09/09/21 History release svaqdyifoyej-bosasefb-hzbbpa 1 tab PO DAILY 09/09/21 09/09/21 History tablet (Cerovite Senior) quetiapine 25 mg tablet 25 mg PO BID 09/09/21 09/09/21 History sertraline 50 mg tablet 50 mg PO UD 09/09/21 09/09/21 History Allergies Allergy/AdvReac Type Severity Reaction Status Date / Time ibuprofen Allergy Severe Hives Verified 09/09/21 19:47 Iodinated Contrast Media Allergy Intermediate HIVES Verified 09/09/21 19:47 caffeine AdvReac Severe Rash Verified 09/09/21 19:47 chocolate flavor AdvReac Unknown Verified 09/09/21 19:47 Past Med/Surg History Medical History (Updated 09/09/21 @ 21:17 by Johnathan Spain MD) Aortic insufficiency BPH (benign prostatic hypertrophy) Chronic atrial fibrillation Chronic diastolic CHF (congestive heart failure) CLL (chronic lymphocytic leukemia) History of DVT of lower extremity History of seizure "post-traumatic" Hypothyroidism MRSA (methicillin resistant Staphylococcus aureus) Renal calculus Renal cyst, acquired, left "mildly complex per CT 10/03/17 and MRI 10/04/17" Traumatic brain injury Traumatic open wound of right lower leg Surgical History Status post cholecystectomy Family History Mother Cancer Social History Smoking Status: Never smoker Second Hand Exposure: No; Hx Alcohol Use: No Hx Substance Use: No Preferred Language: Lithuanian Communication Ability: Effective Heating And Cooling Technician Required: No Beliefs That Will Affect Care: None marital status: Current Living Situation: Spouse Feels Safe at Home: Yes Assistive Devices: Walker Review of Systems See HPI for pertinent positives & negatives. and A total of 10 systems reviewed and were otherwise negative Physical Exam Vital Signs Vital Signs - 24 hr 09/09/21 17:43 09/09/21 18:57 09/09/21 20:45 Temperature 39.1 C H Temperature Source Oral Pulse Rate 94 H Pulse Rate [Apical] 75 Pulse Rhythm Regular Pulse Strength Normal Respiratory Rate 20 20 Respiratory Effort / Characteristics Non-Labored Spontaneous Respiratory Depth Normal Blood Pressure 117/66 Blood Pressure [Right Arm] 139/62 Blood Pressure Mean 83 Blood Pressure Mean [Right Arm] 87 Blood Pressure Position Sitting Pulse Oximetry 92 86 L 93 Oxygen Delivery Method Room Air Room Air Nasal Cannula Nasal Cannula Oxygen Flow Rate 0 2.5 Sepsis Recent Fever Within 48 Hours Yes Sepsis New/Unexplained Change in Mental Status No Sepsis Action Taken by Nursing No Action Required Oxygen Flow Rate - Titration 4 Pulse Oximetry Post Tiitration 95 Constitutional: Vital signs reviewed. Eyes: Pupils are equal round reactive to light. Conjunctiva are noninjected. ENT: Pharynx is clear without erythema or exudate. Mucous membranes are moist. Neck supple without meningeal signs. Respiratory: Clear to auscultation bilaterally. Breath sounds are equal bilaterally. No wheezing. Cardiovascular: Regular rate and rhythm. No rubs or gallops. GI: Soft, nondistended and nontender. Bowel sounds are present. Musculoskeletal: Bilateral lower extremity edema. No lower extremity tenderness. Integumentary: No cyanosis. or jaundice. Neurological: The patient is awake and alert. Somewhat slow to answer questions. No focal deficits. Psychiatric: Normal affect. Not anxious appearing. Course Administered Medications Discontinued Medications Acetaminophen (Acetaminophen 500 Mg Tab) 1,000 mg PO ONE STA Stop: 09/09/21 18:10 Last Admin: 09/09/21 18:30 Dose: 1,000 mg Documented by: [id number] Dexamethasone Sodium Phosphate (DexamethasonePf 10 Mg/Ml Vial) 6 mg IV NOW ONE Stop: 09/09/21 19:50 Last Admin: 09/09/21 20:20 Dose: 6 mg Documented by: [id number] Critical Care Time Critical Care Time: Yes Total Critical Care Time: 35 I have personally spent approximately 35 minutes of critical care time in the direct management of this patient. This includes bedside care, interpretation of diagnostic studies, and testing, discussion with consultants, patient, and family members, and other required patient management activities. These minutes are in excess of all separately billable procedures. Medical Decision Making Differential Diagnosis COVID-19, pneumonia, COPD exacerbation, pleural effusion, hypoxemia Medical Records Attestation: I reviewed the patient's medical records. I did perform a limited focused review of portions of the patient's old chart on the electronic medical record. The patient has had no recent pertinent visits to this hospital. Home Medications Current Medication List: was personally reviewed by me Laboratory Data Attestation: I reviewed the patient's lab results. Result diagrams: 09/09/21 18:25 09/09/21 18:25 Lab Results 09/09/21 09/09/21 09/09/21 Range/Units 18:25 18:25 18:25 WBC 28.39 H (4.8-10.8) K/uL RBC 4.55 L (4.7-6.1) M/uL Hgb 14.4 (14.0-18.0) g/dL Hct 43.4 (42-52) % MCV 95.4 (80-100) fL MCH 31.6 (25-34) pg MCHC 33.2 (32-36) g/dL RDW Std Deviation 49.7 H (36.4-46.3) fL RDW Coeff of Chay 14.3 (11.5-14.5) % Plt Count 101 L (130-400) K/uL MPV 11.8 H (7.4-10.4) fL Immature Gran % (Auto) 0.2 % Neut % (Auto) 21.7 % Lymph % (Auto) 72.0 % Louisa % (Auto) 6.0 % Eos % (Auto) 0.0 % Baso % (Auto) 0.1 % Neut # (Auto) 6.14 (1.4-6.5) K/uL Lymph # (Auto) 20.45 H (1.2-3.4) K/uL Louisa # (Auto) 1.70 H (0.11-0.59) K/uL Eos # (Auto) 0.00 (0-0.5) K/uL Baso # (Auto) 0.03 (0-0.2) K/uL Immature Gran # (Auto) 0.07 H (0.00-0.02) K/uL Smudge Cells Present Sodium 139 (136-145) mmol/L Potassium 4.2 (3.5-5.1) mmol/L Chloride 106 (98-107) mmol/L Carbon Dioxide 27 (21-32) mmol/L Anion Gap 6.0 (3-11) BUN 31 H (7-18) mg/dl Creatinine 1.57 H (0.6-1.4) mg/dl Est Cr Clr Drug Dosing 40.3 ml/min Est GFR ( Amer) 47.9 ml/min Est GFR (Non-Af Amer) 41.3 ml/min BUN/Creatinine Ratio 20.0 (10-20) Glucose 110 H (70-99) mg/dl Lactate 1.5 (0.4-2.0) mmol/L Calcium 9.0 (8.5-10.1) mg/dl Total Bilirubin 0.6 (0.2-1) mg/dl AST 24 (15-37) U/L ALT 17 (12-78) U/L Alkaline Phosphatase 77 (45-117) U/L Troponin I < 0.015 (0-0.045) ng/ml C-Reactive Protein 13.20 H (0-0.29) mg/dl Total Protein 7.1 (6.4-8.2) gm/dl Albumin 3.5 (3.4-5.0) gm/dl Globulin 3.6 (2.5-4.0) gm/dl Albumin/Globulin Ratio 1.0 (0.9-2) COVID-19 Eval Order SARS-CoV-2 (PCR) (Negative) 09/09/21 09/09/21 Range/Units 18:25 18:25 WBC (4.8-10.8) K/uL RBC (4.7-6.1) M/uL Hgb (14.0-18.0) g/dL Hct (42-52) % MCV (80-100) fL MCH (25-34) pg MCHC (32-36) g/dL RDW Std Deviation (36.4-46.3) fL RDW Coeff of Chay (11.5-14.5) % Plt Count (130-400) K/uL MPV (7.4-10.4) fL Immature Gran % (Auto) % Neut % (Auto) % Lymph % (Auto) % Louisa % (Auto) % Eos % (Auto) % Baso % (Auto) % Neut # (Auto) (1.4-6.5) K/uL Lymph # (Auto) (1.2-3.4) K/uL Louisa # (Auto) (0.11-0.59) K/uL Eos # (Auto) (0-0.5) K/uL Baso # (Auto) (0-0.2) K/uL Immature Gran # (Auto) (0.00-0.02) K/uL Smudge Cells Sodium (136-145) mmol/L Potassium (3.5-5.1) mmol/L Chloride (98-107) mmol/L Carbon Dioxide (21-32) mmol/L Anion Gap (3-11) BUN (7-18) mg/dl Creatinine (0.6-1.4) mg/dl Est Cr Clr Drug Dosing ml/min Est GFR ( Amer) ml/min Est GFR (Non-Af Amer) ml/min BUN/Creatinine Ratio (10-20) Glucose (70-99) mg/dl Lactate (0.4-2.0) mmol/L Calcium (8.5-10.1) mg/dl Total Bilirubin (0.2-1) mg/dl AST (15-37) U/L ALT (12-78) U/L Alkaline Phosphatase (45-117) U/L Troponin I (0-0.045) ng/ml C-Reactive Protein (0-0.29) mg/dl Total Protein (6.4-8.2) gm/dl Albumin (3.4-5.0) gm/dl Globulin (2.5-4.0) gm/dl Albumin/Globulin Ratio (0.9-2) COVID-19 Eval Order Covid19 at [facility] SARS-CoV-2 (PCR) POSITIVE A* (Negative) Imaging Data Radiologist's Impression: Chest X-Ray 09/09/21 18:09 XR chest 1V portable CLINICAL HISTORY: Fever, cough and shortness of breath. COMPARISON STUDY: Chest radiograph August 11, 2019. FINDINGS: Lung volumes are normal. Patient is rotated. There is no pneumothorax or pleural effusion. Right midlung and left basilar airspace opacity is present. Cardiomegaly is noted. There is no evidence for pulmonary edema. IMPRESSION: Right midlung and left basilar airspace opacity suggestive of multifocal pneumonia. Radiographic follow-up to ensure resolution is recommended. ACT 112: Negative or not required by law. Electronically signed by: Rashid Pak M.D. 09/09/2021 6:57 PM ECG Data Attestation: I personally reviewed and interpreted this ECG as follows: Indication: + SOB/dyspnea Rate (beats per minute): 75 Rhythm: + normal sinus ECG [place]: + Left axis deviation ECG ST segments: no ST elevation ECG Findings: + Q waves and + PACs; no PVCs MDM Narrative I did evaluate the patient as noted above. Patient is presenting with symptoms consistent with COVID-19. His has COVID-19. He was placed in respiratory isolation. He is febrile here and was given Tylenol p.o. He was placed on 4 L of oxygen nasal cannula. He is not wheezing here and does not require bronchodilation. IV access was established. I did place an order for continuous cardiac monitoring. The monitor showed normal sinus rhythm at a rate of 92 bpm. I did order and personally review the patient's 12-lead EKG as described above. He has no acute ischemic changes. I did order and personally reviewed the images of the patient's chest x-ray as described above. He does have a multifocal pneumonia. Blood cultures were obtained. I did order and review the patient's blood work as noted in the electronic medical record. CBC demonstrates a white count of 28.39. He does have a history of CLL. Platelet count is slightly low at 101. Electrolytes are unremarkable. Creatinine is slightly elevated.BUN is 31. Creatinine is 1.57. He has had intermittent elevations of creatinine in the past. Troponin is negative. LFTs are unremarkable. CRP is 13.2. I did discuss the case with the hospitalist and senior case manager. He was given Decadron IV. Impression & Plan Hypoxemia, Multifocal pneumonia, COVID-19, Thrombocytopenia, CLL (chronic lymphocytic leukemia) Discharge Plan Visit Data Chief Complaint: Illness Stated Complaint: SOB, Fever, diarrhea ED Provider: Johnathan Spain Discharge Problem: Hypoxemia, Multifocal pneumonia, COVID-19, Thrombocytopenia, CLL (chronic lymphocytic leukemia) Patient Disposition: Being Evaluated by Hospitalist Forms Stand Alone Forms: My [facility] [place] [employer] Prescriptions Prescriptions: No Action finasteride 5 mg tablet 5 mg PO DAILY Qty: 90 RF: 3 tamsulosin 0.4 mg capsule 0.4 mg PO BID Qty: 60 RF: 11 furosemide [Lasix] 20 mg tablet 20 mg PO DAILY RF: 0 potassium chloride [Klor-Con 8] 8 mEq tablet extended release 8 meq PO DAILY RF: 0 ferrous sulfate 325 mg (65 mg iron) tablet 325 mg PO DAILY RF: 0 trazodone 100 mg tablet 100 mg PO HS RF: 0 rosuvastatin 10 mg tablet 10 mg PO HS RF: 0 pantoprazole 40 mg tablet,delayed release (DR/EC) 40 mg PO QAM RF: 0 apixaban 5 mg tablet 5 mg PO BID RF: 0 ergocalciferol (vitamin D2) 50,000 unit capsule 1 cap PO WK RF: 0 levothyroxine 75 mcg tablet 75 mcg PO Q OTHER DAY RF: 0 levothyroxine 50 mcg tablet 50 mcg PO Q OTHER DAY RF: 0 quetiapine 25 mg tablet 25 mg PO BID RF: 0 morphine 15 mg tablet extended release 15 mg PO Q8 PRN (Reason: Pain) RF: 0 lorazepam 0.5 mg tablet 0.5 mg PO UD PRN (Reason: Anxiety) RF: 0 Cerovite Senior Tablet 1 tab PO DAILY RF: 0 sertraline 50 mg tablet 50 mg PO UD RF: 0 Referrals Referrals: Khloe Ruiz PA-C [Primary Care Provider] -
[2021-09-09 18:47] LABS: Hematocrit (blood only) 43.4 % (42-52); Hemoglobin 14.4 g/dL (14.0-18.0); Mean Corpuscular Hemoglobin 31.6 pg (25-34); Mean Corpuscular Hgb Conc 33.2 g/dL (32-36); Mean Corpuscular Volume 95.4 fL (80-100); Mean Platelet Volume 11.8 fL (7.4-10.4); Platelet Count 101 K/uL (130-400); RDW Coefficient of Variation 14.3 % (11.5-14.5); RDW Standard Deviation 49.7 fL (36.4-46.3); Red Blood Count 4.55 M/uL (4.7-6.1); White Blood Count 28.39 K/uL (4.8-10.8)
--- NOTE | 2021-09-09 18:58 | XRay Report ---
XR chest 1V portable CLINICAL HISTORY: Fever, cough and shortness of breath. COMPARISON STUDY: Chest radiograph August 11, 2019. FINDINGS: Lung volumes are normal. Patient is rotated. There is no pneumothorax or pleural effusion. Right midlung and left basilar airspace opacity is present. Cardiomegaly is noted. There is no eviden ce for pulmonary edema. IMPRESSION: Right midlung and left basilar airspace opacity suggestive of multifocal pneumonia. Radi ographic follow-up to ensure resolution is recommended. ACT 112: Negative or not required by law. Electronically signed by: Rashid Pak M.D. 09/09/2021 6:57 PM
[2021-09-09 19:11] LABS: Alanine Aminotransferase 17 U/L (12-78); Albumin Level 3.5 gm/dl (3.4-5.0); Aspartate Aminotransferase 24 U/L (15-37); Blood Urea Nitrogen 31 mg/dl (7-18); Carbon Dioxide 27 mmol/L (21-32); Chloride 106 mmol/L (98-107); Creatinine Clr Calc Pharmacy 40.3 ml/min; Est GFR (African American) 47.9 ml/min; Est GFR (Non-African American) 41.3 ml/min; Glucose 110 mg/dl (70-99); Potassium 4.2 mmol/L (3.5-5.1); Sodium 139 mmol/L (136-145)
[2021-09-09 19:15] LABS: Alkaline Phosphatase 77 U/L (45-117); Bilirubin,Total 0.6 mg/dl (0.2-1); Globulin 3.6 gm/dl (2.5-4.0); Total Protein 7.1 gm/dl (6.4-8.2); Troponin I < 0.015 ng/ml (0-0.045)
[2021-09-09 19:46] LABS: Basophils # (auto) 0.03 K/uL (0-0.2); Basophils % (auto) 0.1 %; Immature Granulocytes # (auto) 0.07 K/uL (0.00-0.02); Immature Granulocytes % (auto) 0.2 %; Lymphocytes # (auto) 20.45 K/uL (1.2-3.4); Neutrophils # (auto) 6.14 K/uL (1.4-6.5); Neutrophils % (auto) 21.7 %; Smudge Cells Present
[2021-09-09] MEDS ORDERED: dexAMETHasone**PF** 10 MG/ML VIAL IV ONE (19:49)
--- NOTE | 2021-09-09 23:49 | History and Physical Report ---
DATE OF ADMISSION: 09/09/2021. CHIEF COMPLAINT: COVID pneumonia. HISTORY OF PRESENT ILLNESS: This 81-year-old male with past medical history significant for hypothyroidism, hyperlipidemia, interstitial lung disease, chronic diastolic CHF, paroxysmal atrial fibrillation, aortic insufficiency, coronary artery disease, GERD, chronic kidney disease stage III, BPH, history of traumatic brain injury, history of seizure disorder, stroke, CLL, iron deficiency anemia, history of DVT, tobacco abuse, history of MRSA, dementia, lives with his , was brought in because of fever and COVID symptoms. The patient has dementia and he is not able to give much history. As per the , patient is not vaccinated. had COVID positive on Sunday, she was quarantining, but he started developing sinu symptoms. thought his usual sinuses, but his fever of 102.5 with some cough and diarrhea, complaining of abdominal pain, so called PCP and was advised to come here .In the ER, he was 88 and requiring 4lt oxygen, so we called for admission. As per the , he eats okay, but his appetite is down for the last couple of days. His ambulation status has worsened. The patient currently says abdominal pain is improved. He denies any headache at this time. He denies any cough. He could tell his name, could tell his date of , but answers very slowly. I could not get much history from the patient. As per the , the patient also gets disoriented at home. His Parkinson's and dementia is stable, but he is sometimes does not remember and he could not repeat sentences. ALLERGIES: IBUPROFEN, IODINATED CONTRAST, CAFFEINE, CHOCOLATE FLAVOR. PAST MEDICAL HISTORY: As mentioned above. PAST SURGICAL HISTORY: Cholecystectomy. MEDICATIONS: The patient is on Eliquis 5 mg p.o. b.i.d., vitamin 1 capsule p.o. weekly, ferrous sulfate 325 mg p.o. daily, finasteride 5 mg p.o. daily, Lasix 20 mg p.o. daily, levothyroxine 75 mcg p.o. every other day and 50 mcg p.o. every other day, Ativan 0.5 mg p.r.n., morphine 15 mg p.o. t.i.d. p.r.n., multivitamins one tablet p.o. daily, Protonix 40 mg p.o. daily, Klor-Con 8 mEq p.o. daily, quetiapine 25 mg p.o. b.i.d., atorvastatin 10 mg p.o. at bedtime, Zoloft 50 mg as directed, Flomax 0.4 mg p.o. b.i.d., trazodone 100 mg p.o. at bedtime. FAMILY HISTORY: Significant for no family history on file. SOCIAL HISTORY: , former smoker. No alcohol use. No drug use. REVIEW OF SYSTEMS: Could not get complete review of systems as the patient has dementia and not answered multiple questions. PHYSICAL EXAMINATION: GENERAL: The patient is of moderate build, not in acute distress. VITAL SIGNS: Temperature 39.1, pulse 74, respiratory rate 20, blood pressure 113/62, oxygen 93% on 2.5 liters. HEENT: Pupils equal, round and reactive to light. Oral mucosa somewhat dry. NECK: No JVD, no neck masses. CARDIOVASCULAR: S1 and S2 heard. Regular rate and rhythm. No murmur, no gallop. RESPIRATORY SYSTEM: Normal AP diameter. No accessory muscle use. No wheezing, no crackles. ABDOMEN: Soft, bowel sounds present, nontender, no distention. CENTRAL NERVOUS SYSTEM: Chronic skin changes seen. No edema seen. LABORATORY DATA: WBC 28.3, hemoglobin 14.4, hematocrit 43.4, platelets 101. Sodium 139, potassium 4.2, chloride 106, bicarb 27, BUN 31, creatinine 1.5, serum glucose 110. Lactate 1.4, calcium 9, total bilirubin 0.6, AST 24, ALT 27, alkaline phosphatase 77. Troponin I less than 0.015. C-reactive protein 13.2 SARS-CoV-2 PCR positive. IMAGING DATA: Chest x-ray, right mid lung and left lung air space opacity suggestive of multifocal pneumonia. EKG: Sinus rhythm with the premature supraventricular complexes, rate of 75. ASSESSMENT AND PLAN: This is a 81-year-old male, presents with COVID symptoms and found to have COVID pneumonia and hypoxia. 1. COVID pneumonia, hypoxia requiring oxygen. Not vaccinated. Meets criteria for remdesivir and steroids, which will be started. Follow remdesivir labs. Closely monitor in the med tele. 2. Parkinson's and dementia. We will monitor for any delirium. 3. Chronic pain. Continue his home pain medication p.r.n. 4. Hyperlipidemia. Continue statin. 5. Benign prostatic hypertrophy. Continue finasteride and Flomax. Monitor for any urinary retention. 6. Hypothyroidism. Continue Synthroid. 7. History of paroxysmal atrial fibrillation and also history of deep venous thrombosis, on Eliquis. The patient is not on any rate control medications. 8. Acute kidney injury and chronic kidney disease stage III, baseline creatinine of 1.5. Getting gentle fluids. We will follow the labs in a.m. 9. History of gastroesophageal reflux disease. Continue Protonix. 10. History of interstitial lung disease, 11. history of chronic lymphocytic leukemia. Follow up with Heme/Onc after discharge. 12. History of MRSA infection. 13. Iron deficiency anemia, On iron supplements 14. History of coronary artery disease: On statin and Eliquis. 15. Deep venous thrombosis prophylaxis: On Eliquis. DISPOSITION: We will closely monitor in the med tele. PT/OT prior to discharge. Social service to help with discharge planning. CODE STATUS: DNR/DNI as per my discussion with . Job ID: [id number] [facility]
[2021-09-10] MEDS ORDERED: SODIUM CHLORIDE 0.9% 1000ML 1,000 ML IV SCH (00:45)
[2021-09-10] MEDS ORDERED: NITROGLYCERIN SL 0.4 MG/TAB TAB SL PRN (00:45)
[2021-09-10] MEDS ORDERED: LORazepam 0.5 MG TAB PO PRN (00:45)
[2021-09-10] MEDS ORDERED: REMDESIVIR 200 MG in SODIUM CHLORIDE 0.9% 210 ML IV SCH (01:30)
[2021-09-10] MEDS: SODIUM CHLORIDE 0.9% 10ML FLUSH IV SCH ×2 (03:40→23:34)
[2021-09-10] MEDS ORDERED: MoRPHine SULFATE IR 15 MG TAB (IMMEDIATE RELEASE) PO PRN (04:15)
[2021-09-10] MEDS: LEVOTHYROXINE SODIUM 75 MCG TABLET PO SCH (06:25)
[2021-09-10 07:08] LABS: Albumin Level 2.8 gm/dl (3.4-5.0); Bilirubin Direct 0.1 mg/dl (0-0.2); Bilirubin,Total 0.5 mg/dl (0.2-1)
[2021-09-10] MEDS: FERROUS SULFATE 325 MG TAB PO SCH (07:51)
[2021-09-10] MEDS: QUEtiapine FUMARATE 25 MG TABLET PO SCH ×2 (07:51→21:27)
[2021-09-10] MEDS: FINASTERIDE 5 MG TAB PO SCH (07:51)
[2021-09-10] MEDS: FUROSEMIDE 20 MG TAB PO SCH (07:52)
[2021-09-10] MEDS: dexAMETHasone 6 MG in SYRINGE 0 ML IV SCH (07:52)
[2021-09-10] MEDS: POTASSIUM CHLORIDE 10 MEQ TABCR PO SCH (07:52)
[2021-09-10] MEDS: APIXABAN 5 MG TABLET PO SCH ×2 (07:52→21:28)
[2021-09-10] MEDS: PANTOprazole 40 MG TAB PO SCH (07:52)
[2021-09-10] MEDS: CEROVITE ADV FORMULA TAB PO SCH (07:52)
[2021-09-10] MEDS: TAMSULOSIN HCL 0.4 MG CAP PO SCH ×2 (07:52→21:28)
--- NOTE | 2021-09-10 13:42 | Electrocardiogram Report ---
Test Reason : Blood Pressure : / mmHG Vent. Rate : 075 BPM Atrial Rate : 075 BPM P-R Int : 190 ms QRS Dur : 080 ms QT Int : 382 ms P-R-T Axes : 073 -38 039 degrees QTc Int : 426 ms Poor data quality, interpretation may be adversely affected Sinus rhythm with Premature supraventricular complexes Left axis deviation Inferior infarct (cited on or before 14-MAY-2019) Abnormal ECG When compared with ECG of 14-MAR-2020 09:58, Premature supraventricular complexes are now Present Confirmed by Emeka Baxter ([id number]) on 09/10/2021 1:42:26 PM Referred By: REFERRED SELF Confirmed By:Emeka Baxter
--- NOTE | 2021-09-10 14:44 | Hospitalist Progress Note ---
Date of Service September 10, 2021 Assessment & Plan (1) Multifocal pneumonia: Plan: Secondary to COVID-19 infection CRP elevated to 13.20 Has been on dexamethasone and remdesivir Has been requiring 2-3 L of oxygen to maintain saturation (2) COVID-19: Plan: Not vaccinated against COVID-19 As above (3) Hypoxemia: Plan: Respiratory failure with hypoxemia secondary to COVID-19 infection (4) CLL (chronic lymphocytic leukemia): Plan: White cell count is 28.39 Seems stable (5) Paroxysmal atrial fibrillation: Plan: Rate is controlled and has been on Eliquis (6) Chronic diastolic CHF (congestive heart failure): Plan: No evidence of fluid overload Will give Lasix as tolerated to keep 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 on the strategic 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 (7) Hypothyroidism: Plan: Continue supplement Plan: DVT prophylaxis On Eliquis CODE STATUS DNR/DNI Prognosis remains poor Admission and Anticipated Discharge Date Admission Date: September 09, 2021 Subjective 09/10/2021 The patient was seen and examined in telemetry unit and in the Covva room He has been feeling worse since admission Has moderate shortness of breath Denies any chest pain and/or palpitation Review of Systems Review of Systems: All systems reviewed and are unremarkable except as noted below Respiratory: Moderate shortness of breath at rest Physical Exam Physical Exam: Lying in bed with acute distress due to shortness of breath Constitutional: + acute distress, + ill appearing and average body habitus Eyes: PERRL, conjunctivae normal, anicteric sclerae ENMT: external ear and nose normal, oropharynx normal Neck: trachea midline, no thyromegaly Respiratory: + respiratory distress, + labored breathing, + uses accessory muscles and + cough Auscultation: + diminished lung sounds and + crackles (At the bases) Cardiovascular: Rate/Rhythm: regular rate and regular rhythm; not tachycardic Heart Sounds: normal S1, normal S2 and + murmur (2/6 ESM over precordium) Gastrointestinal (Abdomen): Inspection/Auscultation: normal bowel sounds; abdomen not distended Percussion/Palpation: abdomen soft; abdomen nontender Musculoskeletal: No acute arthritis in any joint Neurologic: Alert, awake. Pleasantly confused. generally weak and lethargic Results & Data Results & Data ([facility]) Vital Signs (Past 12 Hours) Vital Signs Temp Pulse Pulse Resp BP BP Pulse Ox 09/10/21 11:43 34.9 C L 87 22 149/90 H 93 09/10/21 08:02 36.7 C 67 24 166/71 H 98 09/10/21 03:43 36.3 C L 59 L 18 139/83 97 Laboratory Results Short CBC 09/09/21 Range/Units 18:25 WBC 28.39 H (4.8-10.8) K/uL Hgb 14.4 (14.0-18.0) g/dL Hct 43.4 (42-52) % Plt Count 101 L (130-400) K/uL BMP 09/09/21 18:25 Sodium 139 Potassium 4.2 Chloride 106 Carbon Dioxide 27 BUN 31 H Creatinine 1.57 H Glucose 110 H Calcium 9.0 Cardiac Enzymes 09/09/21 Range/Units 18:25 Troponin I < 0.015 (0-0.045) ng/ml Liver Function 09/09/21 09/10/21 Range/Units 18:25 05:58 Total Bilirubin 0.6 0.5 (0.2-1) mg/dl Direct Bilirubin 0.1 (0-0.2) mg/dl AST 24 21 (15-37) U/L ALT 17 15 (12-78) U/L Alkaline Phosphatase 77 62 (45-117) U/L Albumin 3.5 2.8 L (3.4-5.0) gm/dl Medications Administered Current Inpatient Medications Acetaminophen (Acetaminophen 325 Mg Tab) 650 mg PO Q4H PRN PRN Reason: Pain or Fever Stop: 10/10/21 00:44 Apixaban (Apixaban 5 Mg Tablet) 5 mg PO BID NE Stop: 10/10/21 08:59 Last Admin: 09/10/21 07:52 Dose: 5 mg Documented by: Ergocalciferol (Ergocalciferol 50,000 Units 1250 Mcg Cap) 50,000 units PO Th@0900 [facility] Stop: 10/15/21 08:59 Ferrous Sulfate (Ferrous Sulfate 325 Mg Tab) 325 mg PO DAILY NE Stop: 10/10/21 08:59 Last Admin: 09/10/21 07:51 Dose: 325 mg Documented by: Finasteride (Finasteride 5 Mg Tab) 5 mg PO DAILY NE Stop: 10/10/21 08:59 Last Admin: 09/10/21 07:51 Dose: 5 mg Documented by: Furosemide (Furosemide 20 Mg Tab) 20 mg PO DAILY [facility] Stop: 10/10/21 08:59 Last Admin: 09/10/21 07:52 Dose: 20 mg Documented by: Remdesivir 100 mg/ Sodium (Chloride) 250 mls @ 250 mls/hr IV Q24H [facility]; Protocol Stop: 09/13/21 20:59 Dexamethasone 6 mg/ Syringe 1.5 mls @ 1 mls/min IV DAILY [facility] Stop: 09/20/21 08:59 Last Admin: 09/10/21 07:52 Dose: 1 mls/min Documented by: Levothyroxine Sodium (Levothyroxine Sodium 75 Mcg Tablet) 75 mcg PO Q2D@0630 [facility] Stop: 10/10/21 06:29 Last Admin: 09/10/21 06:25 Dose: 75 mcg Documented by: Levothyroxine Sodium (Levothyroxine Sodium 50 Mcg Tablet) 50 mcg PO Q2D@0630 [facility] Stop: 10/11/21 06:29 Lorazepam (Lorazepam 0.5 Mg Tab) 0.5 mg PO DAILY PRN PRN Reason: Anxiety Stop: 10/10/21 00:44 Morphine Sulfate (Morphine Sulfate Ir 15 Mg Tab (Immediate Release)) 15 mg PO Q8H PRN PRN Reason: Pain Stop: 09/24/21 04:14 Multivitamins/Minerals (Cerovite Adv Formula Tab) 1 tab PO DAILY [facility] Stop: 10/10/21 08:59 Last Admin: 09/10/21 07:52 Dose: 1 tab Documented by: Nitroglycerin (Nitroglycerin Sl 0.4 Mg/Tab Tab) 0.4 mg SL UD PRN PRN Reason: Chest Pain Stop: 10/10/21 00:44 Ondansetron HCl (Ondansetron Inj 2 Mg/Ml 2 Ml Vial) 4 mg IV Q6H PRN PRN Reason: Nausea Stop: 10/10/21 00:44 Pantoprazole Sodium (Pantoprazole 40 Mg Tab) 40 mg PO QAM [facility] Stop: 10/10/21 08:59 Last Admin: 09/10/21 07:52 Dose: 40 mg Documented by: Potassium Chloride (Potassium Chloride 10 Meq Tabcr) 10 meq PO DAILY [facility] Stop: 10/10/21 08:59 Last Admin: 09/10/21 07:52 Dose: 10 meq Documented by: Quetiapine Fumarate (Quetiapine Fumarate 25 Mg Tablet) 25 mg PO BID NE Stop: 10/10/21 08:59 Last Admin: 09/10/21 07:51 Dose: 25 mg Documented by: Rosuvastatin Calcium (Rosuvastatin Calcium 10 Mg Tab) 10 mg PO HS NE Stop: 10/10/21 20:59 Sodium Chloride (Sodium Chloride 0.9% 10ml Flush) 30 ml IV Q24H NE Stop: 09/14/21 00:46 Last Admin: 09/10/21 03:40 Dose: 30 ml Documented by: Tamsulosin HCl (Tamsulosin Hcl 0.4 Mg Cap) 0.4 mg PO BID NE Stop: 10/10/21 08:59 Last Admin: 09/10/21 07:52 Dose: 0.4 mg Documented by:
[2021-09-10] MEDS: ACETAMINOPHEN 325 MG TAB PO PRN ×2 (16:09→21:26)
[2021-09-10] MEDS: REMDESIVIR 100 MG in SODIUM CHLORIDE 0.9% 230 ML IV SCH (21:26)
[2021-09-10] MEDS: ROSUVASTATIN CALCIUM 10 MG TAB PO SCH (21:27)
[2021-09-11] MEDS ORDERED: diphenhydrAMINE 50 MG/ML VIAL ONE (01:31)
[2021-09-11] MEDS ORDERED: ACETAMINOPHEN 1000 MG/100 ML IV IV PRN (04:57)
[2021-09-11] MEDS: ONDANSETRON INJ 2 MG/ML 2 ML VIAL IV PRN (05:03)
[2021-09-11] MEDS: LEVOTHYROXINE SODIUM 50 MCG TABLET PO SCH (05:04)
[2021-09-11] MEDS: ACETAMINOPHEN 325 MG TAB PO PRN ×2 (06:06→20:35)
[2021-09-11] MEDS: dexAMETHasone 6 MG in SYRINGE 0 ML IV SCH (07:46)
[2021-09-11] MEDS: FERROUS SULFATE 325 MG TAB PO SCH (07:46)
[2021-09-11] MEDS: FINASTERIDE 5 MG TAB PO SCH (07:46)
[2021-09-11] MEDS: CEROVITE ADV FORMULA TAB PO SCH (07:47)
[2021-09-11] MEDS: POTASSIUM CHLORIDE 10 MEQ TABCR PO SCH (07:47)
[2021-09-11] MEDS: PANTOprazole 40 MG TAB PO SCH (07:47)
[2021-09-11] MEDS: FUROSEMIDE 20 MG TAB PO SCH (07:47)
[2021-09-11] MEDS: TAMSULOSIN HCL 0.4 MG CAP PO SCH ×2 (07:48→20:36)
[2021-09-11] MEDS: QUEtiapine FUMARATE 25 MG TABLET PO SCH ×2 (07:48→20:36)
[2021-09-11 07:51] LABS: BUN Creatinine Ratio 28.1 (10-20); Calcium 8.1 mg/dl (8.5-10.1); Creatinine Clr Calc Pharmacy 50.6 ml/min; Est GFR (African American) 67.6 ml/min; Est GFR (Non-African American) 58.3 ml/min; Magnesium 2.2 mg/dl (1.8-2.4); Phosphorus 2.2 mg/dl (2.5-4.9); Potassium 3.7 mmol/L (3.5-5.1)
[2021-09-11] MEDS: APIXABAN 5 MG TABLET PO SCH ×2 (07:59→20:36)
[2021-09-11] MEDS ORDERED: POTASSIUM PHOS 3 MMOL/1 ML INFUSION IV STA (16:00)
--- NOTE | 2021-09-11 16:00 | Hospitalist Progress Note ---
Date of Service September 11, 2021 Assessment & Plan (1) Multifocal pneumonia: Plan: Secondary to COVID-19 infection CRP elevated to 13.20 Has been on dexamethasone and remdesivir Has been requiring 2-3 L of oxygen to maintain saturation Clinically not any better and requiring 4 L of oxygen to maintain saturation We will continue current management Hypophosphatemia Supplemented (2) COVID-19: Plan: Not vaccinated against COVID-19 As above (3) Hypoxemia: Plan: Respiratory failure with hypoxemia secondary to COVID-19 infection (4) CLL (chronic lymphocytic leukemia): Plan: White cell count is 28.39 Seems stable (5) Paroxysmal atrial fibrillation: Plan: Rate is controlled and has been on Eliquis (6) Chronic diastolic CHF (congestive heart failure): Plan: No evidence of fluid overload Will give Lasix as tolerated to keep him on the drier helper side No symptoms of fluid overload (7) Hypothyroidism: Plan: Continue supplement Plan: DVT prophylaxis On Eliquis CODE STATUS DNR/DNI Prognosis remains poor Discussed with the family member Admission and Anticipated Discharge Date Admission Date: September 09, 2021 Subjective 09/10/2021 The patient was seen and examined in telemetry unit and in the Covid room He has been feeling worse since admission Has moderate shortness of breath Denies any chest pain and/or palpitation 09/11/2021 The patient was seen and examined in telemetry unit and in the Covid room He has not been feeling any better Has cough and moderate shortness of breath at rest Review of Systems Review of Systems: All systems reviewed and are unremarkable except as noted below Respiratory: Moderate shortness of breath at rest Physical Exam Physical Exam: Lying in bed with acute distress due to shortness of breath Constitutional: + acute distress, + ill appearing and average body habitus Eyes: PERRL, conjunctivae normal, anicteric sclerae ENMT: external ear and nose normal, oropharynx normal Neck: trachea midline, no thyromegaly Respiratory: + respiratory distress, + labored breathing, + uses accessory muscles and + cough Auscultation: + diminished lung sounds and + crackles (At the bases) Cardiovascular: Rate/Rhythm: regular rate and regular rhythm; not tachycardic Heart Sounds: normal S1, normal S2 and + murmur (2/6 ESM over precordium) Gastrointestinal (Abdomen): Inspection/Auscultation: normal bowel sounds; abdomen not distended Percussion/Palpation: abdomen soft; abdomen nontender Musculoskeletal: No acute arthritis in any joint Neurologic: Alert and awake, pleasantly confused. Generally very weak and lethargic Results & Data Results & Data ([facility]) Vital Signs (Past 12 Hours) Vital Signs Temp Pulse Pulse Resp BP Pulse Ox 09/11/21 08:00 38.6 C H 85 66 28 H 102/65 92 09/11/21 04:43 38.9 C H 69 18 112/43 L 93 Laboratory Results [facility] 09/11/21 06:57 Sodium 139 Potassium 3.7 Chloride 108 H Carbon Dioxide 23 BUN 33 H Creatinine 1.18 D Glucose 115 H Calcium 8.1 L Liver Function 09/11/21 Range/Units 06:57 AST 26 (15-37) U/L ALT 18 (12-78) U/L Medications Administered Current Inpatient Medications Acetaminophen (Acetaminophen 325 Mg Tab) 650 mg PO Q4H PRN PRN Reason: Pain or Fever Stop: 10/10/21 00:44 Last Admin: 09/11/21 06:06 Dose: 650 mg Documented by: Acetaminophen (Acetaminophen 1000 Mg/100 Ml Iv) 1,000 mg IV TID PRN PRN Reason: Pain or Fever Stop: 09/14/21 04:56 Apixaban (Apixaban 5 Mg Tablet) 5 mg PO BID [facility] Stop: 10/10/21 08:59 Last Admin: 09/11/21 07:59 Dose: Not Given Documented by: Ergocalciferol (Ergocalciferol 50,000 Units 1250 Mcg Cap) 50,000 units PO Th@0900 [facility] Stop: 10/15/21 08:59 Ferrous Sulfate (Ferrous Sulfate 325 Mg Tab) 325 mg PO DAILY NE Stop: 10/10/21 08:59 Last Admin: 09/11/21 07:46 Dose: 325 mg Documented by: Finasteride (Finasteride 5 Mg Tab) 5 mg PO DAILY [facility] Stop: 10/10/21 08:59 Last Admin: 09/11/21 07:46 Dose: 5 mg Documented by: Furosemide (Furosemide 20 Mg Tab) 20 mg PO DAILY NE Stop: 10/10/21 08:59 Last Admin: 09/11/21 07:47 Dose: 20 mg Documented by: Remdesivir 100 mg/ Sodium (Chloride) 250 mls @ 250 mls/hr IV Q24H NE; Protocol Stop: 09/13/21 20:59 Last Infusion: 09/10/21 23:00 Dose: Infused Documented by: Dexamethasone 6 mg/ Syringe 1.5 mls @ 1 mls/min IV DAILY NE Stop: 09/20/21 08:59 Last Admin: 09/11/21 07:46 Dose: 1 mls/min Documented by: Levothyroxine Sodium (Levothyroxine Sodium 75 Mcg Tablet) 75 mcg PO Q2D@0630 NE Stop: 10/10/21 06:29 Last Admin: 09/10/21 06:25 Dose: 75 mcg Documented by: Levothyroxine Sodium (Levothyroxine Sodium 50 Mcg Tablet) 50 mcg PO Q2D@0630 [facility] Stop: 10/11/21 06:29 Last Admin: 09/11/21 05:04 Dose: 50 mcg Documented by: Lorazepam (Lorazepam 0.5 Mg Tab) 0.5 mg PO DAILY PRN PRN Reason: Anxiety Stop: 10/10/21 00:44 Morphine Sulfate (Morphine Sulfate Ir 15 Mg Tab (Immediate Release)) 15 mg PO Q8H PRN PRN Reason: Pain Stop: 09/24/21 04:14 Multivitamins/Minerals (Cerovite Adv Formula Tab) 1 tab PO DAILY [facility] Stop: 10/10/21 08:59 Last Admin: 09/11/21 07:47 Dose: 1 tab Documented by: Nitroglycerin (Nitroglycerin Sl 0.4 Mg/Tab Tab) 0.4 mg SL UD PRN PRN Reason: Chest Pain Stop: 10/10/21 00:44 Ondansetron HCl (Ondansetron Inj 2 Mg/Ml 2 Ml Vial) 4 mg IV Q6H PRN PRN Reason: Nausea Stop: 10/10/21 00:44 Last Admin: 09/11/21 05:03 Dose: 4 mg Documented by: Pantoprazole Sodium (Pantoprazole 40 Mg Tab) 40 mg PO QAM [facility] Stop: 10/10/21 08:59 Last Admin: 09/11/21 07:47 Dose: 40 mg Documented by: Potassium Chloride (Potassium Chloride 10 Meq Tabcr) 10 meq PO DAILY [facility] Stop: 10/10/21 08:59 Last Admin: 09/11/21 07:47 Dose: 10 meq Documented by: Quetiapine Fumarate (Quetiapine Fumarate 25 Mg Tablet) 25 mg PO BID NE Stop: 10/10/21 08:59 Last Admin: 09/11/21 07:48 Dose: 25 mg Documented by: Rosuvastatin Calcium (Rosuvastatin Calcium 10 Mg Tab) 10 mg PO HS NE Stop: 10/10/21 20:59 Last Admin: 09/10/21 21:27 Dose: 10 mg Documented by: Sodium Chloride (Sodium Chloride 0.9% 10ml Flush) 30 ml IV Q24H NE Stop: 09/14/21 00:46 Last Admin: 09/10/21 23:34 Dose: 30 ml Documented by: Tamsulosin HCl (Tamsulosin Hcl 0.4 Mg Cap) 0.4 mg PO BID NE Stop: 10/10/21 08:59 Last Admin: 09/11/21 07:48 Dose: 0.4 mg Documented by:
[2021-09-11] MEDS ORDERED: POTASSIUM PHOSPHATE 24 MMOL in SODIUM CHLORIDE 0.9% 500 ML IV ONE (16:15)
[2021-09-11] MEDS: REMDESIVIR 100 MG in SODIUM CHLORIDE 0.9% 230 ML IV SCH (20:35)
[2021-09-11] MEDS: ROSUVASTATIN CALCIUM 10 MG TAB PO SCH (20:36)
[2021-09-11] MEDS: SODIUM CHLORIDE 0.9% 10ML FLUSH IV SCH (22:00)
[2021-09-12] MEDS: LEVOTHYROXINE SODIUM 75 MCG TABLET PO SCH (06:08)
[2021-09-12 07:48] LABS: BUN Creatinine Ratio 25.9 (10-20); Calcium 8.2 mg/dl (8.5-10.1); Creatinine Clr Calc Pharmacy 56.3 ml/min; Est GFR (African American) 77.9 ml/min; Est GFR (Non-African American) 67.2 ml/min; Potassium 4.2 mmol/L (3.5-5.1)
[2021-09-12 07:49] LABS: Phosphorus 3.7 mg/dl (2.5-4.9)
[2021-09-12] MEDS: dexAMETHasone 6 MG in SYRINGE 0 ML IV SCH (08:13)
[2021-09-12] MEDS: TAMSULOSIN HCL 0.4 MG CAP PO SCH ×2 (08:15→20:18)
[2021-09-12] MEDS: FUROSEMIDE 20 MG TAB PO SCH (08:16)
[2021-09-12] MEDS: FERROUS SULFATE 325 MG TAB PO SCH (08:16)
[2021-09-12] MEDS: QUEtiapine FUMARATE 25 MG TABLET PO SCH ×2 (08:16→20:18)
[2021-09-12] MEDS: PANTOprazole 40 MG TAB PO SCH (08:16)
[2021-09-12] MEDS: POTASSIUM CHLORIDE 10 MEQ TABCR PO SCH (08:16)
[2021-09-12] MEDS: FINASTERIDE 5 MG TAB PO SCH (08:16)
[2021-09-12] MEDS: APIXABAN 5 MG TABLET PO SCH ×2 (08:16→20:18)
[2021-09-12] MEDS: CEROVITE ADV FORMULA TAB PO SCH (08:16)
[2021-09-12] MEDS ORDERED: FUROSEMIDE 20 MG in SYRINGE 0 ML IV ONE (15:47)
[2021-09-12] MEDS ORDERED: FUROSEMIDE 40 MG/4 ML VIAL IV ONE (16:00)
--- NOTE | 2021-09-12 17:09 | Hospitalist Progress Note ---
Date of Service September 12, 2021 Assessment & Plan (1) Multifocal pneumonia: Plan: Secondary to COVID-19 infection CXR:Right midlung and left basilar airspace opacity suggestive of multifocal pneumonia. Radiographic follow-up to ensure resolution is recommended. Continue Dexamethasone, Remdesivir as per Protocol Recheck inflammatory markers tomorrow Continue supplemental oxygen as needed Encourage to prone Continue nebs, Lasix as needed On Eliquis for anticoagulation Hypophosphatemia Replace electrolytes as needed Thrombocytopenia Monitor platelet count (2) COVID-19: Plan: Not vaccinated against COVID-19 As above (3) Hypoxemia: Plan: Respiratory failure with hypoxemia secondary to COVID-19 infection (4) CLL (chronic lymphocytic leukemia): Plan: Monitor CBC (5) Paroxysmal atrial fibrillation: Plan: On Eliquis (6) Chronic diastolic CHF (congestive heart failure): Plan: Continue home Lasix Monitor volume status (7) Hypothyroidism: Plan: Continue Levothyroxine Plan: DVT Px: On Eliquis CODE STATUS DNR/DNI Prognosis remains poor Admission and Anticipated Discharge Date Admission Date: September 09, 2021 Subjective Patient is seen and examined at bedside States having cough and shortness of breath Also reports having chest tightness Currently saturating 95% on 3 L supplemental oxygen Offers no other complaints Review of Systems Review of Systems: All systems reviewed & are unremarkable except as noted in Subjective Physical Exam Physical Exam: Physical Exam: Vitals signs as noted above General Appearance:Ill appearing, thin, no apparent distress Head: normocephalic, Atraumatic Eyes: normal inspection, EOMI Neck: supple, Trachea midline Respiratory/Chest: Decreased breath sounds, scattered wheezes/crackles Cardiovascular: S1, S2, + murmur Abdomen/GI:Soft, Non tender, Bowel sounds present Extremities/Musculoskeletal:normal inspection, Right leg chronic trauma Neurologic/Psych:AAOX3, grossly no focal neurological deficits Skin: normal color, warm Results & Data Results & Data ([facility]) Vital Signs (Past 12 Hours) Vital Signs Temp Pulse Pulse Resp BP Pulse Ox 09/12/21 15:25 37.7 C H 66 18 141/67 H 95 09/12/21 14:30 64 09/12/21 11:28 37.7 C H 64 14 116/68 94 09/12/21 08:11 37.4 C 67 20 116/62 95 09/12/21 07:00 63 Laboratory Results BMP 10/18/21 06:17 Sodium 143 Potassium 4.2 Chloride 111 H Carbon Dioxide 25 BUN 27 H Creatinine 1.05 Glucose 136 H Calcium 8.2 L Liver Function 09/12/21 Range/Units 06:17 AST 66 H (15-37) U/L ALT 52 (12-78) U/L
[2021-09-12] MEDS: ACETAMINOPHEN 325 MG TAB PO PRN (17:43)
[2021-09-12] MEDS: ALBUTEROL 0.083% NEBU SOLN 3 ML VIAL NEB SCH (20:07)
[2021-09-12] MEDS: REMDESIVIR 100 MG in SODIUM CHLORIDE 0.9% 230 ML IV SCH (20:13)
[2021-09-12] MEDS: ROSUVASTATIN CALCIUM 10 MG TAB PO SCH (20:18)
[2021-09-12] MEDS: SODIUM CHLORIDE 0.9% 10ML FLUSH IV SCH (23:06)
[2021-09-13] MEDS: LEVOTHYROXINE SODIUM 50 MCG TABLET PO SCH (05:52)
[2021-09-13 07:00] LABS: C Reactive Protein 8.04 mg/dl (0-0.29); Creatinine Clr Calc Pharmacy 57.4 ml/min; Est GFR (African American) 79.7 ml/min; Est GFR (Non-African American) 68.8 ml/min
[2021-09-13 07:12] LABS: Hematocrit (blood only) 40.3 % (42-52); Hemoglobin 13.5 g/dL (14.0-18.0); Mean Corpuscular Hemoglobin 31.3 pg (25-34); Mean Corpuscular Hgb Conc 33.5 g/dL (32-36); Mean Corpuscular Volume 93.5 fL (80-100); Mean Platelet Volume 12.2 fL (7.4-10.4); Platelet Count 107 K/uL (130-400); Platelet Estimate Decreased (Normal); RDW Coefficient of Variation 14.2 % (11.5-14.5); RDW Standard Deviation 48.3 fL (36.4-46.3); Red Blood Count 4.31 M/uL (4.7-6.1)
[2021-09-13] MEDS: ALBUTEROL 0.083% NEBU SOLN 3 ML VIAL NEB SCH ×4 (07:35→19:59)
[2021-09-13] MEDS: FINASTERIDE 5 MG TAB PO SCH (08:02)
[2021-09-13] MEDS: dexAMETHasone 6 MG in SYRINGE 0 ML IV SCH (08:02)
[2021-09-13] MEDS: ACETAMINOPHEN 325 MG TAB PO PRN (08:02)
[2021-09-13] MEDS: APIXABAN 5 MG TABLET PO SCH ×2 (08:03→20:51)
[2021-09-13] MEDS: POTASSIUM CHLORIDE 10 MEQ TABCR PO SCH (08:03)
[2021-09-13] MEDS: PANTOprazole 40 MG TAB PO SCH (08:03)
[2021-09-13] MEDS: QUEtiapine FUMARATE 25 MG TABLET PO SCH ×2 (08:03→20:50)
[2021-09-13] MEDS: TAMSULOSIN HCL 0.4 MG CAP PO SCH ×2 (08:03→20:50)
[2021-09-13] MEDS: CEROVITE ADV FORMULA TAB PO SCH (08:03)
[2021-09-13] MEDS: FERROUS SULFATE 325 MG TAB PO SCH (08:03)
[2021-09-13] MEDS: FUROSEMIDE 20 MG TAB PO SCH (08:03)
--- NOTE | 2021-09-13 17:29 | Hospitalist Progress Note ---
Date of Service September 13, 2021 Assessment & Plan (1) Multifocal pneumonia: Plan: Secondary to COVID-19 infection CXR:Right midlung and left basilar airspace opacity suggestive of multifocal pneumonia. Radiographic follow-up to ensure resolution is recommended. Continue Dexamethasone, Remdesivir as per Protocol Continue supplemental oxygen as needed Continue nebs, Lasix as needed On Eliquis for anticoagulation Saturating low 90s on 2 L supplemental oxygen Encourage to prone as able Leukocytosis trending down Febrile this morning Gallstone within normal limits CRP trending down Continue current management Hypophosphatemia Replace electrolytes as needed Thrombocytopenia Monitor platelet count (2) COVID-19: Plan: Not vaccinated against COVID-19 As above (3) Hypoxemia: Plan: Respiratory failure with hypoxemia secondary to COVID-19 infection (4) CLL (chronic lymphocytic leukemia): Plan: Monitor CBC (5) Paroxysmal atrial fibrillation: Plan: On Eliquis (6) Chronic diastolic CHF (congestive heart failure): Plan: Continue home Lasix Monitor volume status (7) Hypothyroidism: Plan: Continue Levothyroxine Plan: DVT Px: On Eliquis CODE STATUS DNR/DNI Prognosis remains poor Admission and Anticipated Discharge Date Admission Date: September 09, 2021 Subjective Patient is seen and examined at bedside States feeling congested Less cough today Denies any significant dyspnea Poor historian Saturating low 90s on 2 L supplemental oxygen Offers no other complaints Review of Systems Review of Systems: All systems reviewed & are unremarkable except as noted in Subjective Physical Exam Physical Exam: Physical Exam: Vitals signs as noted above General Appearance:Ill appearing, thin, no apparent distress Head: normocephalic, Atraumatic Eyes: normal inspection, EOMI Neck: supple, Trachea midline Respiratory/Chest: Decreased breath sounds, scattered wheezes/crackles Cardiovascular: S1, S2, + murmur Abdomen/GI:Soft, Non tender, Bowel sounds present Extremities/Musculoskeletal:normal inspection, Right leg chronic trauma Neurologic/Psych:AAOX3, grossly no focal neurological deficits Skin: normal color, warm Results & Data Results & Data ([facility]) Vital Signs (Past 12 Hours) Vital Signs Temp Pulse Resp BP Pulse Ox 09/13/21 16:28 36.6 C 83 18 119/58 L 90 09/13/21 15:26 70 18 93 09/13/21 10:59 36.4 C L 75 19 129/76 92 09/13/21 10:40 63 18 92 09/13/21 07:35 70 18 91 09/13/21 07:09 38.8 C H 71 22 136/65 92 Laboratory Results Short CBC 09/13/21 Range/Units 05:42 WBC 24.30 H (4.8-10.8) K/uL Hgb 13.5 L (14.0-18.0) g/dL Hct 40.3 L (42-52) % Plt Count 107 L (130-400) K/uL BMP 09/13/21 05:42 Creatinine 1.03 Liver Function 09/13/21 Range/Units 05:42 AST 105 H (15-37) U/L ALT 108 H (12-78) U/L
[2021-09-13] MEDS: REMDESIVIR 100 MG in SODIUM CHLORIDE 0.9% 230 ML IV SCH (20:43)
[2021-09-13] MEDS: ROSUVASTATIN CALCIUM 10 MG TAB PO SCH (20:50)
[2021-09-14] MEDS: SODIUM CHLORIDE 0.9% 10ML FLUSH IV SCH (00:07)
[2021-09-14] MEDS: LEVOTHYROXINE SODIUM 75 MCG TABLET PO SCH (06:33)
[2021-09-14] MEDS: ALBUTEROL 0.083% NEBU SOLN 3 ML VIAL NEB SCH (07:40)
--- NOTE | 2021-09-14 08:07 | XRay Report ---
XR chest 1V portable CLINICAL HISTORY: Covid pneumonia TECHNIQUE: Single frontal radiograph of the chest was obtained. Comparison: Comparison is made to chest one view 09/09/2021 FINDINGS: No lines and tubes are seen. Cardiomegaly is noted. Redemonstration of tortuous aorta. Interval worse eduardo of multifocal airspace opacities most pronounced in the right upper lobe and left lower lobe. No evidence of pleural effusion or pneumothorax. IMPRESSION: Multifocal airspace opacities likely represent bilateral pneumonia with or without superimposed atele ctasis/aspiration. ACT 112: Negative or not required by law. Electronically signed by: Gee Matias M.D. 09/14/2021 8:06 AM
[2021-09-14] MEDS: dexAMETHasone 6 MG in SYRINGE 0 ML IV SCH (08:22)
[2021-09-14] MEDS: FERROUS SULFATE 325 MG TAB PO SCH (08:22)
[2021-09-14] MEDS: APIXABAN 5 MG TABLET PO SCH ×2 (08:22→20:32)
[2021-09-14] MEDS: FINASTERIDE 5 MG TAB PO SCH (08:23)
[2021-09-14] MEDS: FUROSEMIDE 20 MG TAB PO SCH (08:23)
[2021-09-14] MEDS: CEROVITE ADV FORMULA TAB PO SCH (08:24)
[2021-09-14] MEDS: TAMSULOSIN HCL 0.4 MG CAP PO SCH ×2 (08:24→20:32)
[2021-09-14] MEDS: PANTOprazole 40 MG TAB PO SCH (08:25)
[2021-09-14] MEDS: QUEtiapine FUMARATE 25 MG TABLET PO SCH ×2 (08:25→20:32)
[2021-09-14] MEDS: POTASSIUM CHLORIDE 10 MEQ TABCR PO SCH (08:25)
[2021-09-14 08:26] LABS: Calcium 8.7 mg/dl (8.5-10.1); Creatinine Clr Calc Pharmacy 58.6 ml/min; Est GFR (African American) 81.6 ml/min; Est GFR (Non-African American) 70.4 ml/min
[2021-09-14] MEDS ORDERED: ALBUTEROL 0.083% NEBU SOLN 3 ML VIAL NEB PRN (09:36)
[2021-09-14] MEDS: ACETAMINOPHEN 325 MG TAB PO PRN (12:39)
--- NOTE | 2021-09-14 14:01 | Hospitalist Progress Note ---
Date of Service September 14, 2021 Assessment & Plan (1) Multifocal pneumonia: Plan: Secondary to COVID-19 infection CXR:Right midlung and left basilar airspace opacity suggestive of multifocal pneumonia. Radiographic follow-up to ensure resolution is recommended. Continue Dexamethasone, Remdesivir as per Protocol Continue supplemental oxygen as needed Continue nebs, Lasix as needed On Eliquis for anticoagulation Patient remains on 5 L of nasal cannula. Fever curve is improving. Hemodynamically patient is doing okay. Most recent WBC down to 24 in the setting of steroids. CRP and procalcitonin is improved. Thrombocytopenia Monitor platelet count (2) COVID-19: Plan: Not vaccinated against COVID-19 As above (3) Hypoxemia: Plan: Respiratory failure with hypoxemia secondary to COVID-19 infection (4) CLL (chronic lymphocytic leukemia): Plan: Monitor CBC (5) Paroxysmal atrial fibrillation: Plan: On Eliquis (6) Chronic diastolic CHF (congestive heart failure): Plan: Continue home Lasix Monitor volume status (7) Hypothyroidism: Plan: Continue Levothyroxine Plan: DVT Px: On Eliquis CODE STATUS DNR/DNI Prognosis remains poor Admission and Anticipated Discharge Date Admission Date: September 09, 2021 Subjective Patient is resting comfortably. Remains pleasantly confused. Currently on 5 L of nasal cannula. Does endorse shortness of breath. Denies any cough. Rest of the review of system is negative. Review of Systems Review of Systems: All systems reviewed & are unremarkable except as noted in HPI & below Physical Exam Physical Exam: General: A&Ox3 HENT: NCAT, MMM, EOMI Eyes: PERRLA Neck: Supple, normal range of motion CVS: normal rate and rhythm Resp: b/l coarse breath sound Abdomen: Soft, nondistended nontender Extremities: No c/c/e Neuro: face symmetric, no focal deficit Skin: warm and dry, no rashes/lesions/errythema MSK: normal ROM, no joint swelling/erythema Results & Data Results & Data ([facility]) Vital Signs (Past 12 Hours) Vital Signs Temp Pulse Resp BP BP Pulse Ox 09/14/21 11:37 38.1 C H 81 19 128/65 95 09/14/21 07:41 74 18 90 09/14/21 07:19 37.2 C 75 19 141/68 H 92 09/14/21 03:28 36.9 C 70 19 141/70 H 91
[2021-09-14] MEDS: ROSUVASTATIN CALCIUM 10 MG TAB PO SCH (20:32)
[2021-09-15] MEDS: LEVOTHYROXINE SODIUM 50 MCG TABLET PO SCH (06:24)
[2021-09-15 08:03] LABS: Hematocrit (blood only) 44.4 % (42-52); Mean Corpuscular Hemoglobin 31.7 pg (25-34); Mean Corpuscular Hgb Conc 33.8 g/dL (32-36); Mean Corpuscular Volume 93.9 fL (80-100); Mean Platelet Volume 12.2 fL (7.4-10.4); Platelet Count 168 K/uL (130-400); Red Blood Count 4.73 M/uL (4.7-6.1); White Blood Count 30.22 K/uL (4.8-10.8)
[2021-09-15] MEDS: dexAMETHasone 6 MG in SYRINGE 0 ML IV SCH (08:24)
[2021-09-15] MEDS: APIXABAN 5 MG TABLET PO SCH ×2 (08:25→20:40)
[2021-09-15] MEDS: FINASTERIDE 5 MG TAB PO SCH (08:25)
[2021-09-15] MEDS: FERROUS SULFATE 325 MG TAB PO SCH (08:25)
[2021-09-15] MEDS: PANTOprazole 40 MG TAB PO SCH (08:25)
[2021-09-15] MEDS: POTASSIUM CHLORIDE 10 MEQ TABCR PO SCH (08:26)
[2021-09-15] MEDS: QUEtiapine FUMARATE 25 MG TABLET PO SCH ×2 (08:26→20:40)
[2021-09-15] MEDS: FUROSEMIDE 20 MG TAB PO SCH (08:26)
[2021-09-15] MEDS: CEROVITE ADV FORMULA TAB PO SCH (08:27)
[2021-09-15] MEDS: TAMSULOSIN HCL 0.4 MG CAP PO SCH ×2 (08:27→20:40)
[2021-09-15] MEDS: ACETAMINOPHEN 325 MG TAB PO PRN (08:46)
[2021-09-15] MEDS ORDERED: ERGOCALCIFEROL 50,000 UNITS 1250 MCG CAP PO SCH (09:00)
--- NOTE | 2021-09-15 13:39 | Hospitalist Progress Note ---
Date of Service September 15, 2021 Assessment & Plan (1) Multifocal pneumonia: Plan: Secondary to COVID-19 infection CXR:Right midlung and left basilar airspace opacity suggestive of multifocal pneumonia. Radiographic follow-up to ensure resolution is recommended. Completed remdesivir. We will continue with the Decadron for now. Continue supplemental oxygen as needed On Eliquis for anticoagulation Patient remains on 5 L of nasal cannula. Fever curve is improving. Hemodynamically patient is doing okay. WBC at 30.22 in the setting of CLL and steroids. CRP and procalcitonin is improved. Doing to work with PT/OT. Thrombocytopenia - resolved (2) COVID-19: Plan: Not vaccinated against COVID-19 As above (3) Hypoxemia: Plan: Respiratory failure with hypoxemia secondary to COVID-19 infection (4) CLL (chronic lymphocytic leukemia): Plan: Monitor CBC (5) Paroxysmal atrial fibrillation: Plan: On Eliquis (6) Chronic diastolic CHF (congestive heart failure): Plan: Continue home Lasix Monitor volume status (7) Hypothyroidism: Plan: Continue Levothyroxine Plan: DVT Px: On Eliquis CODE STATUS DNR/DNI Prognosis remains poor Admission and Anticipated Discharge Date Admission Date: September 09, 2021 Subjective Patient was not very interactive. Responded minimally. He does not appear to be in any distress. Currently remains on 5 L of nasal cannula. Could not obtain full review of system as patient did not respond back. Review of Systems Review of Systems: All systems reviewed & are unremarkable except as noted in HPI & below Physical Exam Physical Exam: General: Awake and alert HENT: NCAT, MMM, EOMI Eyes: PERRLA Neck: Supple, normal range of motion CVS: normal rate and rhythm Resp: b/l coarse breath sound Abdomen: Soft, nondistended nontender Extremities: No c/c/e Neuro: face symmetric, no focal deficit Skin: warm and dry, no rashes/lesions/errythema MSK: normal ROM, no joint swelling/erythema Results & Data Results & Data ([facility]) Vital Signs (Past 12 Hours) Vital Signs Temp Pulse Resp BP Pulse Ox 09/15/21 11:45 36.8 C 74 18 102/58 L 96 09/15/21 07:18 38.0 C H 96 H 20 161/67 H 92 09/15/21 03:20 37.5 C 92 H 20 143/66 H 92
[2021-09-15] MEDS: ROSUVASTATIN CALCIUM 10 MG TAB PO SCH (20:40)
[2021-09-16] MEDS: ACETAMINOPHEN 325 MG TAB PO PRN (04:01)
[2021-09-16 05:08] LABS: Hematocrit (blood only) 42.3 % (42-52); Hemoglobin 14.3 g/dL (14.0-18.0); Mean Corpuscular Hemoglobin 31.3 pg (25-34); Mean Corpuscular Hgb Conc 33.8 g/dL (32-36); Mean Corpuscular Volume 92.6 fL (80-100); Mean Platelet Volume 11.9 fL (7.4-10.4); Platelet Count 198 K/uL (130-400); RDW Coefficient of Variation 14.1 % (11.5-14.5); RDW Standard Deviation 47.7 fL (36.4-46.3); Red Blood Count 4.57 M/uL (4.7-6.1); White Blood Count 30.38 K/uL (4.8-10.8)
[2021-09-16 05:15] LABS: Albumin Level 2.9 gm/dl (3.4-5.0); BUN Creatinine Ratio 29.2 (10-20); Calcium 8.9 mg/dl (8.5-10.1); Creatinine Clr Calc Pharmacy 46.8 ml/min; Est GFR (African American) 63.1 ml/min; Est GFR (Non-African American) 54.4 ml/min; Magnesium 2.5 mg/dl (1.8-2.4); Potassium 3.9 mmol/L (3.5-5.1)
[2021-09-16 05:17] LABS: Albumin Globulin Ratio 0.7 (0.9-2); Bilirubin,Total 1.7 mg/dl (0.2-1); Globulin 3.9 gm/dl (2.5-4.0); Total Protein 6.8 gm/dl (6.4-8.2)
[2021-09-16] MEDS ORDERED: ALBUMIN 25% 12.5 GM/50 ML VIAL IV ONE (05:32)
[2021-09-16] MEDS: LEVOTHYROXINE SODIUM 75 MCG TABLET PO SCH (06:00)
[2021-09-16 06:35] LABS: ALC (manual) 23.88 K/uL (1.2-3.4); Lymphocytes # (manual) 23.88 K/uL (1.2-3.4); Lymphocytes % (manual) 78.6 %; Neutrophils % (manual) 21.4 %; Smudge Cells Present
[2021-09-16 07:01] LABS: Appearance Urine Clear (Clear); Bacteria Urine Automated Negative (Negative); Bilirubin Urine Negative (Negative); Blood Urine Negative (Negative); Color Urine Dark Yellow; Glucose Urine UA Negative (Negative); Ketones Urine Negative (Negative); Leukocyte Esterase Urine Negative (Negative); Nitrite Urine Negative (Negative); Protein Urine 1+ (Negative); Specific Gravity Urine 1.019 (1.000-1.030); Urobilinogen Urine Negative (Negative); pH Urine 5.5 (4.5-7.5)
[2021-09-16] MEDS: APIXABAN 5 MG TABLET PO SCH ×2 (08:53→20:46)
[2021-09-16] MEDS: FERROUS SULFATE 325 MG TAB PO SCH (08:53)
[2021-09-16] MEDS: FINASTERIDE 5 MG TAB PO SCH (08:53)
[2021-09-16] MEDS: dexAMETHasone 6 MG in SYRINGE 0 ML IV SCH (08:53)
[2021-09-16] MEDS: POTASSIUM CHLORIDE 10 MEQ TABCR PO SCH (08:54)
[2021-09-16] MEDS: PANTOprazole 40 MG TAB PO SCH (08:54)
[2021-09-16] MEDS: CEROVITE ADV FORMULA TAB PO SCH (08:54)
[2021-09-16] MEDS: TAMSULOSIN HCL 0.4 MG CAP PO SCH ×2 (08:54→20:46)
[2021-09-16] MEDS: QUEtiapine FUMARATE 25 MG TABLET PO SCH ×2 (08:54→20:46)
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
[2021-09-16] MEDS ORDERED: ACETAMINOPHEN 325 MG TAB PO ONE (20:24)
[2021-09-16] MEDS: ROSUVASTATIN CALCIUM 10 MG TAB PO SCH (20:46)
[2021-09-17] MEDS: LEVOTHYROXINE SODIUM 50 MCG TABLET PO SCH (05:59)
[2021-09-17] MEDS: CHOLECALCIFEROL 1,000 UNITS 25 MCG TAB PO SCH ×2 (08:06→08:25)
[2021-09-17] MEDS: FUROSEMIDE 20 MG TAB PO SCH ×2 (08:06→08:25)
[2021-09-17] MEDS: dexAMETHasone 6 MG in SYRINGE 0 ML IV SCH (08:06)
[2021-09-17] MEDS: TAMSULOSIN HCL 0.4 MG CAP PO SCH (08:06)
[2021-09-17] MEDS: FINASTERIDE 5 MG TAB PO SCH ×2 (08:07→08:25)
[2021-09-17] MEDS: PANTOprazole 40 MG TAB PO SCH ×2 (08:07→08:25)
[2021-09-17] MEDS: APIXABAN 5 MG TABLET PO SCH (08:07)
[2021-09-17] MEDS: POTASSIUM CHLORIDE 10 MEQ TABCR PO SCH ×2 (08:07→08:25)
[2021-09-17] MEDS: FERROUS SULFATE 325 MG TAB PO SCH ×2 (08:07→08:25)
[2021-09-17] MEDS: QUEtiapine FUMARATE 25 MG TABLET PO SCH (08:08)
[2021-09-17] MEDS: CEROVITE ADV FORMULA TAB PO SCH ×2 (08:08→08:25)
[2021-09-17] MEDS ORDERED: SODIUM CHLORIDE 0.9% 1000ML 1,000 ML IV ONE (09:45)
[2021-09-17] MEDS ORDERED: PIPERACILL/TAZOBAC CONSULT ACTIVE PRN (10:05)
[2021-09-17] MEDS ORDERED: VANCOMYCIN CONSULT ACTIVE PRN (10:05)
[2021-09-17] MEDS ORDERED: PIPERACILLIN/TAZOBACTAM 4.5 GM in DEXTROSE 5% 100 ML IV ONE (10:30)
[2021-09-17] MEDS ORDERED: VANCOMYCIN HCL 1,500 MG in SODIUM CHLORIDE 0.9% 500 ML IV ONE (10:30)
[2021-09-17 10:37] LABS: Hematocrit (blood only) 44.3 % (42-52); Hemoglobin 14.7 g/dL (14.0-18.0); Mean Corpuscular Hemoglobin 31.3 pg (25-34); Mean Corpuscular Hgb Conc 33.2 g/dL (32-36); Mean Corpuscular Volume 94.3 fL (80-100); Mean Platelet Volume 11.7 fL (7.4-10.4); Platelet Count 237 K/uL (130-400); RDW Coefficient of Variation 14.1 % (11.5-14.5); RDW Standard Deviation 48.5 fL (36.4-46.3); White Blood Count 35.41 K/uL (4.8-10.8)
[2021-09-17 10:54] LABS: Basophils # (auto) 0.02 K/uL (0-0.2); Basophils % (auto) 0.1 %; Immature Granulocytes # (auto) 0.07 K/uL (0.00-0.02); Immature Granulocytes % (auto) 0.2 %; Lymphocytes % (auto) 76.2 %; Monocytes # (auto) 0.15 K/uL (0.11-0.59); Monocytes % (auto) 0.4 %; Neutrophils # (auto) 8.17 K/uL (1.4-6.5); Neutrophils % (auto) 23.1 %
[2021-09-17 11:07] LABS: Albumin Level 2.8 gm/dl (3.4-5.0); BUN Creatinine Ratio 24.1 (10-20); Calcium 9.2 mg/dl (8.5-10.1); Creatinine Clr Calc Pharmacy 38.6 ml/min; Est GFR (African American) 52.7 ml/min; Est GFR (Non-African American) 45.5 ml/min; Magnesium 2.8 mg/dl (1.8-2.4); Potassium 4.2 mmol/L (3.5-5.1)
[2021-09-17 11:13] LABS: Albumin Globulin Ratio 0.7 (0.9-2); Bilirubin,Total 2.4 mg/dl (0.2-1); Globulin 3.9 gm/dl (2.5-4.0); Total Protein 6.7 gm/dl (6.4-8.2)
[2021-09-17] MEDS: SODIUM CHLORIDE 0.9% 1000ML 1,000 ML IV SCH ×2 (12:01→20:34)
--- NOTE | 2021-09-17 13:46 | Pharmacy Report ---
Pharmacy Vanc AUC Short Note - Date of Service September 17, 2021 - Assessment & Plan Assessment 81 year old M receiving empiric vancomycin/zosyn currently entered for 24 hours and then will be reassessed. Patient with CLL, COVID-19 infection, WBC 35, spiking intermittent fevers. Plan Vancomycin * AUC/CHRISTOPHER is the preferred PK/PD target for vancomycin * AUC guided dosing is effective and associated with decreased risk of nephrotoxicity compared to traditional trough targets * Loading dose with 1500 mg * Will start 1000 mg q24 which is predicted to achieve target AUC/CHRISTOPHER of 400-600 mg/L.hr and may be associated with a 12 % risk of nephrotoxicity * Trough currently not ordered, will order when appropriate if continued > 48 hours Pharmacy will continue to follow and will adjust dose/frequency as necessary. Thank you.
[2021-09-17 15:11] LABS: Appearance Urine Clear (Clear); Bilirubin Urine Negative (Negative); Blood Urine 2+ (Negative); Color Urine Dark Yellow; Glucose Urine UA Negative (Negative); Ketones Urine Negative (Negative); Leukocyte Esterase Urine Trace (Negative); Nitrite Urine Positive (Negative); Protein Urine 2+ (Negative); Specific Gravity Urine 1.023 (1.000-1.030); Urobilinogen Urine Negative (Negative); pH Urine 5.5 (4.5-7.5)
[2021-09-17 15:24] LABS: RBC Urine Automated 0-4 /hpf (0-4)
[2021-09-17 15:25] LABS: Bacteria Urine Automated 3+ (Negative)
[2021-09-17] MEDS: PIPERACILLIN/TAZOBACTAM 4.5 GM in DEXTROSE 5% 100 ML IV SCH (16:16)
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
--- NOTE | 2021-09-17 17:42 | CT Scan Report ---
CT OF THE HEAD WITHOUT CONTRAST CLINICAL HISTORY: worsening mental status COMPARISON STUDY: Head CT August 09, 2018. CT DOSE: 1003.45 mGycm TECHNIQUE: Helical axial images of the head were obtained without IV contrast. Automated exposure con trol was utilized for the study. A dose lowering technique was utilized adhering to the principles o f ALARA. FINDINGS: No acute intracranial hemorrhage, midline shift or mass effect is present. Encephalomalacia within the bilateral frontal lobes is unchanged with associated ventricular dilatation. Evaluation i s mildly compromised given streak artifact from the surgical hardware within the frontal craniotomy s ite. Basal cisterns are patent. There are no extra-axial collections. There are no findings to sugges t acute dural sinus thrombosis or acute territorial infarct. There is no acute calvarial fracture. Th ere is mild sinus mucosal thickening. Calvarial lucencies are unchanged. IMPRESSION: No acute intracranial findings. No change in appearance of the brain, as described above . ACT 112: Negative or not required by law. Electronically signed by: Rashid Pak M.D. 09/17/2021 5:41 PM
--- NOTE | 2021-09-17 17:54 | Ultrasound Report ---
US liver CLINICAL HISTORY: sepsis, elevated LFTs COMPARISON STUDY: Right upper quadrant ultrasound July 20, 2019. CT of the abdomen and pelvis Sept 2018. FINDINGS: Liver morphology is normal. Caliber of the common bile duct is at the upper limits of yanelis l following cholecystectomy, measuring 7 mm. No common bile duct calculi are identified. Pancreatic b wesley is normal. Head and tail are obscured. There is no right hydronephrosis. IMPRESSION: 1. Slight dilatation of the common bile duct. This is likely related to previous cholecystectomy. 2. Partially obscured pancreas. ACT 112: Negative or not required by law. Electronically signed by: Rashid Pak M.D. 09/17/2021 5:53 PM
[2021-09-17 18:47] LABS: Hematocrit (blood only) 42.8 % (42-52); Mean Corpuscular Hemoglobin 31.3 pg (25-34); Mean Corpuscular Hgb Conc 32.7 g/dL (32-36); Mean Corpuscular Volume 95.7 fL (80-100); Mean Platelet Volume 11.8 fL (7.4-10.4); Platelet Count 243 K/uL (130-400); RDW Coefficient of Variation 14.1 % (11.5-14.5); RDW Standard Deviation 49.2 fL (36.4-46.3); Red Blood Count 4.47 M/uL (4.7-6.1); White Blood Count 34.97 K/uL (4.8-10.8)
[2021-09-17 19:00] LABS: Albumin Level 2.4 gm/dl (3.4-5.0); BUN Creatinine Ratio 22.9 (10-20); Calcium 8.8 mg/dl (8.5-10.1); Creatinine Clr Calc Pharmacy 46.7 ml/min; Est GFR (African American) 66.3 ml/min; Est GFR (Non-African American) 57.2 ml/min; Potassium 3.9 mmol/L (3.5-5.1)
[2021-09-17 19:08] LABS: Albumin Globulin Ratio 0.6 (0.9-2); Bilirubin,Total 1.7 mg/dl (0.2-1); Globulin 3.9 gm/dl (2.5-4.0); Total Protein 6.3 gm/dl (6.4-8.2)
[2021-09-17 19:45] LABS: Basophils # (auto) 0.05 K/uL (0-0.2); Basophils % (auto) 0.1 %; Immature Granulocytes # (auto) 0.16 K/uL (0.00-0.02); Immature Granulocytes % (auto) 0.5 %; Lymphocytes # (auto) 25.83 K/uL (1.2-3.4); Lymphocytes % (auto) 73.9 %; Monocytes # (auto) 0.49 K/uL (0.11-0.59); Monocytes % (auto) 1.4 %; Neutrophils # (auto) 8.44 K/uL (1.4-6.5); Neutrophils % (auto) 24.1 %
[2021-09-17] MEDS: D5W AND 1/2NSS 1,000 ML IV SCH (20:41)
[2021-09-18] MEDS: PIPERACILLIN/TAZOBACTAM 4.5 GM in DEXTROSE 5% 100 ML IV SCH ×3 (00:01→17:35)
[2021-09-18 06:25] LABS: Hemoglobin 12.8 g/dL (14.0-18.0); Mean Corpuscular Hemoglobin 31.2 pg (25-34); Mean Corpuscular Hgb Conc 32.8 g/dL (32-36); Mean Corpuscular Volume 95.1 fL (80-100); Mean Platelet Volume 11.4 fL (7.4-10.4); Platelet Count 252 K/uL (130-400); RDW Coefficient of Variation 14.2 % (11.5-14.5); RDW Standard Deviation 48.9 fL (36.4-46.3); White Blood Count 40.43 K/uL (4.8-10.8)
[2021-09-18 06:48] LABS: BUN Creatinine Ratio 19.4 (10-20); Calcium 8.4 mg/dl (8.5-10.1); Creatinine Clr Calc Pharmacy 48.7 ml/min; Est GFR (African American) 66.9 ml/min; Est GFR (Non-African American) 57.8 ml/min; Potassium 3.4 mmol/L (3.5-5.1)
[2021-09-18 07:24] LABS: Basophils # (auto) 0.04 K/uL (0-0.2); Basophils % (auto) 0.1 %; Immature Granulocytes % (auto) 0.5 %; Lymphocytes # (auto) 29.77 K/uL (1.2-3.4); Lymphocytes % (auto) 73.6 %; Monocytes # (auto) 0.72 K/uL (0.11-0.59); Monocytes % (auto) 1.8 %; Smudge Cells Present
[2021-09-18] MEDS ORDERED: VANCOMYCIN HCL 1,000 MG in SODIUM CHLORIDE 0.9% 250 ML IV SCH (08:00)
[2021-09-18] MEDS: D5W AND 1/2NSS 1,000 ML IV SCH (09:10)
[2021-09-18 11:49] LABS: Phosphorus 2.5 mg/dl (2.5-4.9); Uric Acid 3.9 mg/dl (2.6-7.2)
[2021-09-18] MEDS: DEXTROSE 5% 1,000 ML IV SCH ×2 (12:10→20:35)
[2021-09-18] MEDS: ENOXAPARIN 80 MG/0.8 ML SYR SQ SCH ×2 (13:36→23:26)
[2021-09-18] MEDS: ACETAMINOPHEN 1000 MG/100 ML IV IV PRN (13:37)
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
[2021-09-18] MEDS ORDERED: ALBUT/IPRATROP 3MG/0.5MG NEB 3 ML VIAL NEB STA (22:51)
[2021-09-18] MEDS ORDERED: methylPREDNISolone 40 MG in SYRINGE 0 ML IV ONE (23:00)
[2021-09-18] MEDS ORDERED: FUROSEMIDE 20 MG in SYRINGE 0 ML IV ONE (23:15)
[2021-09-18 23:22] LABS: Magnesium 2.6 mg/dl (1.8-2.4)
[2021-09-18] MEDS: ONDANSETRON INJ 2 MG/ML 2 ML VIAL IV PRN (23:26)
[2021-09-18] MEDS: POTASSIUM CHLORIDE / WTR 10 MEQ/100 ML PLCT IV SCH (23:26)
[2021-09-18] MEDS ORDERED: FUROSEMIDE 40 MG/4 ML VIAL IV ONE (23:30)
[2021-09-18 23:34] LABS: Base Excess ABG 2.7 mEq/L (-9-1.8); HCO3 ABG 24 mmol/L (19-24); Oxygen Saturation ABG 98.3 % (90-95); PCO2 ABG 27 mmHg (35-46); PO2 ABG 102 mmHg (80-95)
[2021-09-18 23:36] LABS: Allen Test POS (Pos)
[2021-09-18 23:48] LABS: pH ABG 7.57 (7.35-7.45)
[2021-09-19] MEDS ORDERED: METOPROLOL TARTRATE 1 MG/ML VIAL IV STA (00:11)
[2021-09-19] MEDS: POTASSIUM CHLORIDE / WTR 10 MEQ/100 ML PLCT IV SCH ×5 (00:33→04:54)
[2021-09-19] MEDS ORDERED: VANCOMYCIN HCL 1,000 MG in SODIUM CHLORIDE 0.9% 250 ML IV SCH (02:00)
[2021-09-19] MEDS: PIPERACILLIN/TAZOBACTAM 4.5 GM in DEXTROSE 5% 100 ML IV SCH ×2 (02:49→10:55)
--- NOTE | 2021-09-19 08:15 | XRay Report ---
XR chest 1V portable CLINICAL HISTORY: low o2 TECHNIQUE: Single frontal radiograph of the chest was obtained. Comparison: Comparison is made to chest one view 09/14/2021 FINDINGS: No lines and tubes are seen. The cardiomediastinal silhouette is normal. Peripheral predominant airsp daria opacities, worse on the left and improved on the right than the prior exam. No pneumothorax. Smal l pleural effusion cannot be excluded. IMPRESSION: 1. Peripheral predominant airspace opacities at the wall from prior exam and may represent atelectas is, pneumonia, and/or aspiration. 2. Possible left pleural effusion. ACT 112: Negative or not required by law. Electronically signed by: Gee Matias M.D. 09/19/2021 8:13 AM
[2021-09-19] MEDS: ENOXAPARIN 80 MG/0.8 ML SYR SQ SCH (10:56)
--- NOTE | 2021-09-19 13:23 | Hospitalist Progress Note ---
Date of Service September 19, 2021 Assessment & Plan (1) Acute metabolic encephalopathy: Plan: Multifactorial including covid-19 illness, sepsis. Component of delirium as patient is waxing and waning. This morning patient was somnolent and could not obtain full review of system. (2) Sepsis: Plan: 2/2 UTI, and improved with resuscitation and broad spectrum vanc and zosyn. CT head negative for stroke. Dr. Valladares spoke with [facility] given worsening leukocytosis in the setting of CLL or possible bacterial component. Hematology believes it is unlikely to be progression of CLL. Obtain CBC/CMP/lactic acid today. Blood cultures from 09/09 and 09/16 remain negative so far. Urine cultures from 09/17 with gram-negative bacilli. Will continue with Zosyn. (3) UTI (urinary tract infection): Plan: Cont broad spectrum antibiotics pending clinical improvement and culture results. (4) Acute respiratory failure: Plan: 2/2 covid-19 pneumonia, please see plan below (5) Pneumonia due to COVID-19 virus: Plan: Completed course of remdesivir, and steroids. Currently remains on 5 L of nasal cannula. Most recent chest x-ray on 09/18 with possible left-sided pleural effusion and aspiration. Of note as per nursing staff patient likely aspirated on 09/18. We will continue with Zosyn for now. (6) Severe protein-calorie malnutrition: Plan: NPO now for safety with worsening mental status. Nutrition following. Possible start PPN. (7) CLL (chronic lymphocytic leukemia): Plan: Seen by [facility] in [place] regarding formal diagnosis in late 2018, however, it is not clear if he has been followed for surveillance labs since that time. Currently not on any treatment. (8) Paroxysmal atrial fibrillation: Plan: Currently in sinus rhythm this admission and patient is notably not on AV lupe deepa therapy at home or here in the hospital. Rate is under control. Eliquis on hold as patient is unable to swallow, so transitioned him to full dose Lovenox. (9) Chronic diastolic CHF (congestive heart failure): Plan: Hold home lasix in setting of sepsis (10) Hypothyroidism: Plan: Continue Levothyroxine per home regimen. (11) DVT prophylaxis: Plan: Lovenox DNR/DNI Dispo-cont PCU Admission and Anticipated Discharge Date Admission Date: September 09, 2021 Subjective Patient is somnolent. Does respond to painful stimuli. Currently on 5 L of nasal cannula. Apparently overnight patient had an episode of aspiration for post aspiration patient was able to hold conversation with the nursing staff and was joking with the staff. However this morning patient is not interactive. Unable to obtain full review of system. Review of Systems Review of Systems: Unobtainable due to cognitive status Physical Exam Physical Exam: General: somnolent HENT: NCAT, MMM, EOMI Neck: Supple, normal range of motion CVS: normal rate and rhythm Resp: b/l coarse breath sound Abdomen: Soft, nondistended nontender Extremities: No c/c/e Neuro: face symmetric, unable to perform as patient did not follow commands Skin: warm and dry, no rashes/lesions/errythema MSK: normal ROM, no joint swelling/erythema Results & Data Results & Data ([facility]) Vital Signs (Past 12 Hours) Vital Signs Temp Pulse Pulse Resp BP BP Pulse Ox 09/19/21 11:09 36.6 C 77 20 158/80 H 91 09/19/21 08:00 66 09/19/21 07:13 36.9 C 73 19 111/59 L 91 09/19/21 03:36 36.8 C 70 19 149/79 H 94
[2021-09-19 14:37] LABS: Hematocrit (blood only) 40.3 % (42-52); Hemoglobin 13.5 g/dL (14.0-18.0); Mean Corpuscular Hemoglobin 31.5 pg (25-34); Mean Corpuscular Hgb Conc 33.5 g/dL (32-36); Mean Corpuscular Volume 94.2 fL (80-100); Mean Platelet Volume 11.6 fL (7.4-10.4); Platelet Count 265 K/uL (130-400); RDW Coefficient of Variation 14.2 % (11.5-14.5); RDW Standard Deviation 48.3 fL (36.4-46.3); Red Blood Count 4.28 M/uL (4.7-6.1); White Blood Count 47.05 K/uL (4.8-10.8)
[2021-09-19 14:44] LABS: Albumin Level 2.2 gm/dl (3.4-5.0); BUN Creatinine Ratio 16.8 (10-20); Calcium 8.8 mg/dl (8.5-10.1); Est GFR (African American) 66.3 ml/min; Est GFR (Non-African American) 57.2 ml/min; Potassium 3.6 mmol/L (3.5-5.1)
[2021-09-19 14:46] LABS: Albumin Globulin Ratio 0.5 (0.9-2); Bilirubin,Total 1.6 mg/dl (0.2-1); Globulin 4.3 gm/dl (2.5-4.0); Total Protein 6.5 gm/dl (6.4-8.2)
[2021-09-19 14:58] LABS: RBC Morphology Unremarkable
[2021-09-19] MEDS: ACETAMINOPHEN 1000 MG/100 ML IV IV PRN (15:11)
[2021-09-19 15:15] LABS: ALC (manual) 35.29 K/uL (1.2-3.4); ANC (manual) 11.29 K/uL (1.4-6.5); Lymphocytes # (manual) 35.29 K/uL (1.2-3.4); Monocytes # (manual) 0.47 K/uL (0.11-0.59); Neutrophils # (manual) 11.29 K/uL (1.4-6.5)
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
[2021-09-19] MEDS ORDERED: LORazepam 0.5 MG/1 ML VIAL IV PRN (16:29)
[2021-09-19] MEDS ORDERED: GLYCOPYRROLATE 0.2 MG/ML VIAL IV PRN (16:29)
[2021-09-19] MEDS: MoRPHine SULFATE 2 MG/ML CARP IV SCH ×3 (18:57→21:13)
[2021-09-20] MEDS: MoRPHine SULFATE 2 MG/ML CARP IV SCH (00:03)
[2021-09-20] MEDS: MoRPHine SULFATE 2 MG/ML CARP IV PRN ×6 (01:29→23:47)
[2021-09-20] MEDS ORDERED: LEVOTHYROXINE SODIUM 25 MCG in SYRINGE 0 ML IV SCH (09:00)
--- NOTE | 2021-09-20 11:20 | Palliative Care Progress Note ---
Date of Service September 20, 2021 Assessment & Plan (1) Dyspnea: Plan: Though he does not offer complaints. Valerio does not appear comfortable at this time and with cognitive impairment, may not be able to articulate needs adequately. Given focus on comfort, will add routine dosing of opioid. (2) Palliative care encounter: Plan: I talked with Valerio about my conversation with his yesterday and told him that she loved him. He responded "I lover her too". I told Justin this when I spoke with her on the phone. She was able to talk with him over the phone yesterday and let him know that it was ok to go if he was tired. She did ask that if he is approaching his dying time that the Psalm be read to him. She continues to recover from covid and is having chest xray and EKG done today. (3) Sepsis: (4) Pneumonia due to COVID-19 virus: (5) CLL (chronic lymphocytic leukemia): Admission and Anticipated Discharge Date Admission Date: September 09, 2021 Subjective Awake. Denies pain. Has had prn morphine and ativan for restlessness. Does not appear comfortable. Review of Systems Review of Systems: Limited due to cognitive impairment Pain 0/3 Dyspnea 1/3 Palliative Performance Score 20% Physical Exam Constitutional: + ill appearing ENMT: Mouth: + dry oral mucous membranes Respiratory: + uses accessory muscles Cardiovascular: Rate/Rhythm: regular rate and regular rhythm Neurologic: Speech / Cognition: + abnormal cognition Results & Data ([facility]) Vital Signs (Past 12 Hours) Vital Signs Pulse Resp BP Pulse Ox 09/20/21 10:00 81 15 151/77 H 91 PG Care Time/CCT Total # of Minutes Spent Total Time Spent: 25 Total Time Spent with Patient: Total time spent is greater than 50% in coordination of care (as documented) at patient's floor/unit and/or counseling patient: symptom management, patient and family support Coding Level of Care Code 47180 Subseq Hosp Care Lvl 2 Diagnoses Dyspnea R06.00 Palliative care encounter Z51.5 Sepsis A41.9 Pneumonia due to COVID-19 virus U07.1; J12.82 CLL (chronic lymphocytic leukemia) C91.90
--- NOTE | 2021-09-20 12:21 | Hospitalist Progress Note ---
Date of Service September 20, 2021 Assessment & Plan (1) Acute metabolic encephalopathy: Plan: Multifactorial including covid-19 illness, sepsis. Component of delirium as patient is waxing and waning. Given his overall poor clinical prognosis, family decided to proceed with comfort care measures. Palliative medicine is on board. Currently patient is on Ativan and morphine sulfate. (2) Sepsis: Plan: 2/2 UTI, and improved with resuscitation and broad spectrum vanc and zosyn. CT head negative for stroke. Dr. Valladares spoke with [facility] hematology given worsening leukocytosis in the setting of CLL or possible bacterial component. Hematology believes it is unlikely to be progression of CLL. Blood cultures from 09/09 and 09/16 remain negative so far. Urine cultures from 09/17 with gram-negative bacilli. Antibiotics discontinued. (3) UTI (urinary tract infection): Plan: Off antibiotics (4) Acute respiratory failure: Plan: 2/2 covid-19 pneumonia, please see plan below (5) Pneumonia due to COVID-19 virus: Plan: Completed course of remdesivir, and steroids. Currently remains on 5 L of nasal cannula. Most recent chest x-ray on 09/18 with possible left-sided pleural effusion and aspiration. Of note as per nursing staff patient likely aspirated on 09/18. (6) Severe protein-calorie malnutrition: Plan: Comfort measures (7) CLL (chronic lymphocytic leukemia): Plan: Seen by [facility] Hsu in [place] regarding formal diagnosis in late 2018, however, it is not clear if he has been followed for surveillance labs since that time. Currently not on any treatment. (8) Paroxysmal atrial fibrillation: Plan: Currently in sinus rhythm this admission and patient is notably not on AV lupe deepa therapy at home or here in the hospital. (9) Chronic diastolic CHF (congestive heart failure): Plan: Hold home lasix in setting of sepsis (10) Hypothyroidism: Plan: On comfort measures (11) DVT prophylaxis: Plan: Lovenox DNR/DNI Dispo-cont PCU Admission and Anticipated Discharge Date Admission Date: September 09, 2021 Subjective Patient is resting comfortably. He does not appear to be in any distress. Review of Systems Review of Systems: Unobtainable due to cognitive status Physical Exam Physical Exam: General: Resting comfortably CVS: normal rate and rhythm Resp: Breathing comfortably Abdomen: Nondistended Extremities: Absence of any edema Skin: warm and dry Results & Data Results & Data ([facility]) Vital Signs (Past 12 Hours) Vital Signs Pulse Resp BP Pulse Ox 09/20/21 10:00 81 15 151/77 H 91
[2021-09-21] MEDS: MoRPHine SULFATE 2 MG/ML CARP IV PRN (12:18)
--- NOTE | 2021-09-21 14:26 | Palliative Care Progress Note ---
Date of Service September 21, 2021 Assessment & Plan (1) Dyspnea: Plan: Continue morphine prn. Given persistent restlessness and concern for generalized pain, (he does have chronic pain as well), will order routine morphine. (2) Palliative care encounter: Plan: Goal is comfort care per his . (3) Acute respiratory failure: (4) Severe protein-calorie malnutrition: (5) COVID-19: Admission and Anticipated Discharge Date Admission Date: September 09, 2021 Subjective Continues to appear restless and uncomfortable. Some improvement with IV morphine per RN. Review of Systems Review of Systems: Unobtainable due to cognitive status Webster Symptom Assessment Scale Pain by observation 2//3, facial grimace, restlessness, tense muscles Dyspnea by observation 1/3, accessory muscle use Palliative Performance Score 30% Physical Exam Physical Exam: deferred, covid 19 isolation Results & Data ([facility]) Vital Signs (Past 12 Hours) Vital Signs Temp Pulse Resp BP Pulse Ox 09/21/21 07:07 97.5 F L 80 17 164/70 H 94 PG Care Time/CCT Total # of Minutes Spent Total Time Spent with Patient: Total time spent is greater than 50% in coordination of care (as documented) at patient's floor/unit and/or counseling patient: Coding Level of Care Code 89390 Subseq Hosp Care Lvl 1 Diagnoses Dyspnea R06.00 Palliative care encounter Z51.5 Acute respiratory failure J96.00 Severe protein-calorie malnutrition E43 COVID-19 U07.1
--- NOTE | 2021-09-21 14:31 | Hospitalist Progress Note ---
Date of Service September 21, 2021 Assessment & Plan (1) Acute metabolic encephalopathy: Plan: Multifactorial including covid-19 illness, sepsis. Component of delirium as patient is waxing and waning. Given his overall poor clinical prognosis, family decided to proceed with comfort care measures. Palliative medicine is on board. Currently patient is on Ativan and morphine sulfate. Has been on comfort care and remains critical but stable (2) Sepsis: Plan: 2/2 UTI, and improved with resuscitation and broad spectrum vanc and zosyn. CT head negative for stroke. Dr. Valladares spoke with [facility] hematology given worsening leukocytosis in the setting of CLL or possible bacterial component. Hematology believes it is unlikely to be progression of CLL. Blood cultures from 09/09 and 09/16 remain negative so far. Urine cultures from 09/17 with gram-negative bacilli. Antibiotics discontinued. (3) UTI (urinary tract infection): Plan: Off antibiotics (4) Acute respiratory failure: Plan: 2/2 covid-19 pneumonia, please see plan below (5) Pneumonia due to COVID-19 virus: Plan: Completed course of remdesivir, and steroids. Currently remains on 5 L of nasal cannula. Most recent chest x-ray on 09/18 with possible left-sided pleural effusion and aspiration. Of note as per nursing staff patient likely aspirated on 09/18. (6) Severe protein-calorie malnutrition: Plan: He wants to eat and will provide diet as tolerated (7) CLL (chronic lymphocytic leukemia): Plan: Seen by [facility] in [place] regarding formal diagnosis in late 2018, however, it is not clear if he has been followed for surveillance labs since that time. Currently not on any treatment. (8) Paroxysmal atrial fibrillation: Plan: Currently in sinus rhythm this admission and patient is notably not on AV lupe deepa therapy at home or here in the hospital. (9) Chronic diastolic CHF (congestive heart failure): Plan: Hold home lasix in setting of sepsis (10) Hypothyroidism: Plan: On comfort measures (11) DVT prophylaxis: Plan: Lovenox DNR/DNI Dispo-cont PCU Admission and Anticipated Discharge Date Admission Date: September 09, 2021 Subjective 09/21/2021 The patient was seen and examined in telemetry unit and in the Covid room He has been in on comfort care only and remains reasonably stable Denies any significant pain and/or discomfort Review of Systems Review of Systems: Unobtainable due to cognitive status Physical Exam Physical Exam: Lying in bed with acute distress due to shortness of breath Constitutional: + acute distress, + ill appearing and average body habitus Eyes: PERRL, conjunctivae normal, anicteric sclerae ENMT: external ear and nose normal, oropharynx normal Neck: trachea midline, no thyromegaly Respiratory: + respiratory distress and + cough; no labored breathing and does not use accessory muscles Auscultation: + diminished lung sounds and + crackles (At the bases) Cardiovascular: Rate/Rhythm: regular rate and regular rhythm; not tachycardic Heart Sounds: normal S1, normal S2 and + murmur (2/6 ESM over precordium) Gastrointestinal (Abdomen): Inspection/Auscultation: normal bowel sounds; abdomen not distended Percussion/Palpation: abdomen soft; abdomen nontender Musculoskeletal: Does not have any acute arthritis in any joint Neurologic: Alert and awake, pleasantly confused, extremely weak and lethargic Results & Data Results & Data ([facility]) Vital Signs (Past 12 Hours) Vital Signs Temp Pulse Resp BP Pulse Ox 09/21/21 07:07 36.4 C L 80 17 164/70 H 94 Medications Administered Current Inpatient Medications Glycopyrrolate (Glycopyrrolate 0.2 Mg/Ml Vial) 0.2 mg IV Q4H PRN PRN Reason: secretions Stop: 10/19/21 16:28 Lorazepam (Ativan) 0.5 mg in 1 mls @ 1 mls/min IV Q4H PRN PRN Reason: agitation Stop: 10/19/21 16:28 Morphine Sulfate (Morphine Sulfate 2 Mg/Ml Carp) 2 mg IV Q1H PRN PRN Reason: pain/sob Stop: 10/03/21 16:29 Last Admin: 09/21/21 12:18 Dose: 2 mg Documented by: Morphine Sulfate (Morphine Sulfate 5 Mg/0.25 Ml Udp) 5 mg PO Q6H NE Stop: 10/05/21 14:29 Ondansetron HCl (Ondansetron Inj 2 Mg/Ml 2 Ml Vial) 4 mg IV Q6H PRN PRN Reason: Nausea Stop: 10/10/21 00:44 Last Admin: 09/18/21 23:26 Dose: 4 mg Documented by:
[2021-09-21] MEDS: MoRPHine SULFATE 5 MG/0.25 ML UDP PO SCH ×2 (15:38→21:14)
[2021-09-22] MEDS: MoRPHine SULFATE 5 MG/0.25 ML UDP PO SCH ×4 (05:43→22:16)
--- NOTE | 2021-09-22 14:55 | Hospitalist Progress Note ---
Date of Service September 22, 2021 Assessment & Plan (1) Acute metabolic encephalopathy: Plan: Multifactorial including covid-19 illness, sepsis. Component of delirium as patient is waxing and waning. Progressive deterioration of his condition Given his overall poor clinical prognosis, family decided to proceed with comfort care measures. Palliative medicine is on board.-Appreciate input and recommendation Currently patient is on Ativan and morphine sulfate. Has been on comfort care and remains critical but stable Remains on comfort care and getting supportive medications to give him p.o. pain and/or symptoms (2) Sepsis: Plan: 2/2 UTI, and improved with resuscitation and broad spectrum vanc and zosyn. CT head negative for stroke. Dr. Valladares spoke with [facility] hematology given worsening leukocytosis in the setting of CLL or possible bacterial component. Hematology believes it is unlikely to be progression of CLL. Blood cultures from 09/09 and 09/16 remain negative so far. Urine cultures from 09/17 with gram-negative bacilli. Antibiotics discontinued. (3) UTI (urinary tract infection): Plan: Off antibiotics (4) Acute respiratory failure: Plan: 2/2 covid-19 pneumonia, please see plan below (5) Pneumonia due to COVID-19 virus: Plan: Completed course of remdesivir, and steroids. Currently remains on 5 L of nasal cannula. Most recent chest x-ray on 09/18 with possible left-sided pleural effusion and aspiration. Of note as per nursing staff patient likely aspirated on 09/18. (6) Severe protein-calorie malnutrition: Plan: He wants to eat and will provide diet as tolerated (7) CLL (chronic lymphocytic leukemia): Plan: Seen by [facility] in [place] regarding formal diagnosis in late 2018, however, it is not clear if he has been followed for surveillance labs since that time. Currently not on any treatment. (8) Paroxysmal atrial fibrillation: Plan: Currently in sinus rhythm this admission and patient is notably not on AV lupe deepa therapy at home or here in the hospital. (9) Chronic diastolic CHF (congestive heart failure): Plan: Hold home lasix in setting of sepsis (10) Hypothyroidism: Plan: On comfort measures (11) DVT prophylaxis: Plan: Lovenox DNR/DNI Dispo-cont PCU Admission and Anticipated Discharge Date Admission Date: September 09, 2021 Subjective 09/21/2021 The patient was seen and examined in telemetry unit and in the Covid room He has been in on comfort care only and remains reasonably stable Denies any significant pain and/or discomfort 09/12/2021 The patient was seen and examined in telemetry unit and in the Covid room He remains restless and may be in pain He has been under comfort care Review of Systems Review of Systems: Unobtainable due to cognitive status Physical Exam Physical Exam: Lying in bed with acute distress due to shortness of breath and may be in pain Constitutional: + acute distress, + ill appearing and average body habitus Eyes: PERRL, conjunctivae normal, anicteric sclerae ENMT: external ear and nose normal, oropharynx normal Neck: trachea midline, no thyromegaly Respiratory: + respiratory distress and + cough; no labored breathing and does not use accessory muscles Auscultation: + diminished lung sounds and + crackles (At the bases) Cardiovascular: Rate/Rhythm: regular rate and regular rhythm; not tachycardic Heart Sounds: normal S1, normal S2 and + murmur (2/6 ESM over precordium) Gastrointestinal (Abdomen): Inspection/Auscultation: normal bowel sounds; abdomen not distended Percussion/Palpation: abdomen soft; abdomen nontender Musculoskeletal: No acute arthritis in any joint Neurologic: Alert and awake. Restless and minimally communicative Results & Data Results & Data ([facility]) Vital Signs (Past 12 Hours) Vital Signs Temp Pulse Resp BP Pulse Ox 09/22/21 07:30 36.4 C L 76 17 157/89 H 91
[2021-09-23] MEDS: MoRPHine SULFATE 5 MG/0.25 ML UDP PO SCH ×4 (04:18→22:21)
--- NOTE | 2021-09-23 16:41 | Hospitalist Progress Note ---
Date of Service September 23, 2021 Assessment & Plan (1) Acute metabolic encephalopathy: Plan: Multifactorial including covid-19 illness, sepsis. Component of delirium as patient is waxing and waning. Progressive deterioration of his condition Given his overall poor clinical prognosis, family decided to proceed with comfort care measures. Palliative medicine is on board.-Appreciate input and recommendation Currently patient is on Ativan and morphine sulfate. Has been on comfort care and remains critical but stable Remains on comfort care and getting supportive medications to give him p.o. pain and/or symptoms Hemodynamically stable and remains clinically stable without any pain and/or shortness of breath Plan to transfer to [facility] with hospice on Sunday Discussed with the in detail (2) Sepsis: Plan: 2/2 UTI, and improved with resuscitation and broad spectrum vanc and zosyn. CT head negative for stroke. Dr. Valladares spoke with [facility] hematology given worsening leukocytosis in the setting of CLL or possible bacterial component. Hematology believes it is unlikely to be progression of CLL. Blood cultures from 09/09 and 09/16 remain negative so far. Urine cultures from 09/17 with gram-negative bacilli. Antibiotics discontinued. (3) UTI (urinary tract infection): Plan: Off antibiotics (4) Acute respiratory failure: Plan: 2/2 covid-19 pneumonia, please see plan below (5) Pneumonia due to COVID-19 virus: Plan: Completed course of remdesivir, and steroids. Currently remains on 5 L of nasal cannula. Most recent chest x-ray on 09/18 with possible left-sided pleural effusion and aspiration. Of note as per nursing staff patient likely aspirated on 09/18. (6) Severe protein-calorie malnutrition: Plan: He wants to eat and will provide diet as tolerated (7) CLL (chronic lymphocytic leukemia): Plan: Seen by [facility] in [place] regarding formal diagnosis in late 2018, however, it is not clear if he has been followed for surveillance labs since that time. Currently not on any treatment. (8) Paroxysmal atrial fibrillation: Plan: Currently in sinus rhythm this admission and patient is notably not on AV lupe deepa therapy at home or here in the hospital. (9) Chronic diastolic CHF (congestive heart failure): Plan: Hold home lasix in setting of sepsis (10) Hypothyroidism: Plan: On comfort measures (11) DVT prophylaxis: Plan: Lovenox DNR/DNI Dispo-cont PCU Admission and Anticipated Discharge Date Admission Date: September 09, 2021 Subjective 09/21/2021 The patient was seen and examined in telemetry unit and in the Covid room He has been in on comfort care only and remains reasonably stable Denies any significant pain and/or discomfort 09/22/2021 The patient was seen and examined in telemetry unit and in the Covid room He remains restless and may be in pain He has been under comfort care 09/23/2021 The patient was seen and examined in the Covid room He has been comfort care Remains hemodynamically stable Review of Systems Review of Systems: Unobtainable due to cognitive status Physical Exam Physical Exam: Lying in bed with acute distress due to shortness of breath and may be in pain Constitutional: + acute distress, + ill appearing and average body habitus Eyes: PERRL, conjunctivae normal, anicteric sclerae ENMT: external ear and nose normal, oropharynx normal Neck: trachea midline, no thyromegaly Respiratory: + respiratory distress and + cough; no labored breathing and does not use accessory muscles Auscultation: + diminished lung sounds and + crackl es (At the bases) Cardiovascular: Rate/Rhythm: regular rate and regular rhythm; not tachycardic Heart Sounds: normal S1, normal S2 and + murmur (2/6 ESM over precordium) Gastrointestinal (Abdomen): Inspection/Auscultation: normal bowel sounds; abdomen not distended Percussion/Palpation: abdomen soft; abdomen nontender Musculoskeletal: No acute arthritis in any joint Neurologic: Alert and awake. Pleasantly confused. Generally very weak and lethargic Results & Data Results & Data ([facility]) Vital Signs (Past 12 Hours) Vital Signs Temp Pulse Resp BP Pulse Ox 09/23/21 07:17 37.4 C 74 19 163/79 H 90
[2021-09-23] MEDS: MoRPHine SULFATE 2 MG/ML CARP IV PRN (21:41)
[2021-09-24] MEDS: MoRPHine SULFATE 5 MG/0.25 ML UDP PO SCH ×4 (04:01→20:04)
--- NOTE | 2021-09-24 15:08 | Hospitalist Progress Note ---
Date of Service September 24, 2021 Assessment & Plan (1) Acute metabolic encephalopathy: Plan: Multifactorial including covid-19 illness, sepsis. Component of delirium as patient is waxing and waning. Progressive deterioration of his condition Given his overall poor clinical prognosis, family decided to proceed with comfort care measures. Palliative medicine is on board.-Appreciate input and recommendation Currently patient is on Ativan and morphine sulfate. Has been on comfort care and remains critical but stable Remains on comfort care and getting supportive medications to give him p.o. pain and/or symptoms Hemodynamically stable and remains clinically stable without any pain and/or shortness of breath Plan to transfer to [facility] with hospice on Sunday Discussed with the in detail Critical but stable and likely to be transferred to [facility] on Sunday (2) Sepsis: Plan: 2/2 UTI, and improved with resuscitation and broad spectrum vanc and zosyn. CT head negative for stroke. Dr. Valladares spoke with [facility] hematology given worsening leukocytosis in the setting of CLL or possible bacterial component. Hematology believes it is unlikely to be progression of CLL. Blood cultures from 09/09 and 09/16 remain negative so far. Urine cultures from 09/17 with gram-negative bacilli. Antibiotics discontinued. (3) UTI (urinary tract infection): Plan: Off antibiotics (4) Acute respiratory failure: Plan: 2/2 covid-19 pneumonia, please see plan below (5) Pneumonia due to COVID-19 virus: Plan: Completed course of remdesivir, and steroids. Currently remains on 5 L of nasal cannula. Most recent chest x-ray on 09/18 with possible left-sided pleural effusion and aspiration. Of note as per nursing staff patient likely aspirated on 09/18. (6) Severe protein-calorie malnutrition: Plan: He wants to eat and will provide diet as tolerated (7) CLL (chronic lymphocytic leukemia): Plan: Seen by [facility] in [place] regarding formal diagnosis in late 2018, however, it is not clear if he has been followed for surveillance labs since that time. Currently not on any treatment. (8) Paroxysmal atrial fibrillation: Plan: Currently in sinus rhythm this admission and patient is notably not on AV lupe deepa therapy at home or here in the hospital. (9) Chronic diastolic CHF (congestive heart failure): Plan: Hold home lasix in setting of sepsis (10) Hypothyroidism: Plan: On comfort measures (11) DVT prophylaxis: Plan: Lovenox DNR/DNI Dispo-cont PCU Admission and Anticipated Discharge Date Admission Date: September 09, 2021 Subjective 09/21/2021 The patient was seen and examined in telemetry unit and in the Covid room He has been in on comfort care only and remains reasonably stable Denies any significant pain and/or discomfort 09/22/2021 The patient was seen and examined in telemetry unit and in the Covid room He remains restless and may be in pain He has been under comfort care 09/23/2021 The patient was seen and examined in the Covid room He has been comfort care Remains hemodynamically stable 09/24/2021 The patient was seen and examined in medical floor He is under comfort care Remains confused but denies any significant symptoms Review of Systems Review of Systems: Unobtainable due to cognitive status Physical Exam Physical Exam: Lying in bed with acute distress due to shortness of breath and may be in pain Constitutional: + acute distress, + ill appearing and average body habitus Eyes: PERRL, conjunctivae normal, anicteric sclerae ENMT: external ear and nose normal, oropharynx normal Neck: trachea midline, no thyromegaly Respiratory: + respiratory distress and + cough; no labored breathing and does not use accessory muscles Auscultation: + diminished lung sounds and + crackles (At the bases) Cardiovascular: Rate/Rhythm: regular rate and regular rhythm; not tachycardic Heart Sounds: normal S1, normal S2 and + murmur (2/6 ESM over precordium) Gastrointestinal (Abdomen): Inspection/Auscultation: normal bowel sounds; abdomen not distended Percussion/Palpation: abdomen soft; abdomen nontender Neurologic: Alert and awake. Not in any acute distress Results & Data Results & Data ([facility]) Vital Signs (Past 12 Hours) Vital Signs Temp Pulse Resp BP Pulse Ox 09/24/21 07:14 37 C 74 18 175/52 H 91
[2021-09-25] MEDS: MoRPHine SULFATE 5 MG/0.25 ML UDP PO SCH ×4 (04:16→20:31)
--- NOTE | 2021-09-25 14:37 | Hospitalist Progress Note ---
Date of Service September 25, 2021 Assessment & Plan (1) Acute metabolic encephalopathy: Plan: Multifactorial including covid-19 illness, sepsis. Component of delirium as patient is waxing and waning. Progressive deterioration of his condition Remains critical but stable No acute distress Given his overall poor clinical prognosis, family decided to proceed with comfort care measures. Palliative medicine is on board.-Appreciate input and recommendation Currently patient is on Ativan and morphine sulfate. Has been on comfort care and remains critical but stable Remains on comfort care and getting supportive medications to give him p.o. pain and/or symptoms Hemodynamically stable and remains clinically stable without any pain and/or shortness of breath Plan to transfer to [facility] with hospice on Sunday Discussed with the in detail Critical but stable and likely to be transferred to [facility] on Sunday (2) Sepsis: Plan: 2/2 UTI, and improved with resuscitation and broad spectrum vanc and zosyn. CT head negative for stroke. Dr. Valladares spoke with [facility] hematology given worsening leukocytosis in the setting of CLL or possible bacterial component. Hematology believes it is unlikely to be progression of CLL. Blood cultures from 09/09 and 09/16 remain negative so far. Urine cultures from 09/17 with gram-negative bacilli. Antibiotics discontinued. (3) UTI (urinary tract infection): Plan: Off antibiotics (4) Acute respiratory failure: Plan: 2/2 covid-19 pneumonia, please see plan below (5) Pneumonia due to COVID-19 virus: Plan: Completed course of remdesivir, and steroids. Currently remains on 5 L of nasal cannula. Most recent chest x-ray on 09/18 with possible left-sided pleural effusion and aspiration. Of note as per nursing staff patient likely aspirated on 09/18. (6) Severe protein-calorie malnutrition: Plan: He wants to eat and will provide diet as tolerated (7) CLL (chronic lymphocytic leukemia): Plan: Seen by [facility] in [place] regarding formal diagnosis in late 2018, however, it is not clear if he has been followed for surveillance labs since that time. Currently not on any treatment. (8) Paroxysmal atrial fibrillation: Plan: Currently in sinus rhythm this admission and patient is notably not on AV lupe deepa therapy at home or here in the hospital. (9) Chronic diastolic CHF (congestive heart failure): Plan: Hold home lasix in setting of sepsis (10) Hypothyroidism: Plan: On comfort measures (11) DVT prophylaxis: Plan: Lovenox DNR/DNI Will be transferred to [facility] with hospice care tomorrow Admission and Anticipated Discharge Date Admission Date: September 09, 2021 Subjective 09/21/2021 The patient was seen and examined in telemetry unit and in the Covid room He has been in on comfort care only and remains reasonably stable Denies any significant pain and/or discomfort 09/22/2021 The patient was seen and examined in telemetry unit and in the Covid room He remains restless and may be in pain He has been under comfort care 09/23/2021 The patient was seen and examined in the Covid room He has been comfort care Remains hemodynamically stable 09/24/2021 The patient was seen and examined in medical floor He is under comfort care Remains confused but denies any significant symptoms 09/25/2021 The patient was seen and examined in medical floor He has been sleeping and denies any significant symptoms Remains comfort on comfort care Review of Systems Review of Systems: Unobtainable due to cognitive status Physical Exam Physical Exam: Lying in bed with acute distress due to shortness of breath and may be in pain Constitutional: + acute distress, + ill appearing and average body habitus Eyes: PERRL, conjunctivae normal, anicteric sclerae ENMT: external ear and nose normal, oropharynx normal Neck: trachea midline, no thyromegaly Respiratory: + respiratory distress and + cough; no labored breathing and does not use accessory muscles Auscultation: + diminished lung sounds and + crackles (At the bases) Cardiovascular: Rate/Rhythm: regular rate and regular rhythm; not tachycardic Heart Sounds: normal S1, normal S2 and + murmur (2/6 ESM over precordium) Gastrointestinal (Abdomen): Inspection/Auscultation: normal bowel sounds; abdomen not distended Percussion/Palpation: abdomen soft; abdomen nontender Neurologic: Alert and awake. Pleasantly confused
[2021-09-25] MEDS ORDERED: ONDANSETRON 4 MG OD TAB PO PRN (20:23)
[2021-09-26] MEDS: MoRPHine SULFATE 5 MG/0.25 ML UDP PO SCH ×4 (03:28→21:29)
--- NOTE | 2021-09-26 13:17 | Hospitalist Progress Note ---
Date of Service September 26, 2021 Assessment & Plan (1) Acute metabolic encephalopathy: Plan: Multifactorial including covid-19 illness, sepsis. Component of delirium as patient is waxing and waning. Progressive deterioration of his condition Remains critical but stable No acute distress Given his overall poor clinical prognosis, family decided to proceed with comfort care measures. Palliative medicine is on board.-Appreciate input and recommendation Currently patient is on Ativan and morphine sulfate. Has been on comfort care and remains critical but stable Plan to transfer to [facility] with hospice on when bed available (2) Sepsis: Plan: 2/2 UTI, and improved with resuscitation and broad spectrum vanc and zosyn. CT head negative for stroke. Dr. Valladares spoke with [facility] hematology given worsening leukocytosis in the setting of CLL or possible bacterial component. Hematology believes it is unlikely to be progression of CLL. Blood cultures from 09/09 and 09/16 remain negative so far. Urine cultures from 09/17 with > 40k E. coli initially treated with vanco/zosyn antibiotics d/c in setting of comfort measures (3) UTI (urinary tract infection): Plan: Off antibiotics afebrile limited vitals in setting of comfort/hospice (4) Acute respiratory failure: Plan: 2/ covid-19 pneumonia resolved (5) Pneumonia due to COVID-19 virus: Plan: Completed course of remdesivir, and steroids Most recent chest x-ray on 09/18 with possible left-sided pleural effusion and aspiration. Of note as per nursing staff patient likely aspirated on 09/18. Currently on room air (6) Severe protein-calorie malnutrition: Plan: He wants to eat and will provide diet as tolerated (7) CLL (chronic lymphocytic leukemia): Plan: Seen by Alistair Hsu in [place] regarding formal diagnosis in late 2018, however, it is not clear if he has been followed for surveillance labs since that time. Currently not on any treatment. (8) Paroxysmal atrial fibrillation: Plan: Remains in NSR off apixaban (9) Chronic diastolic CHF (congestive heart failure): Plan: euvolemic off diuretic (10) Hypothyroidism: Plan: On comfort measures (11) DVT prophylaxis: Plan: None in setting of comfort measures DNR/DNI Dispo: stable to d/c to SNF when bed available at [facility], will hospice Pt was seen and examined in collaboration with Dr. 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 Pleasantly confused He has been on comfort care and remains stable Condition is critical but stable Awaiting transfer to [facility] Reviewed assessment and plan as outlined above by NORY Rene DR Subjective Pt seen and examined in room 386-2. Follow up acute encephalopathy in setting of COVID PNA. He is sitting up in bed trying to drink his milk. He is alert and oriented to self and believe he is in [place]. He offers no acute concerns today; however ROS limited 2/2 to cognitive status. Admits to poor appetite. His cough is improving. Denies f/c/s, chest pain, sob, n/v/d. Review of Systems Review of Systems: Unobtainable due to cognitive status Physical Exam Physical Exam: Gen: Elderly, Chronically ill male, NAD, A&O to self only, drinking milk HEENT: Normocephalic, atraumatic, conjunctivae moist, sclerae anicteric, mucous membranes moist. Lung: Clear to Auscultation bilaterally, no wheezes/rales/rhonchi Heart: Regular rate, regular rhythm, 2/6 CEASAR, no rubs, or gallops Abdomen: Soft, NT, ND +BS x 4 Extremities: No edema, RLE Venous stasis changes, no cellulitis, R digit amp noted Skin: Warm, no rash, negative turgor. Results & Data Results & [facility] ([facility]) Medications Administered Current Inpatient Medications Glycopyrrolate (Glycopyrrolate 0.2 Mg/Ml Vial) 0.2 mg IV Q4H PRN PRN Reason: secretions Stop: 10/19/21 16:28 Lorazepam (Ativan) 0.5 mg in 1 mls @ 1 mls/min IV Q4H PRN PRN Reason: agitation Stop: 10/19/21 16:28 Morphine Sulfate (Morphine Sulfate 2 Mg/Ml Carp) 2 mg IV Q1H PRN PRN Reason: pain/sob Stop: 10/03/21 16:29 Last Admin: 09/23/21 21:41 Dose: 2 mg Documented by: Morphine Sulfate (Morphine Sulfate 5 Mg/0.25 Ml Udp) 5 mg PO Q6H NE Stop: 10/05/21 15:59 Last Admin: 09/26/21 09:43 Dose: 5 mg Documented by: Ondansetron HCl (Ondansetron Inj 2 Mg/Ml 2 Ml Vial) 4 mg IV Q6H PRN PRN Reason: Nausea Stop: 10/10/21 00:44 Last Admin: 09/18/21 23:26 Dose: 4 mg Documented by: Ondansetron HCl (Ondansetron 4 Mg Od Tab) 4 mg PO Q6H PRN PRN Reason: Nausea Stop: 10/25/21 20:22 Last Admin: 09/25/21 20:31 Dose: 4 mg Documented by:
[2021-09-27] MEDS: MoRPHine SULFATE 5 MG/0.25 ML UDP PO SCH ×4 (03:47→21:27)
--- NOTE | 2021-09-27 12:31 | Hospitalist Progress Note ---
Date of Service September 27, 2021 Assessment & Plan (1) Acute metabolic encephalopathy: Plan: Multifactorial including covid-19 illness, sepsis. Component of delirium as patient is waxing and waning. Progressive deterioration of his condition Remains critical but stable No acute distress Given his overall poor clinical prognosis, family decided to proceed with comfort care measures. Palliative medicine is on board.-Appreciate input and recommendation Currently patient is on Ativan and morphine sulfate. Has been on comfort care and remains critical but stable Plan to transfer to [facility] with hospice on when bed available - awaiting placement (2) Sepsis: Plan: 2/2 UTI, and improved with resuscitation and broad spectrum vanc and zosyn. CT head negative for stroke. Dr. Valladares spoke with [facility] hematology given worsening leukocytosis in the setting of CLL or possible bacterial component. Hematology believes it is unlikely to be progression of CLL. Blood cultures from 09/09 and 09/16 remain negative so far. Urine cultures from 09/17 with > 40k E. coli initially treated with vanco/zosyn antibiotics d/c in setting of comfort measures (3) UTI (urinary tract infection): Plan: Off antibiotics afebrile limited vitals in setting of comfort/hospice (4) Acute respiratory failure: Plan: 2/ covid-19 pneumonia resolved (5) Pneumonia due to COVID-19 virus: Plan: Completed course of remdesivir, and steroids Most recent chest x-ray on 09/18 with possible left-sided pleural effusion and aspiration. Of note as per nursing staff patient likely aspirated on 09/18. Currently on room air (6) Severe protein-calorie malnutrition: Plan: He wants to eat and will provide diet as tolerated (7) CLL (chronic lymphocytic leukemia): Plan: Seen by Alistair Hsu in [place] regarding formal diagnosis in late 2018, however, it is not clear if he has been followed for surveillance labs since that time. Currently not on any treatment. (8) Paroxysmal atrial fibrillation: Plan: Remains in NSR off apixaban (9) Chronic diastolic CHF (congestive heart failure): Plan: euvolemic off diuretic (10) Hypothyroidism: Plan: On comfort measures (11) DVT prophylaxis: Plan: None in setting of comfort measures DNR/DNI Dispo: stable to d/c to SNF when bed available at [facility], will hospice Pt was seen and examined in collaboration with Dr. 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 Pleasantly confused Remains under comfort care and is stable Agree with assessment and plan as outlined above by Yadi Casper Subjective Pt seen and examined in room 386-2. Follow up acute encephalopathy in setting of COVID PNA. He is lying in bed. Offers no acute concerns. When asked what year it is he states, [birth year]19 and laughs. Denies f/c/s, chest pain, sob, n/v/d. ROS unreliable given cognitive status. Review of Systems Review of Systems: All systems reviewed & are unremarkable except as noted in HPI & below and Unobtainable due to cognitive status Physical Exam Physical Exam: Gen: Elderly, Chronically ill male, NAD, A&O to self only, HEENT: Normocephalic, atraumatic, conjunctivae moist, sclerae anicteric, mucous membranes moist. Lung: Clear to Auscultation bilaterally, no wheezes/rales/rhonchi Heart: Regular rate, regular rhythm, 2/6 CEASAR, no rubs, or gallops Abdomen: Soft, NT, ND +BS x 4 Extremities: No edema, RLE Venous stasis changes, no cellulitis, R digit amp noted Skin: Warm, no rash, negative turgor. Results & Data Results & Data ([facility]) Medications Administered Current Inpatient Medications Glycopyrrolate (Glycopyrrolate 0.2 Mg/Ml Vial) 0.2 mg IV Q4H PRN PRN Reason: secretions Stop: 10/19/21 16:28 Lorazepam (Ativan) 0.5 mg in 1 mls @ 1 mls/min IV Q4H PRN PRN Reason: agitation Stop: 10/19/21 16:28 Morphine Sulfate (Morphine Sulfate 2 Mg/Ml Carp) 2 mg IV Q1H PRN PRN Reason: pain/sob Stop: 10/03/21 16:29 Last Admin: 09/23/21 21:41 Dose: 2 mg Documented by: Morphine Sulfate (Morphine Sulfate 5 Mg/0.25 Ml Udp) 5 mg PO Q6H NE Stop: 10/05/21 15:59 Last Admin: 09/27/21 10:24 Dose: 5 mg Documented by: Ondansetron HCl (Ondansetron Inj 2 Mg/Ml 2 Ml Vial) 4 mg IV Q6H PRN PRN Reason: Nausea Stop: 10/10/21 00:44 Last Admin: 09/18/21 23:26 Dose: 4 mg Documented by: Ondansetron HCl (Ondansetron 4 Mg Od Tab) 4 mg PO Q6H PRN PRN Reason: Nausea Stop: 10/25/21 20:22 Last Admin: 09/25/21 20:31 Dose: 4 mg Documented by:
[2021-09-28] MEDS: MoRPHine SULFATE 5 MG/0.25 ML UDP PO SCH ×4 (04:55→22:11)
--- NOTE | 2021-09-28 13:34 | Palliative Care Progress Note ---
Date of Service September 28, 2021 Assessment & Plan (1) Palliative care encounter: Plan: Focus of care is comfort and he is much improved, alert, conversant, eating lunch. Comfortable on routine morphine. Continue current regimen. Case management working with Mrs. Anderson on placement. (2) Pneumonia due to COVID-19 virus: (3) Acute respiratory failure: Admission and Anticipated Discharge Date Admission Date: September 09, 2021 Subjective Awake. Eating pureed lunch without difficulty. Smiling. Denies pain or dyspnea. Review of Systems Review of Systems: [place] Symptom Assessment Scale Pain 0/3 Dyspnea 0/3 Anxiety 0/3 Fatigue 2/3 Nausea 0/3 Drowsiness 0/3 Palliative Performance Score 30% Physical Exam Constitutional: no acute distress ENMT: poor dentition Respiratory: normal respiratory effort; no labored breathing Neurologic: moves all extremities and awake Psychiatric: Affect: euthymic affect PG Care Time/CCT Total # of Minutes Spent Total Time Spent with Patient: Total time spent is greater than 50% in coordination of care (as documented) at patient's floor/unit and/or counseling patient: Coding Level of Care Code 38309 Subseq Hosp Care Lvl 2 Diagnoses Palliative care encounter Z51.5 Pneumonia due to COVID-19 virus U07.1; J12.82 Acute respiratory failure J96.00
--- NOTE | 2021-09-28 16:31 | Hospitalist Progress Note ---
Date of Service September 28, 2021 Assessment & Plan (1) Acute metabolic encephalopathy: Plan: Multifactorial including covid-19 illness, sepsis. Component of delirium as patient is waxing and waning. Progressive deterioration of his condition Remains critical but stable No acute distress Given his overall poor clinical prognosis, family decided to proceed with comfort care measures. Palliative medicine is on board.-Appreciate input and recommendation Currently patient is on Ativan and morphine sulfate. Has been on comfort care and remains critical but stable working with CM on placement (2) Sepsis: Plan: 2/2 UTI, and improved with resuscitation and broad spectrum vanc and zosyn. CT head negative for stroke. Dr. Valladares spoke with [facility] [place] given worsening leukocytosis in the setting of CLL or possible bacterial component. Hematology believes it is unlikely to be progression of CLL. Blood cultures from 09/09 and 09/16 remain negative so far. Urine cultures from 09/17 with > 40k E. coli initially treated with vanco/zosyn antibiotics d/c in setting of comfort measures (3) UTI (urinary tract infection): Plan: Off antibiotics afebrile limited vitals in setting of comfort/hospice (4) Acute respiratory failure: Plan: 2/2 covid-19 pneumonia resolved (5) Pneumonia due to COVID-19 virus: Plan: Completed course of remdesivir, and steroids Most recent chest x-ray on 09/18 with possible left-sided pleural effusion and aspiration. Of note as per nursing staff patient likely aspirated on 09/18. Currently on room air (6) Severe protein-calorie malnutrition: Plan: He wants to eat and will provide diet as tolerated (7) CLL (chronic lymphocytic leukemia): Plan: Seen by [place] Hsu in [place] regarding formal diagnosis in late 2018, however, it is not clear if he has been followed for surveillance labs since that time. Currently not on any treatment. (8) Paroxysmal atrial fibrillation: Plan: Remains in NSR off apixaban (9) Chronic diastolic CHF (congestive heart failure): Plan: euvolemic off diuretic (10) Hypothyroidism: Plan: On comfort measures (11) DVT prophylaxis: Plan: None in setting of comfort measures DNR/DNI Dispo: stable to d/c to when plan in place with , likely with hospice Pt was seen and examined in collaboration with Dr. Casper, please see addendum Admission and Anticipated Discharge Date Admission Date: September 09, 2021 Supervising Physician Co-Signing Physician Notes Attending addendum The patient was seen and examined in medical floor He remained stable and free of pain Appreciate palliative care follow-up today He has been waiting for placement Agree with assessment and plan as outlined above by Yadi Casper Subjective Pt seen and examined in room 386-2. Follow up acute encephalopathy in setting of COVID PNA. He is lying in bed. Offers no acute concerns. He is smiling and is comfortable. ROS is unreliable. He denies f/c/s chest pain, sob, n/v/d, abd pain. Levine remains in place. Review of Systems Review of Systems: All systems reviewed & are unremarkable except as noted in HPI & below Physical Exam Physical Exam: Gen: Elderly, Chronically ill male, NAD, A&O to self only, HEENT: Normocephalic, atraumatic, conjunctivae moist, sclerae anicteric, mucous membranes moist. Lung: Clear to Auscultation bilaterally, no wheezes/rales/rhonchi Heart: Regular rate, regular rhythm, 2/6 CEASAR, no rubs, or gallops Abdomen: Soft, NT, ND +BS x 4 Extremities: No edema, RLE Venous stasis changes, no cellulitis, R digit amp noted Skin: Warm, no rash, negative turgor. : levine with yellow urine Results & Data Results & Data ([facility]) Medications Administered Current Inpatient Medications Glycopyrrolate (Glycopyrrolate 0.2 Mg/Ml Vial) 0.2 mg IV Q4H PRN PRN Reason: secretions Stop: 10/19/21 16:28 Lorazepam (Ativan) 0.5 mg in 1 mls @ 1 mls/min IV Q4H PRN PRN Reason: agitation Stop: 10/19/21 16:28 Morphine Sulfate (Morphine Sulfate 2 Mg/Ml Carp) 2 mg IV Q1H PRN PRN Reason: pain/sob Stop: 10/03/21 16:29 Last Admin: 09/23/21 21:41 Dose: 2 mg Documented by: Morphine Sulfate (Morphine Sulfate 5 Mg/0.25 Ml Udp) 5 mg PO Q6H NE Stop: 10/05/21 15:59 Last Admin: 09/28/21 14:04 Dose: 5 mg Documented by: Ondansetron HCl (Ondansetron Inj 2 Mg/Ml 2 Ml Vial) 4 mg IV Q6H PRN PRN Reason: Nausea Stop: 10/10/21 00:44 Last Admin: 09/18/21 23:26 Dose: 4 mg Documented by: Ondansetron HCl (Ondansetron 4 Mg Od Tab) 4 mg PO Q6H PRN PRN Reason: Nausea Stop: 10/25/21 20:22 Last Admin: 09/25/21 20:31 Dose: 4 mg Documented by:
[2021-09-29] MEDS: MoRPHine SULFATE 5 MG/0.25 ML UDP PO SCH ×4 (04:43→21:35)
--- NOTE | 2021-09-29 12:25 | Hospitalist Progress Note ---
Date of Service September 29, 2021 Assessment & Plan (1) Acute metabolic encephalopathy: Plan: Multifactorial including covid-19 illness, sepsis Component of delirium as patient is waxing and waning Progressive deterioration of his condition No acute distress, appears comfortable Given his overall poor clinical prognosis, family decided to proceed with comfort care measures Palliative medicine is on board-appreciate input and recommendation Currently patient is on Ativan and morphine sulfate CM working on placement at [facility] with hospice (2) Sepsis: Plan: 2/2 UTI, and improved with resuscitation and broad spectrum vanc and zosyn. CT head negative for stroke Dr. Valladares spoke with [facility] hematology given worsening leukocytosis in the setting of CLL or possible bacterial component Hematology believes it is unlikely to be progression of CLL Blood cultures from 09/09 and 09/16 remain negative so far Urine cultures from 09/17 with > 40k E. coli Initially treated with vanco/zosyn Antibiotics d/c in setting of comfort measures (3) UTI (urinary tract infection): Plan: Antibiotics d/c in setting of comfort measures Afebrile Limited vitals in setting of comfort/hospice (4) Acute respiratory failure: Plan: 2/2 covid-19 pneumonia Resolved (5) Pneumonia due to COVID-19 virus: Plan: Completed course of remdesivir, and steroids Most recent chest x-ray on 09/18 with possible left-sided pleural effusion and aspiration Of note as per nursing staff patient likely aspirated on 09/18 Currently on room air (6) Severe protein-calorie malnutrition: Plan: He wants to eat and will provide diet as tolerated (7) CLL (chronic lymphocytic leukemia): Plan: Seen by [place] Hsu in [place] regarding formal diagnosis in late 2018, however, it is not clear if he has been followed for surveillance labs since that time Currently not on any treatment (8) Paroxysmal atrial fibrillation: Plan: Remains in NSR Apixaban has been discontinued (9) Chronic diastolic CHF (congestive heart failure): Plan: Euvolemic. Diuretics have been discontinued (10) DVT prophylaxis: Plan: None in setting of comfort measures DNR/DNI Dispo: CM working with on d/c, planning for discharge to [facility] with hospice Pt was seen and examined in collaboration with Dr. Rosas, please see addendum Admission and Anticipated Discharge Date Admission Date: September 09, 2021 Supervising Physician Co-Signing Physician Notes Patient is clinically status quo. Does not appear to be in any distress. No new issues. Hemodynamically doing okay. I performed a history and physical examination of the patient on 09/29/21, including specifically H&P. I have discussed the patient's management with the advanced practitioner. Please refer to the Racquel Rodriguez note for the documented findings and plan of care. Subjective Seen and examined in 386 bed 2. Patient resting comfortably, offers no new complaints. Pain controlled with morphine. Repositioned with RN for improved comfort. Denies any fever, chills, chest pain, shortness of breath, nausea, vomiting, abdominal pain, dysuria, diarrhea constipation. Levine catheter in place draining light yellow urine. Review of Systems Review of Systems: At least ten systems reviewed and negative except as noted in the HPI. Physical Exam Physical Exam: Gen: Elderly, Chronically ill male, NAD, A&O to self only, HEENT: Normocephalic, atraumatic, conjunctivae moist, sclerae anicteric, mucous membranes moist. Lung: Clear to Auscultation bilaterally, no wheezes/rales/rhonchi Heart: Regular rate, regular rhythm, 2/6 CEASAR, no rubs, or gallops Abdomen: Soft, NT, ND +BS x 4 Extremities: No edema, RLE Venous stasis changes, no cellulitis, R digit amp noted Skin: Warm, no rash, negative turgor. : levine with yellow urine
[2021-09-30] MEDS: MoRPHine SULFATE 5 MG/0.25 ML UDP PO SCH ×4 (04:06→21:42)
[2021-09-30] MEDS ORDERED: SENNA 8.6 MG TAB PO ONE (13:00)
--- NOTE | 2021-09-30 14:16 | Hospitalist Progress Note ---
Date of Service September 30, 2021 Assessment & Plan (1) Acute metabolic encephalopathy: Plan: Multifactorial including Covid-19 illness, sepsis Component of delirium as patient is waxing and waning Progressive deterioration of his condition No acute distress, appears comfortable Given his overall poor clinical prognosis, family decided to proceed with comfort care measures Palliative medicine is on board-appreciate input and recommendation Currently patient is on Ativan and morphine sulfate Increased bowel regimen CM working on placement at [facility] with hospice - no beds available until next week Will update over the phone (2) Sepsis: Plan: 2/2 UTI, and improved with resuscitation and broad spectrum vanc and zosyn. CT head negative for stroke Dr. Valladares spoke with [facility] hematology given worsening leukocytosis in the setting of CLL or possible bacterial component Hematology believes it is unlikely to be progression of CLL Blood cultures from 09/09 and 09/16 remain negative so far Urine cultures from 09/17 with > 40k E. coli Initially treated with vanco/zosyn Antibiotics d/c in setting of comfort measures (3) UTI (urinary tract infection): Plan: Antibiotics d/c in setting of comfort measures Afebrile Limited vitals in setting of comfort/hospice (4) Acute respiratory failure: Plan: 2/2 covid-19 pneumonia Resolved (5) Pneumonia due to COVID-19 virus: Plan: Completed course of remdesivir, and steroids Most recent chest x-ray on 09/18 with possible left-sided pleural effusion and aspiration Of note as per nursing staff patient likely aspirated on 09/18 Currently on room air (6) Severe protein-calorie malnutrition: Plan: He wants to eat and will provide diet as tolerated (7) CLL (chronic lymphocytic leukemia): Plan: Seen by [place] in [place] regarding formal diagnosis in late 2018, however, it is not clear if he has been followed for surveillance labs since that time Currently not on any treatment (8) Paroxysmal atrial fibrillation: Plan: Remains in NSR Apixaban has been discontinued (9) Chronic diastolic CHF (congestive heart failure): Plan: Euvolemic. Diuretics have been discontinued (10) DVT prophylaxis: Plan: None in setting of comfort measures DNR/DNI Dispo: CM working with on d/c, planning for discharge to [facility] with hospice Pt was seen and examined in collaboration with Dr. Rosas, please see addendum Admission and Anticipated Discharge Date Admission Date: September 09, 2021 Supervising Physician Co-Signing Physician Notes Overall doing okay. No new issues. Resting comfortably. Hemodynamically stable. I performed a history and physical examination of the patient on 09/30/21, including specifically H&P. I have discussed the patient's management with the advanced practitioner. Please refer to the Racquel Rodriguez note for the documented findings and plan of care. Subjective Seen and examined in 386-2. Patient resting comfortably, offers no new complaints. Pain controlled with morphine. Denies any fever, chills, chest pain, shortness of breath, nausea, vomiting, abdominal pain, dysuria or diarrhea. Levine catheter in place draining light yellow urine. Per report, no BM in 2 days. Will increase bowel regimen while receiving more morphine. Review of Systems Review of Systems: At least ten systems reviewed and negative except as noted in the HPI. Physical Exam Physical Exam: Gen: Elderly, Chronically ill male, NAD, A&Armani self only, pleasant HEENT: Normocephalic, atraumatic, conjunctivae moist, sclerae anicteric, mucous membranes moist Lung: Clear to Auscultation bilaterally, no wheezes/rales/rhonchi Heart: Regular rate, regular rhythm, 2/6 CEASAR, no rubs, or gallops Abdomen: Soft, nontender, mildly distended, +BS x 4 Extremities: No edema, RLE Venous stasis changes, no cellulitis, R digit amp noted Skin: Warm, no rash, negative turgor : levine with yellow urine Results & Data Results & Data ([facility]) Vital Signs (Past 12 Hours) Vital Signs Temp Pulse Resp BP Pulse Ox 09/30/21 11:53 36.8 C 78 22 134/72 93
[2021-09-30] MEDS: DOCUSATE SODIUM 100 MG CAP PO SCH (21:40)
[2021-10-01] MEDS: MoRPHine SULFATE 5 MG/0.25 ML UDP PO SCH ×4 (04:39→22:09)
[2021-10-01] MEDS: POLYETHYLENE (MIRALAX) 17 GM PACK PO SCH (09:12)
[2021-10-01] MEDS: DOCUSATE SODIUM 100 MG CAP PO SCH ×2 (09:12→22:08)
[2021-10-01] MEDS ORDERED: ACETAMINOPHEN 325 MG TAB PO PRN (10:29)
--- NOTE | 2021-10-01 10:29 | Hospitalist Progress Note ---
Date of Service October 01, 2021 Assessment & Plan (1) Comfort measures only status: Plan: Patient appears comfortable, well fed, with limited symptoms other than a headache. He is in good spirits. Cont morphine PRN as ordered. Tylenol for headache now. Transfers to hospice when bed available. Palliative medicine is following. (2) Acute metabolic encephalopathy: Plan: Multifactorial including Covid-19 illness, sepsis Component of delirium as patient is waxing and waning Progressive deterioration of his condition Given his overall poor clinical prognosis, family decided to proceed with comfort care measures Palliative medicine is on board-appreciate input and recommendation Currently patient is on Ativan and morphine sulfate CM working on placement at [facility] with hospice (3) Sepsis: Plan: 2/2 UTI, and improved with resuscitation and broad spectrum vanc and zosyn. CT head negative for stroke Case discussed with [facility] hematology given worsening leukocytosis in the setting of CLL or possible bacterial component Hematology believes it is unlikely to be progression of CLL Blood cultures from 09/09 and 09/16 remain negative so far Urine cultures from 09/17 with > 40k E. coli Treated with 3 days of vanco/zosyn (4) UTI (urinary tract infection): Plan: treatment as above. (5) Acute respiratory failure: Plan: 2/2 covid-19 pneumonia-Resolved (6) Pneumonia due to COVID-19 virus: Plan: Completed course of remdesivir, and steroids Most recent chest x-ray on 09/18 with possible left-sided pleural effusion and aspiration Of note as per nursing staff patient likely aspirated on 09/18 Currently on room air and in no distress (7) Severe protein-calorie malnutrition: Plan: Food and fluids as desired, unrestricted diet (8) CLL (chronic lymphocytic leukemia): Plan: Seen by [facility] in [place] regarding formal diagnosis in late 2018, however, it is not clear if he has been followed for surveillance labs since that time. Currently not on any treatment (9) Paroxysmal atrial fibrillation: Plan: Remains in NSR. Apixaban has been discontinued in setting of Hospice. (10) Chronic diastolic CHF (congestive heart failure): Plan: Euvolemic. Diuretics have been discontinued (11) DVT prophylaxis: Plan: None in setting of comfort measures DNR/DNI Dispo: CM working with on d/c, planning for discharge to [facility] with hospice Damaris Tippah, DO [facility] Hospitalist Admission and Anticipated Discharge Date Admission Date: September 09, 2021 Subjective 81 yo M with recent covid illness and h/o CLL, now on Hospice. He has a h/o TBI and history is somewhat limited as a result but he does give one word answers that are appropriate. He answers that he has pain in his head and would like some Tylenol. He reports he is eating and does not feel hungry right now. He denies any other pain anywhere else and reports otherwise feeling fine. Denies cough, fevers or chills. In great spirits today. When asked if he would like anything else he replied "a [place] [employer]!" with a smile. Review of Systems Review of Systems: All systems reviewed and negative except as indicated in subjective above. Somewhat limited ROS secondary to dementia and history of TBI. Physical Exam Physical Exam: CONSTITUTIONAL: thin, fragile, vitals as above, generally well-appearing, NAD EYES: normal conjunctivae, no scleral icterus ENT: external ear and nose normal, poor dentition NECK: trachea midline RESPIRATORY: clear to auscultation bilaterally, no crackles, rales or wheezes, normal respiratory effort CARDIOVASCULAR: regular rate and rhythm, S1 and 2 heard without murmurs, gallops or rubs, no JVD, no peripheral edema GASTROINTESTINAL: soft, nontender, ND, no guarding MUSCULOSKELETAL: generalized weakness, limited ability to move around and/or follow instructions. head is normocephalic and atraumatic SKIN: warm and dry NEUROLOGIC: CN 2-12 grossly intact, normal cognition, normal speech, no tremor PSYCHIATRIC: alert cooperative and giving one word answers/limited replies that are appropriate. Results & Data Results & Data ([facility]) Vital Signs (Past 12 Hours) Vital Signs Temp Pulse Resp BP Pulse Ox 10/01/21 07:24 36.6 C 77 16 108/60 94 Medications Administered Current Inpatient Medications Docusate Sodium (Docusate Sodium 100 Mg Cap) 100 mg PO BID NE Stop: 10/30/21 20:59 Last Admin: 10/01/21 09:12 Dose: 100 mg Documented by: Glycopyrrolate (Glycopyrrolate 0.2 Mg/Ml Vial) 0.2 mg IV Q4H PRN PRN Reason: secretions Stop: 10/19/21 16:28 Lorazepam (Ativan) 0.5 mg in 1 mls @ 1 mls/min IV Q4H PRN PRN Reason: agitation Stop: 10/19/21 16:28 Morphine Sulfate (Morphine Sulfate 2 Mg/Ml Carp) 2 mg IV Q1H PRN PRN Reason: pain/sob Stop: 10/03/21 16:29 Last Admin: 09/23/21 21:41 Dose: 2 mg Documented by: Morphine Sulfate (Morphine Sulfate 5 Mg/0.25 Ml Udp) 5 mg PO Q6H NE Stop: 10/05/21 15:59 Last Admin: 10/01/21 09:12 Dose: 5 mg Documented by: Ondansetron HCl (Ondansetron Inj 2 Mg/Ml 2 Ml Vial) 4 mg IV Q6H PRN PRN Reason: Nausea Stop: 10/10/21 00:44 Last Admin: 09/18/21 23:26 Dose: 4 mg Documented by: Ondansetron HCl (Ondansetron 4 Mg Od Tab) 4 mg PO Q6H PRN PRN Reason: Nausea Stop: 10/25/21 20:22 Last Admin: 09/25/21 20:31 Dose: 4 mg Documented by: Polyethylene Glycol (Polyethylene (Miralax) 17 Gm Pack) 17 gm PO DAILY NE Stop: 10/31/21 08:59 Last Admin: 10/01/21 09:12 Dose: 17 gm Documented by:
[2021-10-01] MEDS ORDERED: ACETAMINOPHEN 325 MG TAB PO STA (10:35)
[2021-10-02] MEDS: MoRPHine SULFATE 5 MG/0.25 ML UDP PO SCH ×4 (05:03→21:35)
[2021-10-02] MEDS: DOCUSATE SODIUM 100 MG CAP PO SCH ×2 (07:40→21:35)
[2021-10-02] MEDS: POLYETHYLENE (MIRALAX) 17 GM PACK PO SCH (07:40)
[2021-10-02] MEDS ORDERED: GLYCERIN ADULT 12 SUPP/BOX SUPP PR ONE (12:12)
[2021-10-02] MEDS ORDERED: GLYCERIN ADULT 12 SUPP/BOX SUPP PR PRN (12:12)
[2021-10-02] MEDS ORDERED: POLYETHYLENE (MIRALAX) 17 GM PACK PO PRN (12:14)
[2021-10-02] MEDS: SENNOSIDES 8.8 MG/5 ML UDC PO SCH (12:54)
--- NOTE | 2021-10-02 21:48 | Hospitalist Progress Note ---
Date of Service October 02, 2021 Assessment & Plan (1) Comfort measures only status: Plan: Patient appears comfortable and in good spirits. Cont morphine PRN as ordered. Tylenol as needed. Transfers to hospice when bed available. Palliative medicine is following. (2) Acute metabolic encephalopathy: Plan: Multifactorial including Covid-19 illness, sepsis Component of delirium as patient is waxing and waning Progressive deterioration of his condition Given his overall poor clinical prognosis, family decided to proceed with comfort care measures Palliative medicine is on board-appreciate input and recommendation Currently patient is on Ativan and morphine sulfate CM working on placement at [facility] with hospice (3) Sepsis: Plan: 2/2 UTI, and improved with resuscitation and broad spectrum vanc and zosyn. CT head negative for stroke Case discussed with [facility] hematology given worsening leukocytosis in the setting of CLL or possible bacterial component Hematology believes it is unlikely to be progression of CLL Blood cultures from 09/09 and 09/16 remain negative so far Urine cultures from 09/17 with > 40k E. coli Treated with 3 days of vanco/zosyn (4) UTI (urinary tract infection): Plan: treatment as above. (5) Acute respiratory failure: Plan: 2/ covid-19 pneumonia-Resolved (6) Pneumonia due to COVID-19 virus: Plan: Completed course of remdesivir, and steroids Most recent chest x-ray on 09/18 with possible left-sided pleural effusion and aspiration Of note as per nursing staff patient likely aspirated on 09/18 Currently on room air and in no distress (7) Severe protein-calorie malnutrition: Plan: Food and fluids as desired, unrestricted diet (8) CLL (chronic lymphocytic leukemia): Plan: Seen by [facility] in [place] regarding formal diagnosis in late 2018, however, it is not clear if he has been followed for surveillance labs since that time. Currently not on any treatment (9) Paroxysmal atrial fibrillation: Plan: Apixaban has been discontinued in setting of Hospice. (10) Chronic diastolic CHF (congestive heart failure): Plan: Euvolemic. Diuretics have been discontinued (11) DVT prophylaxis: Plan: None in setting of comfort measures DNR/DNI Dispo: CM working with on d/c, planning for discharge to [facility] with hospice DO Shante Morales Hospitalist Admission and Anticipated Discharge Date Admission Date: September 09, 2021 Subjective 81 yo M with recent covid illness and h/o CLL, now on Hospice. He has a h/o TBI and history is somewhat limited as a result but he does give one word answers that are appropriate. He reports that he has been eating without issue and reports some mid-abdominal discomfort. He would like some pain medications--noted this was just given to him by nursing within the last half hour. Smiling and denies any other issues. Review of Systems Review of Systems: All systems reviewed and negative except as indicated in subjective above. Somewhat limited ROS secondary to dementia and history of TBI. Physical Exam Physical Exam: CONSTITUTIONAL: thin, fragile, vitals as above, generally well-appearing, NAD EYES: normal conjunctivae, no scleral icterus ENT: external ear and nose normal, poor dentition NECK: trachea midline RESPIRATORY: clear to auscultation bilaterally, no crackles, rales or wheezes, normal respiratory effort CARDIOVASCULAR: regular rate and rhythm, S1 and 2 heard without murmurs, gallops or rubs, no JVD, no peripheral edema GASTROINTESTINAL: soft, nontender, ND, no guarding MUSCULOSKELETAL: generalized weakness, limited ability to move around and/or follow instructions. head is normocephalic and atraumatic SKIN: warm and dry NEUROLOGIC: CN 2-12 grossly intact, normal cognition, normal speech, no tremor PSYCHIATRIC: alert cooperative and giving one word answers/limited replies that are appropriate. Results & Data Results & Data ([facility]) Medications Administered Current Inpatient Medications Acetaminophen (Acetaminophen 325 Mg Tab) 650 mg PO Q6H PRN PRN Reason: pain/fever Stop: 10/31/21 10:28 Last Admin: 10/02/21 07:39 Dose: 650 mg Documented by: Docusate Sodium (Docusate Sodium 100 Mg Cap) 100 mg PO BID NE Stop: 10/30/21 20:59 Last Admin: 10/02/21 21:35 Dose: 100 mg Documented by: Glycerin (Glycerin Adult 12 Supp/Box Supp) 1 supp VT DAILY PRN PRN Reason: Constipation Stop: 11/01/21 12:11 Glycopyrrolate (Glycopyrrolate 0.2 Mg/Ml Vial) 0.2 mg IV Q4H PRN PRN Reason: secretions Stop: 10/19/21 16:28 Lorazepam (Ativan) 0.5 mg in 1 mls @ 1 mls/min IV Q4H PRN PRN Reason: agitation Stop: 10/19/21 16:28 Morphine Sulfate (Morphine Sulfate 2 Mg/Ml Carp) 2 mg IV Q1H PRN PRN Reason: pain/sob Stop: 10/03/21 16:29 Last Admin: 09/23/21 21:41 Dose: 2 mg Documented by: Morphine Sulfate (Morphine Sulfate 5 Mg/0.25 Ml Udp) 5 mg PO Q6H NE Stop: 10/05/21 15:59 Last Admin: 10/02/21 21:35 Dose: 5 mg Documented by: Ondansetron HCl (Ondansetron Inj 2 Mg/Ml 2 Ml Vial) 4 mg IV Q6H PRN PRN Reason: Nausea Stop: 10/10/21 00:44 Last Admin: 09/18/21 23:26 Dose: 4 mg Documented by: Ondansetron HCl (Ondansetron 4 Mg Od Tab) 4 mg PO Q6H PRN PRN Reason: Nausea Stop: 10/25/21 20:22 Last Admin: 09/25/21 20:31 Dose: 4 mg Documented by: Polyethylene Glycol (Polyethylene (Miralax) 17 Gm Pack) 17 gm PO DAILY NE Stop: 10/31/21 08:59 Last Admin: 10/02/21 07:40 Dose: 17 gm Documented by: Polyethylene Glycol (Polyethylene (Miralax) 17 Gm Pack) 17 gm PO Q8H PRN PRN Reason: constipation Stop: 11/01/21 12:14 Sennosides (Sennosides 8.8 Mg/5 Ml Udc) 8.8 mg PO QAM NE Stop: 11/01/21 12:14 Last Admin: 10/02/21 12:54 Dose: 8.8 mg Documented by:
[2021-10-03] MEDS: MoRPHine SULFATE 5 MG/0.25 ML UDP PO SCH ×4 (05:02→22:44)
[2021-10-03] MEDS: SENNOSIDES 8.8 MG/5 ML UDC PO SCH (08:46)
[2021-10-03] MEDS: DOCUSATE SODIUM 100 MG CAP PO SCH ×2 (08:46→20:51)
[2021-10-03] MEDS: POLYETHYLENE (MIRALAX) 17 GM PACK PO SCH (08:46)
--- NOTE | 2021-10-03 15:40 | Hospitalist Progress Note ---
Date of Service October 03, 2021 Assessment & Plan (1) Comfort measures only status: Plan: Patient appears comfortable Given his overall poor clinical prognosis, family decided to proceed with comfort care measures Continue as needed morphine, lorazepam, and Tylenol Transfer to hospice at [facility] when bed available Palliative care following (2) Acute metabolic encephalopathy: Plan: Multifactorial including Covid-19 illness, sepsis Improved (3) UTI (urinary tract infection): (4) Sepsis: Plan: 2/2 UTI, and improved with resuscitation and broad spectrum vanc and zosyn. CT head negative for stroke Case discussed with [facility] hematology given worsening leukocytosis in the setting of CLL or possible bacterial component Hematology believes it is unlikely to be progression of CLL Blood cultures from 09/09 and 09/16 negative Urine cultures from 09/17 with > 40k E. coli Treated with 3 days of vanco/zosyn (5) Acute respiratory failure: (6) Pneumonia due to COVID-19 virus: Plan: Completed course of remdesivir, and steroids Most recent chest x-ray on 09/18 with possible left-sided pleural effusion and aspiration Of note as per nursing staff patient likely aspirated on 09/18 Currently on room air and in no distress (7) Severe protein-calorie malnutrition: Plan: Food and fluids as desired, unrestricted diet (8) CLL (chronic lymphocytic leukemia): Plan: Seen by [facility] in [place] regarding formal diagnosis in late 2018, however, it is not clear if he has been followed for surveillance labs since that time. Currently not on any treatment. (9) Paroxysmal atrial fibrillation: Plan: Apixaban has been discontinued in setting of Hospice. Previously not on any rate or rhythm controlling medications (10) Chronic diastolic CHF (congestive heart failure): Plan: Euvolemic, Diuretics have been discontinued in the setting of hospice (11) DVT prophylaxis: Plan: None in setting of comfort measures DNR/DNI Dispo: Stable for discharge to [facility] with hospice care once bed available Admission and Anticipated Discharge Date Admission Date: September 09, 2021 Supervising Physician Co-Signing Physician Notes Patient is resting comfortably. Pleasantly confused he does not appear to be in any distress. No new complaints. Clinically stable. Clinically awaiting placement. I performed a history and physical examination of the patient on 10/03/21, including specifically H&P. I have discussed the patient's management with the advanced practitioner. Please refer to the Joanie Herrera note for the documented findings and plan of care. Subjective Patient seen and examined. Follow-up for respiratory failure due to COVID-19 pneumonia, sepsis due to UTI, history of CLL, now on comfort measures. Patient resting in bed, offers no complaints. Pleasant. Physical Exam Constitutional: + ill appearing (Chronically) and + thin; no acute distress ENMT: Poor dentition Respiratory: normal respiratory effort, lungs clear to auscultation Cardiovascular: Rate/Rhythm: regular rate and regular rhythm Vessels: normal peripheral pulses Extremities: no edema Gastrointestinal (Abdomen): Percussion/Palpation: abdomen soft; abdomen nontender Skin: no rashes, warm and dry Neurologic: no focal motor deficits Psychiatric: Orientation: alert, oriented to person, oriented to place and cooperative; + not oriented to time Results & Data Results & Data ([facility]) Vital Signs (Past 12 Hours) Vital Signs Temp Pulse Resp BP Pulse Ox 10/03/21 07:33 36.5 C 61 16 133/64 94
[2021-10-03] MEDS ORDERED: BEER 1 CAN PO STA (20:11)
[2021-10-04] MEDS: MoRPHine SULFATE 5 MG/0.25 ML UDP PO SCH ×4 (04:27→21:45)
[2021-10-04] MEDS: DOCUSATE SODIUM 100 MG CAP PO SCH ×2 (08:20→21:45)
[2021-10-04] MEDS: POLYETHYLENE (MIRALAX) 17 GM PACK PO SCH (08:20)
[2021-10-04] MEDS: SENNOSIDES 8.8 MG/5 ML UDC PO SCH (08:20)
--- NOTE | 2021-10-04 14:53 | Hospitalist Progress Note ---
Date of Service October 04, 2021 Assessment & Plan (1) Comfort measures only status: Plan: Patient appears comfortable Given his overall poor clinical prognosis, family decided to proceed with comfort care measures Continue as needed morphine, lorazepam, and Tylenol Transfer to hospice at [facility] when bed available Palliative care following (2) Acute metabolic encephalopathy: Plan: Multifactorial including Covid-19 illness, sepsis Improved (3) UTI (urinary tract infection): (4) Sepsis: Plan: 2/2 UTI, and improved with resuscitation and broad spectrum vanc and zosyn. CT head negative for stroke Case discussed with [facility] hematology given worsening leukocytosis in the setting of CLL or possible bacterial component Hematology believes it is unlikely to be progression of CLL Blood cultures from 09/09 and 09/16 negative Urine cultures from 09/17 with > 40k E. coli Treated with 3 days of vanco/zosyn (5) Acute respiratory failure: (6) Pneumonia due to COVID-19 virus: Plan: Completed course of remdesivir, and steroids COVID-19 test positive on 09/09, off isolation Most recent chest x-ray on 09/18 with possible left-sided pleural effusion and aspiration Of note as per nursing staff patient likely aspirated on 09/18 Currently on room air and in no distress - considered to be COVID-19 recovered (7) Severe protein-calorie malnutrition: Plan: Food and fluids as desired, unrestricted diet (8) CLL (chronic lymphocytic leukemia): Plan: Seen by [facility] in [place] regarding formal diagnosis in late 2018, however, it is not clear if he has been followed for surveillance labs since that time. Currently not on any treatment. (9) Paroxysmal atrial fibrillation: Plan: Apixaban has been discontinued in setting of Hospice. Previously not on any rate or rhythm controlling medications (10) Chronic diastolic CHF (congestive heart failure): Plan: Euvolemic, Diuretics have been discontinued in the setting of hospice (11) DVT prophylaxis: Plan: None in setting of comfort measures DNR/DNI Dispo: Discharge to [facility] tomorrow with hospice care tomorrow. Admission and Anticipated Discharge Date Admission Date: September 09, 2021 Supervising Physician Co-Signing Physician Notes Clinically status quo. No new issues. Currently awaiting placement. I performed a history and physical examination of the patient on 10/04/21, including specifically H&P. I have discussed the patient's management with the advanced practitioner. Please refer to the Joanie Herrera note for the documented findings and plan of care. Subjective Patient seen and examined. Follow-up for respiratory failure due to COVID-19 pneumonia, sepsis due to UTI, history of CLL, now on comfort measures. Patient resting in bed, offers no complaints. Pleasant. Physical Exam Constitutional: no acute distress Resting in bed Respiratory: normal respiratory effort, lungs clear to auscultation Cardiovascular: Rate/Rhythm: regular rate and regular rhythm Vessels: normal peripheral pulses Extremities: no edema Gastrointestinal (Abdomen): Percussion/Palpation: abdomen soft; abdomen nontender Neurologic: moves all extremities; no focal motor deficits Psychiatric: Orientation: alert, oriented to person, oriented to place and cooperative; + not oriented to time Insight: + limited insight Genitourinary: Guillaume in place Results & Data Results & Data ([facility]) Vital Signs (Past 12 Hours) Vital Signs Temp Pulse Resp BP Pulse Ox 10/04/21 07:46 36.8 C 69 16 130/61 92
[2021-10-05] MEDS: MoRPHine SULFATE 5 MG/0.25 ML UDP PO SCH ×2 (04:46→09:17)
[2021-10-05] MEDS: DOCUSATE SODIUM 100 MG CAP PO SCH (07:35)
[2021-10-05] MEDS: SENNOSIDES 8.8 MG/5 ML UDC PO SCH (07:35)
[2021-10-05] MEDS: POLYETHYLENE (MIRALAX) 17 GM PACK PO SCH (07:35)
--- NOTE | 2021-10-05 09:01 | Discharge Summary ---
Date of Service October 05, 2021 Admission HPI Per Admitting Provider This 81-year-old male with past medical history significant for hypothyroidism, hyperlipidemia, interstitial lung disease, chronic diastolic CHF, paroxysmal atrial fibrillation, aortic insufficiency, coronary artery disease, GERD, chronic kidney disease stage III, BPH, history of traumatic brain injury, history of seizure disorder, stroke, CLL, iron deficiency anemia, history of DVT, tobacco abuse, history of MRSA, dementia, lives with his , was brought in because of fever and COVID symptoms. The patient has dementia and he is not able to give much history. As per the , patient is not vaccinated. had COVID positive on Sunday, she was quarantining, but he started developing sinu symptoms. thought his usual sinuses, but his fever of 102.5 with some cough and diarrhea, complaining of abdominal pain, so called PCP and was advised to come here .In the ER, he was 88 and requiring 4lt oxygen, so we called for admission. As per the , he eats okay, but his appetite is down for the last couple of days. His ambulation status has worsened. The patient currently says abdominal pain is improved. He denies any headache at this time. He denies any cough. He could tell his name, could tell his date of , but answers very slowly. I could not get much history from the patient. As per the , the patient also gets disoriented at home. His Parkinson's and dementia is stable, but he is sometimes does not remember and he could not repeat sentences. Admission Exam Per Admitting Provider GENERAL: The patient is of moderate build, not in acute distress. VITAL SIGNS: Temperature 39.1, pulse 74, respiratory rate 20, blood pressure 113/62, oxygen 93% on 2.5 liters. HEENT: Pupils equal, round and reactive to light. Oral mucosa somewhat dry. NECK: No JVD, no neck masses. CARDIOVASCULAR: S1 and S2 heard. Regular rate and rhythm. No murmur, no gallop. RESPIRATORY SYSTEM: Normal AP diameter. No accessory muscle use. No wheezing, no crackles. ABDOMEN: Soft, bowel sounds present, nontender, no distention. CENTRAL NERVOUS SYSTEM: Chronic skin changes seen. No edema seen. Principal Diagnosis Sepsis due to UTI Respiratory failure due to COVID 19 Pneumonia Comfort Measures status Discharge Exam Constitutional no acute distress resting in bed, comfortable, pleasant ENMT Mouth: + poor dentition Respiratory normal respiratory effort, lungs clear to auscultation Cardiovascular Rate/Rhythm: regular rate and regular rhythm Vessels: normal peripheral pulses Extremities: no edema Gastrointestinal (Abdomen) Percussion/Palpation: abdomen soft; abdomen nontender Skin no rashes, warm and dry Neurologic moves all extremities and awake; no focal motor deficits Psychiatric Orientation: alert, oriented to person and cooperative; + not oriented to place and + not oriented to time Genitourinary levine in place Discharge Data Allergies Allergy/AdvReac Type Severity Reaction Status Date / Time ibuprofen Allergy Severe Hives Verified 09/09/21 19:47 Iodinated Contrast Media Allergy Intermediate HIVES Verified 09/09/21 19:47 caffeine AdvReac Severe Rash Verified 09/09/21 19:47 chocolate flavor AdvReac Unknown Verified 09/09/21 19:47 Consultations Palliative Care Ordered Studies 09/09/21 CXR IMPRESSION: Right midlung and left basilar airspace opacity suggestive of multifocal pneumonia. Radiographic follow-up to ensure resolution is recommended. CXR 09/14/21 CXR IMPRESSION: Multifocal airspace opacities likely represent bilateral pneumonia with or without superimposed atelectasis/aspiration. 09/17/[address] IMPRESSION: No acute intracranial findings. No change in appearance of the brain, as described above. 09/17/21 Liver US IMPRESSION: 1. Slight dilatation of the common bile duct. This is likely related to previous cholecystectomy. 2. Partially obscured pancreas. 09/18/21 CXR IMPRESSION: 1. Peripheral predominant airspace opacities at the wall from prior exam and may represent atelectasis, pneumonia, and/or aspiration. 2. Possible left pleural effusion. Hospital Course (1) Comfort measures only status: Patient appears comfortable Given his overall poor clinical prognosis, family decided to proceed with comfort care measures Receiving scheduled PO morphine and remains comfortable. On bowel regimen due to scheduled narcotics. Levine in place. 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 (2) Acute metabolic encephalopathy: Multifactorial including Covid-19 illness, sepsis Improved (3) UTI (urinary tract infection): (4) Sepsis: 2/2 UTI, and improved with resuscitation and broad spectrum vanc and zosyn. CT head negative for stroke Case discussed with [facility] [place] given worsening leukocytosis in the setting of CLL or possible bacterial component Hematology believes it is unlikely to be progression of CLL Blood cultures from 09/09 and 09/16 negative Urine cultures from 09/17 with > 40k E. coli Treated with 3 days of vanco/zosyn (5) Acute respiratory failure: (6) Pneumonia due to COVID-19 virus: Completed course of remdesivir, and steroids COVID-19 test positive on 09/09, off isolation Most recent chest x-ray on 09/18 with possible left-sided pleural effusion and aspiration Of note as per nursing staff patient likely aspirated on 09/18 Currently on room air and in no distress - considered to be COVID-19 recovered (7) Severe protein-calorie malnutrition: Food and fluids as desired, unrestricted diet (8) CLL (chronic lymphocytic leukemia): Seen by [facility] in [place] regarding formal diagnosis in late 2018, however, it is not clear if he has been followed for surveillance labs since that time. Currently not on any treatment. (9) Paroxysmal atrial fibrillation: Apixaban has been discontinued in setting of Hospice. Previously not on any rate or rhythm controlling medications (10) Chronic diastolic CHF (congestive heart failure): Euvolemic, Diuretics have been discontinued in the setting of hospice Attending Addendum: delayed entry date of service noted above care coordinated with ELOISA Herrera please refer to her notes for full details, I agree with her notes patient seen and examined, records reviewed by myself as well resting in bed, comfortable VS and chart reviewed Comfort Measures status only Stefano Gilbert MD Total Time Total Time Spent Total Time Spent (In Minutes): 35 Discharge Plan Discharge Items Patient Disposition: Transfer [facility] Reason For Visit: ILLNESS Discharge Diagnosis: Acute Metabolic Encephalopathy Sepsis Acute Respiratory Failure COVID-19 Pneumonia CLL Protein Calorie Malnutrition Comfort Measure Only; Hospice Care Condition on Discharge: Good Activity: As commented below Activity Comment: Out of Bed with assitance as tolerated Non-emergency contact: Primary Care Provider Call non-emergency contact if: you have any medication questions, your symptoms worsen, your pain is not controlled, your pain is worsening, your pain is concerning for you and your temperature is above 101 Follow-up/Referrals: Khloe Ruiz PA-C [Primary Care Provider] - Diet: Regular Diet Texture: Pureed (blended smooth) Addtl Attending Provider Instructions: Patient admitted to hospital due to Sepsis, Acute Respiratory Failure in setting of COVID-19 Pneumonia, Aspiration Pneumonia, and UTI. Patient treated with appropriately therapy in setting of COVID-19. Patient was seen and evaluated by Palliative care and deemed candidate for Hospice Therapy. Patient receiving scheduled Roxanol and remains comfortable. Pending Studies at Discharge: No Stand-Alone Forms: My [facility] Skilled Items Patient informed of condition?: Yes DNR: Yes Discharge Level of Care: Skilled Communicable Disease: No Discharge Prognosis: Stable Lines: None Urinary Catheter: Yes Medications and DC Order Prescriptions: New morphine concentrate 100 mg/5 mL (20 mg/mL) Solution 5 mg PO Q6H Qty: 15 RF: 0 docusate sodium 100 mg Capsule 100 mg PO BID Qty: 10 RF: 0 ondansetron 4 mg Tablet,Disintegrating 4 mg PO Q6H PRN (Reason: nausea and vomiting) Qty: 7 RF: 0 polyethylene glycol 3350 [Miralax] 17 gram Powder In Packet 17 g PO DAILY Qty: 14 RF: 0 sennosides [senna] 8.8 mg/5 mL Syrup 8.8 mg PO QAM Qty: 120 RF: 0 Discontinued finasteride 5 mg tablet 5 mg PO DAILY Qty: 90 RF: 3 tamsulosin 0.4 mg capsule 0.4 mg PO BID Qty: 60 RF: 11 furosemide [Lasix] 20 mg tablet 20 mg PO DAILY RF: 0 potassium chloride [Klor-Con 8] 8 mEq tablet extended release 8 meq PO DAILY RF: 0 ferrous sulfate 325 mg (65 mg iron) tablet 325 mg PO DAILY RF: 0 trazodone 100 mg tablet 100 mg PO HS RF: 0 rosuvastatin 10 mg tablet 10 mg PO HS RF: 0 pantoprazole 40 mg tablet,delayed release (DR/EC) 40 mg PO QAM RF: 0 apixaban 5 mg tablet 5 mg PO BID RF: 0 ergocalciferol (vitamin D2) 50,000 unit capsule 1 cap PO WK RF: 0 levothyroxine 75 mcg tablet 75 mcg PO Q OTHER DAY RF: 0 levothyroxine 50 mcg tablet 50 mcg PO Q OTHER DAY RF: 0 quetiapine 25 mg tablet 25 mg PO BID RF: 0 morphine 15 mg tablet extended release 15 mg PO Q8 PRN (Reason: Pain) RF: 0 lorazepam 0.5 mg tablet 0.5 mg PO UD PRN (Reason: Anxiety) RF: 0 Cerovite Senior Tablet 1 tab PO DAILY RF: 0 sertraline 50 mg tablet 50 mg PO UD RF: 0 Discharge Orders: Discharge Order (Routine); Ordered 10/05/21 Ordered By: Joanie Herrera Admission Data Admit Date/Time: 09/09/21 22:10 Attending Provider: Stefano Gilbert Admit Provider: Vicente Villalta Primary Care Provider: Khloe Ruiz Other Providers: Ester Baca Other Interventions: Discharge Summary Assessment (RN) Last Done: 10/05/21 08:12
== END 2021-10-05 10:48 | DRG 177 ==
LOC: ED 17:30 → SUATTDRO 22:10 → 2S 22:10 → 3W 09-23 10:22 → 3N 09-23 19:20
DX: F02.81 Dementia in other diseases classified elsewhere, unspecified severity, with behavioral disturbance; J96.91 Respiratory failure, unspecified with hypoxia; E83.39 Other disorders of phosphorus metabolism; N17.9 Acute kidney failure, unspecified; U07.1 COVID-19; C91.10 Chronic lymphocytic leukemia of B-cell type not having achieved remission; G89.29 Other chronic pain; I48.0 Paroxysmal atrial fibrillation; A41.9 Sepsis, unspecified organism; Z51.5 Encounter for palliative care; D69.6 Thrombocytopenia, unspecified; Z86.718 Personal history of other venous thrombosis and embolism; E78.5 Hyperlipidemia, unspecified; J12.82 Pneumonia due to coronavirus disease 2019; G20 Parkinson's disease; E43 Unspecified severe protein-calorie malnutrition; N40.0 Benign prostatic hyperplasia without lower urinary tract symptoms; Z87.820 Personal history of traumatic brain injury; Z66 Do not resuscitate; N18.30 Chronic kidney disease, stage 3 unspecified; N39.0 Urinary tract infection, site not specified; I25.10 Atherosclerotic heart disease of native coronary artery without angina pectoris; E03.9 Hypothyroidism, unspecified; G93.41 Metabolic encephalopathy; Z86.14 Personal history of Methicillin resistant Staphylococcus aureus infection; J96.01 Acute respiratory failure with hypoxia

== ENCOUNTER 2021-11-13 11:04 | Observation (INO) ==
[2021-11-13] MEDS ORDERED: SODIUM CHLORIDE 0.9% 1000ML 1,000 ML IV ONE ×2 (11:27)
[2021-11-13] MEDS ORDERED: SODIUM CHLORIDE 0.9% 1000ML 500 ML IV ONE (11:27)
[2021-11-13] MEDS ORDERED: CEFEPIME 2,000 MG/20 ML VIAL IV STA (11:27)
[2021-11-13] MEDS ORDERED: ACETAMINOPHEN 500 MG TAB PO STA (11:27)
--- NOTE | 2021-11-13 11:35 | Emergency Department Note ---
Impression & Plan Bacteremia, Sepsis, Acute UTI (urinary tract infection) ED Provider Note Name: DONYA AWAD Age: 81 Sex: M Arrives Via: Walk-In Informant: ED Provider: Francis Small MD Chief Complaint: Illness Impression: As per impressions above Medical Decision Making: This is a 81-year-old gentleman with CLL, and multiple other chronic medical issues arrives for evaluation of illness. Patient was seen yesterday and diagnosed with a UTI however given concern she did have blood cultures at that time. Overnight blood cultures have returned with growth of gram negative bacteria. Is also growing out of urine. He returns with his . She notes he is worsening weakness and illness. He appears sick but is not hypotensive at this time. He did receive IV antibiotics yesterday while in the emergency department. Patient received 30/kg IV fluids while in this ER as well as empiric cefepime which should cover gram-negative infection. Labs with leukoc ytosis though this is chronic for patient and of uncertain etiology. Lactic acid is 2.0 at this time. He does have some renal insufficiency. I do feel he is septic but there is no clear evidence of severe sepsis or septic shock other than he is somewhat encephalopathic though even with discussion with it is difficult to determine if this is actually at his baseline. Regardless she makes it clear that she does not want him to be on hospice at this time and does not feel he requires palliative care. She does wish for him to have full management of his bacteremia Covid testing is negative. I will note he had repeat blood cultures prior to receiving the IV cefepime. Prior Medical Record and Triage/Nursing Notes reviewed by Me Additional history obtained from chart Differentials:Viral syndrome, otitis, pharyngitis, pneumonia, influenza, meningitis, urinary tract infection, sepsis, bacteremia, as well as other pathologies. Vital Signs: reviewed and remarkable for tachycardia Interventions: Saline lock, normal saline bolus 30 mL/kg IV, cefepime 2 g IV Labs:Reviewed and remarkable for leukocytosis, lactate 2.0 Imaging:See Below EKG:Per My Interpretation: Indication sepsis: NSR 92bpm, qtc 455. No Ectopy. No Ischemia. Compared to EKG 11/12/20, no significant changes. Consults:Shante hospitalist Plan: Disposition:Hospitalization. Condition: Fair History of Present Illness:77-year-old gentleman with a history of CLL and extensive other past medical history arrives for several days worsening weakness and confusion. Patient has developed fevers chills and rigors over the last 24 to 48 hours. He was seen in ER yesterday and diagnosed with a UTI. Overnight blood cultures returned positive that were obtained yesterday. He has gram- negative growth of both blood cultures and his urine roughly 12 hours after they were drawn. He was advised to return to ER for further evaluation. Per his he is more confused than normal this morning though has been breathing comfortably and does not appear in any discomfort. He is a poor historian and she does give most of the history. She denies any vomiting syncope no respiratory distress. She states he does have a history of infections due to his CLL. He previously was on hospice though she notes she took him off this as she did not think he was getting worse. He is not on any chemotherapy treatments for the CLL. No medications prior to arrival though he did receive Rocephin and Keflex yesterday. He has not had any Tylenol this morning. Nothing seems to make better or worse. ROS: See above HPI for pertinent positives & negatives. A total of 10 systems reviewed and were otherwise negative. Past Medical History:See Below Past Surgical History:See Below Family History:See Below Social History:See Below Home Medications:See Below Allergies:See Below Vitals:Blood Pressure: 153/78, Pulse 108, RR 18, T 37.3C, O2 99% on RA Physical Exam: GENERAL: Patient is chronically unwell, unkempt appearing and in minimal distress. EYES: No scleral icterus, unremarkable pupils. ENT: Mucous membranes moist, no nasal congestion. NECK: No masses appreciated, nomeningismus, trachea is midline. RESPIRATORY: No dyspnea. Clear to auscultation and equal bilaterally. No wheeze, no rhonchi. CARDIOVASCULAR: Tachycardic.No murmurs, rubs, gallops appreciated. GASTROINTESTINAL: Abdomen soft, non-tender, no peritonitis.Bowel sounds positive.No masses appreciated. BACK: No midline tenderness, no CVA tenderness EXTREMITIES: Normal motion all extremities, no cyanosis, no edema. NEUROLOGIC: Poor historian, mumbles answers, generalized weakness, tremulous,, no acute motor or sensory deficits, no focal weakness, cranial nerves grossly intact. SKIN: No rash, no jaundice, no diaphoresis. GCS: 15 ED Course: Times/Reassessments: Patient does appear better after some IV fluids though still somewhat confused with poor historian. is agreeable to hospitalization and thus hospitalist consulted Francis Small MD Past Med/Surg History Medical History (Updated 11/13/21 @ 16:36 by Francis Small MD) Aortic insufficiency BPH (benign prostatic hypertrophy) Chronic atrial fibrillation Chronic diastolic CHF (congestive heart failure) CLL (chronic lymphocytic leukemia) History of DVT of lower extremity History of seizure "post-traumatic" Hypothyroidism MRSA (methicillin resistant Staphylococcus aureus) Renal calculus Renal cyst, acquired, left "mildly complex per CT 10/03/17 and MRI 10/04/17" Traumatic brain injury Traumatic open wound of right lower leg Surgical History Status post cholecystectomy Family History Mother Cancer Social History Smoking Status: Never smoker Second Hand Exposure: No; Hx Alcohol Use: No Hx Substance Use: No Preferred Language: Bruneian Communication Ability: Effective Package Handler Required: No Beliefs That Will Affect Care: None marital status: Current Living Situation: Spouse and Shelter How many Children do You have: 2 Feels Safe at Home: Yes Assistive Devices: Walker Allergies Allergies Allergy/AdvReac Type Severity Reaction Status Date / Time ibuprofen Allergy Severe Hives Verified 11/13/21 13:10 Iodinated Contrast Media Allergy Intermediate HIVES Verified 11/13/21 13:10 caffeine AdvReac Severe Rash Verified 11/13/21 13:10 chocolate flavor AdvReac Unknown Unknown Verified 11/13/21 13:10 Home Meds Home Medications Medication Instructions Recorded Confirmed acetaminophen 500 mg tablet 500 mg PO Q8H PRN 11/12/21 11/13/21 cholecalciferol (vitamin D3) 25 25 mcg PO QAM 11/12/21 11/13/21 mcg (1,000 unit) tablet clotrimazole 1 % topical cream 1 applic TOPICAL BID 11/12/21 11/13/21 doxazosin 2 mg tablet 2 mg PO HS 11/12/21 11/13/21 levothyroxine 50 mcg tablet 50 mcg PO HS 11/12/21 11/13/21 menthol 0.44 %-zinc oxide 20.6 % 1 applic TOPICAL TID 11/12/21 11/13/21 topical ointment (Calmoseptine) sodium chloride 0.65 % nasal spray 2 spray INTRANASAL BID 11/12/21 11/13/21 aerosol (Saline Mist) tramadol 50 mg tablet 50 mg PO HS 11/12/21 11/13/21 trazodone 50 mg tablet 50 mg PO HS 11/12/21 11/13/21 white petrolatum (Vaseline) 1 applic TOPICAL BID 11/12/21 11/13/21 dextromethorphan-guaifenesin 10 0 ml PO Q4H PRN 11/13/21 11/13/21 mg-100 mg/5 mL oral syrup (Cough Syrup DM) Previous Rx's Medication Instructions Recorded sennosides 8.8 mg/5 mL oral syrup 8.8 mg PO QAM #120 ml 10/05/21 (senna) cephalexin 500 mg capsule 500 mg PO Q8H 7 Days #21 cap 11/12/21 Results & Data (ED) Vital Signs Vital Signs - 24 hr 11/13/21 11:15 11/13/21 12:22 Temperature 37.3 C Temperature Source Temporal Artery Scan Pulse Rate 108 H Pulse Rate [Left] 91 H Pulse Rhythm [Left] Regular Pulse Strength [Left] Normal Respiratory Rate 18 20 Respiratory Effort / Characteristics Non-Labored Non-Labored Respiratory Depth Normal Normal Respiratory Pattern Regular Blood Pressure 153/78 H Blood Pressure Mean 103 Pulse Oximetry 99 98 Oxygen Delivery Method Room Air Room Air Sepsis Recent Fever Within 48 Hours No Sepsis New/Unexplained Change in Mental Status No Sepsis Action Taken by Nursing No Action Required Laboratory Data Result diagrams: 11/13/21 12:17 11/13/21 12:17 Lab Results 11/13/21 11/13/21 11/13/21 Range/Units 12:17 12:17 12:17 WBC 26.05 H (4.8-10.8) K/uL RBC 4.66 L (4.7-6.1) M/uL Hgb 15.3 (14.0-18.0) g/dL Hct 45.9 (42-52) % MCV 98.5 (80-100) fL MCH 32.8 (25-34) pg MCHC 33.3 (32-36) g/dL RDW Std Deviation 57.5 H (36.4-46.3) fL RDW Coeff of Chay 15.9 H (11.5-14.5) % Plt Count 237 (130-400) K/uL MPV 11.7 H (7.4-10.4) fL Immature Gran % (Auto) 0.4 % Neut % (Auto) 42.0 % Lymph % (Auto) 51.9 % Winn % (Auto) 5.6 % Eos % (Auto) 0.0 % Baso % (Auto) 0.1 % Neut # (Auto) 10.96 H (1.4-6.5) K/uL Lymph # (Auto) 13.51 H (1.2-3.4) K/uL Winn # (Auto) 1.45 H (0.11-0.59) K/uL Eos # (Auto) 0.01 (0-0.5) K/uL Baso # (Auto) 0.02 (0-0.2) K/uL Immature Gran # (Auto) 0.10 H (0.00-0.02) K/uL Sodium 145 (136-145) mmol/L Potassium 4.6 (3.5-5.1) mmol/L Chloride 111 H (98-107) mmol/L Carbon Dioxide 24 (21-32) mmol/L Anion Gap 10.0 (3-11) BUN 27 H (7-18) mg/dl Creatinine 1.68 H (0.6-1.4) mg/dl Est Cr Clr Drug Dosing Not Reportable Est GFR ( Amer) 44.1 ml/min Est GFR (Non-Af Amer) 38.1 ml/min BUN/Creatinine Ratio 16.1 (10-20) Glucose 114 H (70-99) mg/dl Lactate 2.0 (0.4-2.0) mmol/L Calcium 10.4 H (8.5-10.1) mg/dl Total Bilirubin 1.9 H (0.2-1) mg/dl Direct Bilirubin 0.4 H (0-0.2) mg/dl AST 8 L (15-37) U/L ALT 18 (12-78) Alkaline Phosphatase 99 (45-117) U/L Troponin I < 0.015 (0-0.045) ng/ml Total Protein 8.3 H (6.4-8.2) gm/dl Albumin 4.0 (3.4-5.0) gm/dl Lipase 131 (73-393) U/L Procalcitonin (0-0.5) ng/ml TSH 2.590 (0.300-4.500) uIu/ml SARS-CoV-2 (PCR) (Negative) Influenza Type A (PCR) (Neg) Influenza Type B (PCR) (Neg) RSV (RT-PCR) (Neg) 11/13/21 11/13/21 Range/Units 12:17 12:25 WBC (4.8-10.8) K/uL RBC (4.7-6.1) M/uL Hgb (14.0-18.0) g/dL Hct (42-52) % MCV (80-100) fL MCH (25-34) pg MCHC (32-36) g/dL RDW Std Deviation (36.4-46.3) fL RDW Coeff of Chay (11.5-14.5) % Plt Count (130-400) K/uL MPV (7.4-10.4) fL Immature Gran % (Auto) % Neut % (Auto) % Lymph % (Auto) % Winn % (Auto) % Eos % (Auto) % Baso % (Auto) % Neut # (Auto) (1.4-6.5) K/uL Lymph # (Auto) (1.2-3.4) K/uL Winn # (Auto) (0.11-0.59) K/uL Eos # (Auto) (0-0.5) K/uL Baso # (Auto) (0-0.2) K/uL Immature Gran # (Auto) (0.00-0.02) K/uL Sodium (136-145) mmol/L Potassium (3.5-5.1) mmol/L Chloride (98-107) mmol/L Carbon Dioxide (21-32) mmol/L Anion Gap (3-11) BUN (7-18) mg/dl Creatinine (0.6-1.4) mg/dl Est Cr Clr Drug Dosing Est GFR ( Amer) ml/min Est GFR (Non-Af Amer) ml/min BUN/Creatinine Ratio (10-20) Glucose (70-99) mg/dl Lactate (0.4-2.0) mmol/L Calcium (8.5-10.1) mg/dl Total Bilirubin (0.2-1) mg/dl Direct Bilirubin (0-0.2) mg/dl AST (15-37) U/L ALT (12-78) Alkaline Phosphatase (45-117) U/L Troponin I (0-0.045) ng/ml Total Protein (6.4-8.2) gm/dl Albumin (3.4-5.0) gm/dl Lipase (73-393) U/L Procalcitonin 0.26 (0-0.5) ng/ml TSH (0.300-4.500) uIu/ml SARS-CoV-2 (PCR) NEGATIVE (Negative) Influenza Type A (PCR) Negative (Neg) Influenza Type B (PCR) Negative (Neg) RSV (RT-PCR) Negative (Neg) Administered Medications Discontinued Medications Acetaminophen (Acetaminophen 500 Mg Tab) 1,000 mg PO NOW STA Stop: 11/13/21 11:28 Last Admin: 11/13/21 12:26 Dose: 1,000 mg Documented by: [id number] Cefepime HCl (Maxipime) 2,000 mg in 20 mls @ 5 mls/min IV NOW STA; Protocol Stop: 11/13/21 11:30 Last Admin: 11/13/21 12:27 Dose: 5 mls/min Documented by: [id number] Sodium Chloride (Nss 1000ml) 1,000 mls @ 999 mls/hr IV .Q1H1M ONE Stop: 11/13/21 12:27 Last Infusion: 11/13/21 13:01 Dose: 0 mls/hr Documented by: [id number] Admin: 11/13/21 12:28 Dose: 999 mls/hr Documented by: [id number] Sodium Chloride (Nss 1000ml) 1,000 mls @ 999 mls/hr IV .Q1H1M ONE Stop: 11/13/21 12:27 Last Admin: 11/13/21 13:01 Dose: 999 mls/hr Documented by: [id number] Sodium Chloride (Nss 1000ml) 500 mls @ 999 mls/hr IV .Q31M ONE Stop: 11/13/21 11:57 Last Admin: 11/13/21 13:41 Dose: 999 mls/hr Documented by: [id number] Discharge Plan Visit Data Chief Complaint: Infection Stated Complaint: BLOOD INFECTION ED Provider: Francis Small Discharge Problem: Bacteremia, Sepsis, Acute UTI (urinary tract infection) Discharge Instructions Interventions: ED Discharge Assessment Last Done: 11/13/21 16:17 Discharge Problem: Sepsis Qualifiers: Sepsis type: Escherichia coli Sepsis acute organ dysfunction status: with acute organ dysfunction Severe sepsis acute organ dysfunction type: encephalopathy Severe sepsis shock status: without septic shock Qualified Code(s): A41.51 - Sepsis due to Escherichia coli [E. coli]
[2021-11-13 12:26] LABS: Hematocrit (blood only) 45.9 % (42-52); Hemoglobin 15.3 g/dL (14.0-18.0); Mean Corpuscular Hemoglobin 32.8 pg (25-34); Mean Corpuscular Hgb Conc 33.3 g/dL (32-36); Mean Corpuscular Volume 98.5 fL (80-100); Mean Platelet Volume 11.7 fL (7.4-10.4); Platelet Count 237 K/uL (130-400); RDW Coefficient of Variation 15.9 % (11.5-14.5); RDW Standard Deviation 57.5 fL (36.4-46.3); Red Blood Count 4.66 M/uL (4.7-6.1); White Blood Count 26.05 K/uL (4.8-10.8)
[2021-11-13 12:45] LABS: Basophils # (auto) 0.02 K/uL (0-0.2); Basophils % (auto) 0.1 %; Eosinophils # (auto) 0.01 K/uL (0-0.5); Immature Granulocytes % (auto) 0.4 %; Lymphocytes # (auto) 13.51 K/uL (1.2-3.4); Lymphocytes % (auto) 51.9 %; Monocytes # (auto) 1.45 K/uL (0.11-0.59); Monocytes % (auto) 5.6 %; Neutrophils # (auto) 10.96 K/uL (1.4-6.5)
[2021-11-13 12:56] LABS: Alanine Aminotransferase 18 (12-78); Aspartate Aminotransferase 8 U/L (15-37); BUN Creatinine Ratio 16.1 (10-20); Bilirubin Direct 0.4 mg/dl (0-0.2); Blood Urea Nitrogen 27 mg/dl (7-18); Calcium 10.4 mg/dl (8.5-10.1); Carbon Dioxide 24 mmol/L (21-32); Chloride 111 mmol/L (98-107); Est GFR (African American) 44.1 ml/min; Est GFR (Non-African American) 38.1 ml/min; Glucose 114 mg/dl (70-99); Lipase 131 U/L (73-393); Potassium 4.6 mmol/L (3.5-5.1); Sodium 145 mmol/L (136-145)
[2021-11-13 13:06] LABS: Alkaline Phosphatase 99 U/L (45-117); Bilirubin,Total 1.9 mg/dl (0.2-1); Total Protein 8.3 gm/dl (6.4-8.2); Troponin I < 0.015 ng/ml (0-0.045)
[2021-11-13 13:47] LABS: Influenza A virus by PCR Negative (Neg); Influenza B virus by PCR Negative (Neg); RSV by PCR Negative (Neg); SARS CoV2 RNA(COVID-19) InHosp NEGATIVE (Negative)
[2021-11-13] MEDS ORDERED: ACETAMINOPHEN 500 MG TAB PO PRN (14:59)
[2021-11-13] MEDS ORDERED: ONDANSETRON INJ 2 MG/ML 2 ML VIAL IV PRN (15:50)
[2021-11-13] MEDS ORDERED: POLYETHYLENE (MIRALAX) 17 GM PACK PO PRN (15:50)
[2021-11-13] MEDS ORDERED: ACETAMINOPHEN 325 MG TAB PO PRN (15:50)
[2021-11-13] MEDS ORDERED: PATIENT'S HEIGHT AND/OR WEIGHT NEEDED SCH (17:00)
--- NOTE | 2021-11-13 19:16 | History & Physical Report ---
Date of Service November 13, 2021 Assessment & Plan (1) Sepsis: (2) UTI (urinary tract infection): (3) Acute metabolic encephalopathy: (4) Paroxysmal atrial fibrillation: (5) Chronic diastolic CHF (congestive heart failure): (6) Acute kidney injury superimposed on CKD: (7) CLL (chronic lymphocytic leukemia): (8) Hypothyroidism: Plan: Urosepsis: -Ucx and Bcx from yesterday growing Gram neg Bacilli -previous UCx grew pansensitive E.coli -will continue the pt on renally dosed cefepime -UCx and BCx from today pending CYRUS on CKD: -on previous discharge his Cr was 1.2 -s/p NS 1L bolus & will trend BMP Afib: -was on eliquis which was discontinued on SNF discharge - denied any GI blood or brain bleed or any complication from eliquis - will restart eliquis and protonix R LE pitting edema: -likely chronic; however since pt has been off of eliquis will get a Doppler CLL: -continue to monitor CBC -heme/onc follow up as outpt HFpEF: -pt was on Rosuvastatin 10mg qhs, Lasix 20mg daily and KCL 8 meq daily - will restart Rosuvastatin and depending on the BP and Cr will consider restarting Lasix on discharge Insomnia/Dementia/hypothyroidism: -continue home meds Diet: Cardiac PT/OT ordered DVT ppx: Eliquis Code status: DNR/DNI Admission and Anticipated Discharge Date Admission Date: November 13, 2021 History of Present Illness Chief Complaint: Generalized weakness Primary Care Provider: Khloe Ruiz Pt is a 81 y/o M with hx of recent COVID infection (08/2021), CLL, hx of TBI, HFpEF, Afib was on eliquis, CAD, Seizure, CKD III, Dementia, prior hx of UTI, Interstitial lung disease, GERD, hypothyroidism, HLD, BPH with hx of urinary retention brought into the ER for confusion and positive BCx (G baccili). Pt was seen in the ER yesterday (for weakness, chills, and myalgia): he was treated for UTI and sent home on Keflex Per pt appeared more confused than yesterday. He is also having worsening generalized weakness, chills, myalgia, cough (productive of clear sputum). Pt also complained of R leg swelling (chronic). Pt was discharged from [facility] 2 weeks ago & on discharge his eliquis was stopped and multiple other meds were changed. He was also taken off of hospice at [facility]. Currently he ambulates with walker per . He was on Coumadin in the past before eliquis for Afib. He had GI bleeding with Coumadin 4 years ago & pt had been doing well on eliquis before it was discontinued at [facility]. Pt was discharged from the hospital ([facility]) on eliquis, protonix, Lasix 20mg daily (his home meds) on 09/2021. Allergies Allergy/AdvReac Type Severity Reaction Status Date / Time ibuprofen Allergy Severe Hives Verified 11/13/21 13:10 Iodinated Contrast Media Allergy Intermediate HIVES Verified 11/13/21 13:10 caffeine AdvReac Severe Rash Verified 11/13/21 13:10 chocolate flavor AdvReac Unknown Unknown Verified 11/13/21 13:10 Home Medications Medication Instructions Recorded Confirmed Type sennosides 8.8 mg/5 mL oral syrup 8.8 mg PO QAM #120 ml 10/05/21 11/13/21 Rx (senna) acetaminophen 500 mg tablet 500 mg PO Q8H PRN 11/12/21 11/13/21 History cephalexin 500 mg capsule 500 mg PO Q8H 7 Days #21 cap 11/12/21 11/13/21 Rx cholecalciferol (vitamin D3) 25 25 mcg PO QAM 11/12/21 11/13/21 History mcg (1,000 unit) tablet clotrimazole 1 % topical cream 1 applic TOPICAL BID 11/12/21 11/13/21 History doxazosin 2 mg tablet 2 mg PO HS 11/12/21 11/13/21 History levothyroxine 50 mcg tablet 50 mcg PO HS 11/12/21 11/13/21 History menthol 0.44 %-zinc oxide 20.6 % 1 applic TOPICAL TID 11/12/21 11/13/21 History topical ointment (Calmoseptine) sodium chloride 0.65 % nasal spray 2 spray INTRANASAL BID 11/12/21 11/13/21 History aerosol (Saline Mist) tramadol 50 mg tablet 50 mg PO HS 11/12/21 11/13/21 History trazodone 50 mg tablet 50 mg PO HS 11/12/21 11/13/21 History white petrolatum (Vaseline) 1 applic TOPICAL BID 11/12/21 11/13/21 History dextromethorphan-guaifenesin 10 0 ml PO Q4H PRN 11/13/21 11/13/21 History mg-100 mg/5 mL oral syrup (Cough Syrup DM) Past Med/Surg History Medical History (Updated 11/13/21 @ 19:10 by Jennifer Honeycutt MD) Aortic insufficiency BPH (benign prostatic hypertrophy) Chronic atrial fibrillation Chronic diastolic CHF (congestive heart failure) CLL (chronic lymphocytic leukemia) History of DVT of lower extremity History of seizure "post-traumatic" Hypothyroidism MRSA (methicillin resistant Staphylococcus aureus) Renal calculus Renal cyst, acquired, left "mildly complex per CT 10/03/17 and MRI 10/04/17" Traumatic brain injury Traumatic open wound of right lower leg Surgical History Status post cholecystectomy Family History Mother Cancer Social History Smoking Status: Never smoker Second Hand Exposure: No; Hx Alcohol Use: No Hx Substance Use: No Preferred Language: French Communication Ability: Effective Public Area Attendant Required: No Beliefs That Will Affect Care: None marital status: Current Living Situation: Spouse and Shelter How many Children do You have: 2 Feels Safe at Home: Yes Assistive Devices: Walker Review of Systems Review of Systems: At least 10 Review of systems were reviewed and all negative except as indicated in HPI Physical Exam Physical Exam: NAD, average body habitus HEENT: Poor dentition, multiple teeth cavities, EOMI Cardiac: Normal S1/S2, sinus rhythm, no murmur Lungs: CTA, no wheezing Abd: ND, NT, soft MSK: R distal leg swelling with chronic skin changes, trace pitting edema on the L LE Skin: erythematous rash on b/l elbow Psych: AAOx2 (to person and time) Results & Data Results & Data ([facility]) Vital Signs (Past 12 Hours) Vital Signs Temp Pulse Pulse Resp BP BP Pulse Ox 11/13/21 15:50 72 18 144/65 H 96 11/13/21 12:22 91 H 20 98 11/13/21 11:15 37.3 C 108 H 18 153/78 H 99 Pulse Ox 11/13/21 15:50 97 11/13/21 12:22 11/13/21 11:15 Laboratory Results Short CBC 11/13/21 Range/Units 12:17 WBC 26.05 H (4.8-10.8) K/uL Hgb 15.3 (14.0-18.0) g/dL Hct 45.9 (42-52) % Plt Count 237 (130-400) K/uL BMP 11/13/21 12:17 Sodium 145 Potassium 4.6 Chloride 111 H Carbon Dioxide 24 BUN 27 H Creatinine 1.68 H Glucose 114 H Calcium 10.4 H Cardiac Enzymes 11/13/21 Range/Units 12:17 Troponin I < 0.015 (0-0.045) ng/ml Liver Function 11/13/21 Range/Units 12:17 Total Bilirubin 1.9 H (0.2-1) mg/dl Direct Bilirubin 0.4 H (0-0.2) mg/dl AST 8 L (15-37) U/L ALT 18 (12-78) Alkaline Phosphatase 99 (45-117) U/L Albumin 4.0 (3.4-5.0) gm/dl Code Status & VTE Plan VTE Prophylaxis Plan VTE Prophylaxis will be ordered: Yes (1) Sepsis Sepsis acute organ dysfunction status: with acute organ dysfunction Sepsis type: Escherichia coli Severe sepsis acute organ dysfunction type: encephalopathy Severe sepsis shock status: without septic shock Qualified Code(s): A41.51 - Sepsis due to Escherichia coli [E. coli]; R65.20 - Severe sepsis without septic shock; G93.41 - Metabolic encephalopathy
--- NOTE | 2021-11-13 19:56 | Ultrasound Report ---
US venous doppler LE RT HISTORY: 81 years-old Male R leg swelling acute pain and swelling of the right leg. History of nonoc clusive thrombus within the common femoral, superficial femoral and popliteal veins. COMPARISON: Doppler study 10/13/2017 TECHNIQUE: Multiple real-time sonographic images of the right lower extremity deep venous structures were obtained assessing grayscale appearance, color and spectral flow. FINDINGS: Normal flow, compressibility, phasicity and augmentation. Nonocclusive thrombus is noted within the c ommon femoral, profunda femoris, popliteal and proximal superficial saphenous veins. These findings a re similar to the 2017 comparison. IMPRESSION: 1. No acute deep venous thrombus. 2. Chronic appearing deep and superficial venous thrombi as above. ACT 112: Negative or not required by law. The above report was generated using voice recognition software. It may contain grammatical, syntax o r spelling errors. Electronically signed by: Jonel Velasquez M.D. 11/13/2021 7:55 PM
[2021-11-13] MEDS: ROSUVASTATIN CALCIUM 10 MG TAB PO SCH (21:35)
[2021-11-13] MEDS: LEVOTHYROXINE SODIUM 50 MCG TABLET PO SCH (21:35)
[2021-11-13] MEDS: APIXABAN 5 MG TABLET PO SCH (21:35)
[2021-11-13] MEDS: traMADol HCL 50 MG TABLET PO SCH (21:35)
[2021-11-13] MEDS: DOXAZosin MESYLATE TAB 2 MG TAB PO SCH (21:35)
[2021-11-13] MEDS: CLOTRIMAZOLE 1% CR 15 GM TUBE TOP SCH (21:36)
[2021-11-13] MEDS: traZODone HCL 50 MG TAB PO SCH (21:36)
[2021-11-13] MEDS: PETROLATUM 16 OZ JAR EXT SCH (21:37)
[2021-11-14] MEDS: APIXABAN 5 MG TABLET PO SCH ×2 (08:35→21:34)
[2021-11-14] MEDS: CHOLECALCIFEROL 1,000 UNITS 25 MCG TAB PO SCH (08:35)
[2021-11-14] MEDS: PETROLATUM 16 OZ JAR EXT SCH ×2 (08:36→21:35)
[2021-11-14] MEDS: SENNOSIDES 8.8 MG/5 ML UDC PO SCH (08:36)
[2021-11-14] MEDS: CLOTRIMAZOLE 1% CR 15 GM TUBE TOP SCH ×2 (08:36→21:34)
[2021-11-14] MEDS: PANTOprazole 40 MG TAB PO SCH (08:36)
[2021-11-14 08:39] LABS: Hematocrit (blood only) 35.4 % (42-52); Hemoglobin 11.4 g/dL (14.0-18.0); Mean Corpuscular Hemoglobin 32.5 pg (25-34); Mean Corpuscular Hgb Conc 32.2 g/dL (32-36); Mean Corpuscular Volume 100.9 fL (80-100); Mean Platelet Volume 11.8 fL (7.4-10.4); Platelet Count 189 K/uL (130-400); RDW Standard Deviation 59.5 fL (36.4-46.3); Red Blood Count 3.51 M/uL (4.7-6.1); White Blood Count 19.97 K/uL (4.8-10.8)
[2021-11-14 08:58] LABS: Basophils # (auto) 0.03 K/uL (0-0.2); Basophils % (auto) 0.2 %; Eosinophils # (auto) 0.05 K/uL (0-0.5); Eosinophils % (auto) 0.3 %; Immature Granulocytes # (auto) 0.05 K/uL (0.00-0.02); Immature Granulocytes % (auto) 0.3 %; Lymphocytes # (auto) 11.24 K/uL (1.2-3.4); Lymphocytes % (auto) 56.3 %; Monocytes # (auto) 0.73 K/uL (0.11-0.59); Monocytes % (auto) 3.7 %; Neutrophils # (auto) 7.87 K/uL (1.4-6.5); Neutrophils % (auto) 39.2 %
[2021-11-14 09:05] LABS: Albumin Globulin Ratio 0.8 (0.9-2); Albumin Level 2.7 gm/dl (3.4-5.0); Bilirubin,Total 0.9 mg/dl (0.2-1); Calcium 8.4 mg/dl (8.5-10.1); Creatinine Clr Calc Pharmacy 64.4 ml/min; Est GFR (African American) 86.8 ml/min; Est GFR (Non-African American) 74.9 ml/min; Globulin 3.2 gm/dl (2.5-4.0); Potassium 3.5 mmol/L (3.5-5.1); Total Protein 5.9 gm/dl (6.4-8.2)
--- NOTE | 2021-11-14 10:48 | Hospitalist Progress Note ---
Date of Service November 14, 2021 Assessment & Plan (1) Sepsis: (2) UTI (urinary tract infection): (3) Acute metabolic encephalopathy: (4) Paroxysmal atrial fibrillation: (5) Chronic diastolic CHF (congestive heart failure): (6) Acute kidney injury superimposed on CKD: (7) CLL (chronic lymphocytic leukemia): (8) Hypothyroidism: Plan: Sepsis secondary to pansensitive E. coli -De-escalate to Rocephin -UCx throughout pansensitive E. coli and BCx from November 13 are still negative growth to date CYRUS on CKD: -on previous discharge his Cr was 1.2, currently 0.96 -s/p NS 1L bolus & will trend BMP Afib: -was on eliquis which was discontinued on SNF discharge - denied any GI blood or brain bleed or any complication from eliquis -Resumed eliquis and protonix R LE pitting edema: -likely chronic; however since pt has been off of eliquis -Doppler IMPRESSION: 1. No acute deep venous thrombus. 2. Chronic appearing deep and superficial venous thrombi. CLL: -continue to monitor CBC -heme/onc follow up as outpt -Count when he came in was 25 now it is down to 20 HFpEF: -pt was on Rosuvastatin 10mg qhs, Lasix 20mg daily and KCL 8 meq daily -Restarted rosuvastatin and depending on the BP and Cr will consider restarting Lasix on discharge Insomnia/Dementia/hypothyroidism: -continue home meds Diet: Cardiac PT/OT ordered DVT ppx: Eliquis Code status: DNR/DNI Admission and Anticipated Discharge Date Admission Date: November 13, 2021 Subjective Patient seen, feels ill and weak, was able to eat breakfast. Physical Exam Physical Exam: ROS-No Headache, No Visual Changes, No Nausea, No Vomiting, No Fever, No Chills, No Neck Pain or Stiffness, No Chest Pain, No Palpitations, No SOB, No GUEVARA, No Cough, No Sputum, No Wheezing, No Abdominal Pain, No Diarrhea, No Hematemesis, No Hemoptysis, No Unexpected Weight Loss, No Flank pain, No Melena, No Hematochezia, No Frequency, No Urgency, No Burning, No Hematuria, No Rashes, No Diaphoresis. Appetite is Normal, feels ill and weak Physical Exam Gen-AAO x 3, NAD, Afebrile, ill-appearing Head-NCAT, EOMI, PERRLA, Anicteric Sclera, No Posterior Pharyngeal Erythema Neck-Supple, No JVD, No Thyromegaly, No Masses, No LAD, No Bruits Lungs-Clear to Auscultation Bilaterally, No Rales, No Rhonchi, No Wheezing, No Crepitus Chest-No S4, +S1, +S2, No S3, No Murmurs, No Rubs, No Gallops, No Ectopy Abdomen-Soft, Bowel Sounds Present, Non Tender, Non Distended, No Hepatomegaly, No Splenomegaly, No Palpable Masses, No Rebound, No Rigidity, No Guarding Musculoskeletal-Full Range of Motion Bilaterally, No CVAT Extremities-No Cyanosis, No Clubbing, No Edema Nuero-Cranial Nerves II-XII grossly intact, Motor WNL, DTRs WNL, Strength WNL, Non Focal Psych-Normal Mood Results & Data Results & Data ([facility]) Vital Signs (Past 12 Hours) Vital Signs Temp Pulse Resp BP Pulse Ox 11/14/21 07:56 37.0 C 74 20 132/63 94 11/14/21 04:30 77 14 130/68 94 11/14/21 00:30 68 19 105/50 L 96 Laboratory Results Reviewed (1) Sepsis Sepsis acute organ dysfunction status: with acute organ dysfunction Sepsis type: Escherichia coli Severe sepsis acute organ dysfunction type: encephalopathy Severe sepsis shock status: without septic shock Qualified Code(s): A41.51 - Sepsis due to Escherichia coli [E. coli]; R65.20 - Severe sepsis without septic shock; G93.41 - Metabolic encephalopathy
[2021-11-14] MEDS: cefTRIAXone SODIUM 1,000 MG in DEXTROSE 5% 50 ML IV SCH (11:46)
[2021-11-14] MEDS ORDERED: CEFEPIME 2,000 MG in SYRINGE 0 ML IV SCH (12:00)
[2021-11-14] MEDS: traMADol HCL 50 MG TABLET PO SCH (21:33)
[2021-11-14] MEDS: traZODone HCL 50 MG TAB PO SCH (21:33)
[2021-11-14] MEDS: DOXAZosin MESYLATE TAB 2 MG TAB PO SCH (21:34)
[2021-11-14] MEDS: LEVOTHYROXINE SODIUM 50 MCG TABLET PO SCH (21:34)
[2021-11-14] MEDS: ROSUVASTATIN CALCIUM 10 MG TAB PO SCH (21:34)
[2021-11-14 22:31] LABS: Appearance Urine Clear (Clear); Bacteria Urine Automated Negative (Negative); Bilirubin Urine Negative (Negative); Blood Urine 2+ (Negative); Color Urine Yellow; Glucose Urine UA Negative (Negative); Ketones Urine Negative (Negative); Leukocyte Esterase Urine 1+ (Negative); Nitrite Urine Negative (Negative); Protein Urine 1+ (Negative); Specific Gravity Urine 1.015 (1.000-1.030); Urobilinogen Urine Negative (Negative); WBC Urine Automated >30 /hpf (0-5); pH Urine 5.5 (4.5-7.5)
--- NOTE | 2021-11-15 06:46 | Electrocardiogram Report ---
Test Reason : Blood Pressure : / mmHG Vent. Rate : 092 BPM Atrial Rate : 092 BPM P-R Int : 178 ms QRS Dur : 070 ms QT Int : 368 ms P-R-T Axes : 107 -38 053 degrees QTc Int : 455 ms Sinus rhythm with Premature atrial complexes Left axis deviation Inferior infarct (cited on or before 14-MAY-2019) Abnormal ECG When compared with ECG of 12-NOV-2021 15:31, Premature atrial complexes are now Present Confirmed by Pasha James ([id number]) on 11/15/2021 6:45:51 AM Referred By: REFERRED SELF Confirmed By:Pasha James
[2021-11-15 08:23] LABS: Hematocrit (blood only) 36.1 % (42-52); Hemoglobin 11.5 g/dL (14.0-18.0); Mean Corpuscular Hemoglobin 31.9 pg (25-34); Mean Corpuscular Hgb Conc 31.9 g/dL (32-36); Mean Platelet Volume 11.5 fL (7.4-10.4); Platelet Count 186 K/uL (130-400); RDW Coefficient of Variation 15.6 % (11.5-14.5); RDW Standard Deviation 57.5 fL (36.4-46.3); Red Blood Count 3.61 M/uL (4.7-6.1); White Blood Count 18.23 K/uL (4.8-10.8)
[2021-11-15 08:51] LABS: BUN Creatinine Ratio 17.4 (10-20); Calcium 8.7 mg/dl (8.5-10.1); Creatinine Clr Calc Pharmacy 62.7 ml/min; Est GFR (African American) 85.7 ml/min; Est GFR (Non-African American) 73.9 ml/min; Potassium 3.6 mmol/L (3.5-5.1)
[2021-11-15] MEDS: PANTOprazole 40 MG TAB PO SCH (09:50)
[2021-11-15] MEDS: CLOTRIMAZOLE 1% CR 15 GM TUBE TOP SCH ×2 (09:50→20:39)
[2021-11-15] MEDS: APIXABAN 5 MG TABLET PO SCH ×2 (09:50→20:40)
[2021-11-15] MEDS: SENNOSIDES 8.8 MG/5 ML UDC PO SCH (09:50)
--- NOTE | 2021-11-15 10:20 | Discharge Summary ---
Date of Service November 15, 2021 Admission HPI Per Admitting Provider Pt is a 81 y/o M with hx of recent COVID infection (08/2021), CLL, hx of TBI, HFpEF, Afib was on eliquis, CAD, Seizure, CKD III, Dementia, prior hx of UTI, Interstitial lung disease, GERD, hypothyroidism, HLD, BPH with hx of urinary retention brought into the ER for confusion and positive BCx (G baccili). Pt was seen in the ER yesterday (for weakness, chills, and myalgia): he was treated for UTI and sent home on Keflex Per pt appeared more confused than yesterday. He is also having worsening generalized weakness, chills, myalgia, cough (productive of clear sputum). Pt also complained of R leg swelling (chronic). Pt was discharged from SNF 2 [facility] ago & on discharge his eliquis was stopped and multiple other meds were changed. He was also taken off of hospice at SNF. Currently he ambulates with walker per . He was on Coumadin in the past before eliquis for Afib. He had GI bleeding with Coumadin 4 years ago & pt had been doing well on eliquis before it was discontinued at [facility]. Pt was discharged from the hospital ([facility]) on eliquis, protonix, Lasix 20mg daily (his home meds) on 09/2021. Admission Exam Per Admitting Provider ROS-No Headache, No Visual Changes, No Nausea, No Vomiting, No Fever, No Chills, No Neck Pain or Stiffness, No Chest Pain, No Palpitations, No SOB, No GUEVARA, No Cough, No Sputum, No Wheezing, No Abdominal Pain, No Diarrhea, No Hematemesis, No Hemoptysis, No Unexpected Weight Loss, No Flank pain, No Melena, No Hematochezia, No Frequency, No Urgency, No Burning, No Hematuria, No Rashes, No Diaphoresis. Appetite is Normal, feels ill and weak Physical Exam Gen-AAO x 3, NAD, Afebrile, ill-appearing Head-NCAT, EOMI, PERRLA, Anicteric Sclera, No Posterior Pharyngeal Erythema Neck-Supple, No JVD, No Thyromegaly, No Masses, No LAD, No Bruits Lungs-Clear to Auscultation Bilaterally, No Rales, No Rhonchi, No Wheezing, No Crepitus Chest-No S4, +S1, +S2, No S3, No Murmurs, No Rubs, No Gallops, No Ectopy Abdomen-Soft, Bowel Sounds Present, Non Tender, Non Distended, No Hepatomegaly, No Splenomegaly, No Palpable Masses, No Rebound, No Rigidity, No Guarding Musculoskeletal-Full Range of Motion Bilaterally, No CVAT Extremities-No Cyanosis, No Clubbing, No Edema Nuero-Cranial Nerves II-XII grossly intact, Motor WNL, DTRs WNL, Strength WNL, Non Focal Psych-Normal Mood Principal Diagnosis (1) Sepsis: (2) UTI (urinary tract infection): (3) Acute metabolic encephalopathy: (4) Paroxysmal atrial fibrillation: (5) Chronic diastolic CHF (congestive heart failure): (6) Acute kidney injury superimposed on CKD: (7) CLL (chronic lymphocytic leukemia): (8) Hypothyroidism: Discharge Exam See below Discharge Data Allergies Allergy/AdvReac Type Severity Reaction Status Date / Time ibuprofen Allergy Severe Hives Verified 11/13/21 13:10 Iodinated Contrast Media Allergy Intermediate HIVES Verified 11/13/21 13:10 caffeine AdvReac Severe Rash Verified 11/13/21 13:10 chocolate flavor AdvReac Unknown Unknown Verified 11/13/21 13:10 Consultations 11/13/21 13:02 ED Decision to Admit Stat Ordered Studies 11/13/21 14:10 US venous doppler LE RT Stat Current Diagnoses Sepsis due to Escherichia coli [E. 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 (11/13/21) Hypothyroidism, unspecified (11/13/21) Metabolic encephalopathy (11/13/21) Paroxysmal atrial fibrillation (11/13/21) Chronic diastolic (congestive) heart failure (11/13/21) Acute kidney failure, unspecified (11/13/21) Chronic kidney disease, unspecified (11/13/21) Urinary tract infection, site not specified (11/13/21) Severe sepsis without septic shock (11/13/21) Allergies ibuprofen Allergy (Severe, Verified 11/13/21 13:10) Hives Iodinated Contrast Media Allergy (Intermediate, Verified 11/13/21 13:10) HIVES caffeine Adverse Reaction (Severe, Verified 11/13/21 13:10) Rash chocolate flavor Adverse Reaction (Unknown, Verified 11/13/21 13:10) Unknown Height/Weight/Isolation Height 6 ft Weight 71.8 kg CBC 11/13/21 11/14/21 11/15/21 12:17 07:48 08:02 WBC 26.05 H 19.97 H 18.23 H Chemistry 11/13/21 11/14/21 11/15/21 12:17 07:48 08:02 Sodium 145 147 H 143 Potassium 4.6 3.5 D 3.6 Chloride 111 H 117 H 113 H Carbon Dioxide 24 22 24 Anion Gap 10.0 8.0 6.0 BUN 27 H 19 H 17 Creatinine 1.68 H 0.96 D 0.97 Glucose 114 H 107 H 113 H Urinalysis 11/14/21 22:15 Urine Color Yellow Urine Appearance Clear Urine pH 5.5 Ur Specific [place] 1.015 Urine Protein 1+ H Urine Glucose (UA) Negative Urine Ketones Negative Urine Blood 2+ H Urine Nitrite Negative Urine Bilirubin Negative Microbiology 11/14/21 22:15 Urine,Clean Catch Urine Culture - Pending 11/13/21 12:27 Blood Aerobic Blood Culture - Preliminary No growth in Aerobic bottle after 24 hours. 11/13/21 12:27 Blood Anaerobic Blood Culture - Final 11/13/21 12:17 Blood Aerobic Blood Culture - Preliminary No growth in Aerobic bottle after 24 hours. 11/13/21 12:17 Blood Anaerobic Blood Culture - Preliminary No growth in Anaerobic bottle after 24 hours. Hospital Course (1) Sepsis: (2) UTI (urinary tract infection): (3) Acute metabolic encephalopathy: (4) Paroxysmal atrial fibrillation: (5) Chronic diastolic CHF (congestive heart failure): (6) Acute kidney injury superimposed on CKD: (7) CLL (chronic lymphocytic leukemia): (8) Hypothyroidism: Sepsis secondary to pansensitive E. coli -De-escalated to Rocephin-DC home today on 10 days of Omnicef -UCx Grew out pansensitive E. coli, BCx from November 13 are negative growth to date CYRUS on CKD: -on previous discharge his Cr was 1.2, currently 0.97 -s/p NS 1L bolus & will trend BMP Afib: -was on eliquis which was discontinued on SNF discharge - denied any GI blood or brain bleed or any complication from eliquis -Resumed eliquis and protonix R LE pitting edema: -likely chronic; however since pt has been off of eliquis -Doppler IMPRESSION: 1. No acute deep venous thrombus. 2. Chronic appearing deep and superficial venous thrombi. CLL: -continue to monitor CBC -heme/onc follow up as outpt -Count when he came in was 25 now it is down to 20 HFpEF: -pt was on Rosuvastatin 10mg qhs, Lasix 20mg daily and KCL 8 meq daily -Restarted rosuvastatin and depending on the BP and Cr will consider restarting Lasix on discharge Insomnia/Dementia/hypothyroidism: -continue home meds Diet: Cardiac PT/OT ordered DVT ppx: Eliquis Code status: DNR/DNI DC home on Omnicef x 10 days Total Time Total Time Spent Total Time Spent (In Minutes): 45 mins Discharge Plan Discharge Items Patient Disposition: Home - Self-Care Reason For Visit: UROSEPSIS Discharge Diagnosis: (1) Sepsis: (2) UTI (urinary tract infection): (3) Acute metabolic encephalopathy: (4) Paroxysmal atrial fibrillation: (5) Chronic diastolic CHF (congestive heart failure): (6) Acute kidney injury superimposed on CKD: (7) CLL (chronic lymphocytic leukemia): (8) Hypothyroidism: Condition on Discharge: Good Activity: Resume your previous activity Lifting: Gradually increase as tolerated Bathing: No limitations Sexual Activity: When tolerated Exercise/Sports: Rest today Driving/Machine Use: No limitations Weightbearing: Full weightbearing Non-emergency contact: Primary Care Provider Call non-emergency contact if: you have any medication questions Follow-up/Referrals: Charly Conroy [Outside Practitioners] - 11/28/21 2:00 pm Diet: Carb Consistent or DM2 and Heart Healthy Addtl Attending Provider Instructions: None Pending Studies at Discharge: No Stand-Alone Forms: My [employer], Smoking Cessation Medications and DC Order Prescriptions: New Eliquis 5 mg Tablet 5 mg PO BID Qty: 60 RF: 0 acetaminophen 325 mg Tablet 650 mg PO Q4H PRN (Reason: fever or pain) Qty: 90 RF: 0 rosuvastatin [Crestor] 10 mg Tablet 10 mg PO HS Qty: 30 RF: 0 cefdinir 300 mg capsule 300 mg PO Q12H 10 Days Qty: 20 RF: 0 furosemide [Lasix] 20 mg tablet 20 mg PO DAILY Qty: 30 RF: 0 Continued trazodone 50 mg tablet 50 mg PO HS RF: 0 tramadol 50 mg tablet 50 mg PO HS RF: 0 acetaminophen 500 mg tablet 500 mg PO Q8H PRN (Reason: PAIN/FEVER) RF: 0 levothyroxine 50 mcg tablet 50 mcg PO HS RF: 0 clotrimazole 1 % cream 1 applic TOPICAL BID RF: 0 doxazosin 2 mg tablet 2 mg PO HS RF: 0 sodium chloride [Saline Mist] 0.65 % aerosol,spray 2 spray INTRANASAL BID RF: 0 cholecalciferol (vitamin D3) 25 mcg (1,000 unit) tablet 25 mcg PO QAM RF: 0 menthol-zinc oxide [Calmoseptine] 0.44-20.6 % Ointment 1 applic TOPICAL TID RF: 0 white petrolatum [Vaseline] Gel 1 applic TOPICAL BID RF: 0 dextromethorphan-guaifenesin [Cough Syrup DM] 10-100 mg/5 mL Syrup 0 ml PO Q4H PRN (Reason: mucus build up) RF: 0 sennosides [senna] 8.8 mg/5 mL Syrup 8.8 mg PO QAM Qty: 120 RF: 0 Discontinued cephalexin 500 mg capsule 500 mg PO Q8H 7 Days Qty: 21 RF: 0 Discharge Orders: Discharge Order (Routine); Ordered 11/15/21 Ordered By: Catrachito Rosario Admission Data Admit Date/Time: 11/13/21 14:27 Attending Provider: Catrachito Rosario Admit Provider: Jennifer Honeycutt Primary Care Provider: Khloe Ruiz Other Providers: Jennifer Honeycutt ; Peter [facility]
[2021-11-15] MEDS: PETROLATUM 16 OZ JAR EXT SCH ×2 (11:03→20:41)
[2021-11-15] MEDS: cefTRIAXone SODIUM 1,000 MG in DEXTROSE 5% 50 ML IV SCH (11:05)
[2021-11-15] MEDS: CHOLECALCIFEROL 1,000 UNITS 25 MCG TAB PO SCH (11:44)
--- NOTE | 2021-11-15 14:24 | Hospitalist Progress Note ---
Date of Service November 15, 2021 Assessment & Plan (1) Sepsis: (2) UTI (urinary tract infection): (3) Acute metabolic encephalopathy: (4) Paroxysmal atrial fibrillation: (5) Chronic diastolic CHF (congestive heart failure): (6) Acute kidney injury superimposed on CKD: (7) CLL (chronic lymphocytic leukemia): (8) Hypothyroidism: Plan: Sepsis secondary to pansensitive E. coli-Blood cultures turned positive so repeat blood cultures will be drawn and DC held -De-escalated to Rocephin-dose increased to 2 g every 24 secondary to positive blood cultures -UCx Grew out pansensitive E. coli, BCx from November 13 are now positive CYRUS on CKD: -on previous discharge his Cr was 1.2, currently 0.97 -s/p NS 1L bolus & will trend BMP Afib: -was on eliquis which was discontinued on SNF discharge - denied any GI blood or brain bleed or any complication from eliquis -Resumed eliquis and protonix R LE pitting edema: -likely chronic; however since pt has been off of eliquis -Doppler IMPRESSION: 1. No acute deep venous thrombus. 2. Chronic appearing deep and superficial venous thrombi. CLL: -continue to monitor CBC -heme/onc follow up as outpt -Count when he came in was 25 now it is down to 20 HFpEF: -pt was on Rosuvastatin 10mg qhs, Lasix 20mg daily and KCL 8 meq daily -Restarted rosuvastatin and depending on the BP and Cr will consider restarting Lasix on discharge Insomnia/Dementia/hypothyroidism: -continue home meds Diet: Cardiac PT/OT ordered DVT ppx: Eliquis Code status: DNR/DNI ROS-No Headache, No Visual Changes, No Nausea, No Vomiting, No Fever, No Chills, No Neck Pain or Stiffness, No Chest Pain, No Palpitations, No SOB, No GUEVARA, No Cough, No Sputum, No Wheezing, No Abdominal Pain, No Diarrhea, No Hematemesis, No Hemoptysis, No Unexpected Weight Loss, No Flank pain, No Melena, No Hematochezia, No Frequency, No Urgency, No Burning, No Hematuria, No Rashes, No Diaphoresis. Appetite is Normal Physical Exam Gen-AAO x 3, NAD, Afebrile Head-NCAT, EOMI, PERRLA, Anicteric Sclera, No Posterior Pharyngeal Erythema Neck-Supple, No JVD, No Thyromegaly, No Masses, No LAD, No Bruits Lungs-Clear to Auscultation Bilaterally, No Rales, No Rhonchi, No Wheezing, No Crepitus Chest-No S4, +S1, +S2, No S3, No Murmurs, No Rubs, No Gallops, No Ectopy Abdomen-Soft, Bowel Sounds Present, Non Tender, Non Distended, No Hepatomegaly, No Splenomegaly, No Palpable Masses, No Rebound, No Rigidity, No Guarding Musculoskeletal-Full Range of Motion Bilaterally, No CVAT Extremities-No Cyanosis, No Clubbing, No Edema Nuero-Cranial Nerves II-XII grossly intact, Motor WNL, DTRs WNL, Strength WNL, Non Focal Psych-Normal Mood Admission and Anticipated Discharge Date Admission Date: November 13, 2021 Subjective Patient seen, feels ill and weak, was able to eat breakfast. Results & Data Results & Data ([facility]) Vital Signs (Past 12 Hours) Vital Signs Temp Pulse Pulse Resp BP Pulse Ox 11/15/21 11:12 37.0 C 62 16 118/61 95 11/15/21 07:41 59 L 11/15/21 07:24 36.7 C 56 L 16 142/51 H 95 11/15/21 02:38 36.7 C 65 18 141/70 H 95 (1) Sepsis Sepsis acute organ dysfunction status: with acute organ dysfunction Sepsis type: Escherichia coli Severe sepsis acute organ dysfunction type: encephalopathy Severe sepsis shock status: without septic shock Qualified Code(s): A41.51 - Sepsis due to Escherichia coli [E. coli]; R65.20 - Severe sepsis without septic shock; G93.41 - Metabolic encephalopathy
[2021-11-15] MEDS ORDERED: cefTRIAXone SODIUM 1,000 MG in DEXTROSE 5% 50 ML IV ONE (14:45)
[2021-11-15] MEDS: traZODone HCL 50 MG TAB PO SCH (20:39)
[2021-11-15] MEDS: traMADol HCL 50 MG TABLET PO SCH (20:39)
[2021-11-15] MEDS: ROSUVASTATIN CALCIUM 10 MG TAB PO SCH (20:40)
[2021-11-15] MEDS: DOXAZosin MESYLATE TAB 2 MG TAB PO SCH (20:40)
[2021-11-15] MEDS: LEVOTHYROXINE SODIUM 50 MCG TABLET PO SCH (20:41)
[2021-11-15] MEDS ORDERED: COUGH DROP (SUGAR FREE) LOZ 24 LOZ/1 BOX BUCCAL PRN (23:45)
[2021-11-15] MEDS ORDERED: COUGH DROP (SUGAR FREE) LOZ 24 LOZ/1 BOX BUCCAL ONE (23:56)
[2021-11-16] MEDS: SENNOSIDES 8.8 MG/5 ML UDC PO SCH (08:02)
[2021-11-16] MEDS: CHOLECALCIFEROL 1,000 UNITS 25 MCG TAB PO SCH (08:02)
[2021-11-16] MEDS: PANTOprazole 40 MG TAB PO SCH (08:02)
[2021-11-16] MEDS: APIXABAN 5 MG TABLET PO SCH (08:02)
[2021-11-16] MEDS: PETROLATUM 16 OZ JAR EXT SCH (08:05)
[2021-11-16] MEDS: CLOTRIMAZOLE 1% CR 15 GM TUBE TOP SCH (08:06)
[2021-11-16 08:47] LABS: Hematocrit (blood only) 39.1 % (42-52); Hemoglobin 12.6 g/dL (14.0-18.0); Mean Corpuscular Hemoglobin 32.4 pg (25-34); Mean Corpuscular Hgb Conc 32.2 g/dL (32-36); Mean Corpuscular Volume 100.5 fL (80-100); Platelet Count 217 K/uL (130-400); RDW Coefficient of Variation 15.3 % (11.5-14.5); RDW Standard Deviation 56.7 fL (36.4-46.3); Red Blood Count 3.89 M/uL (4.7-6.1); White Blood Count 17.87 K/uL (4.8-10.8)
--- NOTE | 2021-11-16 08:47 | Hospitalist Progress Note ---
Date of Service November 16, 2021 Assessment & Plan (1) Sepsis: (2) UTI (urinary tract infection): (3) Acute metabolic encephalopathy: (4) Paroxysmal atrial fibrillation: (5) Chronic diastolic CHF (congestive heart failure): (6) Acute kidney injury superimposed on CKD: (7) CLL (chronic lymphocytic leukemia): (8) Hypothyroidism: Plan: Sepsis secondary to pansensitive E. coli bacteremia -De-escalated to Rocephin-dose increased to 2 g every 24 secondary to positive blood cultures -Blood culture from November 12 positive for E. coli -Urine culture from November 12 also positive for E. coli -Repeat blood culture from November 13, negative in 48 hours -Repeat urine culture for November 13, negative CYRUS on CKD: -on previous discharge his Cr was 1.2, currently ~1 -s/p NS 1L bolus & will trend BMP Afib: -was on eliquis which was discontinued on SNF discharge - denied any GI blood or brain bleed or any complication from eliquis -Resumed eliquis and protonix R LE pitting edema: -likely chronic; however since pt has been off of eliquis -Doppler IMPRESSION: 1. No acute deep venous thrombus. 2. Chronic appearing deep and superficial venous thrombi. -Continue Eliquis on discharge, followup as outpt CLL: -continue to monitor CBC -heme/onc follow up as outpt - WBC on admission was 25 now it is down to 17K HFpEF: -pt was on Rosuvastatin 10mg qhs, Lasix 20mg daily and KCL 8 meq daily -Restarted rosuvastatin and depending on the BP and Cr will consider restarting Lasix on discharge Insomnia/Dementia/hypothyroidism: -continue home meds Diet: Cardiac PT/OT ordered DVT ppx: Eliquis Code status: DNR/DNI Admission and Anticipated Discharge Date Admission Date: November 13, 2021 Subjective Patient seen in follow-up of UTI and E. coli bacteremia Currently patient is sitting up in a chair, in no acute distress Per RN, patient was ambulating in hallways with PT and a walker Currently patient has no complaints, specifically denies fever chills, chest pain shortness of breath, abdominal pain, nausea vomiting Review of Systems Review of Systems: All systems reviewed & are unremarkable except as noted in Subjective Physical Exam Physical Exam: Gen-AAO x 3, NAD, Afebrile Head-NCAT, EOMI, PERRL, poor dentition Neck-Supple Lungs-Clear to Auscultation Bilaterally, No Rales, No Rhonchi, No Wheezing Chest-+S1, +S2, No Murmurs Abdomen-Soft, Bowel Sounds Present, Non Tender, Non Distended, No Guarding Musculoskeletal-Full Range of Motion Bilaterally, No CVAT Extremities-No Cyanosis, No Clubbing, No Edema Neuro-awake and alert, answering questions appropriately, speech fluent, no facial asymmetry, moves extremities Psych-Normal Mood Results & Data Results & Data ([facility]) Vital Signs (Past 12 Hours) Vital Signs Temp Pulse Resp BP Pulse Ox 11/16/21 07:27 36.8 C 65 20 163/71 H 94 11/16/21 03:19 36.7 C 60 18 141/68 H 96 11/15/21 22:15 36.7 C 58 L 18 150/69 H 97 Laboratory Results 11/16/21 11/16/21 Range/Units 08:13 08:13 WBC 17.87 H (4.8-10.8) K/uL RBC 3.89 L (4.7-6.1) M/uL Hgb 12.6 L (14.0-18.0) g/dL Hct 39.1 L (42-52) % MCV 100.5 H (80-100) fL MCH 32.4 (25-34) pg MCHC 32.2 (32-36) g/dL RDW Std Deviation 56.7 H (36.4-46.3) fL RDW Coeff of Chay 15.3 H (11.5-14.5) % Plt Count 217 (130-400) K/uL MPV 12.0 H (7.4-10.4) fL Sodium 147 H (136-145) mmol/L Potassium 3.6 (3.5-5.1) mmol/L Chloride 115 H (98-107) mmol/L Carbon Dioxide 26 (21-32) mmol/L Anion Gap 6.0 (3-11) BUN 15 (7-18) mg/dl Creatinine 0.99 (0.6-1.4) mg/dl Est Cr Clr Drug Dosing 60.0 ml/min Est GFR ( Amer) 83.6 ml/min Est GFR (Non-Af Amer) 72.1 ml/min BUN/Creatinine Ratio 15.5 (10-20) Glucose 99 (70-99) mg/dl Calcium 8.9 (8.5-10.1) mg/dl Medications Administered Current Inpatient Medications Acetaminophen (Acetaminophen 325 Mg Tab) 650 mg PO Q4H PRN PRN Reason: Pain or Fever Stop: 12/13/21 15:49 Last Admin: 11/15/21 09:52 Dose: 650 mg Documented by: Apixaban (Apixaban 5 Mg Tablet) 5 mg PO BID [facility] Stop: 12/13/21 20:59 Last Admin: 11/16/21 08:02 Dose: 5 mg Documented by: Clotrimazole (Clotrimazole 1% Cr 15 Gm Tube) 1 appln TOP BID [facility] Stop: 12/13/21 20:59 Last Admin: 11/16/21 08:06 Dose: 1 appln Documented by: Doxazosin Mesylate (Doxazosin Mesylate Tab 2 Mg Tab) 2 mg PO HS [facility] Stop: 12/13/21 20:59 Last Admin: 11/15/21 20:40 Dose: 2 mg Documented by: Emollient Ointment (Petrolatum 16 Oz Jar) 1 oz EXT BID [facility] Stop: 12/13/21 20:59 Last Admin: 11/16/21 08:05 Dose: 1 oz Documented by: Ceftriaxone Sodium 2,000 mg/ (Dextrose) 70 mls @ 140 mls/hr IV Q24H [facility]; Protocol Stop: 11/28/21 10:59 Levothyroxine Sodium (Levothyroxine Sodium 50 Mcg Tablet) 50 mcg PO HS [facility] Stop: 12/13/21 20:59 Last Admin: 11/15/21 20:41 Dose: 50 mcg Documented by: Menthol (Cough Drop (Sugar Free) Kristian 24 Kristian/1 Box) 1 kristian BUCCAL PRN PRN PRN Reason: Sore Throat Stop: 12/15/21 23:44 Last Admin: 11/15/21 23:58 Dose: 1 kristian Documented by: Ondansetron HCl (Ondansetron Inj 2 Mg/Ml 2 Ml Vial) 4 mg IV Q6H PRN PRN Reason: Nausea Stop: 12/13/21 15:49 Pantoprazole Sodium (Pantoprazole 40 Mg Tab) 40 mg PO DAILY [facility] Stop: 12/14/21 08:59 Last Admin: 11/16/21 08:02 Dose: 40 mg Documented by: Polyethylene Glycol (Polyethylene (Miralax) 17 Gm Pack) 17 gm PO DAILY PRN PRN Reason: Constipation Stop: 12/13/21 15:49 Rosuvastatin Calcium (Rosuvastatin Calcium 10 Mg Tab) 10 mg PO [facility] Stop: 12/13/21 20:59 Last Admin: 11/15/21 20:40 Dose: 10 mg Documented by: Sennosides (Sennosides 8.8 Mg/5 Ml Udc) 8.8 mg PO [facility] Stop: 12/14/21 08:59 Last Admin: 11/16/21 08:02 Dose: 8.8 mg Documented by: Tramadol HCl (Tramadol Hcl 50 Mg Tablet) 50 mg PO [facility] Stop: 12/13/21 20:59 Last Admin: 11/15/21 20:39 Dose: 50 mg Documented by: Trazodone HCl (Trazodone Hcl 50 Mg Tab) 50 mg PO [facility] Stop: 12/13/21 20:59 Last Admin: 11/15/21 20:39 Dose: 50 mg Documented by: Vitamin D (Cholecalciferol 1,000 Units 25 Mcg Tab) 1,000 units PO [facility] Stop: 12/14/21 08:59 Last Admin: 11/16/21 08:02 Dose: 1,000 units Documented by: (1) Sepsis Sepsis acute organ dysfunction status: with acute organ dysfunction Sepsis type: Escherichia coli Severe sepsis acute organ dysfunction type: encephalopathy Severe sepsis shock status: without septic shock Qualified Code(s): A41.51 - Sepsis due to Escherichia coli [E. coli]; R65.20 - Severe sepsis without septic shock; G93.41 - Metabolic encephalopathy
[2021-11-16 09:05] LABS: BUN Creatinine Ratio 15.5 (10-20); Calcium 8.9 mg/dl (8.5-10.1); Est GFR (African American) 83.6 ml/min; Est GFR (Non-African American) 72.1 ml/min; Potassium 3.6 mmol/L (3.5-5.1)
[2021-11-16] MEDS ORDERED: POTASSIUM CHLORIDE CRTAB 20 MEQ TABCR PO STA (09:11)
[2021-11-16] MEDS ORDERED: cefTRIAXone SODIUM 2,000 MG in DEXTROSE 5% 50 ML IV SCH (11:00)
--- NOTE | 2021-11-16 12:19 | Discharge Summary ---
Date of Service November 16, 2021 Admission HPI Per Admitting Provider Pt is a 81 y/o M with hx of recent COVID infection (08/2021), CLL, hx of TBI, HFpEF, Afib was on eliquis, CAD, Seizure, CKD III, Dementia, prior hx of UTI, Interstitial lung disease, GERD, hypothyroidism, HLD, BPH with hx of urinary retention brought into the ER for confusion and positive BCx (G baccili). Pt was seen in the ER yesterday (for weakness, chills, and myalgia): he was treated for UTI and sent home on Keflex Per pt appeared more confused than yesterday. He is also having worsening generalized weakness, chills, myalgia, cough (productive of clear sputum). Pt also complained of R leg swelling (chronic). Pt was discharged from SNF 2 weeks ago & on discharge his eliquis was stopped and multiple other meds were changed. He was also taken off of hospice at SNF. Currently he ambulates with walker per . He was on Coumadin in the past before eliquis for Afib. He had GI bleeding with Coumadin 4 years ago & pt had been doing well on eliquis before it was discontinued at [facility]. Pt was discharged from the hospital ([facility]) on eliquis, protonix, Lasix 20mg daily (his home meds) on 09/2021. Admission Exam Per Admitting Provider NAD, average body habitus HEENT: Poor dentition, multiple teeth cavities, EOMI Cardiac: Normal S1/S2, sinus rhythm, no murmur Lungs: CTA, no wheezing Abd: ND, NT, soft MSK: R distal leg swelling with chronic skin changes, trace pitting edema on the L LE Skin: erythematous rash on b/l elbow Psych: AAOx2 (to person and time) Principal Diagnosis (1) Sepsis: E.coli bacteremia (2) UTI (urinary tract infection): (3) Acute metabolic encephalopathy: (4) Paroxysmal atrial fibrillation: (5) Chronic diastolic CHF (congestive heart failure): (6) Acute kidney injury superimposed on CKD: (7) CLL (chronic lymphocytic leukemia): (8) Hypothyroidism: Discharge Exam Gen-AAO x 3, NAD, Afebrile Head-NCAT, EOMI, PERRL, poor dentition Neck-Supple Lungs-Clear to Auscultation Bilaterally, No Rales, No Rhonchi, No Wheezing Chest-+S1, +S2, No Murmurs Abdomen-Soft, Bowel Sounds Present, Non Tender, Non Distended, No Guarding Musculoskeletal-Full Range of Motion Bilaterally, No CVAT Extremities-No Cyanosis, No Clubbing, No Edema Neuro-awake and alert, answering questions appropriately, speech fluent, no facial asymmetry, moves extremities Psych-Normal Mood Discharge Data Allergies Allergy/AdvReac Type Severity Reaction Status Date / Time ibuprofen Allergy Severe Hives Verified 11/13/21 13:10 Iodinated Contrast Media Allergy Intermediate HIVES Verified 11/13/21 13:10 caffeine AdvReac Severe Rash Verified 11/13/21 13:10 chocolate flavor AdvReac Unknown Unknown Verified 11/13/21 13:10 Consultations 11/13/21 13:02 ED Decision to Admit Stat Ordered Studies 11/13/21 14:10 US venous doppler LE RT Stat Hospital Course (1) Sepsis: (2) UTI (urinary tract infection): (3) Acute metabolic encephalopathy: (4) Paroxysmal atrial fibrillation: (5) Chronic diastolic CHF (congestive heart failure): (6) Acute kidney injury superimposed on CKD: (7) CLL (chronic lymphocytic leukemia): (8) Hypothyroidism: Sepsis secondary to pansensitive E. coli bacteremia -De-escalated to Rocephin-dose increased to 2 g every 24 secondary to positive blood cultures -Blood culture from November 12 positive for E. coli -Urine culture from November 12 also positive for E. coli -Repeat blood culture from November 13, negative in 48 hours -Repeat urine culture for November 13, negative - DC on cefdinir, prescription already sent by Dr. Rosario to patient's pharmacy CYRUS on CKD: resolved -on previous discharge his Cr was 1.2, currently ~1 -s/p NS 1L bolus & will trend BMP Afib: -was on eliquis which was discontinued on SNF discharge - denied any GI blood or brain bleed or any complication from eliquis -Resumed eliquis and protonix R LE pitting edema: -likely chronic; however since pt has been off of eliquis -Doppler IMPRESSION: 1. No acute deep venous thrombus. 2. Chronic appearing deep and superficial venous thrombi. -Continue Eliquis on discharge, followup as outpt CLL: -continue to monitor CBC -heme/onc follow up as outpt - WBC on admission was 25 now it is down to 17K HFpEF: -pt was on Rosuvastatin 10mg qhs, Lasix 20mg daily and KCL 8 meq daily -Restarted rosuvastatin and depending on the BP and Cr will consider restarting Lasix on discharge Insomnia/Dementia/hypothyroidism: -continue home meds Total Time Total Time Spent Total Time Spent (In Minutes): 40 Discharge Plan Discharge Items Patient Disposition: Home - Self-Care Reason For Visit: UROSEPSIS Discharge Diagnosis: (1) Sepsis: E.coli bacteremia (2) UTI (urinary tract infection): (3) Acute metabolic encephalopathy: (4) Paroxysmal atrial fibrillation: (5) Chronic diastolic CHF (congestive heart failure): (6) Acute kidney injury superimposed on CKD: (7) CLL (chronic lymphocytic leukemia): (8) Hypothyroidism: Condition on Discharge: Good Activity: Resume your previous activity Lifting: Gradually increase as tolerated Bathing: No limitations Sexual Activity: When tolerated Exercise/Sports: Rest today Driving/Machine Use: No limitations Weightbearing: Full weightbearing Non-emergency contact: Primary Care Provider Call non-emergency contact if: you have any medication questions Follow-up/Referrals: Charly Conroy [Outside Practitioners] - 11/28/21 2:00 pm Diet: Carb Consistent or DM2 and Heart Healthy Addtl Attending Provider Instructions: Follow-up with your primary care doctor, the appointment was scheduled for you for November 28. Finish antibiotic treatment (cefdinir), as prescribed by Dr. Rosario. In addition, prescriptions for your previous medications such as Eliquis, Crestor, and Lasix were sent to your pharmacy as well. Discuss all your medications with your primary care doctor, at your next visit. Pending Studies at Discharge: No Stand-Alone Forms: [employer], Smoking Cessation Medications and DC Order Prescriptions: New Eliquis 5 mg Tablet 5 mg PO BID Qty: 60 RF: 0 acetaminophen 325 mg Tablet 650 mg PO Q4H PRN (Reason: fever or pain) Qty: 90 RF: 0 rosuvastatin [Crestor] 10 mg Tablet 10 mg PO HS Qty: 30 RF: 0 cefdinir 300 mg capsule 300 mg PO Q12H 10 Days Qty: 20 RF: 0 furosemide [Lasix] 20 mg tablet 20 mg PO DAILY Qty: 30 RF: 0 Continued trazodone 50 mg tablet 50 mg PO HS RF: 0 tramadol 50 mg tablet 50 mg PO HS RF: 0 acetaminophen 500 mg tablet 500 mg PO Q8H PRN (Reason: PAIN/FEVER) RF: 0 levothyroxine 50 mcg tablet 50 mcg PO HS RF: 0 clotrimazole 1 % cream 1 applic TOPICAL BID RF: 0 doxazosin 2 mg tablet 2 mg PO HS RF: 0 sodium chloride [Saline Mist] 0.65 % aerosol,spray 2 spray INTRANASAL BID RF: 0 cholecalciferol (vitamin D3) 25 mcg (1,000 unit) tablet 25 mcg PO QAM RF: 0 menthol-zinc oxide [Calmoseptine] 0.44-20.6 % Ointment 1 applic TOPICAL TID RF: 0 white petrolatum [Vaseline] Gel 1 applic TOPICAL BID RF: 0 dextromethorphan-guaifenesin [Cough Syrup DM] 10-100 mg/5 mL Syrup 0 ml PO Q4H PRN (Reason: mucus build up) RF: 0 sennosides [senna] 8.8 mg/5 mL Syrup 8.8 mg PO QAM Qty: 120 RF: 0 Discontinued cephalexin 500 mg capsule 500 mg PO Q8H 7 Days Qty: 21 RF: 0 Discharge Orders: Discharge Order (Routine); Ordered 11/16/21 Ordered By: Lex Ennis Admission Data Admit Date/Time: 11/13/21 14:27 Attending Provider: Lex Ennis Admit Provider: Jennifer Honeycutt Primary Care Provider: Khloe Ruiz Other Providers: Peter [facility] ; Jennifer Honeycutt ; Catrachito Rosario
== END 2021-11-16 14:32 | disposition home health service (06) ==
LOC: ED 11:04 → SUATTDRO 14:27 → INTOOBSV 14:27 → EDINP 14:27 → 2N 16:17
DX: Z79.890 Hormone replacement therapy; Z86.16 Personal history of COVID-19; N17.9 Acute kidney failure, unspecified; A41.51 Sepsis due to Escherichia coli [E. coli]; N39.0 Urinary tract infection, site not specified; Z79.899 Other long term (current) drug therapy; Z88.8 Allergy status to other drugs, medicaments and biological substances; I82.811 Embolism and thrombosis of superficial veins of right lower extremity; G93.41 Metabolic encephalopathy; Z91.018 Allergy to other foods; I50.32 Chronic diastolic (congestive) heart failure; Z91.041 Radiographic dye allergy status; C91.11 Chronic lymphocytic leukemia of B-cell type in remission; N18.9 Chronic kidney disease, unspecified; I48.0 Paroxysmal atrial fibrillation; E03.9 Hypothyroidism, unspecified

== ENCOUNTER 2022-03-04 17:39 | Observation (INO) ==
[2022-03-04] MEDS ORDERED: SODIUM CHLORIDE 0.9% 1000ML 500 ML IV ONE (17:57)
[2022-03-04] MEDS ORDERED: LORazepam 2 MG/1 ML VIAL IM PRN (18:06)
[2022-03-04] MEDS ORDERED: LORazepam 2 MG/1 ML VIAL IV PRN (18:08)
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
--- NOTE | 2022-03-04 18:21 | XRay Report ---
XR chest 1V portable HISTORY: Altered mental status. agitation COMPARISON: Chest 11/12/2021. FINDINGS: Slightly rotated study. No pneumothorax. No pleural effusions. No focal lung consolidations to suggest pneumonia. No evidence for pulmonary edema. The cardiac silhouette remains mildly enlarge d. There is a tortuous thoracic aorta, unchanged. IMPRESSION: No significant change compared to the prior study. No acute process. ACT 112: Negative or not required by law. Electronically signed by: Micah Alejo M.D. 03/04/2022 6:20 PM
[2022-03-04 18:44] LABS: INR 1.1 (0.9-1.1)
[2022-03-04 18:51] LABS: Troponin I < 0.03 ng/ml (0-0.04)
[2022-03-04 18:55] LABS: Alanine Aminotransferase 9 U/L (7-52); Albumin Level 4.7 gm/dl (3.4-5.0); Alkaline Phosphatase 63 U/L (34-104); Anion Gap 13 (3-11); Aspartate Aminotransferase 16 U/L (13-39); BUN Creatinine Ratio 19.1 (10-20); Bilirubin,Total 1.7 mg/dl (0.2-1.0); Blood Urea Nitrogen 25 mg/dl (6-23); Calcium 9.9 mg/dl (8.5-10.1); Carbon Dioxide 21 mmol/L (21-32); Chloride 108 mmol/L (98-107); Creatinine Clr Calc Pharmacy 44.1 ml/min; Est GFR (African American) 59.2 ml/min; Est GFR (Non-African American) 51.1 ml/min; Globulin 2.3 gm/dl (2.5-4.0); Glucose 93 mg/dl (70-99(Fasting)); Magnesium 2.2 mg/dl (1.7-2.4); Sodium 142 mmol/L (136-145)
[2022-03-04 19:02] LABS: Hematocrit (blood only) 41.7 % (42-52); Hemoglobin 14.1 g/dL (14.0-18.0); Mean Corpuscular Hemoglobin 32.9 pg (25-34); Mean Corpuscular Hgb Conc 33.8 g/dL (32-36); Mean Corpuscular Volume 97.2 fL (80-100); Mean Platelet Volume 12.3 fL (7.4-10.4); Platelet Count 169 K/uL (130-400); RDW Coefficient of Variation 14.4 % (11.5-14.5); RDW Standard Deviation 50.9 fL (36.4-46.3); Red Blood Count 4.29 M/uL (4.7-6.1); White Blood Count 46.01 K/uL (4.8-10.8)
[2022-03-04 19:05] LABS: ALC (manual) 40.76 K/uL (1.2-3.4); ANC (manual) 4.42 K/uL (1.4-6.5); Lymphocytes # (manual) 40.76 K/uL (1.2-3.4); Lymphocytes % (manual) 88.6 %; Monocytes # (manual) 0.83 K/uL (0.11-0.59); Monocytes % (manual) 1.8 %; Neutrophils # (manual) 4.42 K/uL (1.4-6.5); Neutrophils % (manual) 9.6 %; Smudge Cells Present
--- NOTE | 2022-03-04 19:29 | CT Scan Report ---
HEAD CT NONCONTRAST CT DOSE: 1151.75 mGy.cm HISTORY: agitation, confusion TECHNIQUE: Multiaxial CT images of the head were performed without the use of intravenous contrast. A utomated exposure control was utilized for this study. A dose lowering technique was utilized adheri ng to the principles of ALARA. Comparison: Head CT 09/17/2021. Findings: Mild mucosal thickening within the right maxillary sinus and a trace fluid level within the right frontal sinus. This has improved in the interval. No significant change in the right parietal and left frontal poststernotomy changes. A metallic plate overlying the left frontal bone. No acute c alvarial fractures. 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 Encepha lomalacia within the bilateral frontal lobes, left greater than right persists and likely represents postoperative change. There are surgical clips adjacent to the anterior falx. Suboptimal evaluation o f the brain due to the metallic artifact. However, there is no definite mass, hematoma, midline shift , acute infarct. Old small lacunar infarcts within the bilateral basal ganglia again noted Impression: No significant change compared to the prior study. No acute intracranial abnormality. Chronic/postope rative changes again noted. ACT 112: Negative or not required by law. Electronically signed by: Micah Alejo M.D. 03/04/2022 7:26 PM
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
[2022-03-04] MEDS ORDERED: OLANZapine 10 MG/2.1 ML SDV IM PRN (20:45)
[2022-03-04] MEDS ORDERED: LACTATED RINGER'S 1,000 ML IV ONE (20:46)
[2022-03-04] MEDS: DOXAZosin MESYLATE TAB 2 MG TAB PO SCH (21:52)
[2022-03-04] MEDS ORDERED: PROMETHAZINE HCL 6.25 MG in SODIUM CHLORIDE 0.9% 50 ML IV PRN (21:52)
[2022-03-04] MEDS: ACETAMINOPHEN 325 MG TAB PO PRN (22:40)
[2022-03-04] MEDS: APIXABAN 5 MG TABLET PO SCH (22:40)
[2022-03-04] MEDS: ROSUVASTATIN CALCIUM 10 MG TAB PO SCH (22:40)
[2022-03-04 23:10] LABS: Appearance Urine Clear (Clear); Bilirubin Urine Negative (Negative); Blood Urine Negative (Negative); Color Urine Yellow; Glucose Urine UA Negative (Negative); Ketones Urine 1+ (Negative); Leukocyte Esterase Urine Negative (Negative); Nitrite Urine Negative (Negative); Protein Urine Negative (Negative); Specific Gravity Urine 1.014 (1.000-1.030); Urobilinogen Urine Negative (Negative)
[2022-03-05] MEDS: LEVOTHYROXINE SODIUM 75 MCG TABLET PO SCH (05:33)
[2022-03-05 08:42] LABS: BUN Creatinine Ratio 18.3 (10-20); Calcium 9.2 mg/dl (8.5-10.1); Creatinine Clr Calc Pharmacy 50.1 ml/min; Est GFR (African American) 69.3 ml/min; Est GFR (Non-African American) 59.8 ml/min; Potassium 4.2 mmol/L (3.5-5.1)
[2022-03-05 08:47] LABS: Hematocrit (blood only) 38.4 % (42-52); Mean Corpuscular Hemoglobin 32.7 pg (25-34); Mean Corpuscular Hgb Conc 33.9 g/dL (32-36); Mean Corpuscular Volume 96.7 fL (80-100); Mean Platelet Volume 11.8 fL (7.4-10.4); Platelet Count 151 K/uL (130-400); RDW Coefficient of Variation 14.3 % (11.5-14.5); RDW Standard Deviation 50.5 fL (36.4-46.3); Red Blood Count 3.97 M/uL (4.7-6.1); White Blood Count 31.88 K/uL (4.8-10.8)
[2022-03-05] MEDS: APIXABAN 5 MG TABLET PO SCH ×2 (08:48→20:49)
[2022-03-05 09:23] LABS: Basophils # (auto) 0.05 K/uL (0-0.2); Basophils % (auto) 0.2 %; Eosinophils # (auto) 0.09 K/uL (0-0.5); Eosinophils % (auto) 0.3 %; Immature Granulocytes # (auto) 0.04 K/uL (0.00-0.02); Immature Granulocytes % (auto) 0.1 %; Lymphocytes # (auto) 26.31 K/uL (1.2-3.4); Lymphocytes % (auto) 82.5 %; Monocytes # (auto) 0.96 K/uL (0.11-0.59); Neutrophils # (auto) 4.43 K/uL (1.4-6.5); Neutrophils % (auto) 13.9 %; Smudge Cells Present
--- NOTE | 2022-03-05 10:59 | Electrocardiogram Report ---
Test Reason : Blood Pressure : / mmHG Vent. Rate : 049 BPM Atrial Rate : 049 BPM P-R Int : 200 ms QRS Dur : 088 ms QT Int : 484 ms P-R-T Axes : 000 -43 028 degrees QTc Int : 437 ms Poor data quality, interpretation may be adversely affected Sinus bradycardia Left axis deviation Inferior-posterior infarct (cited on or before 14-MAY-2019) Abnormal ECG When compared with ECG of 13-NOV-2021 12:10, Premature atrial complexes are no longer Present Vent. rate has decreased BY 43 BPM Confirmed by Austin Soto ([id number]) on 03/05/2022 10:59:18 AM Referred By: REFERRED SELF Confirmed By:Austin Soto
--- NOTE | 2022-03-05 16:05 | Hospitalist Progress Note ---
Date of Service March 05, 2022 Assessment & Plan (1) Delirium: Plan: dementia with behavioral disturbance -No underlying medical reason, likely just a progression of his dementia -would d/c zyprexa IM -order risperdal 0.25mg BID PRN for agitation Hypernatremia Dehydration -Poor oral intake, poor skin turgor -Discontinue LR, start D5 1/2 NSS at 80 cc/hr, repeat BMP again tomorrow Chronic diastolic CHF -Hypovolemic currently PAF with bradycardia -continue Eliquis HTN -BP tolerable currently History of CLL -OP follow up with Oncologist History of DVT -already onEliquis HLD -statin Disposition -from home with . unable to care for patient. he will need placement Code status -DNR/DNI Admission and Anticipated Discharge Date Admission Date: March 04, 2022 Subjective no agitation, no events overnight Physical Exam Physical Exam: Disheveled,unkempt, no acute distress ENMT: Poor dentition, Mucous membrane dry Respiratory: Breathing comfortably on room air, no wheezing/rhonchi/rales Cardiovascular: bradycardic but regular, no murmurs/rubs Gastrointestinal (Abdomen): soft Musculoskeletal: no edema Skin: poor skin turgor Neurologic: demented, calm, awake, spontaneously moving extremities Results & Data Results & Data ([facility]) Vital Signs (Past 12 Hours) Vital Signs Temp Pulse Pulse Resp BP BP Pulse Ox 03/05/22 15:00 37.0 C 54 L 18 158/58 H 93 03/05/22 10:54 37.0 C 64 18 145/67 H 94 03/05/22 07:53 139 H 03/05/22 07:25 44 L 03/05/22 06:38 36.6 C 55 L 16 146/60 H 97 03/05/22 04:08 36.6 C 60 16 141/74 H 97 Laboratory Results Short CBC 03/04/22 03/04/22 03/05/22 Range/Units 18:02 18:02 07:58 WBC 46.01 H* 31.88 H* D (4.8-10.8) K/uL Hgb 14.1 13.0 L (14.0-18.0) g/dL Hct 41.7 L 38.4 L (42-52) % Plt Count 169 151 (130-400) K/uL Sodium 142 (136-145) mmol/L 03/05/22 Range/Units 07:58 WBC (4.8-10.8) K/uL Hgb (14.0-18.0) g/dL Hct (42-52) % Plt Count (130-400) K/uL Sodium 145 (136-145) mmol/L BMP 03/04/22 03/05/22 18:02 07:58 Sodium 142 145 Potassium 4.0 4.2 Chloride 108 H 111 H Carbon Dioxide 21 24 BUN 25 H 21 Creatinine 1.31 1.15 Glucose 93 92 Calcium 9.9 9.2 Cardiac Enzymes 03/04/22 Range/Units 18:02 Troponin I < 0.03 (0-0.04) ng/ml Liver Function 03/04/22 Range/Units 18:02 Total Bilirubin 1.7 H (0.2-1.0) mg/dl AST 16 (13-39) U/L ALT 9 (7-52) U/L Alkaline Phosphatase 63 (34-104) U/L Albumin 4.7 (3.4-5.0) gm/dl Urine 03/04/22 Range/Units 22:50 Urine Color Yellow Urine Appearance Clear (Clear) Urine pH 8.0 H (4.5-7.5) Ur Specific [place] 1.014 (1.000-1.030) Urine Protein Negative (Negative) Urine Glucose (UA) Negative (Negative) Medications Administered Current Inpatient Medications Acetaminophen (Acetaminophen 325 Mg Tab) 650 mg PO Q4H PRN PRN Reason: Pain or Fever Stop: 04/03/22 21:51 Last Admin: 03/04/22 22:40 Dose: 650 mg Documented by: Apixaban (Apixaban 5 Mg Tablet) 5 mg PO BID NE Stop: 04/03/22 21:51 Last Admin: 03/05/22 08:48 Dose: 5 mg Documented by: Doxazosin Mesylate (Doxazosin Mesylate Tab 2 Mg Tab) 2 mg PO HS NE Stop: 04/03/22 20:59 Last Admin: 03/04/22 21:52 Dose: 2 mg Documented by: Promethazine HCl 6.25 mg/ (Sodium Chloride) 50.25 mls @ 201 mls/hr IV Q6H PRN PRN Reason: Nausea And Vomiting Stop: 04/03/22 21:51 Dextrose/Sodium Chloride (D5w And 1/2nss) 1,000 mls @ 100 mls/hr IV .Q10H NE Stop: 04/04/22 15:59 Levothyroxine Sodium (Levothyroxine Sodium 75 Mcg Tablet) 75 mcg PO DAILYBB NE Stop: 04/04/22 06:29 Last Admin: 03/05/22 05:33 Dose: 75 mcg Documented by: Olanzapine (Olanzapine 10 Mg/2.1 Ml Sdv) 2.5 mg IM Q4H PRN PRN Reason: Anxiety/Agitation Stop: 04/03/22 20:44 Rosuvastatin Calcium (Rosuvastatin Calcium 10 Mg Tab) 10 mg PO HS NE Stop: 04/03/22 21:51 Last Admin: 03/04/22 22:40 Dose: 10 mg Documented by:
[2022-03-05] MEDS ORDERED: risperiDONE 0.5 MG TABLET PO PRN (16:08)
[2022-03-05] MEDS: D5W AND 1/2NSS 1,000 ML IV SCH (16:43)
[2022-03-05] MEDS: ROSUVASTATIN CALCIUM 10 MG TAB PO SCH (20:49)
[2022-03-05] MEDS: DOXAZosin MESYLATE TAB 2 MG TAB PO SCH (20:49)
[2022-03-06] MEDS: D5W AND 1/2NSS 1,000 ML IV SCH ×3 (01:20→20:21)
[2022-03-06] MEDS: LEVOTHYROXINE SODIUM 75 MCG TABLET PO SCH (06:06)
[2022-03-06 07:53] LABS: Mean Corpuscular Hemoglobin 32.4 pg (25-34); Mean Corpuscular Hgb Conc 33.3 g/dL (32-36); Mean Corpuscular Volume 97.3 fL (80-100); Mean Platelet Volume 11.9 fL (7.4-10.4); Platelet Count 139 K/uL (130-400); RDW Coefficient of Variation 14.4 % (11.5-14.5); RDW Standard Deviation 51.1 fL (36.4-46.3); White Blood Count 32.16 K/uL (4.8-10.8)
[2022-03-06 08:11] LABS: BUN Creatinine Ratio 16.8 (10-20); Calcium 8.6 mg/dl (8.5-10.1); Creatinine Clr Calc Pharmacy 52.1 ml/min; Est GFR (African American) 70.8 ml/min; Est GFR (Non-African American) 61.1 ml/min; Phosphorus 3.2 mg/dl (2.5-4.9); Potassium 3.6 mmol/L (3.5-5.1)
[2022-03-06] MEDS: APIXABAN 5 MG TABLET PO SCH ×2 (09:12→20:22)
--- NOTE | 2022-03-06 11:44 | Hospitalist Progress Note ---
Date of Service March 06, 2022 Assessment & Plan (1) Delirium: Plan: dementia with behavioral disturbance -No underlying medical reason, likely just a progression of his dementia -zyprexa Im discontinued -continue risperdal 0.25mg BID PRN for agitation although he has not required this Dehydration -Poor oral intake, poor skin turgor -continue D5 1/2 NSS at 80 cc/hr Chronic diastolic CHF -Hypovolemic currently PAF with bradycardia -continue Eliquis HTN -BP tolerable currently History of CLL -OP follow up with Oncologist History of DVT -already onEliquis HLD -statin Disposition -from home with . unable to care for patient. he will need placement Code status -DNR/DNI Admission and Anticipated Discharge Date Admission Date: March 05, 2022 Subjective No agitation overnight Awaiting placement Physical Exam Physical Exam: disheveled, chronically ill appearing, unkempt ENMT: poor dentition, mucous membrane dry Respiratory: breathing comfortably on room air, no wheezing/rhonchi/rales Cardiovascular: regular rate and rhythm, no murmurs/rubs/gallops Gastrointestinal (Abdomen): soft, non tender Musculoskeletal: no edema Neurologic: awake, baseline advanced dementia, unable to answer questions appropriately Results & Data Results & Data ([facility]) Vital Signs (Past 12 Hours) Vital Signs Temp Pulse Pulse Resp BP Pulse Ox 03/06/22 11:32 36.5 C 42 L 16 154/65 H 94 03/06/22 08:00 36.3 C L 71 18 148/63 H 94 03/06/22 06:28 48 L 03/06/22 04:21 52 L Laboratory Results Short CBC 03/06/22 Range/Units 07:22 WBC 32.16 H* (4.8-10.8) K/uL Hgb 12.0 L (14.0-18.0) g/dL Hct 36.0 L (42-52) % Plt Count 139 (130-400) K/uL BMP 03/06/22 07:22 Sodium 144 Potassium 3.6 Chloride 114 H Carbon Dioxide 25 BUN 19 Creatinine 1.13 Glucose 103 H Calcium 8.6 Medications Administered Current Inpatient Medications Acetaminophen (Acetaminophen 325 Mg Tab) 650 mg PO Q4H PRN PRN Reason: Pain or Fever Stop: 04/03/22 21:51 Last Admin: 03/04/22 22:40 Dose: 650 mg Documented by: Apixaban (Apixaban 5 Mg Tablet) 5 mg PO BID NE Stop: 04/03/22 21:51 Last Admin: 03/06/22 09:12 Dose: 5 mg Documented by: Doxazosin Mesylate (Doxazosin Mesylate Tab 2 Mg Tab) 2 mg PO HS [facility] Stop: 04/03/22 20:59 Last Admin: 03/05/22 20:49 Dose: 2 mg Documented by: Promethazine HCl 6.25 mg/ (Sodium Chloride) 50.25 mls @ 201 mls/hr IV Q6H PRN PRN Reason: Nausea And Vomiting Stop: 04/03/22 21:51 Dextrose/Sodium Chloride (D5w And 1/2nss) 1,000 mls @ 100 mls/hr IV .Q10H NE Stop: 04/04/22 15:59 Last Admin: 03/06/22 11:20 Dose: 100 mls/hr Documented by: Levothyroxine Sodium (Levothyroxine Sodium 75 Mcg Tablet) 75 mcg PO DAILYBB NE Stop: 04/04/22 06:29 Last Admin: 03/06/22 06:06 Dose: 75 mcg Documented by: Risperidone (Risperidone 0.5 Mg Tablet) 0.25 mg PO BID PRN PRN Reason: Agitation Stop: 04/04/22 16:07 Rosuvastatin Calcium (Rosuvastatin Calcium 10 Mg Tab) 10 mg PO HS [facility] Stop: 04/03/22 21:51 Last Admin: 03/05/22 20:49 Dose: 10 mg Documented by:
[2022-03-06] MEDS: ROSUVASTATIN CALCIUM 10 MG TAB PO SCH (20:22)
[2022-03-06] MEDS: DOXAZosin MESYLATE TAB 2 MG TAB PO SCH (20:22)
[2022-03-07] MEDS: D5W AND 1/2NSS 1,000 ML IV SCH ×2 (05:24→17:12)
[2022-03-07] MEDS: LEVOTHYROXINE SODIUM 75 MCG TABLET PO SCH (05:25)
[2022-03-07 09:15] LABS: Hematocrit (blood only) 37.8 % (42-52); Mean Corpuscular Hgb Conc 34.4 g/dL (32-36); Mean Corpuscular Volume 95.9 fL (80-100); Mean Platelet Volume 11.8 fL (7.4-10.4); Platelet Count 146 K/uL (130-400); RDW Coefficient of Variation 14.3 % (11.5-14.5); RDW Standard Deviation 50.5 fL (36.4-46.3); Red Blood Count 3.94 M/uL (4.7-6.1); White Blood Count 35.39 K/uL (4.8-10.8)
[2022-03-07] MEDS: APIXABAN 5 MG TABLET PO SCH ×2 (09:34→20:52)
[2022-03-07 10:12] LABS: BUN Creatinine Ratio 11.3 (10-20); Calcium 8.8 mg/dl (8.5-10.1); Creatinine Clr Calc Pharmacy 58.8 ml/min; Est GFR (African American) 85.1 ml/min; Est GFR (Non-African American) 73.4 ml/min; Potassium 3.7 mmol/L (3.5-5.1)
--- NOTE | 2022-03-07 13:15 | Hospitalist Progress Note ---
Date of Service March 07, 2022 Assessment & Plan (1) Delirium: Plan: dementia with behavioral disturbance -No underlying medical reason, likely just a progression of his dementia -zyprexa Im discontinued -continue risperdal 0.25mg BID PRN for agitation although he has not required this while being here and has been very calm Dehydration -Poor oral intake, poor skin turgor -continue D5 1/2 NSS at 80 cc/hr Chronic diastolic CHF -will continue IVF for another day, discontinue at discharge PAF with bradycardia -continue Eliquis HTN -BP tolerable currently History of CLL -OP follow up with Oncologist History of DVT -already on Eliquis HLD -statin Disposition -from home with . unable to care for patient. he will need placement Code status -DNR/DNI Patient is medically stable for discharge to a facility whenever bed is available Admission and Anticipated Discharge Date Admission Date: March 05, 2022 Subjective No events overnight No agitation or aggression Tolerating his meals but requires help Physical Exam Physical Exam: thin, frail, elderly ENMT: poor dentition Respiratory: breathing comfortably on room air, no wheezing/rhonchi/rales Cardiovascular: bradycardic but regular, no murmurs/rubs/gallops Gastrointestinal (Abdomen): soft, non tender, non distended Musculoskeletal: thin extremities, long nails, no edema Neurologic: advanced dementia, spontaneously moving extremities, able to self feed Results & Data Results & Data ([facility]) Vital Signs (Past 12 Hours) Vital Signs Temp Pulse Pulse Resp BP BP Pulse Ox 03/07/22 11:18 37.1 C 54 L 20 149/65 H 99 03/07/22 07:35 36.5 C 56 L 17 156/68 H 96 03/07/22 06:15 43 L 03/07/22 03:29 36.5 C 46 L 18 157/46 H 96 Laboratory Results Short CBC 03/07/22 Range/Units 08:46 WBC 35.39 H* (4.8-10.8) K/uL Hgb 13.0 L (14.0-18.0) g/dL Hct 37.8 L (42-52) % Plt Count 146 (130-400) K/uL BMP 03/07/22 08:46 Sodium 144 Potassium 3.7 Chloride 114 H Carbon Dioxide 23 BUN 11 Creatinine 0.97 Glucose 104 H Calcium 8.8
[2022-03-07] MEDS: DOXAZosin MESYLATE TAB 2 MG TAB PO SCH (20:52)
[2022-03-07] MEDS: ACETAMINOPHEN 325 MG TAB PO PRN (20:52)
[2022-03-07] MEDS: traZODone HCL 50 MG TAB PO SCH (20:52)
[2022-03-07] MEDS: ROSUVASTATIN CALCIUM 10 MG TAB PO SCH (20:52)
[2022-03-08] MEDS: LEVOTHYROXINE SODIUM 75 MCG TABLET PO SCH (06:21)
[2022-03-08] MEDS: APIXABAN 5 MG TABLET PO SCH ×3 (07:59→21:39)
--- NOTE | 2022-03-08 11:31 | Hospitalist Progress Note ---
Date of Service March 08, 2022 Assessment & Plan (1) Delirium: Plan: per Dr. Gilmore's notes with addendum: Dementia with behavioral disturbance - No underlying medical reason, likely just a progression of his dementia - zyprexa Im discontinued - continue risperdal 0.25mg BID PRN for agitation although he has not required this while being here and has been very calm 03/08 stable overall pleasantly confused awaiting transfer to SNF Dehydration - resolved Chronic diastolic CHF -euvolemic PAF with bradycardia -continue Eliquis HTN -elevated monitor closely, if persistent will add low dose Amlodipine History of CLL -OP follow up with Oncologist History of DVT -already on Eliquis HLD -statin Disposition -awaiting SNF Code status -DNR/DNI Patient is medically stable for discharge to a facility whenever bed is available Admission and Anticipated Discharge Date Admission Date: March 05, 2022 Subjective ff up for dementia, etc seen resting in bed, comfortable sleeping but easily awakened pleasantly confused, smiling no signs of pain per RN, patient eating ok no other new issues Review of Systems Review of Systems: all noted and negative except for above Physical Exam Physical Exam: General- oriented x 0, not in distress, speaks in sentences with no effort or accessory muscle use Eyes- anicteric Neck- no JVD Lungs- clear breath sounds bilaterally, no rales/wheezes Heart- normal rate, regular rhythm; no murmurs Abdomen- normal bowel sounds, nondistended, soft, nontender Extremities- no pretibial edema, no calf tenderness Neuro- alert, oriented x 0; no gross focal neurologic deficits Skin- warm & dry Results & Data Results & Data ([facility]) Vital Signs (Past 12 Hours) Vital Signs Temp Pulse Resp BP Pulse Ox 03/08/22 08:00 36.4 C L 48 L 20 182/74 H 96 03/08/22 01:17 50 L 16 136/69 all noted and reviewed including below
[2022-03-08] MEDS: ROSUVASTATIN CALCIUM 10 MG TAB PO SCH (21:40)
[2022-03-08] MEDS: DOXAZosin MESYLATE TAB 2 MG TAB PO SCH (21:40)
[2022-03-08] MEDS: traZODone HCL 50 MG TAB PO SCH (21:40)
[2022-03-09] MEDS: LEVOTHYROXINE SODIUM 75 MCG TABLET PO SCH (05:38)
[2022-03-09] MEDS: APIXABAN 5 MG TABLET PO SCH ×2 (07:28→21:02)
--- NOTE | 2022-03-09 11:24 | Hospitalist Progress Note ---
Date of Service March 09, 2022 Assessment & Plan (1) Delirium: Plan: per Dr. Gilmore's notes with addendum: Dementia with behavioral disturbance Possible Toxic Metabolic encephalopathy in setting dehydration, narcotics, and neuropsychotropic meds - No underlying medical reason, likely just a progression of his dementia - zyprexa Im discontinued - continue risperdal 0.25mg BID PRN for agitation although he has not required this while being here and has been very calm 03/09 stable overall pleasantly confused appetite good awaiting transfer to SNF Tramadol discontinued Dehydration - resolved Chronic diastolic CHF -euvolemic lasix on hold PAF with bradycardia -continue Eliquis HTN -elevated add Amlodipine 5mg daily History of CLL -OP follow up with Oncologist History of DVT -already on Eliquis HLD -statin Disposition -awaiting SNF Code status -DNR/DNI Patient is medically stable for discharge to a facility whenever bed is available Admission and Anticipated Discharge Date Admission Date: March 05, 2022 Subjective ff up for dementia, etc seen resting in chair, eating pudding in good spirits, smiling pleasantly confused no chest pain, dyspnea, palpitations, dizziness no other issues per wrapping machine tender of Systems Review of Systems: all noted and negative except for above Physical Exam Physical Exam: General- oriented x 0, not in distress, speaks in sentences with no effort or accessory muscle use Eyes- anicteric Neck- no JVD Lungs- clear breath sounds bilaterally, no rales/wheezes Heart- normal rate, regular rhythm; no murmurs Abdomen- normal bowel sounds, nondistended, soft, nontender Extremities- no pretibial edema, no calf tenderness Neuro- alert, oriented x 3; no gross focal neurologic deficits Skin- warm & dry Results & Data Results & Data ([facility]) Vital Signs (Past 12 Hours) Vital Signs Temp Pulse Resp BP Pulse Ox 03/09/22 09:56 36.4 C L 68 18 155/64 H 98 all noted and reviewed including below
[2022-03-09] MEDS: amLODIPine BESYLATE 5 MG TAB PO SCH (14:04)
[2022-03-09] MEDS: ROSUVASTATIN CALCIUM 10 MG TAB PO SCH (21:01)
[2022-03-09] MEDS: DOXAZosin MESYLATE TAB 2 MG TAB PO SCH (21:02)
[2022-03-09] MEDS: traZODone HCL 50 MG TAB PO SCH (21:02)
[2022-03-10] MEDS: LEVOTHYROXINE SODIUM 75 MCG TABLET PO SCH (05:48)
[2022-03-10] MEDS: amLODIPine BESYLATE 5 MG TAB PO SCH (07:56)
[2022-03-10] MEDS: APIXABAN 5 MG TABLET PO SCH (07:57)
--- NOTE | 2022-03-10 10:04 | Hospitalist Progress Note ---
Date of Service March 10, 2022 Assessment & Plan (1) Delirium: Plan: per Dr. Gilmore's notes with addendum: Dementia with behavioral disturbance Possible Toxic Metabolic encephalopathy in setting dehydration, narcotics, and neuropsychotropic meds - No underlying medical reason, likely just a progression of his dementia - zyprexa Im discontinued - continue risperdal 0.25mg BID PRN for agitation although he has not required this while being here and has been very calm Tramadol discontinued 03/10 stable overall pleasantly confused, calm, cooperative appetite good transfer to SNF Dehydration - resolved - please encourage oral fluid intake everyday Chronic diastolic CHF - euvolemic - Lasix held due to dehydration patient oral fluid intake is not that good - monitor volume status resume Lasix 20mg as needed PAF with bradycardia - continue Eliquis HTN -elevated added Amlodipine 5mg daily monitor BP daily History of CLL -OP follow up with Oncologist History of DVT -already on Eliquis HLD -statin Disposition -transition to SNF Code status -DNR/DNI Ff up with PCP in 1 week Admission and Anticipated Discharge Date Admission Date: March 05, 2022 Subjective ff up for dementia, etc seen resting in bedside chair, comfortable smiling pleasantly confused calm, cooperative no signs of pain or distress no other issues per RN no other symptoms Review of Systems Review of Systems: all noted and negative except for above Physical Exam Physical Exam: General- oriented x 3, not in distress, speaks in sentences with no effort or accessory muscle use Eyes- anicteric Neck- no JVD Lungs- clear breath sounds bilaterally, no rales/wheezes Heart- normal rate, regular rhythm; no murmurs Abdomen- normal bowel sounds, nondistended, soft, nontender Extremities- no pretibial edema, no calf tenderness Neuro- alert, oriented x 3; no gross focal neurologic deficits Skin- warm & dry Results & Data Results & Data ([facility]) Vital Signs (Past 12 Hours) Vital Signs Temp Pulse Resp BP Pulse Ox 03/10/22 07:00 36.8 C 60 18 161/64 H 95 all noted and reviewed including below
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
== END 2022-03-10 11:58 ==
LOC: ED 17:39 → 2N 17:39 → SUATTDRO 03-05 17:17 → 3E 03-08 09:57

== ENCOUNTER 2022-04-27 18:37 | Inpatient (IN) ==
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
--- NOTE | 2022-04-27 20:34 | CT Scan Report ---
CT head/brain wo con CLINICAL HISTORY: 82 years-old Male with confusion. Acutely altered mental status TECHNIQUE: Multiple axial CT images of the head were obtained without contrast. A dose lowering tech nique was utilized adhering to the principles of ALARA. CT DOSE: 921.40 mGy.cm COMPARISON: 03/04/2022 FINDINGS: No acute intracranial hemorrhage, midline shift, intracranial mass, hydrocephalus, territorial ischem ia or abnormal extra-axial collection. Metallic plate is again noted involving the left frontal bone. Postoperative changes of the right parietal calvarium redemonstrated. Moderate within the frontal lo bes, left greater than right. Surgical clips are again noted adjacent to the falx cerebri. Chronic la cunar infarcts in the basal ganglia. Involutional changes with ex vacuo ventriculomegaly. No acute calvarial fracture. Mild polypoid mucosal thickening of the right maxillary sinus. The mast oid air cells are clear. IMPRESSION: 1. No acute intracranial abnormality. 2. Chronic findings as above. ACT 112: Negative or not required by law. The above report was generated using voice recognition software. It may contain grammatical, syntax o r spelling errors. Electronically signed by: Jonel Velasquez M.D. 04/27/2022 8:32 PM
[2022-04-27 20:59] LABS: Acetaminophen < 3 ug/ml (10-30); Alanine Aminotransferase 6 U/L (7-52); Albumin Level 4.2 gm/dl (3.4-5.0); Alkaline Phosphatase 57 U/L (34-104); Anion Gap 6 (3-11); Aspartate Aminotransferase 12 U/L (13-39); BUN Creatinine Ratio 18.7 (10-20); Bilirubin,Total 0.6 mg/dl (0.2-1.0); Blood Urea Nitrogen 23 mg/dl (6-23); Calcium 9.3 mg/dl (8.5-10.1); Carbon Dioxide 27 mmol/L (21-32); Chloride 108 mmol/L (98-107); Est GFR (African American) 63.9 ml/min; Est GFR (Non-African American) 55.1 ml/min; Globulin 2.1 gm/dl (2.5-4.0); Glucose 92 mg/dl (70-99(Fasting)); Potassium 3.9 mmol/L (3.5-5.1); Salicylate < 3.0 mg/dl (3.0-30); Sodium 141 mmol/L (136-145); Total Protein 6.3 gm/dl (6.0-8.3)
[2022-04-27 21:05] LABS: Appearance Urine Clear (Clear); Bilirubin Urine Negative (Negative); Blood Urine Negative (Negative); Color Urine Yellow; Glucose Urine UA Negative (Negative); Ketones Urine Negative (Negative); Leukocyte Esterase Urine Negative (Negative); Nitrite Urine Negative (Negative); Protein Urine Negative (Negative); Specific Gravity Urine 1.012 (1.000-1.030); Urobilinogen Urine Negative (Negative); pH Urine 7.5 (4.5-7.5)
[2022-04-27 21:26] LABS: Hematocrit (blood only) 34.6 % (42-52); Hemoglobin 12.2 g/dL (14.0-18.0); Mean Corpuscular Hemoglobin 34.4 pg (25-34); Mean Corpuscular Hgb Conc 35.3 g/dL (32-36); Mean Corpuscular Volume 97.5 fL (80-100); Mean Platelet Volume 11.3 fL (7.4-10.4); Platelet Count 207 K/uL (130-400); RDW Coefficient of Variation 14.7 % (11.5-14.5); RDW Standard Deviation 52.6 fL (36.4-46.3); Red Blood Count 3.55 M/uL (4.7-6.1); White Blood Count 42.63 K/uL (4.8-10.8)
[2022-04-27 21:26] LABS: Amphetamines+Metham, Urine Neg (Neg); Barbiturates, Urine Neg (Neg); Benzodiazepine, Urine Neg (Neg); Cocaine, Urine Neg (Neg); MDMA (Ecstacy), Urine Neg (Neg); Methadone, Urine Neg (Neg); Opiate, Urine Neg (Neg); Phencyclidine, Urine Neg (Neg)
[2022-04-27] MEDS ORDERED: OLANZapine 10 MG/2.1 ML SDV IM PRN (22:55)
[2022-04-27 23:05] LABS: ALC (manual) 37.47 K/uL (1.2-3.4); ANC (manual) 4.77 K/uL (1.4-6.5); Lymphocytes # (manual) 37.47 K/uL (1.2-3.4); Lymphocytes % (manual) 87.9 %; Monocytes # (manual) 0.38 K/uL (0.11-0.59); Monocytes % (manual) 0.9 %; Neutrophils # (manual) 4.77 K/uL (1.4-6.5); Neutrophils % (manual) 11.2 %; RBC Morphology Unremarkable
--- NOTE | 2022-04-27 23:52 | History & Physical Report ---
Date of Service April 27, 2022 History of Present Illness Primary Care Provider: Charly Conroy Allergies Allergy/AdvReac Type Severity Reaction Status Date / Time ibuprofen Allergy Severe Hives Verified 03/04/22 19:47 Iodinated Contrast Media Allergy Intermediate HIVES Verified 03/04/22 19:47 caffeine AdvReac Severe Rash Verified 03/04/22 19:47 chocolate flavor AdvReac Unknown Unknown Verified 03/04/22 19:47 Home Medications Medication Instructions Recorded Confirmed Type doxazosin 2 mg tablet 2 mg PO HS 11/12/21 04/27/22 History apixaban 5 mg tablet (Eliquis) 5 mg PO BID #60 tab 11/15/21 04/27/22 Rx rosuvastatin 10 mg tablet (Crestor) 10 mg PO HS #30 tab 11/15/21 04/27/22 Rx levothyroxine 75 mcg tablet 75 mcg PO DAILYBB 03/04/22 04/27/22 History trazodone 50 mg tablet 50 mg PO QPM 03/04/22 04/27/22 History amlodipine 2.5 mg tablet 2.5 mg PO DAILY 04/27/22 04/27/22 History cholecalciferol (vitamin D3) 25 25 mcg PO DAILY 04/27/22 04/27/22 History mcg (1,000 unit) tablet clotrimazole 1 % topical cream 1 applic TOPICAL BID 04/27/22 04/27/22 History fluoxetine 10 mg tablet 10 mg PO DAILY 04/27/22 04/27/22 History gabapentin 100 mg capsule 100 mg PO HS 04/27/22 04/27/22 History ketoconazole 1 % shampoo (Nizoral 1 applic TOPICAL DIRECTED 04/27/22 04/27/22 History A-D) Past Med/Surg History Medical History (Updated 04/27/22 @ 23:43 by Sean Baumann MD) Aortic insufficiency BPH (benign prostatic hypertrophy) Chronic atrial fibrillation Chronic diastolic CHF (congestive heart failure) CLL (chronic lymphocytic leukemia) History of DVT of lower extremity History of seizure "post-traumatic" Hypothyroidism MRSA (methicillin resistant Staphylococcus aureus) Renal calculus Renal cyst, acquired, left "mildly complex per CT 10/03/17 and MRI 10/04/17" Traumatic brain injury Traumatic open wound of right lower leg Surgical History Status post cholecystectomy Family History Mother Cancer Social History Smoking Status: Unknown if ever smoked Second Hand Exposure: No; Hx Alcohol Use: No (Unknown) Hx Substance Use: No (Unknown) Preferred Language: Czech Communication Ability: Effective Force Variation Equipment Tender Required: No Beliefs That Will Affect Care: None marital status: Current Living Situation: Spouse Current Living Situation Comment: Lives w/ spouse at home How many Children do You have: 2 Feels Safe at Home: Yes Assistive Devices: Walker and Wheelchair Results & Data Results & Data ([facility]) Vital Signs (Past 12 Hours) Vital Signs Pulse Pulse Resp BP BP Pulse Ox 04/27/22 22:17 61 20 132/52 L 97 04/27/22 20:29 67 20 158/66 H 96 04/27/22 18:45 84 16 122/58 L 94 Laboratory Results Laboratory Results WBC 42.63 K/uL (4.8-10.8) H* 04/27/22 20:17 RBC 3.55 M/uL (4.7-6.1) L 04/27/22 20:17 Hgb 12.2 g/dL (14.0-18.0) L 04/27/22 20:17 Hct 34.6 % (42-52) L 04/27/22 20:17 MCV 97.5 fL (80-100) 04/27/22 20:17 MCH 34.4 pg (25-34) H 04/27/22 20:17 MCHC 35.3 g/dL (32-36) 04/27/22 20:17 RDW Std Deviation 52.6 fL (36.4-46.3) H 04/27/22 20:17 RDW Coeff of Chay 14.7 % (11.5-14.5) H 04/27/22 20:17 Plt Count 207 K/uL (130-400) 04/27/22 20:17 MPV 11.3 fL (7.4-10.4) H 04/27/22 20:17 Neutrophils % (Manual) 11.2 % 04/27/22 20:17 Lymphocytes % (Manual) 87.9 % 04/27/22 20:17 Monocytes % (Manual) 0.9 % 04/27/22 20:17 Neutrophils # (Manual) 4.77 K/uL (1.4-6.5) 04/27/22 20:17 Total Absolute Neuts 4.77 K/uL (1.4-6.5) 04/27/22 20:17 Lymphocytes # (Manual) 37.47 K/uL (1.2-3.4) H 04/27/22 20:17 Total Abs Lymphocytes 37.47 K/uL (1.2-3.4) H 04/27/22 20:17 Monocytes # (Manual) 0.38 K/uL (0.11-0.59) 04/27/22 20:17 RBC Morphology Unremarkable 04/27/22 20:17 Sodium 141 mmol/L (136-145) 04/27/22 20:17 Potassium 3.9 mmol/L (3.5-5.1) 04/27/22 20:17 Chloride 108 mmol/L (98-107) H 04/27/22 20:17 Carbon Dioxide 27 mmol/L (21-32) 04/27/22 20:17 Anion Gap 6 (3-11) 04/27/22 20:17 BUN 23 mg/dl (6-23) 04/27/22 20:17 Creatinine 1.23 mg/dl (0.6-1.4) 04/27/22 20:17 Est Cr Clr Drug Dosing Not Reportable 04/27/22 20:17 Est GFR ( Amer) 63.9 ml/min 04/27/22 20:17 Est GFR (Non-Af Amer) 55.1 ml/min 04/27/22 20:17 BUN/Creatinine Ratio 18.7 (10-20) 04/27/22 20:17 Glucose 92 mg/dl (70-99(Fasting)) 04/27/22 20:17 Calcium 9.3 mg/dl (8.5-10.1) 04/27/22 20:17 Total Bilirubin 0.6 mg/dl (0.2-1.0) 04/27/22 20:17 AST 12 U/L (13-39) L 04/27/22 20:17 ALT 6 U/L (7-52) L 04/27/22 20:17 Alkaline Phosphatase 57 U/L (34-104) 04/27/22 20:17 Total Protein 6.3 gm/dl (6.0-8.3) 04/27/22 20:17 Albumin 4.2 gm/dl (3.4-5.0) 04/27/22 20:17 Globulin 2.1 gm/dl (2.5-4.0) L 04/27/22 20:17 Albumin/Globulin Ratio 2.0 (0.9-2) 04/27/22 20:17 TSH 2.585 uIu/ml (0.300-4.500) 04/27/22 20:17 Urine Color Yellow 04/27/22 20:50 Urine Appearance Clear (Clear) 04/27/22 20:50 Urine pH 7.5 (4.5-7.5) 04/27/22 20:50 Ur Specific [place] 1.012 (1.000-1.030) 04/27/22 20:50 Urine Protein Negative (Negative) 04/27/22 20:50 Urine Glucose (UA) Negative (Negative) 04/27/22 20:50 Urine Ketones Negative (Negative) 04/27/22 20:50 Urine Blood Negative (Negative) 04/27/22 20:50 Urine Nitrite Negative (Negative) 04/27/22 20:50 Urine Bilirubin Negative (Negative) 04/27/22 20:50 Urine Urobilinogen Negative (Negative) 04/27/22 20:50 Ur Leukocyte Esterase Negative (Negative) 04/27/22 20:50 Salicylates < 3.0 mg/dl (3.0-30) L 04/27/22 20:17 Urine Opiates Screen Neg (Neg) 04/27/22 20:50 Ur Methadone, Qual Neg (Neg) 04/27/22 20:50 Acetaminophen < 3 ug/ml (10-30) L 04/27/22 20:17 Urine Barbiturates Neg (Neg) 04/27/22 20:50 Ur Phencyclidine (PCP) Neg (Neg) 04/27/22 20:50 U Amphetamin/Meth Scrn Neg (Neg) 04/27/22 20:50 MDMA (Ecstasy) Screen Neg (Neg) 04/27/22 20:50 U Benzodiazepines Scrn Neg (Neg) 04/27/22 20:50 Ur Cocaine Metabolite Neg (Neg) 04/27/22 20:50 U Marijuana (THC) Screen Neg (Neg) 04/27/22 20:50 Ethyl Alcohol mg/dL < 10.0 mg/dl (<10.0) 04/27/22 20:17 SARS-CoV-2, RNA, NAAT NEGATIVE (NEGATIVE) 04/27/22 23:[address] 04/27/22 18:57 CT head/brain wo con CLINICAL HISTORY: 82 years-old Male with confusion. Acutely altered mental status TECHNIQUE: Multiple axial CT images of the head were obtained without contrast. A dose lowering technique was utilized adhering to the principles of ALARA. CT DOSE: 921.40 mGy.cm COMPARISON: 03/04/2022 FINDINGS: No acute intracranial hemorrhage, midline shift, intracranial mass, hydrocephalus, territorial ischemia or abnormal extra-axial collection. Metallic plate is again noted involving the left frontal bone. Postoperative changes of the right parietal calvarium redemonstrated. Moderate within the frontal lobes, left greater than right. Surgical clips are again noted adjacent to the falx cerebri. 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 Involutional changes with ex vacuo ventriculomegaly. No acute calvarial fracture. Mild polypoid mucosal thickening of the right maxillary sinus. The mastoid air cells are clear. IMPRESSION: 1. No acute intracranial abnormality. 2. Chronic findings as above. ACT 112: Negative or not required by law. The above report was generated using voice recognition software. It may contain grammatical, syntax or spelling errors. Electronically signed by: Jonel Velasquez M.D. 04/27/2022 8:32 PM
[2022-04-28] MEDS ORDERED: LACTATED RINGER'S 1,000 ML IV ONE (00:04)
--- NOTE | 2022-04-28 00:05 | History & Physical Report ---
Date of Service April 28, 2022 Assessment & Plan (1) Delirium: Plan: Delirium: Possible progression of dementia home neuropsychotropic meds contributory Suicidality as per long term accounts chronic diastolic heart failure, patient euvolemic to dry PAF, currently NSR, patient on Eliquis hx CAD as per records HTN, stable Hyperlipidemia on statin Rx ILD, stable lung status currently hx CLL, no treatment as per [place] oncologist as per History DVT as per records Chronic anemia, hemoglobin at baseline History traumatic brain injury, hx seizures (no recent seizures, patient currently not on maintenance medications) Hypothyroidism, euthyroid as of today's TSH Past tobacco abuse GMF Zyprexa as needed agitation Psychiatry consult re: suicidality One-to-one/suicide precautions until patient seen by psychiatry PT OT eval Social service RE discharge planning. ([facility] unable to care for patient given agitation/violence/suicidality as per staff account.) DVT prophylaxis. Eliquis DNR as per patient's prior directives as per . She requests for updates from providers. Mrs. Eileen Anderson thru [phone]. Text document was generated using britebill voice recognition software. It may contain grammatical or spelling errors. Kindly contact undersigned for clarification of any documentation item in question. History of Present Illness Chief Complaint: Agitation, suicidality as per records Primary Care Provider: Charly Conroy History obtained from patient, , long term staff, and records. Limited history from patient secondary to dementia. Medical history significant for diastolic CHF (EF 60 to 65%, TTE 2018), PAF/hx DVT on Eliquis, CAD as per records, HTN, hyperlipidemia, ILD, history traumatic brain injury, history posttraumatic seizures as per records, chronic anemia (baseline hemoglobin of 12), CLL, hypothyroidism, BPH, hx MRSA, past tobacco abuse Last confinement February 2022 for progression of dementia. Patient initially discharged to [facility] but subsequently discharged back home as per . Last month, patient readmitted at [facility] because of worsening aggressive and suicidal behavior at home as per . Patient more confused than usual the last 2 days as per long term staff. 1 episode of urinary incontinence with transient headache symptoms. Patient uncooperative and refusing to get dressed. Patient threatening and grabbing staff. Patient also threatened self-harm by tying a curtain tie around his neck. Patient brought to the ER for evaluation. Medical Historyas above Surgical History : Skin grafting procedures, cholecystectomy Family History : Could not be obtained secondary to dementia Personal/Social history : Past tobacco abuse, occasional EtOH intake, long term resident Allergies Allergy/AdvReac Type Severity Reaction Status Date / Time ibuprofen Allergy Severe Hives Verified 03/04/22 19:47 Iodinated Contrast Media Allergy Intermediate HIVES Verified 03/04/22 19:47 caffeine AdvReac Severe Rash Verified 03/04/22 19:47 chocolate flavor AdvReac Unknown Unknown Verified 03/04/22 19:47 Home Medications Medication Instructions Recorded Confirmed Type doxazosin 2 mg tablet 2 mg PO HS 11/12/21 04/27/22 History apixaban 5 mg tablet (Eliquis) 5 mg PO BID #60 tab 11/15/21 04/27/22 Rx rosuvastatin 10 mg tablet (Crestor) 10 mg PO HS #30 tab 11/15/21 04/27/22 Rx levothyroxine 75 mcg tablet 75 mcg PO DAILYBB 03/04/22 04/27/22 History trazodone 50 mg tablet 50 mg PO QPM 03/04/22 04/27/22 History amlodipine 2.5 mg tablet 2.5 mg PO DAILY 04/27/22 04/27/22 History cholecalciferol (vitamin D3) 25 25 mcg PO DAILY 04/27/22 04/27/22 History mcg (1,000 unit) tablet clotrimazole 1 % topical cream 1 applic TOPICAL BID 04/27/22 04/27/22 History fluoxetine 10 mg tablet 10 mg PO DAILY 04/27/22 04/27/22 History gabapentin 100 mg capsule 100 mg PO HS 04/27/22 04/27/22 History ketoconazole 1 % shampoo (Nizoral 1 applic TOPICAL DIRECTED 04/27/22 04/27/22 History A-D) Past Med/Surg History Medical History (Updated 04/27/22 @ 23:43 by Sean Baumann MD) Aortic insufficiency BPH (benign prostatic hypertrophy) Chronic atrial fibrillation Chronic diastolic CHF (congestive heart failure) CLL (chronic lymphocytic leukemia) History of DVT of lower extremity History of seizure "post-traumatic" Hypothyroidism MRSA (methicillin resistant Staphylococcus aureus) Renal calculus Renal cyst, acquired, left "mildly complex per CT 10/03/17 and MRI 10/04/17" Traumatic brain injury Traumatic open wound of right lower leg Surgical History Status post cholecystectomy Family History Mother Cancer Social History Smoking Status: Unknown if ever smoked Second Hand Exposure: No; Hx Alcohol Use: No (Unknown) Hx Substance Use: No (Unknown) Preferred Language: Mongolian Communication Ability: Effective Stock Replenisher Required: No Beliefs That Will Affect Care: None marital status: Current Living Situation: Spouse Current Living Situation Comment: Lives w/ spouse at home How many Children do You have: 2 Feels Safe at Home: Yes Assistive Devices: Walker and Wheelchair Review of Systems Review of Systems: Could not be reliably obtained secondary to dementia Physical Exam Physical Exam: GENERAL: Demented, no respiratory distress SKIN: Pallor, warm HEENT: Partial alopecia, pale palpebral conjunctivae, no ptosis, dry buccal mucosa, partially edentulous/poor dentition NECK : Supple, no tenderness CHEST : Decreased breath sounds, no tenderness HEART : RRR, no obvious murmurs ABDOMEN: Some distention, nontender EXTREMITIES : Minimal LE swelling, no LE tenderness, no other conspicuous deformities noted NEUROLOGIC : Demented, no facial asymmetry, gait and stance not assessed Results & Data Results & Data ([facility]) Vital Signs (Past 12 Hours) Vital Signs Pulse Pulse Resp BP BP Pulse Ox 04/27/22 22:17 61 20 132/52 L 97 04/27/22 20:29 67 20 158/66 H 96 04/27/22 18:45 84 16 122/58 L 94 Laboratory Results Laboratory Results WBC 42.63 K/uL (4.8-10.8) H* 04/27/22 20:17 RBC 3.55 M/uL (4.7-6.1) L 04/27/22 20:17 Hgb 12.2 g/dL (14.0-18.0) L 04/27/22 20:17 Hct 34.6 % (42-52) L 04/27/22 20:17 MCV 97.5 fL (80-100) 04/27/22 20:17 MCH 34.4 pg (25-34) H 04/27/22 20:17 MCHC 35.3 g/dL (32-36) 04/27/22 20:17 RDW Std Deviation 52.6 fL (36.4-46.3) H 04/27/22 20:17 RDW Coeff of Chay 14.7 % (11.5-14.5) H 04/27/22 20:17 Plt Count 207 K/uL (130-400) 04/27/22 20:17 MPV 11.3 fL (7.4-10.4) H 04/27/22 20:17 Neutrophils % (Manual) 11.2 % 04/27/22 20:17 Lymphocytes % (Manual) 87.9 % 04/27/22 20:17 Monocytes % (Manual) 0.9 % 04/27/22 20:17 Neutrophils # (Manual) 4.77 K/uL (1.4-6.5) 04/27/22 20:17 Total Absolute Neuts 4.77 K/uL (1.4-6.5) 04/27/22 20:17 Lymphocytes # (Manual) 37.47 K/uL (1.2-3.4) H 04/27/22 20:17 Total Abs Lymphocytes 37.47 K/uL (1.2-3.4) H 04/27/22 20:17 Monocytes # (Manual) 0.38 K/uL (0.11-0.59) 04/27/22 20:17 RBC Morphology Unremarkable 04/27/22 20:17 Sodium 141 mmol/L (136-145) 04/27/22 20:17 Potassium 3.9 mmol/L (3.5-5.1) 04/27/22 20:17 Chloride 108 mmol/L (98-107) H 04/27/22 20:17 Carbon Dioxide 27 mmol/L (21-32) 04/27/22 20:17 Anion Gap 6 (3-11) 04/27/22 20:17 BUN 23 mg/dl (6-23) 04/27/22 20:17 Creatinine 1.23 mg/dl (0.6-1.4) 04/27/22 20:17 Est Cr Clr Drug Dosing Not Reportable 04/27/22 20:17 Est GFR ( Amer) 63.9 ml/min 04/27/22 20:17 Est GFR (Non-Af Amer) 55.1 ml/min 04/27/22 20:17 BUN/Creatinine Ratio 18.7 (10-20) 04/27/22 20:17 Glucose 92 mg/dl (70-99(Fasting)) 04/27/22 20:17 Calcium 9.3 mg/dl (8.5-10.1) 04/27/22 20:17 Total Bilirubin 0.6 mg/dl (0.2-1.0) 04/27/22 20:17 AST 12 U/L (13-39) L 04/27/22 20:17 ALT 6 U/L (7-52) L 04/27/22 20:17 Alkaline Phosphatase 57 U/L (34-104) 04/27/22 20:17 Total Protein 6.3 gm/dl (6.0-8.3) 04/27/22 20:17 Albumin 4.2 gm/dl (3.4-5.0) 04/27/22 20:17 Globulin 2.1 gm/dl (2.5-4.0) L 04/27/22 20:17 Albumin/Globulin Ratio 2.0 (0.9-2) 04/27/22 20:17 TSH 2.585 uIu/ml (0.300-4.500) 04/27/22 20:17 Urine Color Yellow 04/27/22 20:50 Urine Appearance Clear (Clear) 04/27/22 20:50 Urine pH 7.5 (4.5-7.5) 04/27/22 20:50 Ur Specific [place] 1.012 (1.000-1.030) 04/27/22 20:50 Urine Protein Negative (Negative) 04/27/22 20:50 Urine Glucose (UA) Negative (Negative) 04/27/22 20:50 Urine Ketones Negative (Negative) 04/27/22 20:50 Urine Blood Negative (Negative) 04/27/22 20:50 Urine Nitrite Negative (Negative) 04/27/22 20:50 Urine Bilirubin Negative (Negative) 04/27/22 20:50 Urine Urobilinogen Negative (Negative) 04/27/22 20:50 Ur Leukocyte Esterase Negative (Negative) 04/27/22 20:50 Salicylates < 3.0 mg/dl (3.0-30) L 04/27/22 20:17 Urine Opiates Screen Neg (Neg) 04/27/22 20:50 Ur Methadone, Qual Neg (Neg) 04/27/22 20:50 Acetaminophen < 3 ug/ml (10-30) L 04/27/22 20:17 Urine Barbiturates Neg (Neg) 04/27/22 20:50 Ur Phencyclidine (PCP) Neg (Neg) 04/27/22 20:50 U Amphetamin/Meth Scrn Neg (Neg) 04/27/22 20:50 MDMA (Ecstasy) Screen Neg (Neg) 04/27/22 20:50 U Benzodiazepines Scrn Neg (Neg) 04/27/22 20:50 Ur Cocaine Metabolite Neg (Neg) 04/27/22 20:50 U Marijuana (THC) Screen Neg (Neg) 04/27/22 20:50 Ethyl Alcohol mg/dL < 10.0 mg/dl (<10.0) 04/27/22 20:17 SARS-CoV-2, RNA, NAAT NEGATIVE (NEGATIVE) 04/27/22 23:[address] 04/27/22 18:57 CT head/brain wo con CLINICAL HISTORY: 82 years-old Male with confusion. Acutely altered mental status TECHNIQUE: Multiple axial CT images of the head were obtained without contrast. A dose lowering technique was utilized adhering to the principles of ALARA. CT DOSE: 921.40 mGy.cm COMPARISON: 03/04/2022 FINDINGS: No acute intracranial hemorrhage, midline shift, intracranial mass, hydrocephalus, territorial ischemia or abnormal extra-axial collection. Metallic plate is again noted involving the left frontal bone. Postoperative changes of the right parietal calvarium redemonstrated. Moderate within the frontal lobes, left greater than right. Surgical clips are again noted adjacent to the falx cerebri. 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 Involutional changes with ex vacuo ventriculomegaly. No acute calvarial fracture. Mild polypoid mucosal thickening of the right maxillary sinus. The mastoid air cells are clear. IMPRESSION: 1. No acute intracranial abnormality. 2. Chronic findings as above. ACT 112: Negative or not required by law. The above report was generated using voice recognition software. It may contain grammatical, syntax or spelling errors. Electronically signed by: Jonel Velasquez M.D. 04/27/2022 8:32 PM Diagnostic Findings EKG as per my interpretation rate 80, NSR, LAD, LAFB, no ischemia Code Status & VTE Plan VTE Prophylaxis Plan VTE Prophylaxis will be ordered: Yes
[2022-04-28] MEDS ORDERED: PROMETHAZINE HCL 6.25 MG in SODIUM CHLORIDE 0.9% 50 ML IV PRN (02:59)
[2022-04-28] MEDS: LEVOTHYROXINE SODIUM 75 MCG TABLET PO SCH (06:09)
[2022-04-28] MEDS: amLODIPine BESYLATE 5 MG TAB PO SCH (06:09)
[2022-04-28] MEDS: APIXABAN 5 MG TABLET PO SCH ×3 (06:09→20:48)
--- NOTE | 2022-04-28 07:40 | XRay Report ---
XR chest 1V portable CLINICAL HISTORY: weakness COMPARISON STUDY: Chest radiograph March 04, 2022. Chest CT May 12, 2019. FINDINGS: Exam is compromised given difficulty positioning. Cardiomegaly is noted. Apparent increase in dilatation of the thoracic aorta is noted. This could be technical. There is no evidence for pulmo nary edema. No lobar consolidation. IMPRESSION: 1. Apparent increase in thoracic aortic dilatation. This is likely technical given difficulty positio eduardo however correlation with chest pain is recommended. If indicated, CTA of the chest could be obta ined. This finding will be called/faxed to ordering provider at time of dictation. 2. Cardiomegaly. No evidence for pulmonary edema. ACT 112: Negative or not required by law. Electronically signed by: Rashid Pak M.D. 04/28/2022 7:38 AM
[2022-04-28] MEDS ORDERED: amLODIPine BESYLATE 5 MG TAB PO SCH (09:00)
[2022-04-28] MEDS: ACETAMINOPHEN 325 MG TAB PO PRN ×2 (10:37→20:48)
[2022-04-28] MEDS: FLUoxetine HCL 10 MG CAP PO SCH (10:38)
--- NOTE | 2022-04-28 13:24 | Psychiatric Consultation ---
Date of Consultation April 28, 2022 Impression / Recommendations Impression 82 yo man with history of significant TBI and Alzheimer's dementia with worsening agitation, behavioral changes, statements of intent for self-harm and threats to staff at his intermediate. Diagnostically consistent with likely delirium superimposed on advancing dementia with behavioral disturbance. Will monitor behaviors here, attempt to gather further collateral from his and will start seroquel prn. Goal in dementia is to avoid medication management of behaviors if possible by maximizing non-pharmacologic strategies for behavioral management. However, given worsening agitation/aggression at this point reasonable to start an antipsychotic as risk/benefit profile now favors treatment even in the context of his elevated QTc on recent EKG. Note all antipsychotic medications carry black box warning for increased risk of all- cause mortality in setting of dementia. While he was brought in on a 302 warrant I do not feel that this can be upheld as the primary diagnosis is major neurocognitive disorder which is specifically excluded as a committable condition under [place] mental health commitment laws. However, he is at increased risk of harm to self and others due to acute delirium and dementia and agree with 1-on-1. He does not have decision making capacity to leave AMA due to acute delirium and advanced dementia. (1) Major neurocognitive disorder due to Alzheimer's disease, with behavioral disturbance: (2) CLL (chronic lymphocytic leukemia): (3) Traumatic brain injury: -1-on-1 given level of agitation and current 302 warrant -Plan to dispo warrant once further collateral from his to verify no other history of any major psychiatric disorders -Starting seroquel 12.5 mg po BID prn; would check EKG QTc routinely (Ideally QTc<500ms) -melatonin 3mg qhs -Continue fluoxetine 10mg qd -Continue medical workup to rule out and treat any underlying causes contributing to potential delirium, avoid or limit use of deliriogenic medications (benzodiazepines, opioids, anticholinergics) -Continue with delirium prevention measures: raising blinds during the day, closing at night, frequent re-orientation, contact with family/friends, explaining procedures/nursing care measures prior to physical contact, correct any hearing and visual impairments -For behavioral emergency: olanzapine 2.5 mg IM x 1 (DO NOT exceed 10mg per 24 hours, check EKG if IM dose required, NEVER co-administer with IM or IV benzodiazepines). -They do not meet criteria for inpatient psychiatric hospitalization as primary cause of current symptoms is felt to be due to delirium and/or dementia. At this time recommend placement in a secure memory unit setting which will be able to best assist with his medical needs, physical needs (is an assist out of bed) and will allow for 24/7 monitoring and secure environment to modify risks of self- harm/harm to others Psych History Identifying Data 82 yo man with history of dementia, TBI s/p brain surgery, seizures, CLL, CHF admitted medically due to worsening agitation and statements of self-harm at his intermediate. Psychiatry consulted for medication and management recommendations. Chief Complaint "There is a person in the [place] grinding up people". History of Present Illness Valerio was brought in from his intermediate on a 302 warrant where he has been increasing agitated in the last few days. The 302 petitioning statement completed from the intermediate states that he has been disrobing inappropriatel y, raising fists at staff, grabbing their arms, threatening to kill staff, threatening to cut his head off, throwing property like his TV, and stated he would try to strange himself with a curtain tieback. They noted diagnoses of depression, impulsive behaviors, major neurocognitive disorder of Alzheimer's with behavioral disturbance. Valerio was seen this morning alongside the psych liason and Dr. Mishra the hospitalist. Valerio was oriented to his name and stated he was in the "nut house". Was noted to have significantly difficulty with speech at times but could follow one step commands like pointing to window, door and TV in his room. He did not respond to questions regarding HI or SI but when asked about violence prior to admission stating "I shoot people" and mimed a gun and then stated "then the bebo in [place] grinds them up". He stated he was a "human" and spoke about robots which per his 1-on-1 seems to be a topic of interest to him. He recalled his 's name but stated he last saw her "when she was a baby". Could not figure out how to peel a banana and held this out until receiving help and was observed to eat all of his breakfast stating "food is good for the stomach". Allergies Allergy/AdvReac Type Severity Reaction Status Date / Time ibuprofen Allergy Severe Hives Verified 03/04/22 19:47 Iodinated Contrast Media Allergy Intermediate HIVES Verified 03/04/22 19:47 caffeine AdvReac Severe Rash Verified 03/04/22 19:47 chocolate flavor AdvReac Unknown Unknown Verified 03/04/22 19:47 Home Medications Medication Instructions Recorded Confirmed Type doxazosin 2 mg tablet 2 mg PO HS 11/12/21 04/27/22 History apixaban 5 mg tablet (Eliquis) 5 mg PO BID #60 tab 11/15/21 04/27/22 Rx rosuvastatin 10 mg tablet (Crestor) 10 mg PO HS #30 tab 11/15/21 04/27/22 Rx levothyroxine 75 mcg tablet 75 mcg PO DAILYBB 03/04/22 04/27/22 History trazodone 50 mg tablet 50 mg PO QPM 03/04/22 04/27/22 History amlodipine 2.5 mg tablet 2.5 mg PO DAILY 04/27/22 04/27/22 History cholecalciferol (vitamin D3) 25 25 mcg PO DAILY 04/27/22 04/27/22 History mcg (1,000 unit) tablet clotrimazole 1 % topical cream 1 applic TOPICAL BID 04/27/22 04/27/22 History fluoxetine 10 mg tablet 10 mg PO DAILY 04/27/22 04/27/22 History gabapentin 100 mg capsule 100 mg PO HS 04/27/22 04/27/22 History ketoconazole 1 % shampoo (Nizoral 1 applic TOPICAL DIRECTED 04/27/22 04/27/22 History A-D) Personal History Living Arrangements: [facility] Highest Grade Completed: College Beliefs That Will Affect Care: None Patient History Medical History (Updated 04/28/22 @ 17:00 by Kaylie Bailey MD) Aortic insufficiency BPH (benign prostatic hypertrophy) Chronic atrial fibrillation Chronic diastolic CHF (congestive heart failure) CLL (chronic lymphocytic leukemia) History of DVT of lower extremity History of seizure "post-traumatic" Hypothyroidism MRSA (methicillin resistant Staphylococcus aureus) Renal calculus Renal cyst, acquired, left "mildly complex per CT 10/03/17 and MRI 10/04/17" Traumatic brain injury Traumatic open wound of right lower leg Surgical History Status post cholecystectomy Family History Mother Cancer Social History Smoking Status: Unknown if ever smoked Second Hand Exposure: No; Hx Alcohol Use: No (Unknown) Hx Substance Use: No (Unknown) Preferred Language: Swedish Communication Ability: Impaired Sludge Control Attendant Required: No Beliefs That Will Affect Care: None marital status: Current Living Situation: Spouse Current Living Situation Comment: Lives w/ spouse at home How many Children do You have: 1 Feels Safe at Home: Yes Assistive Devices: Walker Physical Exam Psychiatric: Orientation: alert and oriented to person; + not oriented to place and + not oriented to time Apperance: appropriately dressed and approp riately groomed Eye Contact: + fair eye contact Motor Behavior: no abnormal motor movements Speech: + abnormal rate/rhythm/volume of speech (brief, mostly one or two word responses) Affect: + constricted affect Mood: no depressed mood, no anxious mood and no irritable mood Thought Process: + looseness of associations and + concrete thought process Thought Content: + delusions Hallucinations: no auditory hallucinations (did not appear to be responding to internal stimuli) and no visual hallucinations Cognition: + recent memory not intact, + remote memory not intact, + attention not intact and + language not intact Insight: + severely impaired insight Judgement: + severely impaired judgement Vital Signs (Past 24 Hours): Last Vital Signs Temp 36.5 C 04/28/22 07:02 Pulse 57 L 04/28/22 07:02 Resp 17 04/28/22 07:02 BP 138/60 04/28/22 07:02 Pulse Ox 96 04/28/22 07:02 Review of Systems Unobtainable due to cognitive status (did endorse pain in the front of his head) Results & Data (PSY) Medications Administered Acetaminophen (Acetaminophen 325 Mg Tab) 650 mg PO Q4H PRN PRN Reason: pain/fever Stop: 05/28/22 02:58 Last Admin: 04/28/22 10:37 Dose: 650 mg Documented by: [id number] Amlodipine Besylate (Amlodipine Besylate 5 Mg Tab) 2.5 mg PO DAILY [facility] Stop: 05/28/22 04:19 Last Admin: 04/28/22 06:09 Dose: 2.5 mg Documented by: [id number] Apixaban (Apixaban 5 Mg Tablet) 5 mg PO BID NE Stop: 05/28/22 02:58 Last Admin: 04/28/22 10:36 Dose: 5 mg Documented by: [id number] Admin: 04/28/22 06:09 Dose: 5 mg Documented by: [id number] Fluoxetine HCl (Fluoxetine Hcl 10 Mg Cap) 10 mg PO DAILY [facility] Stop: 05/28/22 08:59 Last Admin: 04/28/22 10:38 Dose: 10 mg Documented by: [id number] Levothyroxine Sodium (Levothyroxine Sodium 75 Mcg Tablet) 75 mcg PO DAILYBB [facility] Stop: 05/28/22 06:29 Last Admin: 04/28/22 06:09 Dose: 75 mcg Documented by: [id number] Coding Level of Care Code 13812 Inpt Consult Level 3 Diagnoses Major neurocognitive disorder due to Alzheimer's disease, with behavioral disturbance G30.9; F02.81 CLL (chronic lymphocytic leukemia) C91.90 Traumatic brain injury S06.9X9A
--- NOTE | 2022-04-28 17:10 | Hospitalist Progress Note ---
Date of Service April 28, 2022 Assessment & Plan (1) Delirium: Plan: Dementia with behavioral disturbance Delirium Progression of dementia Suicidality H/O traumatic brain injury --CT head:No acute intracranial hemorrhage, midline shift, intracranial mass, hydrocephalus, territorial ischemia or abnormal extra-axial collection. Metallic plate is again noted involving the left frontal bone. Postoperative changes of the right parietal calvarium remonstrated. Moderate within the frontal lobes, left greater than right. Surgical clips are again noted adjacent to the falx cerebri. 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 Involutional changes with ex vacuo ventriculomegaly. No acute calvarial fracture. Mild polypoid mucosal thickening of the right maxillary sinus. The mastoid air cells are clear. --No obvious source of Infection Delirium precautions Continue fluoxetine Started on quetiapine as needed for agitation IM Zyprexa PRN Appreciate psychiatry input Will need placement Thoracic aortic dilatation Chronic condition Chest x-ray suggestive of possible increase in size Discussed with patient's -POA, given multiple comorbidities, recommends no further investigations Chronic diastolic heart failure Euvolemic Monitor volume status P.A fib H/O DVT Currently in Sinus On Eliquis CAD HTN Hyperlipidemia Continue home medications Hypothyroidism Normal TSH Continue levothyroxine ILD CLL Past Tobacco use Follows with Oncology in [place] Currently not on treatment Chronic Anemia Monitor CBC DVT Px On Eliquis Code Status DNI/DNR Admission and Anticipated Discharge Date Admission Date: April 28, 2022 Subjective Patient is seen and examined at bedside Patient states having mild headache Poor historian secondary to dementia Discussed with psychiatry and patient's family in detail Sitter at bedside No agitation during my encounter Review of Systems Review of Systems: All systems reviewed & are unremarkable except as noted in Subjective Physical Exam Physical Exam: Physical Exam: Vitals signs as noted above General Appearance:Chronic ill appearing, no apparent distress Head: normocephalic, Atraumatic Eyes: normal inspection, EOMI Neck: supple, Trachea midline Respiratory/Chest: Normal breath sounds, CTA, No accessory muscle use Cardiovascular: S1, S2, No murmur Abdomen/GI:Soft, Non tender, Bowel sounds present Extremities/Musculoskeletal:normal inspection, RLE venous stasis changes, Mild edema Neurologic/Psych:Alert, awake, grossly no focal neurological deficits, +Dementia Skin: normal color, warm Results & Data Results & Data ([facility]) Vital Signs (Past 12 Hours) Vital Signs Temp Pulse Resp BP Pulse Ox 04/28/22 15:16 37.0 C 51 L 18 143/58 H 97 04/28/22 07:02 36.5 C 57 L 17 138/60 96 Laboratory Results Short CBC 04/27/22 Range/Units 20:17 WBC 42.63 H* (4.8-10.8) K/uL Hgb 12.2 L (14.0-18.0) g/dL Hct 34.6 L (42-52) % Plt Count 207 (130-400) K/uL BMP 04/27/22 20:17 Sodium 141 Potassium 3.9 Chloride 108 H Carbon Dioxide 27 BUN 23 Creatinine 1.23 Glucose 92 Calcium 9.3 Liver Function 04/27/22 Range/Units 20:17 Total Bilirubin 0.6 (0.2-1.0) mg/dl AST 12 L (13-39) U/L ALT 6 L (7-52) U/L Alkaline Phosphatase 57 (34-104) U/L Albumin 4.2 (3.4-5.0) gm/dl Urine 04/27/22 Range/Units 20:50 Urine Color Yellow Urine Appearance Clear (Clear) Urine pH 7.5 (4.5-7.5) Ur Specific [place] 1.012 (1.000-1.030) Urine Protein Negative (Negative) Urine Glucose (UA) Negative (Negative)
[2022-04-28] MEDS: DOXAZosin MESYLATE TAB 2 MG TAB PO SCH (20:48)
[2022-04-28] MEDS: ROSUVASTATIN CALCIUM 10 MG TAB PO SCH (20:48)
[2022-04-29] MEDS: LEVOTHYROXINE SODIUM 75 MCG TABLET PO SCH (06:21)
[2022-04-29] MEDS: FLUoxetine HCL 10 MG CAP PO SCH (08:34)
[2022-04-29] MEDS: amLODIPine BESYLATE 5 MG TAB PO SCH (08:34)
[2022-04-29] MEDS: APIXABAN 5 MG TABLET PO SCH ×2 (08:34→20:58)
[2022-04-29] MEDS: ACETAMINOPHEN 325 MG TAB PO PRN ×3 (10:06→20:58)
--- NOTE | 2022-04-29 11:30 | Psychiatric Progress Note ---
Date of Service April 29, 2022 Impression / Recommendations Impression 82 yo man with history of significant TBI and Alzheimer's dementia with worsening agitation, behavioral changes, statements of intent for self-harm and threats to staff at his group home. Diagnostically consistent with likely delirium superimposed on advancing dementia with behavioral disturbance. Will monitor behaviors here, attempt to gather further collateral from his and will start seroquel prn. Goal in dementia is to avoid medication management of behaviors if possible by maximizing non-pharmacologic strategies for behavioral management. However, given worsening agitation/aggression at this point re asonable to start an antipsychotic as risk/benefit profile now favors treatment even in the context of his elevated QTc on recent EKG. Note all antipsychotic medications carry black box warning for increased risk of all-cause mortality in setting of dementia. 04/29/22: He has been in behavioral control without any vocalizations of SI nor HI and no self-harming or aggressive behaviors. Seroquel prn has not been needed. After reviewing collateral information his provided and given his presentation remains consistent with severe progressive dementia and TBI sequelae and he presents with euthymic mood I canceled his 302 warrant. I did not feel that it should be upheld as the primary diagnosis is major neurocognitive disorder and TBI both of which are specifically excluded as a committable conditions under [place] mental health commitment laws. He does not have decision making capacity to leave AMA due to acute delirium and advanced dementia. Acute risk of self harm and harm to others is now low given no SI and no HI and no agitated behaviors. Chronic risk for both remains elevated given TBI, impulsivity and hx of aggression and statements of self-harm. (1) Major neurocognitive disorder due to Alzheimer's disease, with behavioral disturbance: (2) CLL (chronic lymphocytic leukemia): (3) Traumatic brain injury: -Ok to discontinue 1-on-1 -Starting seroquel 12.5 mg po BID prn; would check EKG QTc routinely (Ideally QTc<500ms) -melatonin 3mg qhs -Continue fluoxetine 10mg qd -Continue medical workup to rule out and treat any underlying causes contributing to potential delirium, avoid or limit use of deliriogenic medications (benzodiazepines, opioids, anticholinergics) -Continue with delirium prevention measures: raising blinds during the day, closing at night, frequent re-orientation, contact with family/friends, explaining procedures/nursing care measures prior to physical contact, correct any hearing and visual impairments -For behavioral emergency: olanzapine 2.5 mg IM x 1 (DO NOT exceed 10mg per 24 hours, check EKG if IM dose required, NEVER co-administer with IM or IV benzodiazepines). -They do not meet criteria for inpatient psychiatric hospitalization as primary cause of current symptoms is felt to be due to delirium and/or dementia. At this time recommend placement in a secure memory unit setting which will be able to best assist with his medical needs, physical needs (is an assist out of bed) and will allow for 24/7 monitoring and secure environment to modify risks of self- harm/harm to others Interval History Identifying Information 82 yo man with history of dementia, TBI s/p brain surgery, seizures, CLL, CHF admitted medically due to worsening agitation and statements of self-harm at his group home. Psychiatry consulted for medication and management recommendations. Chief Complaint "Beef hoagie". Review of Systems Notes appears to have slept well, eating well, see HPI Subjective Subjective Patient was seen & assessed and interval progress reviewed. No episodes of self- harming or aggressive behavior and no statements of SI or HI over the past 24 hours. Today he is smiling and sitting in bed watching TV. He is alert to person and when prompted to look outside at the sun can guess that it is summertime, otherwise not oriented. Points to his forehead when asked about pain and apparently just received tylenol for suspected headache. He comments "drink lots of water" in response to discussion of this. Asked about SI or HI he replies nonsensically stating "scissors", "large tongues" and then comments on his desire to have a beef hoagie or chicken for lunch. Per 1-on-1 he had been talking about his love of comics and spiderman and was excited that the [place]ki movie was on TV and stated at one point "DC" which we came to understand as him pointing out the movie is related to DC comics and superheros. Psych liason note from 04/28/22 with further collateral from patient's . See note for further details. History of TBI with increased aggression and impulsivity since ~20s. Worsened with progressive dementia. Physical Exam Psychiatric Orientation: alert and oriented to person; + not oriented to place and + not oriented to time Apperance: appropriately dressed and appropriately groomed Eye Contact: good eye contact Motor Behavior: no abnormal motor movements Speech: + abnormal rate/rhythm/volume of speech (brief, mostly one or two word responses) Affect: euthymic affect (giving big smiles ) Mood: no depressed mood, no anxious mood and no irritable mood Thought Process: + looseness of associations and + concrete thought process Thought Content: reality based without delusions Hallucinations: no auditory hallucinations and no visual hallucinations Cognition: + recent memory not intact, + remote memory not intact, + attention not intact and + language not intact Insight: + severely impaired insight Judgement: + severely impaired judgement Vital Signs (Past 24 Hours) Last Vital Signs Temp 36.6 C 04/29/22 06:39 Pulse 52 L 04/29/22 06:39 Resp 16 04/29/22 06:39 BP 145/57 H 04/29/22 06:39 Pulse Ox 95 04/29/22 06:39 Results & Data ([facility]) Current Inpatient Medications Current Inpatient Medications: Current Inpatient Medications Acetaminophen (Acetaminophen 325 Mg Tab) 650 mg PO Q4H PRN PRN Reason: pain/fever Stop: 05/28/22 02:58 Last Admin: 04/29/22 10:06 Dose: 650 mg Documented by: Amlodipine Besylate (Amlodipine Besylate 5 Mg Tab) 2.5 mg PO DAILY NE Stop: 05/28/22 04:19 Last Admin: 04/29/22 08:34 Dose: 2.5 mg Documented by: Apixaban (Apixaban 5 Mg Tablet) 5 mg PO BID NE Stop: 05/28/22 02:58 Last Admin: 04/29/22 08:34 Dose: 5 mg Documented by: Doxazosin Mesylate (Doxazosin Mesylate Tab 2 Mg Tab) 2 mg PO HS [facility] Stop: 05/28/22 20:59 Last Admin: 04/28/22 20:48 Dose: 2 mg Documented by: Fluoxetine HCl (Fluoxetine Hcl 10 Mg Cap) 10 mg PO DAILY NE Stop: 05/28/22 08:59 Last Admin: 04/29/22 08:34 Dose: 10 mg Documented by: Promethazine HCl 6.25 mg/ (Sodium Chloride) 50.25 mls @ 201 mls/hr IV Q6H PRN PRN Reason: Nausea And Vomiting Stop: 05/28/22 02:58 Levothyroxine Sodium (Levothyroxine Sodium 75 Mcg Tablet) [facility] Stop: 05/28/22 06:29 Last Admin: 04/29/22 06:21 Dose: 75 mcg Documented by: Olanzapine (Olanzapine 10 Mg/2.1 Ml Sdv) 2.5 mg IM Q4H PRN PRN Reason: Anxiety/Agitation Stop: 05/27/22 22:54 Quetiapine Fumarate (Quetiapine Fumarate 25 Mg Tablet) 12.5 mg PO BID PRN PRN Reason: Agitation Stop: 05/28/22 20:59 Rosuvastatin Calcium (Rosuvastatin Calcium 10 Mg Tab) 10 mg PO [facility] Stop: 05/28/22 20:59 Last Admin: 04/28/22 20:48 Dose: 10 mg Documented by:
--- NOTE | 2022-04-29 14:26 | Electrocardiogram Report ---
Test Reason : Blood Pressure : / mmHG Vent. Rate : 080 BPM Atrial Rate : 080 BPM P-R Int : 214 ms QRS Dur : 088 ms QT Int : 400 ms P-R-T Axes : 097 -42 035 degrees QTc Int : 462 ms Poor data quality, interpretation may be adversely affected Sinus rhythm with 1st degree A-V block Left axis deviation Minimal voltage criteria for LVH, may be normal variant Inferior infarct (cited on or before 14-MAY-2019) Abnormal ECG When compared with ECG of 04-MAR-2022 20:12, Vent. rate has increased BY 31 BPM Nonspecific T wave abnormality no longer evident in Inferior leads Confirmed by Austin Soto [id number]) on 04/29/2022 2:26:17 PM Referred By: REFERRED SELF Confirmed By:Austin Soto
--- NOTE | 2022-04-29 16:51 | Hospitalist Progress Note ---
Date of Service April 29, 2022 Assessment & Plan (1) Delirium: Plan: Alzheimer dementia with behavioral disturbance Delirium Progression of dementia Suicidality H/O traumatic brain injury --CT head:No acute intracranial hemorrhage, midline shift, intracranial mass, hydrocephalus, territorial ischemia or abnormal extra-axial collection. Metallic plate is again noted involving the left frontal bone. Postoperative changes of the right parietal calvarium remonstrated. Moderate within the frontal lobes, left greater than right. Surgical clips are again noted adjacent to the falx cerebri. 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 Involutional changes with ex vacuo ventriculomegaly. No acute calvarial fracture. Mild polypoid mucosal thickening of the right maxillary sinus. The mastoid air cells are clear. --No obvious source of Infection Delirium precautions Continue fluoxetine Started on quetiapine as needed for agitation IM Zyprexa PRN Appreciate psychiatry input Will need placement Cannot sign out AMA Melatonin 3 mg HS Case management to help with discharge planning Thoracic aortic dilatation Chronic condition Chest x-ray suggestive of possible increase in size Discussed with patient's -POA, given multiple comorbidities, recommends no further investigations Chronic diastolic heart failure Euvolemic Monitor volume status P.A fib H/O DVT Currently in Sinus On Eliquis CAD HTN Hyperlipidemia Continue home medications Hypothyroidism Normal TSH Continue levothyroxine ILD CLL Past Tobacco use Follows with Oncology in [place] Currently not on treatment Chronic Anemia Monitor CBC DVT Px On Eliquis Code Status DNI/DNR Admission and Anticipated Discharge Date Admission Date: April 28, 2022 Subjective Patient is seen and examined at bedside Poor historian due to dementia Pleasant and co-operative today Still has mild headache as per patient but unreliable Sitter at bedside Review of Systems Review of Systems: All systems reviewed & are unremarkable except as noted in Subjective Physical Exam Physical Exam: Physical Exam: Vitals signs as noted above General Appearance:Chronic ill appearing, no apparent distress Head: normocephalic, Atraumatic Eyes: normal inspection, EOMI Neck: supple, Trachea midline Respiratory/Chest: Normal breath sounds, CTA, No accessory muscle use Cardiovascular: S1, S2, No murmur Abdomen/GI:Soft, Non tender, Bowel sounds present Extremities/Musculoskeletal:normal inspection, RLE venous stasis changes, Mild edema Neurologic/Psych:Alert, awake, grossly no focal neurological deficits, +Dementia Skin: normal color, warm Results & Data Results & Data ([facility]) Vital Signs (Past 12 Hours) Vital Signs Temp Pulse Resp BP Pulse Ox 04/29/22 14:27 36.4 C L 72 16 144/68 H 94 04/29/22 06:39 36.6 C 52 L 16 145/57 H 95
[2022-04-29] MEDS: ROSUVASTATIN CALCIUM 10 MG TAB PO SCH (20:58)
[2022-04-29] MEDS: DOXAZosin MESYLATE TAB 2 MG TAB PO SCH (20:58)
[2022-04-30] MEDS: LEVOTHYROXINE SODIUM 75 MCG TABLET PO SCH (05:24)
[2022-04-30 07:30] LABS: Hematocrit (blood only) 35.6 % (42-52); Hemoglobin 11.8 g/dL (14.0-18.0); Mean Corpuscular Hemoglobin 32.5 pg (25-34); Mean Corpuscular Hgb Conc 33.1 g/dL (32-36); Mean Corpuscular Volume 98.1 fL (80-100); Mean Platelet Volume 11.5 fL (7.4-10.4); Platelet Count 195 K/uL (130-400); RDW Coefficient of Variation 14.8 % (11.5-14.5); RDW Standard Deviation 53.4 fL (36.4-46.3); Red Blood Count 3.63 M/uL (4.7-6.1); White Blood Count 44.15 K/uL (4.8-10.8)
[2022-04-30 07:36] LABS: Creatinine Clr Calc Pharmacy 63.7 ml/min; Est GFR (African American) 86.2 ml/min; Est GFR (Non-African American) 74.4 ml/min
[2022-04-30] MEDS: amLODIPine BESYLATE 5 MG TAB PO SCH (07:47)
[2022-04-30] MEDS: APIXABAN 5 MG TABLET PO SCH ×2 (07:47→20:15)
[2022-04-30] MEDS: ACETAMINOPHEN 325 MG TAB PO PRN (07:48)
[2022-04-30] MEDS: FLUoxetine HCL 10 MG CAP PO SCH (07:48)
[2022-04-30 07:49] LABS: Basophils # (auto) 0.08 K/uL (0-0.2); Basophils % (auto) 0.2 %; Eosinophils # (auto) 0.11 K/uL (0-0.5); Eosinophils % (auto) 0.2 %; Immature Granulocytes # (auto) 0.09 K/uL (0.00-0.02); Immature Granulocytes % (auto) 0.2 %; Lymphocytes # (auto) 39.14 K/uL (1.2-3.4); Lymphocytes % (auto) 88.7 %; Monocytes # (auto) 0.79 K/uL (0.11-0.59); Monocytes % (auto) 1.8 %; Neutrophils # (auto) 3.94 K/uL (1.4-6.5); Neutrophils % (auto) 8.9 %
[2022-04-30] MEDS ORDERED: PNEUMOCOCCAL Polysaccharide Vaccine 25mcg/0.5mL vial/Syr IM ONE (08:00)
--- NOTE | 2022-04-30 17:03 | Hospitalist Progress Note ---
Date of Service April 30, 2022 Assessment & Plan (1) Delirium: Plan: Alzheimer dementia with behavioral disturbance Delirium Progression of dementia Suicidality H/O traumatic brain injury --CT head:No acute intracranial hemorrhage, midline shift, intracranial mass, hydrocephalus, territorial ischemia or abnormal extra-axial collection. Metallic plate is again noted involving the left frontal bone. Postoperative changes of the right parietal calvarium remonstrated. Moderate within the frontal lobes, left greater than right. Surgical clips are again noted adjacent to the falx cerebri. 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 Involutional changes with ex vacuo ventriculomegaly. No acute calvarial fracture. Mild polypoid mucosal thickening of the right maxillary sinus. The mastoid air cells are clear. --No obvious source of Infection Delirium precautions Continue fluoxetine Started on quetiapine as needed for agitation IM Zyprexa PRN Appreciate psychiatry input Will need placement Cannot sign out AMA Melatonin 3 mg HS Case management to help with discharge planning Continue current management Thoracic aortic dilatation Chronic condition Chest x-ray suggestive of possible increase in size Discussed with patient's -POA, given multiple comorbidities, recommends no further investigations Chronic diastolic heart failure Euvolemic Monitor volume status P.A fib H/O DVT Currently in Sinus On Eliquis CAD HTN Hyperlipidemia Continue home medications Hypothyroidism Normal TSH Continue levothyroxine ILD CLL Past Tobacco use Follows with Oncology in [place] Currently not on treatment Chronic Anemia Monitor CBC DVT Px On Eliquis Code Status DNI/DNR Admission and Anticipated Discharge Date Admission Date: April 28, 2022 Subjective Patient is seen and examined at bedside Poor historian due to dementia No new complaints Headache better with medications Denies chest pain, dyspnea Review of Systems Review of Systems: All systems reviewed & are unremarkable except as noted in Subjective Physical Exam Physical Exam: Physical Exam: Vitals signs as noted above General Appearance:Chronic ill appearing, no apparent distress Head: normocephalic, Atraumatic Eyes: normal inspection, EOMI Neck: supple, Trachea midline Respiratory/Chest: Normal breath sounds, CTA, No accessory muscle use Cardiovascular: S1, S2, No murmur Abdomen/GI:Soft, Non tender, Bowel sounds present Extremities/Musculoskeletal:normal inspection, RLE venous stasis changes, Mild edema Neurologic/Psych:Alert, awake, grossly no focal neurological deficits, +Dementia Skin: normal color, warm Results & Data Results & Data ([facility]) Vital Signs (Past 12 Hours) Vital Signs Temp Pulse Resp BP Pulse Ox 04/30/22 15:37 36.8 C 65 18 158/72 H 93 04/30/22 07:29 36.9 C 56 L 16 140/66 96 Laboratory Results Short CBC 04/30/22 Range/Units 06:30 WBC 44.15 H* (4.8-10.8) K/uL Hgb 11.8 L (14.0-18.0) g/dL Hct 35.6 L (42-52) % Plt Count 195 (130-400) K/uL BMP 04/30/22 06:30 Sodium 144 Potassium 4.0 Chloride 112 H Carbon Dioxide 26 BUN 24 H Creatinine 0.96 Glucose 89 Calcium 9.0
[2022-04-30] MEDS: DOXAZosin MESYLATE TAB 2 MG TAB PO SCH (20:15)
[2022-04-30] MEDS: ROSUVASTATIN CALCIUM 10 MG TAB PO SCH (20:15)
[2022-05-01] MEDS: LEVOTHYROXINE SODIUM 75 MCG TABLET PO SCH (06:04)
[2022-05-01] MEDS: APIXABAN 5 MG TABLET PO SCH ×2 (07:27→20:05)
[2022-05-01] MEDS: amLODIPine BESYLATE 5 MG TAB PO SCH (07:27)
[2022-05-01] MEDS: FLUoxetine HCL 10 MG CAP PO SCH (07:27)
--- NOTE | 2022-05-01 17:33 | Hospitalist Progress Note ---
Date of Service May 01, 2022 Assessment & Plan (1) Delirium: Plan: Alzheimer dementia with behavioral disturbance Delirium Progression of dementia Suicidality H/O traumatic brain injury --CT head:No acute intracranial hemorrhage, midline shift, intracranial mass, hydrocephalus, territorial ischemia or abnormal extra-axial collection. Metallic plate is again noted involving the left frontal bone. Postoperative changes of the right parietal calvarium remonstrated. Moderate within the frontal lobes, left greater than right. Surgical clips are again noted adjacent to the falx cerebri. 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 Involutional changes with ex vacuo ventriculomegaly. No acute calvarial fracture. Mild polypoid mucosal thickening of the right maxillary sinus. The mastoid air cells are clear. --No obvious source of Infection Delirium precautions Continue fluoxetine Started on quetiapine as needed for agitation IM Zyprexa PRN Appreciate psychiatry input Will need placement Cannot sign out AMA Melatonin 3 mg HS Plan to discharge when placement available Thoracic aortic dilatation Chronic condition Chest x-ray suggestive of possible increase in size Discussed with patient's -POA, given multiple comorbidities, recommends no further investigations Chronic diastolic heart failure Euvolemic Monitor volume status P.A fib H/O DVT Currently in Sinus On Eliquis CAD HTN Hyperlipidemia Continue home medications Hypothyroidism Normal TSH Continue levothyroxine ILD CLL Past Tobacco use Follows with Oncology in [place] Currently not on treatment Chronic Anemia Monitor CBC DVT Px On Eliquis Code Status DNI/DNR Admission and Anticipated Discharge Date Admission Date: April 28, 2022 Subjective Patient is seen and examined at bedside Poor historian due to dementia No distress during my encounter Denies chest pain, dyspnea Could not obtain much history today Review of Systems Review of Systems: All systems reviewed & are unremarkable except as noted in Subjective Physical Exam Physical Exam: Physical Exam: Vitals signs as noted above General Appearance:Chronic ill appearing, no apparent distress Head: normocephalic, Atraumatic Eyes: normal inspection, EOMI Neck: supple, Trachea midline Respiratory/Chest: Normal breath sounds, CTA, No accessory muscle use Cardiovascular: S1, S2, No murmur Abdomen/GI:Soft, Non tender, Bowel sounds present Extremities/Musculoskeletal:normal inspection, RLE venous stasis changes, Mild edema Neurologic/Psych:Alert, awake, grossly no focal neurological deficits, +Dementia Skin: normal color, warm Results & Data Results & Data ([facility]) Vital Signs (Past 12 Hours) Vital Signs Temp Pulse Resp BP Pulse Ox 05/01/22 15:25 36.8 C 73 16 146/72 H 96 05/01/22 07:56 36.6 C 68 16 141/88 H 98
[2022-05-01] MEDS: ROSUVASTATIN CALCIUM 10 MG TAB PO SCH (20:05)
[2022-05-01] MEDS: DOXAZosin MESYLATE TAB 2 MG TAB PO SCH (20:05)
[2022-05-02] MEDS: LEVOTHYROXINE SODIUM 75 MCG TABLET PO SCH (06:16)
[2022-05-02] MEDS: APIXABAN 5 MG TABLET PO SCH ×2 (11:39→20:41)
[2022-05-02] MEDS: amLODIPine BESYLATE 5 MG TAB PO SCH ×2 (11:39→11:53)
[2022-05-02] MEDS: FLUoxetine HCL 10 MG CAP PO SCH ×2 (11:39→11:53)
[2022-05-02] MEDS: QUEtiapine FUMARATE 25 MG TABLET PO PRN ×2 (11:53→20:41)
[2022-05-02 12:47] LABS: Hematocrit (blood only) 38.5 % (42-52); Hemoglobin 12.8 g/dL (14.0-18.0); Mean Corpuscular Hemoglobin 32.5 pg (25-34); Mean Corpuscular Hgb Conc 33.2 g/dL (32-36); Mean Corpuscular Volume 97.7 fL (80-100); Mean Platelet Volume 11.1 fL (7.4-10.4); Platelet Count 204 K/uL (130-400); RDW Coefficient of Variation 14.8 % (11.5-14.5); RDW Standard Deviation 52.9 fL (36.4-46.3); Red Blood Count 3.94 M/uL (4.7-6.1); White Blood Count 33.06 K/uL (4.8-10.8)
[2022-05-02 13:01] LABS: BUN Creatinine Ratio 26.4 (10-20); Calcium 9.5 mg/dl (8.5-10.1); Creatinine Clr Calc Pharmacy 57.7 ml/min; Est GFR (African American) 76.4 ml/min; Potassium 3.9 mmol/L (3.5-5.1)
[2022-05-02 13:10] LABS: Basophils # (auto) 0.05 K/uL (0-0.2); Basophils % (auto) 0.2 %; Eosinophils # (auto) 0.05 K/uL (0-0.5); Eosinophils % (auto) 0.2 %; Immature Granulocytes # (auto) 0.07 K/uL (0.00-0.02); Immature Granulocytes % (auto) 0.2 %; Lymphocytes # (auto) 27.47 K/uL (1.2-3.4); Lymphocytes % (auto) 83.1 %; Monocytes # (auto) 0.81 K/uL (0.11-0.59); Monocytes % (auto) 2.5 %; Neutrophils # (auto) 4.61 K/uL (1.4-6.5); Neutrophils % (auto) 13.8 %; RBC Morphology Unremarkable
--- NOTE | 2022-05-02 17:39 | Hospitalist Progress Note ---
Date of Service May 02, 2022 Assessment & Plan (1) Delirium: Plan: Alzheimer dementia with behavioral disturbance Delirium Progression of dementia Suicidality H/O traumatic brain injury --CT head:No acute intracranial hemorrhage, midline shift, intracranial mass, hydrocephalus, territorial ischemia or abnormal extra-axial collection. Metallic plate is again noted involving the left frontal bone. Postoperative changes of the right parietal calvarium remonstrated. Moderate within the frontal lobes, left greater than right. Surgical clips are again noted adjacent to the falx cerebri. 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 Involutional changes with ex vacuo ventriculomegaly. No acute calvarial fracture. Mild polypoid mucosal thickening of the right maxillary sinus. The mastoid air cells are clear. --No obvious source of Infection Delirium precautions Continue fluoxetine Started on quetiapine as needed for agitation IM Zyprexa PRN Appreciate psychiatry input Will need placement Cannot sign out AMA Melatonin 3 mg HS Plan to discharge when placement available Continue current management Thoracic aortic dilatation Chronic condition Chest x-ray suggestive of possible increase in size Discussed with patient's -POA, given multiple comorbidities, recommends no further investigations Chronic diastolic heart failure Euvolemic Monitor volume status P.A fib H/O DVT Currently in Sinus On Eliquis CAD HTN Hyperlipidemia Continue home medications Hypothyroidism Normal TSH Continue levothyroxine ILD CLL Past Tobacco use Follows with Oncology in [place] Currently not on treatment Chronic Anemia Monitor CBC DVT Px On Eliquis Code Status DNI/DNR Admission and Anticipated Discharge Date Admission Date: April 28, 2022 Subjective Patient is seen and examined at bedside Poor historian due to dementia Agitated and combative this morning but later present Reports mild headache Would not answer to most questions Review of Systems Review of Systems: All systems reviewed & are unremarkable except as noted in Subjective Physical Exam Physical Exam: Physical Exam: Vitals signs as noted above General Appearance:Chronic ill appearing, no apparent distress Head: normocephalic, Atraumatic Eyes: normal inspection, EOMI Neck: supple, Trachea midline Respiratory/Chest: Normal breath sounds, CTA, No accessory muscle use Cardiovascular: S1, S2, No murmur Abdomen/GI:Soft, Non tender, Bowel sounds present Extremities/Musculoskeletal:normal inspection, RLE venous stasis changes, Mild edema Neurologic/Psych:Alert, awake, grossly no focal neurological deficits, +Dementia Skin: normal color, warm Results & Data Results & Data ([facility]) Vital Signs (Past 12 Hours) Vital Signs Temp Pulse Resp BP Pulse Ox 05/02/22 16:07 36.5 C 61 14 156/61 H 93 Laboratory Results Short CBC 05/02/22 Range/Units 12:10 WBC 33.06 H* (4.8-10.8) K/uL Hgb 12.8 L (14.0-18.0) g/dL Hct 38.5 L (42-52) % Plt Count 204 (130-400) K/uL BMP 05/02/22 12:10 Sodium 145 Potassium 3.9 Chloride 112 H Carbon Dioxide 26 BUN 28 H Creatinine 1.06 Glucose 91 Calcium 9.5
[2022-05-02] MEDS: MELATONIN 3 MG TAB PO SCH (20:40)
[2022-05-02] MEDS: DOXAZosin MESYLATE TAB 2 MG TAB PO SCH (20:40)
[2022-05-02] MEDS: ROSUVASTATIN CALCIUM 10 MG TAB PO SCH (20:40)
[2022-05-03] MEDS: LEVOTHYROXINE SODIUM 75 MCG TABLET PO SCH (05:43)
[2022-05-03] MEDS: amLODIPine BESYLATE 5 MG TAB PO SCH (09:16)
[2022-05-03] MEDS: FLUoxetine HCL 10 MG CAP PO SCH (09:17)
[2022-05-03] MEDS: APIXABAN 5 MG TABLET PO SCH ×2 (09:17→20:47)
[2022-05-03] MEDS: ACETAMINOPHEN 325 MG TAB PO PRN ×2 (09:20→20:46)
[2022-05-03] MEDS: QUEtiapine FUMARATE 25 MG TABLET PO PRN (11:14)
--- NOTE | 2022-05-03 14:15 | Communication Note ---
Date of Service: May 03, 2022 Psychiatry Brief Contact note: Stopped by to see patient he was sleeping and given periods of agitation it was deemed non-beneficial to wake him. Per chart review he had a period of agitation on the evening on 05/01/22 into 05/02/22 requiring restraints and IM zyprexa was given on 05/01/22 and on 05/02/22 and 05/03/22 received po seroquel prn with seemingly good benefit. No agitation so far today per notes. A/P: Discussed with hospitalist provider option to consider scheduled seroquel 12.5 mg BID if agitation re-occurs or persists as this could help to reduce or avoid future episodes of agitation and scheduled medications are more easily able to be administered in the outpatient setting particularly in the senior care/memory care facility setting.
--- NOTE | 2022-05-03 16:33 | Hospitalist Progress Note ---
Date of Service May 03, 2022 Assessment & Plan (1) Delirium: Plan: Alzheimer dementia with behavioral disturbance Delirium Progression of dementia Suicidality H/O traumatic brain injury --CT head:No acute intracranial hemorrhage, midline shift, intracranial mass, hydrocephalus, territorial ischemia or abnormal extra-axial collection. Metallic plate is again noted involving the left frontal bone. Postoperative changes of the right parietal calvarium remonstrated. Moderate within the frontal lobes, left greater than right. Surgical clips are again noted adjacent to the falx cerebri. 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 Involutional changes with ex vacuo ventriculomegaly. No acute calvarial fracture. Mild polypoid mucosal thickening of the right maxillary sinus. The mastoid air cells are clear. --No obvious source of Infection Delirium precautions Continue fluoxetine Started on quetiapine as needed for agitation IM Zyprexa PRN Discussed with psych today. Seem to be requiring prn seroquel over the past 24h. Change seroquel to 12.5mg bid scheduled and monitor Will need placement Cannot sign out AMA Melatonin 3 mg HS Plan to discharge when placement available Thoracic aortic dilatation Chronic condition Chest x-ray suggestive of possible increase in size Dr Mishra had discussed with patient's -POA, given multiple comorbidities, recommends no further investigations Chronic diastolic heart failure Euvolemic Monitor volume status P.A fib H/O DVT Currently in Sinus On Eliquis CAD HTN Hyperlipidemia Continue home medications Hypothyroidism Normal TSH Continue levothyroxine ILD CLL Past Tobacco use Follows with Oncology in [place] Currently not on treatment Chronic Anemia Monitor CBC DVT Px On Eliquis Code Status DNI/DNR Admission and Anticipated Discharge Date Admission Date: April 28, 2022 Subjective Patient seen and examined Patient currently calm, alert and oriented to person, knows he is in a hospital but not name, not oriented to time Occasionally answers questions. Other times, refuses to answer. Denied any chest pain, cough or shortness of breath Limited ROS due to patient not answering occasionally and dementia Physical Exam Constitutional: + well hydrated; no acute distress Eyes: PERRL, conjunctivae normal, anicteric sclerae ENMT: external ear and nose normal, oropharynx normal Respiratory: normal respiratory effort, lungs clear to auscultation Cardiovascular: Rate/Rhythm: regular rate and regular rhythm S1 S2 Gastrointestinal (Abdomen): normal bowel sounds, soft, nontender, no hepatosplenomegaly Musculoskeletal: Trace pedal edema. Right LE has chronic stasis changes Neurologic: Alert awake, oriented to person knows he is in a hospital but not name, not oriented to time. Limited exam due to poor cooperation. Memory deficits Results & Data Results & Data ([facility]) Vital Signs (Past 12 Hours) Vital Signs Temp Pulse Resp BP Pulse Ox 05/03/22 15:04 36.7 C 60 16 130/74 94 05/03/22 08:16 36.6 C 65 16 155/73 H 94
[2022-05-03] MEDS: MELATONIN 3 MG TAB PO SCH (20:47)
[2022-05-03] MEDS: QUEtiapine FUMARATE 25 MG TABLET PO SCH (20:47)
[2022-05-03] MEDS: ROSUVASTATIN CALCIUM 10 MG TAB PO SCH (20:48)
[2022-05-03] MEDS: DOXAZosin MESYLATE TAB 2 MG TAB PO SCH (20:48)
[2022-05-04] MEDS: LEVOTHYROXINE SODIUM 75 MCG TABLET PO SCH (05:36)
[2022-05-04] MEDS: FLUoxetine HCL 10 MG CAP PO SCH (09:05)
[2022-05-04] MEDS: APIXABAN 5 MG TABLET PO SCH ×2 (09:05→20:03)
[2022-05-04] MEDS: QUEtiapine FUMARATE 25 MG TABLET PO SCH ×2 (09:05→20:06)
[2022-05-04] MEDS: amLODIPine BESYLATE 5 MG TAB PO SCH (09:05)
[2022-05-04 11:17] LABS: BUN Creatinine Ratio 29.4 (10-20); Est GFR (African American) 80.1 ml/min; Est GFR (Non-African American) 69.1 ml/min; Potassium 3.7 mmol/L (3.5-5.1)
[2022-05-04 11:26] LABS: Hematocrit (blood only) 37.5 % (42-52); Hemoglobin 12.3 g/dL (14.0-18.0); Mean Corpuscular Hemoglobin 33.2 pg (25-34); Mean Corpuscular Hgb Conc 32.8 g/dL (32-36); Mean Corpuscular Volume 101.1 fL (80-100); Mean Platelet Volume 11.5 fL (7.4-10.4); Platelet Count 189 K/uL (130-400); RDW Coefficient of Variation 14.8 % (11.5-14.5); RDW Standard Deviation 54.6 fL (36.4-46.3); Red Blood Count 3.71 M/uL (4.7-6.1); White Blood Count 36.74 K/uL (4.8-10.8)
[2022-05-04 12:17] LABS: Basophils # (auto) 0.07 K/uL (0-0.2); Basophils % (auto) 0.2 %; Eosinophils % (auto) 0.3 %; Immature Granulocytes # (auto) 0.06 K/uL (0.00-0.02); Immature Granulocytes % (auto) 0.2 %; Lymphocytes # (auto) 32.19 K/uL (1.2-3.4); Lymphocytes % (auto) 87.6 %; Monocytes # (auto) 0.57 K/uL (0.11-0.59); Monocytes % (auto) 1.6 %; Neutrophils # (auto) 3.75 K/uL (1.4-6.5); Neutrophils % (auto) 10.1 %; Smudge Cells Present
--- NOTE | 2022-05-04 17:01 | Hospitalist Progress Note ---
Date of Service May 04, 2022 Assessment & Plan (1) Delirium: Plan: Alzheimer dementia with behavioral disturbance Delirium Progression of dementia Suicidality H/O traumatic brain injury --CT head:No acute intracranial hemorrhage, midline shift, intracranial mass, hydrocephalus, territorial ischemia or abnormal extra-axial collection. Metallic plate is again noted involving the left frontal bone. Postoperative changes of the right parietal calvarium remonstrated. Moderate within the frontal lobes, left greater than right. Surgical clips are again noted adjacent to the falx cerebri. 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 Involutional changes with ex vacuo ventriculomegaly. No acute calvarial fracture. Mild polypoid mucosal thickening of the right maxillary sinus. The mastoid air cells are clear. --No obvious source of Infection Delirium precautions Continue fluoxetine Started on quetiapine as needed for agitation IM Zyprexa PRN Continue seroquel to 12.5mg bid scheduled and monitor Will need placement Cannot sign out AMA Melatonin 3 mg HS Plan to discharge when placement available Thoracic aortic dilatation Chronic condition Chest x-ray suggestive of possible increase in size Dr Mishra had discussed with patient's -POA, given multiple comorbidities, recommends no further investigations Chronic diastolic heart failure Euvolemic Monitor volume status P.A fib H/O DVT Currently in Sinus On Eliquis CAD HTN Hyperlipidemia Continue home medications Hypothyroidism Normal TSH Continue levothyroxine ILD CLL Past Tobacco use Follows with Oncology in [place] Currently not on treatment Chronic Anemia Monitor CBC DVT Px On Eliquis Code Status DNI/DNR CM working on placement Admission and Anticipated Discharge Date Admission Date: April 28, 2022 Subjective Patient seen and examined Very poor historian RN reports no concerns so far today Patient cooperative Limited ROS due to dementia Physical Exam Constitutional: + well hydrated; no acute distress Eyes: PERRL, conjunctivae normal, anicteric sclerae ENMT: external ear and nose normal, oropharynx normal Respiratory: normal respiratory effort, lungs clear to auscultation Cardiovascular: Rate/Rhythm: regular rate and regular rhythm S1 S2 Gastrointestinal (Abdomen): normal bowel sounds, soft, nontender, no hepatosplenomegaly Musculoskeletal: Trace pedal edema. Right LE has chronic stasis changes Neurologic: Alert and oriented to person only. Cooperative. Results & Data Results & Data ([facility]) Vital Signs (Past 12 Hours) Vital Signs Temp Pulse Resp BP Pulse Ox 05/04/22 15:53 36.8 C 73 16 145/70 H 96 05/04/22 07:56 36.6 C 65 16 125/74 95 Laboratory Results Abnormal lab results 05/04/22 05/04/22 Range/Units 10:30 10:30 WBC 36.74 H* (4.8-10.8) K/uL RBC 3.71 L (4.7-6.1) M/uL Hgb 12.3 L (14.0-18.0) g/dL Hct 37.5 L (42-52) % MCV 101.1 H (80-100) fL RDW Std Deviation 54.6 H (36.4-46.3) fL RDW Coeff of Chay 14.8 H (11.5-14.5) % MPV 11.5 H (7.4-10.4) fL Lymph # (Auto) 32.19 H (1.2-3.4) K/uL Immature Gran # (Auto) 0.06 H (0.00-0.02) K/uL Chloride 113 H (98-107) mmol/L BUN 30 H (6-23) mg/dl BUN/Creatinine Ratio 29.4 H (10-20) Glucose 127 H (70-99(Fasting)) mg/dl
[2022-05-04] MEDS: DOXAZosin MESYLATE TAB 2 MG TAB PO SCH (20:03)
[2022-05-04] MEDS: MELATONIN 3 MG TAB PO SCH (20:07)
[2022-05-04] MEDS: ROSUVASTATIN CALCIUM 10 MG TAB PO SCH (20:07)
[2022-05-05] MEDS: LEVOTHYROXINE SODIUM 75 MCG TABLET PO SCH (06:18)
[2022-05-05] MEDS: APIXABAN 5 MG TABLET PO SCH ×2 (09:30→21:09)
[2022-05-05] MEDS: amLODIPine BESYLATE 5 MG TAB PO SCH (09:30)
[2022-05-05] MEDS: FLUoxetine HCL 10 MG CAP PO SCH (09:30)
[2022-05-05] MEDS: QUEtiapine FUMARATE 25 MG TABLET PO SCH ×2 (09:30→21:11)
--- NOTE | 2022-05-05 14:14 | Hospitalist Progress Note ---
Date of Service May 05, 2022 Assessment & Plan (1) Delirium: Plan: Alzheimer dementia with behavioral disturbance Delirium Progression of dementia Suicidality H/O traumatic brain injury --CT head:No acute intracranial hemorrhage, midline shift, intracranial mass, hydrocephalus, territorial ischemia or abnormal extra-axial collection. Metallic plate is again noted involving the left frontal bone. Postoperative changes of the right parietal calvarium remonstrated. Moderate within the frontal lobes, left greater than right. Surgical clips are again noted adjacent to the falx cerebri. 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 Involutional changes with ex vacuo ventriculomegaly. No acute calvarial fracture. Mild polypoid mucosal thickening of the right maxillary sinus. The mastoid air cells are clear. --No obvious source of Infection Delirium precautions Patient seems to be controlled on seroquel Continue fluoxetine Has not required IM Zyprexa PRN in the past 48h Continue seroquel to 12.5mg bid scheduled and monitor Cannot sign out AMA Melatonin 3 mg HS CM working on placement Plan to discharge when placement available Thoracic aortic dilatation Chronic condition Chest x-ray suggestive of possible increase in size Dr Mishra had discussed with patient's -POA, given multiple comorbidities, recommends no further investigations Chronic diastolic heart failure Euvolemic Monitor volume status P.A fib H/O DVT Currently in Sinus On Eliquis CAD HTN Hyperlipidemia Continue home medications Hypothyroidism Normal TSH Continue levothyroxine ILD CLL Past Tobacco use Follows with Oncology in [place] Currently not on treatment Chronic Anemia Monitor CBC DVT Px On Eliquis Code Status DNI/DNR CM working on placement. CM reported patient will need booster and confirmed ok with COVID vaccine ordered Admission and Anticipated Discharge Date Admission Date: April 28, 2022 Subjective Patient seen and examined Very poor historian Patient is awake and alert He is cooperative. Occasionally answers questions Limited ROS due to dementia Physical Exam Constitutional: + well hydrated; no acute distress Eyes: PERRL, conjunctivae normal, anicteric sclerae ENMT: external ear and nose normal, oropharynx normal Respiratory: normal respiratory effort, lungs clear to auscultation Cardiovascular: Rate/Rhythm: regular rate and regular rhythm S1 S2 Gastrointestinal (Abdomen): normal bowel sounds, soft, nontender, no hepatosplenomegaly Musculoskeletal: Trace pedal edema. Right LE has chronic stasis changes Neurologic: Alert and oriented to person only. Cooperative. Results & Data Results & Data ([facility]) Vital Signs (Past 12 Hours) Vital Signs Temp Pulse Resp BP Pulse Ox 05/05/22 08:45 36.6 C 71 16 179/83 H 93
[2022-05-05] MEDS ORDERED: COVID-19 VACC, TRIS(PFIZER)/PF 30 MCG/0.3 ML VIAL IM ONE (16:00)
[2022-05-05] MEDS: MELATONIN 3 MG TAB PO SCH (21:09)
[2022-05-05] MEDS: DOXAZosin MESYLATE TAB 2 MG TAB PO SCH (21:10)
[2022-05-05] MEDS: ROSUVASTATIN CALCIUM 10 MG TAB PO SCH (21:12)
[2022-05-06] MEDS: LEVOTHYROXINE SODIUM 75 MCG TABLET PO SCH (05:58)
[2022-05-06] MEDS: FLUoxetine HCL 10 MG CAP PO SCH (08:08)
[2022-05-06] MEDS: APIXABAN 5 MG TABLET PO SCH ×2 (08:08→21:55)
[2022-05-06] MEDS: amLODIPine BESYLATE 5 MG TAB PO SCH (08:08)
[2022-05-06] MEDS: QUEtiapine FUMARATE 25 MG TABLET PO SCH ×2 (08:09→21:55)
--- NOTE | 2022-05-06 11:43 | Hospitalist Progress Note ---
Date of Service May 06, 2022 Assessment & Plan (1) Delirium: Plan: Alzheimer dementia with behavioral disturbance Delirium Progression of dementia Suicidality H/O traumatic brain injury --CT head:No acute intracranial hemorrhage, midline shift, intracranial mass, hydrocephalus, territorial ischemia or abnormal extra-axial collection. Metallic plate is again noted involving the left frontal bone. Postoperative changes of the right parietal calvarium remonstrated. Moderate within the frontal lobes, left greater than right. Surgical clips are again noted adjacent to the falx cerebri. 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 Involutional changes with ex vacuo ventriculomegaly. No acute calvarial fracture. Mild polypoid mucosal thickening of the right maxillary sinus. The mastoid air cells are clear. --No obvious source of Infection Delirium precautions Patient seems to be controlled on seroquel Continue fluoxetine Has not required IM Zyprexa PRN for sometime Continue seroquel to 12.5mg bid scheduled and monitor Cannot sign out AMA Melatonin 3 mg HS CM working on placement Plan to discharge when placement available Thoracic aortic dilatation Chronic condition Chest x-ray suggestive of possible increase in size Dr Mishra had discussed with patient's -POA, given multiple comorbidities, recommends no further investigations Chronic diastolic heart failure Euvolemic Monitor volume status P.A fib H/O DVT Currently in Sinus On Eliquis CAD HTN Hyperlipidemia Continue home medications Hypothyroidism Normal TSH Continue levothyroxine ILD CLL Past Tobacco use Follows with Oncology in [place] Currently not on treatment Chronic Anemia Monitor CBC DVT Px On Eliquis Code Status DNI/DNR CM working on placement. Admission and Anticipated Discharge Date Admission Date: April 28, 2022 Subjective Patient seen and examined Limited ROS due to dementia Physical Exam Constitutional: + well hydrated; no acute distress Eyes: PERRL, conjunctivae normal, anicteric sclerae ENMT: external ear and nose normal, oropharynx normal Respiratory: normal respiratory effort, lungs clear to auscultation Cardiovascular: Rate/Rhythm: regular rate and regular rhythm S1 S2 Gastrointestinal (Abdomen): normal bowel sounds, soft, nontender, no hepatosplenomegaly Musculoskeletal: Trace pedal edema. Right LE has chronic stasis changes Neurologic: Alert. Not oriented. Cooperative but not answering questions today Results & Data Results & Data ([facility]) Vital Signs (Past 12 Hours) Vital Signs Temp Pulse Pulse Resp BP BP Pulse Ox 05/06/22 07:40 36.6 C 59 L 20 141/69 H 94 05/06/22 01:26 36.6 C 61 18 162/69 H 94
[2022-05-06] MEDS: ROSUVASTATIN CALCIUM 10 MG TAB PO SCH (21:55)
[2022-05-06] MEDS: MELATONIN 3 MG TAB PO SCH (21:55)
[2022-05-06] MEDS: DOXAZosin MESYLATE TAB 2 MG TAB PO SCH (21:55)
[2022-05-07] MEDS: LEVOTHYROXINE SODIUM 75 MCG TABLET PO SCH (06:09)
[2022-05-07] MEDS: amLODIPine BESYLATE 5 MG TAB PO SCH (09:35)
[2022-05-07] MEDS: QUEtiapine FUMARATE 25 MG TABLET PO SCH ×2 (09:36→20:51)
[2022-05-07] MEDS: APIXABAN 5 MG TABLET PO SCH ×2 (09:36→20:50)
[2022-05-07] MEDS: FLUoxetine HCL 10 MG CAP PO SCH (09:36)
--- NOTE | 2022-05-07 13:27 | Hospitalist Progress Note ---
Date of Service May 07, 2022 Assessment & Plan (1) Delirium: Plan: Alzheimer dementia with behavioral disturbance Delirium Progression of dementia Suicidality H/O traumatic brain injury --CT head:No acute intracranial hemorrhage, midline shift, intracranial mass, hydrocephalus, territorial ischemia or abnormal extra-axial collection. Metallic plate is again noted involving the left frontal bone. Postoperative changes of the right parietal calvarium remonstrated. Moderate within the frontal lobes, left greater than right. Surgical clips are again noted adjacent to the falx cerebri. 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 Involutional changes with ex vacuo ventriculomegaly. No acute calvarial fracture. Mild polypoid mucosal thickening of the right maxillary sinus. The mastoid air cells are clear. --No obvious source of Infection Delirium precautions Patient seems to be controlled on seroquel Continue fluoxetine Has not required IM Zyprexa PRN for sometime Continue seroquel to 12.5mg bid scheduled and monitor Cannot sign out AMA Melatonin 3 mg HS CM working on placement Plan to discharge when placement available Thoracic aortic dilatation Chronic condition Chest x-ray suggestive of possible increase in size Dr Mishra had discussed with patient's -POA, given multiple comorbidities, recommends no further investigations Chronic diastolic heart failure Euvolemic Monitor volume status P.A fib H/O DVT Currently in Sinus On Eliquis CAD HTN Hyperlipidemia Continue home medications Hypothyroidism Normal TSH Continue levothyroxine ILD CLL Past Tobacco use Follows with Oncology in [place] Currently not on treatment Chronic Anemia Monitor CBC DVT Px On Eliquis Code Status DNI/DNR CM working on placement. Admission and Anticipated Discharge Date Admission Date: April 28, 2022 Subjective Patient seen and examined Sitting eating lunch Alert and oriented to person only Limited ROS due to dementia Physical Exam Constitutional: + well hydrated; no acute distress Eyes: PERRL, conjunctivae normal, anicteric sclerae ENMT: external ear and nose normal, oropharynx normal Respiratory: normal respiratory effort, lungs clear to auscultation Cardiovascular: Rate/Rhythm: regular rate and regular rhythm S1 S2 Gastrointestinal (Abdomen): normal bowel sounds, soft, nontender, no hepatosplenomegaly Musculoskeletal: Trace pedal edema. Right LE has chronic stasis changes Neurologic: PERRL, EOMI Alert and oriented to person only Results & Data Results & Data ([facility]) Vital Signs (Past 12 Hours) Vital Signs Temp Pulse Resp BP Pulse Ox 06/12/22 07:52 37.1 C 84 18 120/62 95
[2022-05-07] MEDS: MELATONIN 3 MG TAB PO SCH (20:50)
[2022-05-07] MEDS: DOXAZosin MESYLATE TAB 2 MG TAB PO SCH (20:52)
[2022-05-07] MEDS: ROSUVASTATIN CALCIUM 10 MG TAB PO SCH (20:52)
[2022-05-08] MEDS: LEVOTHYROXINE SODIUM 75 MCG TABLET PO SCH (05:37)
[2022-05-08] MEDS: FLUoxetine HCL 10 MG CAP PO SCH (09:12)
[2022-05-08] MEDS: APIXABAN 5 MG TABLET PO SCH ×2 (09:12→20:02)
[2022-05-08 09:13] LABS: Hematocrit (blood only) 37.5 % (42-52); Hemoglobin 12.5 g/dL (14.0-18.0); Mean Corpuscular Hemoglobin 32.9 pg (25-34); Mean Corpuscular Hgb Conc 33.3 g/dL (32-36); Mean Corpuscular Volume 98.7 fL (80-100); Mean Platelet Volume 11.6 fL (7.4-10.4); Platelet Count 153 K/uL (130-400); RDW Coefficient of Variation 14.9 % (11.5-14.5); RDW Standard Deviation 53.6 fL (36.4-46.3); White Blood Count 28.98 K/uL (4.8-10.8)
[2022-05-08] MEDS: QUEtiapine FUMARATE 25 MG TABLET PO SCH ×2 (09:13→20:02)
[2022-05-08] MEDS: amLODIPine BESYLATE 5 MG TAB PO SCH (09:13)
[2022-05-08 09:41] LABS: BUN Creatinine Ratio 23.4 (10-20); Creatinine Clr Calc Pharmacy 57.2 ml/min; Est GFR (African American) 75.6 ml/min; Est GFR (Non-African American) 65.2 ml/min; Potassium 4.1 mmol/L (3.5-5.1)
--- NOTE | 2022-05-08 13:40 | Hospitalist Progress Note ---
Date of Service May 08, 2022 Assessment & Plan (1) Delirium: Plan: Alzheimer dementia with behavioral disturbance Delirium Progression of dementia Suicidality H/O traumatic brain injury --CT head:No acute intracranial hemorrhage, midline shift, intracranial mass, hydrocephalus, territorial ischemia or abnormal extra-axial collection. Metallic plate is again noted involving the left frontal bone. Postoperative changes of the right parietal calvarium remonstrated. Moderate within the frontal lobes, left greater than right. Surgical clips are again noted adjacent to the falx cerebri. 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 Involutional changes with ex vacuo ventriculomegaly. No acute calvarial fracture. Mild polypoid mucosal thickening of the right maxillary sinus. The mastoid air cells are clear. --No obvious source of Infection Delirium precautions Patient seems to be controlled on seroquel Continue fluoxetine Has not required IM Zyprexa PRN for sometime Continue seroquel to 12.5mg bid scheduled and monitor Cannot sign out AMA Melatonin 3 mg HS CM working on placement Plan to discharge when placement available Thoracic aortic dilatation Chronic condition Chest x-ray suggestive of possible increase in size Dr Mishra had discussed with patient's -POA, given multiple comorbidities, recommends no further investigations Chronic diastolic heart failure Euvolemic Monitor volume status P.A fib H/O DVT Currently in Sinus On Eliquis CAD HTN Hyperlipidemia Continue home medications Hypothyroidism Normal TSH Continue levothyroxine ILD CLL Past Tobacco use Follows with Oncology in [place] Currently not on treatment Chronic Anemia Monitor CBC DVT Px On Eliquis Code Status DNI/DNR CM working on placement. Admission and Anticipated Discharge Date Admission Date: April 28, 2022 Subjective Patient seen and examined Alert and oriented to person only Limited ROS due to dementia Physical Exam Constitutional: + well hydrated; no acute distress Eyes: PERRL, conjunctivae normal, anicteric sclerae ENMT: external ear and nose normal, oropharynx normal Respiratory: normal respiratory effort, lungs clear to auscultation Cardiovascular: Rate/Rhythm: regular rate and regular rhythm S1 S2 Gastrointestinal (Abdomen): normal bowel sounds, soft, nontender, no hepatosplenomegaly Musculoskeletal: Trace pedal edema Neurologic: Alert and oriented to person only Results & Data Results & [facility] ([facility]) Vital Signs (Past 12 Hours) Vital Signs Temp Pulse Resp BP Pulse Ox 05/08/22 07:15 36.8 C 68 18 118/67 95 Laboratory Results Abnormal lab results 05/08/22 05/08/22 Range/Units 08:32 08:32 WBC 28.98 H (4.8-10.8) K/uL RBC 3.80 L (4.7-6.1) M/uL Hgb 12.5 L (14.0-18.0) g/dL Hct 37.5 L (42-52) % RDW Std Deviation 53.6 H (36.4-46.3) fL RDW Coeff of Chay 14.9 H (11.5-14.5) % MPV 11.6 H (7.4-10.4) fL Chloride 109 H (98-107) mmol/L BUN 25 H (6-23) mg/dl BUN/Creatinine Ratio 23.4 H (10-20)
[2022-05-08] MEDS: ACETAMINOPHEN 325 MG TAB PO PRN (16:41)
[2022-05-08] MEDS: DOXAZosin MESYLATE TAB 2 MG TAB PO SCH (20:03)
[2022-05-08] MEDS: MELATONIN 3 MG TAB PO SCH (20:03)
[2022-05-08] MEDS: ROSUVASTATIN CALCIUM 10 MG TAB PO SCH (20:03)
[2022-05-09] MEDS: LEVOTHYROXINE SODIUM 75 MCG TABLET PO SCH (06:28)
[2022-05-09] MEDS: amLODIPine BESYLATE 5 MG TAB PO SCH (09:01)
[2022-05-09] MEDS: FLUoxetine HCL 10 MG CAP PO SCH (09:02)
[2022-05-09] MEDS: QUEtiapine FUMARATE 25 MG TABLET PO SCH ×2 (09:02→21:08)
[2022-05-09] MEDS: APIXABAN 5 MG TABLET PO SCH ×2 (09:02→21:08)
--- NOTE | 2022-05-09 17:00 | Hospitalist Progress Note ---
Date of Service May 09, 2022 Assessment & Plan (1) Delirium: Plan: Alzheimer dementia with behavioral disturbance Delirium Progression of dementia Suicidality H/O traumatic brain injury --CT head:No acute intracranial hemorrhage, midline shift, intracranial mass, hydrocephalus, territorial ischemia or abnormal extra-axial collection. Metallic plate is again noted involving the left frontal bone. Postoperative changes of the right parietal calvarium remonstrated. Moderate within the frontal lobes, left greater than right. Surgical clips are again noted adjacent to the falx cerebri. 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 Involutional changes with ex vacuo ventriculomegaly. No acute calvarial fracture. Mild polypoid mucosal thickening of the right maxillary sinus. The mastoid air cells are clear. --No obvious source of Infection Delirium precautions Patient seems to be controlled on seroquel Continue fluoxetine Has not required IM Zyprexa PRN for sometime Continue seroquel to 12.5mg bid scheduled and monitor Cannot sign out AMA Melatonin 3 mg HS CM working on placement Plan to discharge when placement available Thoracic aortic dilatation Chronic condition Chest x-ray suggestive of possible increase in size Dr Mishra had discussed with patient's -POA, given multiple comorbidities, recommends no further investigations Chronic diastolic heart failure Euvolemic Monitor volume status P.A fib H/O DVT Currently in Sinus On Eliquis CAD HTN Hyperlipidemia Continue home medications Hypothyroidism Normal TSH Continue levothyroxine ILD CLL Past Tobacco use Follows with Oncology in [place] Currently not on treatment Chronic Anemia Monitor CBC DVT Px On Eliquis Code Status DNI/DNR CM working on placement. Admission and Anticipated Discharge Date Admission Date: April 28, 2022 Subjective Patient seen and examined Alert and oriented to person only Limited ROS due to dementia Physical Exam Constitutional: + well hydrated; no acute distress Eyes: PERRL, conjunctivae normal, anicteric sclerae ENMT: external ear and nose normal, oropharynx normal Respiratory: normal respiratory effort, lungs clear to auscultation Cardiovascular: Rate/Rhythm: regular rate and regular rhythm S1 S2 Gastrointestinal (Abdomen): normal bowel sounds, soft, nontender, no hepatosplenomegaly Musculoskeletal: Trace pedal edema Neurologic: Alert and oriented to person only Results & Data Results & Data ([facility]) Vital Signs (Past 12 Hours) Vital Signs Temp Pulse Resp BP Pulse Ox 05/09/22 14:20 37.2 C 60 16 122/66 95 06/14/22 07:46 36.8 C 65 16 127/73 97
[2022-05-09] MEDS: ROSUVASTATIN CALCIUM 10 MG TAB PO SCH (21:08)
[2022-05-09] MEDS: DOXAZosin MESYLATE TAB 2 MG TAB PO SCH (21:08)
[2022-05-09] MEDS: MELATONIN 3 MG TAB PO SCH (21:08)
[2022-05-10] MEDS: LEVOTHYROXINE SODIUM 75 MCG TABLET PO SCH (05:50)
[2022-05-10] MEDS: FLUoxetine HCL 10 MG CAP PO SCH (08:47)
[2022-05-10] MEDS: APIXABAN 5 MG TABLET PO SCH ×2 (08:47→20:34)
[2022-05-10] MEDS: QUEtiapine FUMARATE 25 MG TABLET PO SCH ×2 (08:47→20:34)
[2022-05-10] MEDS: amLODIPine BESYLATE 5 MG TAB PO SCH (08:47)
[2022-05-10] MEDS: DOXAZosin MESYLATE TAB 2 MG TAB PO SCH (20:34)
[2022-05-10] MEDS: MELATONIN 3 MG TAB PO SCH (20:34)
[2022-05-10] MEDS: ROSUVASTATIN CALCIUM 10 MG TAB PO SCH (20:34)
--- NOTE | 2022-05-11 01:42 | Hospitalist Progress Note ---
Date of Service May 10, 2022 Assessment & Plan (1) Delirium: Plan: Alzheimer dementia with behavioral disturbance Delirium Progression of dementia Suicidality H/O traumatic brain injury --CT head:No acute intracranial hemorrhage, midline shift, intracranial mass, hydrocephalus, territorial ischemia or abnormal extra-axial collection. Metallic plate is again noted involving the left frontal bone. Postoperative changes of the right parietal calvarium remonstrated. Moderate within the frontal lobes, left greater than right. Surgical clips are again noted adjacent to the falx cerebri. 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 Involutional changes with ex vacuo ventriculomegaly. No acute calvarial fracture. Mild polypoid mucosal thickening of the right maxillary sinus. The mastoid air cells are clear. --No obvious source of Infection Delirium precautions Patient seems to be controlled on seroquel Continue fluoxetine Has not required IM Zyprexa PRN for sometime Continue seroquel to 12.5mg bid scheduled and monitor Cannot sign out AMA Melatonin 3 mg HS CM working on placement Plan to discharge when placement available Thoracic aortic dilatation Chronic condition Chest x-ray suggestive of possible increase in size Dr Mishra had discussed with patient's -POA, given multiple comorbidities, recommends no further investigations Chronic diastolic heart failure Euvolemic Monitor volume status P.A fib H/O DVT Currently in Sinus On Eliquis CAD HTN Hyperlipidemia Continue home medications Hypothyroidism Normal TSH Continue levothyroxine ILD CLL Past Tobacco use Follows with Oncology in [place] Currently not on treatment Chronic Anemia Monitor CBC DVT Px On Eliquis Code Status DNI/DNR CM working on placement. Admission and Anticipated Discharge Date Admission Date: April 28, 2022 Subjective Patient seen and examined for follow-up Lying in bed with no acute distress Calm with no aggressive behavior and follow command Review of Systems Review of Systems: All systems reviewed & are unremarkable except as noted in Subjective Physical Exam Physical Exam: General- No acute distress Head- atraumatic Eyes- PERRL, EOMI, ENT- oropharynx clear Neck- supple, no JVD Lungs- clear to auscultation Heart- regular rhythm; no murmur Abdomen- normal bowel sounds, soft, nontender Extremities- no calf tenderness Neuro- alert, PERRL, EOMI; no facial palsy; no dysarthria Skin- warm & dry Results & Data Results & Data ([facility]) Vital Signs (Past 12 Hours) Vital Signs Temp Pulse Pulse Resp BP BP Pulse Ox 05/10/22 22:24 37.0 C 76 16 111/53 L 93 05/10/22 15:28 36.9 C 74 16 121/67 94
[2022-05-11] MEDS: LEVOTHYROXINE SODIUM 75 MCG TABLET PO SCH (05:30)
[2022-05-11] MEDS: APIXABAN 5 MG TABLET PO SCH ×2 (08:25→21:00)
[2022-05-11] MEDS: FLUoxetine HCL 10 MG CAP PO SCH (08:26)
[2022-05-11] MEDS: amLODIPine BESYLATE 5 MG TAB PO SCH (08:26)
[2022-05-11] MEDS: QUEtiapine FUMARATE 25 MG TABLET PO SCH ×2 (08:26→21:00)
--- NOTE | 2022-05-11 11:43 | Communication Note ---
Date of Service: May 11, 2022 Interim progress reviewed with Dr. Aleman and liaison nurse. Dr. 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 He has since improved on Seroquel 12.5 mg BID and hasn't required IM medication for well over 1 week. He has been off of 1-on-1 for significant period of time as well and hasn't attempted to get out of bed or wander. Hospitalist notes note that he has been consistently calm. He is psychiatrically stable for discharge to SNF, there is no immediate indication for a locked unit.
[2022-05-11] MEDS: DOXAZosin MESYLATE TAB 2 MG TAB PO SCH (21:00)
[2022-05-11] MEDS: ROSUVASTATIN CALCIUM 10 MG TAB PO SCH (21:00)
[2022-05-11] MEDS: MELATONIN 3 MG TAB PO SCH (21:00)
--- NOTE | 2022-05-11 23:57 | Hospitalist Progress Note ---
Date of Service May 11, 2022 Assessment & Plan (1) Delirium: Plan: Alzheimer dementia with behavioral disturbance Delirium Progression of dementia Suicidality H/O traumatic brain injury --CT head:No acute intracranial hemorrhage, midline shift, intracranial mass, hydrocephalus, territorial ischemia or abnormal extra-axial collection. Metallic plate is again noted involving the left frontal bone. Postoperative changes of the right parietal calvarium remonstrated. Moderate within the frontal lobes, left greater than right. Surgical clips are again noted adjacent to the falx cerebri. 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 Involutional changes with ex vacuo ventriculomegaly. No acute calvarial fracture. Mild polypoid mucosal thickening of the right maxillary sinus. The mastoid air cells are clear. --No obvious source of Infection Delirium precautions Patient seems to be controlled on seroquel Continue fluoxetine Has not required IM Zyprexa PRN for sometime Continue seroquel to 12.5mg bid scheduled and monitor Cannot sign out AMA Melatonin 3 mg HS CM working on placement Plan to discharge when placement available Thoracic aortic dilatation Chronic condition Chest x-ray suggestive of possible increase in size Dr Mishra had discussed with patient's -POA, given multiple comorbidities, recommends no further investigations Chronic diastolic heart failure Euvolemic Monitor volume status P.A fib H/O DVT Currently in Sinus On Eliquis CAD HTN Hyperlipidemia Continue home medications Hypothyroidism Normal TSH Continue levothyroxine ILD CLL Past Tobacco use Follows with Oncology in [place] Currently not on treatment Chronic Anemia Monitor CBC DVT Px On Eliquis Code Status DNI/DNR CM working on placement. Admission and Anticipated Discharge Date Admission Date: April 28, 2022 Subjective Patient seen and examined for follow-up Lying in bed with no acute distress No aggressive behavior noted Review of Systems Review of Systems: All systems reviewed & are unremarkable except as noted in Subjective Physical Exam Physical Exam: General- No acute distress Head- atraumatic Eyes- PERRL, EOMI, ENT- oropharynx clear Neck- supple, no JVD Lungs- clear to auscultation Heart- regular rhythm; no murmur Abdomen- normal bowel sounds, soft, nontender Extremities- no calf tenderness Neuro- alert, PERRL, EOMI; no facial palsy; no dysarthria Skin- warm & dry Results & Data Results & Data ([facility]) Vital Signs (Past 12 Hours) Vital Signs Temp Pulse Pulse Resp BP BP Pulse Ox 05/11/22 22:47 36.5 C 61 18 127/71 95 05/11/22 15:38 36.8 C 56 L 20 149/79 H 93
[2022-05-12] MEDS: LEVOTHYROXINE SODIUM 75 MCG TABLET PO SCH (06:01)
[2022-05-12] MEDS: APIXABAN 5 MG TABLET PO SCH ×2 (09:00→22:24)
[2022-05-12] MEDS: FLUoxetine HCL 10 MG CAP PO SCH (09:00)
[2022-05-12] MEDS: amLODIPine BESYLATE 5 MG TAB PO SCH (09:03)
[2022-05-12] MEDS: QUEtiapine FUMARATE 25 MG TABLET PO SCH ×2 (09:03→22:23)
[2022-05-12] MEDS: ROSUVASTATIN CALCIUM 10 MG TAB PO SCH (22:23)
[2022-05-12] MEDS: MELATONIN 3 MG TAB PO SCH (22:24)
[2022-05-12] MEDS: DOXAZosin MESYLATE TAB 2 MG TAB PO SCH (22:28)
--- NOTE | 2022-05-13 00:03 | Hospitalist Progress Note ---
Date of Service May 12, 2022 Assessment & Plan (1) Delirium: Plan: Alzheimer dementia with behavioral disturbance Delirium Progression of dementia Suicidality H/O traumatic brain injury --CT head:No acute intracranial hemorrhage, midline shift, intracranial mass, hydrocephalus, territorial ischemia or abnormal extra-axial collection. Metallic plate is again noted involving the left frontal bone. Postoperative changes of the right parietal calvarium remonstrated. Moderate within the frontal lobes, left greater than right. Surgical clips are again noted adjacent to the falx cerebri. 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 Involutional changes with ex vacuo ventriculomegaly. No acute calvarial fracture. Mild polypoid mucosal thickening of the right maxillary sinus. The mastoid air cells are clear. --No obvious source of Infection Delirium precautions Patient seems to be controlled on seroquel Continue fluoxetine Has not required IM Zyprexa PRN for sometime Continue seroquel to 12.5mg bid scheduled and monitor Cannot sign out AMA Melatonin 3 mg HS CM working on placement Plan to discharge when placement available Thoracic aortic dilatation Chronic condition Chest x-ray suggestive of possible increase in size Dr Mishra had discussed with patient's -POA, given multiple comorbidities, recommends no further investigations Chronic diastolic heart failure Euvolemic Monitor volume status P.A fib H/O DVT Currently in Sinus On Eliquis CAD HTN Hyperlipidemia Continue home medications Hypothyroidism Normal TSH Continue levothyroxine ILD CLL Past Tobacco use Follows with Oncology in [place] Currently not on treatment Chronic Anemia Monitor CBC DVT Px On Eliquis Code Status DNI/DNR CM working on placement. Admission and Anticipated Discharge Date Admission Date: April 28, 2022 Subjective Patient seen and examined for follow-up Lying in bed with no acute distress No aggressive behavior noted Review of Systems Review of Systems: All systems reviewed & are unremarkable except as noted in Subjective Physical Exam Physical Exam: General- No acute distress Head- atraumatic Eyes- PERRL, EOMI, ENT- oropharynx clear Neck- supple, no JVD Lungs- clear to auscultation Heart- regular rhythm; no murmur Abdomen- normal bowel sounds, soft, nontender Extremities- no calf tenderness Neuro- alert, PERRL, EOMI; no facial palsy; no dysarthria Skin- warm & dry Results & Data Results & Data ([facility]) Vital Signs (Past 12 Hours) Vital Signs Temp Pulse Pulse Resp BP BP Pulse Ox 05/12/22 22:27 36.8 C 73 16 144/61 H 93 05/12/22 22:14 36.7 C 75 14 143/72 H 93 05/12/22 15:48 36.7 C 72 16 145/69 H 96
[2022-05-13] MEDS: LEVOTHYROXINE SODIUM 75 MCG TABLET PO SCH (06:42)
[2022-05-13] MEDS: QUEtiapine FUMARATE 25 MG TABLET PO SCH ×2 (08:42→20:23)
[2022-05-13] MEDS: amLODIPine BESYLATE 5 MG TAB PO SCH (08:43)
[2022-05-13] MEDS: FLUoxetine HCL 10 MG CAP PO SCH (08:43)
[2022-05-13] MEDS: APIXABAN 5 MG TABLET PO SCH ×2 (08:43→20:23)
[2022-05-13] MEDS: DOXAZosin MESYLATE TAB 2 MG TAB PO SCH (20:23)
[2022-05-13] MEDS: MELATONIN 3 MG TAB PO SCH (20:23)
[2022-05-13] MEDS: ROSUVASTATIN CALCIUM 10 MG TAB PO SCH (20:23)
--- NOTE | 2022-05-13 23:49 | Hospitalist Progress Note ---
Date of Service May 13, 2022 Assessment & Plan (1) Delirium: Plan: Alzheimer dementia with behavioral disturbance Delirium Progression of dementia Suicidality H/O traumatic brain injury --CT head:No acute intracranial hemorrhage, midline shift, intracranial mass, hydrocephalus, territorial ischemia or abnormal extra-axial collection. Metallic plate is again noted involving the left frontal bone. Postoperative changes of the right parietal calvarium remonstrated. Moderate within the frontal lobes, left greater than right. Surgical clips are again noted adjacent to the falx cerebri. 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 Involutional changes with ex vacuo ventriculomegaly. No acute calvarial fracture. Mild polypoid mucosal thickening of the right maxillary sinus. The mastoid air cells are clear. --No obvious source of Infection Delirium precautions Patient seems to be controlled on seroquel Continue fluoxetine Has not required IM Zyprexa PRN for sometime Continue seroquel to 12.5mg bid scheduled and monitor Cannot sign out AMA Melatonin 3 mg HS CM working on placement Plan to discharge when placement available Thoracic aortic dilatation Chronic condition Chest x-ray suggestive of possible increase in size Dr Mishra had discussed with patient's -POA, given multiple comorbidities, recommends no further investigations Chronic diastolic heart failure Euvolemic Monitor volume status P.A fib H/O DVT Currently in Sinus On Eliquis CAD HTN Hyperlipidemia Continue home medications Hypothyroidism Normal TSH Continue levothyroxine ILD CLL Past Tobacco use Follows with Oncology in [place] Currently not on treatment Chronic Anemia Monitor CBC DVT Px On Eliquis Code Status DNI/DNR CM working on placement. Admission and Anticipated Discharge Date Admission Date: April 28, 2022 Subjective Patient seen and examined for follow-up Lying in bed with no acute distress No aggressive behavior noted Waiting for placement Review of Systems Review of Systems: All systems reviewed & are unremarkable except as noted in Subjective Physical Exam Physical Exam: General- No acute distress Head- atraumatic Eyes- PERRL, EOMI, ENT- oropharynx clear Neck- supple, no JVD Lungs- clear to auscultation Heart- regular rhythm; no murmur Abdomen- normal bowel sounds, soft, nontender Extremities- no calf tenderness Neuro- alert, PERRL, EOMI; no facial palsy; no dysarthria Skin- warm & dry Results & Data Results & Data ([facility]) Vital Signs (Past 12 Hours) Vital Signs Temp Pulse Resp BP Pulse Ox 05/13/22 20:15 64 155/71 H 05/13/22 15:55 36.9 C 71 16 165/84 H 97
[2022-05-14] MEDS: LEVOTHYROXINE SODIUM 75 MCG TABLET PO SCH (05:47)
[2022-05-14] MEDS: FLUoxetine HCL 10 MG CAP PO SCH (07:51)
[2022-05-14] MEDS: QUEtiapine FUMARATE 25 MG TABLET PO SCH ×2 (07:51→21:54)
[2022-05-14] MEDS: amLODIPine BESYLATE 5 MG TAB PO SCH (07:51)
[2022-05-14] MEDS: APIXABAN 5 MG TABLET PO SCH ×2 (07:57→21:54)
[2022-05-14] MEDS: ROSUVASTATIN CALCIUM 10 MG TAB PO SCH (21:54)
[2022-05-14] MEDS: MELATONIN 3 MG TAB PO SCH (21:54)
[2022-05-14] MEDS: DOXAZosin MESYLATE TAB 2 MG TAB PO SCH (21:54)
--- NOTE | 2022-05-14 23:41 | Hospitalist Progress Note ---
Date of Service May 14, 2022 Assessment & Plan (1) Delirium: Plan: Alzheimer dementia with behavioral disturbance Delirium Progression of dementia Suicidality H/O traumatic brain injury --CT head:No acute intracranial hemorrhage, midline shift, intracranial mass, hydrocephalus, territorial ischemia or abnormal extra-axial collection. Metallic plate is again noted involving the left frontal bone. Postoperative changes of the right parietal calvarium remonstrated. Moderate within the frontal lobes, left greater than right. Surgical clips are again noted adjacent to the falx cerebri. 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 Involutional changes with ex vacuo ventriculomegaly. No acute calvarial fracture. Mild polypoid mucosal thickening of the right maxillary sinus. The mastoid air cells are clear. --No obvious source of Infection Delirium precautions Patient seems to be controlled on seroquel Continue fluoxetine Has not required IM Zyprexa PRN for sometime Continue seroquel to 12.5mg bid scheduled and monitor Cannot sign out AMA Melatonin 3 mg HS CM working on placement Plan to discharge when placement available Thoracic aortic dilatation Chronic condition Chest x-ray suggestive of possible increase in size Dr Mishra had discussed with patient's -POA, given multiple comorbidities, recommends no further investigations Chronic diastolic heart failure Euvolemic Monitor volume status P.A fib H/O DVT Currently in Sinus On Eliquis CAD HTN Hyperlipidemia Continue home medications Hypothyroidism Normal TSH Continue levothyroxine ILD CLL Past Tobacco use Follows with Oncology in [place] Currently not on treatment Chronic Anemia Monitor CBC DVT Px On Eliquis Code Status DNI/DNR CM working on placement. Admission and Anticipated Discharge Date Admission Date: April 28, 2022 Subjective Patient seen and examined for follow-up Lying in bed with no acute distress No aggressive behavior noted Review of Systems Review of Systems: All systems reviewed & are unremarkable except as noted in Subjective Physical Exam Physical Exam: General- No acute distress Head- atraumatic Eyes- PERRL, EOMI, ENT- oropharynx clear Neck- supple, no JVD Lungs- clear to auscultation Heart- regular rhythm; no murmur Abdomen- normal bowel sounds, soft, nontender Extremities- no calf tenderness Neuro- alert, PERRL, EOMI; no facial palsy; no dysarthria Skin- warm & dry Results & Data Results & Data ([facility]) Vital Signs (Past 12 Hours) Vital Signs Temp Pulse Pulse Resp BP Pulse Ox 06/19/22 22:00 36.8 C 58 L 18 149/67 H 95 05/14/22 15:45 36.6 C 63 16 149/68 H 96
[2022-05-15] MEDS: LEVOTHYROXINE SODIUM 75 MCG TABLET PO SCH (06:04)
[2022-05-15] MEDS: FLUoxetine HCL 10 MG CAP PO SCH (09:53)
[2022-05-15] MEDS: APIXABAN 5 MG TABLET PO SCH (09:53)
[2022-05-15] MEDS: amLODIPine BESYLATE 5 MG TAB PO SCH (09:56)
[2022-05-15] MEDS: QUEtiapine FUMARATE 25 MG TABLET PO SCH (09:56)
--- NOTE | 2022-05-15 15:01 | Discharge Summary ---
Date of Service May 15, 2022 Admission HPI Per Admitting Provider History obtained from patient, , [facility] staff, and records. Limited history from patient secondary to dementia. Medical history significant for diastolic CHF (EF 60 to 65%, TTE 2018), PAF/hx DVT on Eliquis, CAD as per records, HTN, hyperlipidemia, ILD, history traumatic brain injury, history posttraumatic seizures as per records, chronic anemia (baseline hemoglobin of 12), CLL, hypothyroidism, BPH, hx MRSA, past tobacco abuse Last confinement February 2022 for progression of dementia. Patient initially discharged to [facility] but subsequently discharged back home as per . Last month, patient readmitted at [facility] because of worsening aggressive and suicidal behavior at home as per . Patient more confused than usual the last 2 days as per [facility] staff. 1 episode of urinary incontinence with transient headache symptoms. Patient uncooperative and refusing to get dressed. Patient threatening and grabbing staff. Patient also threatened self-harm by tying a curtain tie around his neck. Patient brought to the ER for evaluation. Medical Historyas above Surgical History : Skin grafting procedures, cholecystectomy Family History : Could not be obtained secondary to dementia Personal/Social history : Past tobacco abuse, occasional EtOH intake, [facility] resident Admission Exam Per Admitting Provider GENERAL: Demented, no respiratory distress SKIN: Pallor, warm HEENT: Partial alopecia, pale palpebral conjunctivae, no ptosis, dry buccal mucosa, partially edentulous/poor dentition NECK : Supple, no tenderness CHEST : Decreased breath sounds, no tenderness HEART : RRR, no obvious murmurs ABDOMEN: Some distention, nontender EXTREMITIES : Minimal LE swelling, no LE tenderness, no other conspicuous deformities noted NEUROLOGIC : Demented, no facial asymmetry, gait and stance not assessed Principal Diagnosis Alzheimer dementia with behavioral disturbance Delirium Suicidality H/O traumatic brain injury Thoracic aortic dilatation Chronic diastolic heart failure Paroxysmal A fib H/O DVT CAD HTN Hyperlipidemia Hypothyroidism ILD CLL Chronic Anemia Discharge Exam General- No acute distress Head- atraumatic Eyes- PERRL, EOMI, ENT- oropharynx clear Neck- supple, no JVD Lungs- clear to auscultation Heart- regular rhythm; no murmur Abdomen- normal bowel sounds, soft, nontender Extremities- no calf tenderness Neuro- alert, PERRL, EOMI; no facial palsy; no dysarthria Skin- warm & dry Discharge Data Allergies Allergy/AdvReac Type Severity Reaction Status Date / Time ibuprofen Allergy Severe Hives Verified 03/04/22 19:47 Iodinated Contrast Media Allergy Intermediate HIVES Verified 03/04/22 19:47 caffeine AdvReac Severe Rash Verified 03/04/22 19:47 chocolate flavor AdvReac Unknown Unknown Verified 03/04/22 19:47 Consultations 04/27/22 22:18 ED Decision to Admit Stat 04/28/22 02:59 Consult Psychiatry Routine Ordered Studies 04/27/22 18:57 CT head/brain wo con Stat XR chest 1V portable CLINICAL HISTORY: weakness COMPARISON STUDY: Chest radiograph March 04, 2022. Chest CT May 12, 2019. FINDINGS: Exam is compromised given difficulty positioning. Cardiomegaly is noted. Apparent increase in dilatation of the thoracic aorta is noted. This could be technical. There is no evidence for pulmonary edema. No lobar consolidation. IMPRESSION: 1. Apparent increase in thoracic aortic dilatation. This is likely technical given difficulty positioning however correlation with chest pain is recommended. If indicated, CTA of the chest could be obtained. This finding will be called/faxed to ordering provider at time of dictation. 2. Cardiomegaly. No evidence for pulmonary edema. ACT 112: Negative or not required by law. Electronically signed by: Rashid Pak M.D. 04/28/2022 7:38 AM Dictated:04/28/22 0733 Transcribed: 04/28/[address] head/brain wo con CLINICAL HISTORY: 82 years-old Male with confusion. Acutely altered mental status TECHNIQUE: Multiple axial CT images of the head were obtained without contrast. A dose lowering technique was utilized adhering to the principles of ALARA. CT DOSE: 921.40 mGy.cm COMPARISON: 03/04/2022 FINDINGS: No acute intracranial hemorrhage, midline shift, intracranial mass, hydrocephalus, territorial ischemia or abnormal extra-axial collection. Metallic plate is again noted involving the left frontal bone. Postoperative changes of the right parietal calvarium redemonstrated. Moderate within the frontal lobes, left greater than right. Surgical clips are again noted adjacent to the falx cerebri. 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 Involutional changes with ex vacuo ventriculomegaly. No acute calvarial fracture. Mild polypoid mucosal thickening of the right maxillary sinus. The mastoid air cells are clear. IMPRESSION: 1. No acute intracranial abnormality. 2. Chronic findings as above. ACT 112: Negative or not required by law. The above report was generated using voice recognition software. It may contain grammatical, syntax or spelling errors. Electronically signed by: Jonel Velasquez M.D. 04/27/2022 8:32 PM Dictated:04/27/222028 Transcribed: 04/27/222028 Hospital Course (1) Delirium: Alzheimer dementia with behavioral disturbance Delirium Progression of dementia Suicidality H/O traumatic brain injury --CT head:No acute intracranial hemorrhage, midline shift, intracranial mass, hydrocephalus, territorial ischemia or abnormal extra-axial collection. Metallic plate is again noted involving the left frontal bone. Postoperative changes of the right parietal calvarium remonstrated. Moderate within the frontal lobes, left greater than right. Surgical clips are again noted adjacent to the falx cerebri. 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 Involutional changes with ex vacuo ventriculomegaly. No acute calvarial fracture. Mild polypoid mucosal thickening of the right maxillary sinus. The mastoid air cells are gonzalo r. --No obvious source of Infection Delirium precautions Patient seems to be controlled on seroquel Continue fluoxetine Has not required IM Zyprexa PRN for sometime Continue seroquel to 12.5mg bid scheduled and monitor Cannot sign out AMA Melatonin 3 mg HS CM working on placement Plan to discharge when placement available Thoracic aortic dilatation Chronic condition Chest x-ray suggestive of possible increase in size Dr Mishra had discussed with patient's -POA, given multiple comorbidities, recommends no further investigations Chronic diastolic heart failure Euvolemic Monitor volume status P.A fib H/O DVT Currently in Sinus On Eliquis CAD HTN Hyperlipidemia Continue home medications Hypothyroidism Normal TSH Continue levothyroxine ILD CLL Past Tobacco use Follows with Oncology in [place] Currently not on treatment Chronic Anemia Monitor CBC DVT Px On Eliquis Code Status DNI/DNR CM working on placement. Total Time Total Time Spent Total Time Spent (In Minutes): 35 minutes Discharge Plan Discharge Items Patient Disposition: Transfer Group Home Fac Reason For Visit: DELIRIUM, SUICIDALITY Discharge Diagnosis: Alzheimer dementia with behavioral disturbance Delirium H/O traumatic brain injury Thoracic aortic dilatation Chronic diastolic heart failure Paroxysmal A fib H/O DVT Hypertension Hyperlipidemia Hypothyroidism Chronic Anemia Condition on Discharge: Good Activity: Resume your previous activity Non-emergency contact: Primary Care Provider Call non-emergency contact if: you have any medication questions Follow-up/Referrals: Charly Conroy [Primary Care Provider] - Diet: Heart Healthy Addtl Attending Provider Instructions: Follow up with primary care provider at [facility] Continue physical and occupation therapy Continue monitor for any suicidal Fall and seizure precaution Pending Studies at Discharge: No Stand-Alone Forms: My [facility] Skilled Items Patient informed of condition?: Yes DNR: Yes Discharge Level of Care: Skilled Communicable Disease: No Discharge Prognosis: Stable Lines: None Urinary Catheter: No Medications and DC Order Prescriptions: New quetiapine 25 mg Tablet 12.5 mg PO BID 30 Days Qty: 30 RF: 0 melatonin 3 mg Tablet 3 mg PO HS 30 Days Qty: 30 RF: 0 Continued doxazosin 2 mg tablet 2 mg PO HS RF: 0 Eliquis 5 mg Tablet 5 mg PO BID Qty: 60 RF: 0 rosuvastatin [Crestor] 10 mg Tablet 10 mg PO HS Qty: 30 RF: 0 levothyroxine 75 mcg tablet 75 mcg PO DAILYBB RF: 0 fluoxetine 10 mg Tablet 10 mg PO DAILY RF: 0 amlodipine 2.5 mg Tablet 2.5 mg PO DAILY RF: 0 clotrimazole 1 % Cream 1 applic TOPICAL BID RF: 0 Nizoral A-D 1 % Shampoo 1 applic TOPICAL DIRECTED RF: 0 cholecalciferol (vitamin D3) 25 mcg (1,000 unit) Tablet 25 mcg PO DAILY RF: 0 Discontinued trazodone 50 mg tablet 50 mg PO QPM RF: 0 gabapentin 100 mg Capsule 100 mg PO HS RF: 0 Discharge Orders: Discharge Order (Routine); Ordered 05/15/22 Ordered By: Francisca Aleman Admission Data Admit Date/Time: 04/28/22 00:00 Attending Provider: Francisca Aleman Admit Provider: Ari Rendon Primary Care Provider: Charly Conroy Other Providers: Ari Rendon ; Kaylie Bailey ; Sherri Yoon ; Ericka Santacruz ; [facility] ; Gilmer Mishra ; [place] ; Lakshmi Sifuentes I.
== END 2022-05-15 16:54 | DRG 57 ==
LOC: ED 18:37 → SUATTDRO 04-28 → 3W 04-28
DX: N40.0 Benign prostatic hyperplasia without lower urinary tract symptoms; X83.8XXA Intentional self-harm by other specified means, initial encounter; I50.32 Chronic diastolic (congestive) heart failure; Z86.718 Personal history of other venous thrombosis and embolism; F02.81 Dementia in other diseases classified elsewhere, unspecified severity, with behavioral disturbance; Z88.6 Allergy status to analgesic agent; Z79.01 Long term (current) use of anticoagulants; I77.810 Thoracic aortic ectasia; I48.20 Chronic atrial fibrillation, unspecified; I10 Essential (primary) hypertension; Z91.018 Allergy to other foods; Z91.041 Radiographic dye allergy status; Z66 Do not resuscitate; I48.0 Paroxysmal atrial fibrillation; Z79.899 Other long term (current) drug therapy; E03.9 Hypothyroidism, unspecified; I25.10 Atherosclerotic heart disease of native coronary artery without angina pectoris; Z79.890 Hormone replacement therapy; Z87.820 Personal history of traumatic brain injury; C91.10 Chronic lymphocytic leukemia of B-cell type not having achieved remission; Z86.14 Personal history of Methicillin resistant Staphylococcus aureus infection; E78.5 Hyperlipidemia, unspecified; Z90.49 Acquired absence of other specified parts of digestive tract; G30.9 Alzheimer's disease, unspecified; D53.9 Nutritional anemia, unspecified; J84.9 Interstitial pulmonary disease, unspecified